=== PATIENT | female | born 1960 | race Caucasian/White ===

== ENCOUNTER 2018-07-08 07:19 | Emergency (ER) | payer SELFPAY ==
[2018-07-08] MEDS ORDERED: AMLODIPINE 5 MG TAB ONE (07:55)
[2018-07-08] MEDS ORDERED: METFORMIN HCL 500 MG TAB ONE (07:55)
--- NOTE | 2018-07-08 08:08 | RAD REPORT ---
EXAM DESCRIPTION: CT - Head Brain Wo Cont - 07/08/2018 7:57 am CLINICAL HISTORY: DIZZINESS Drowsiness, headache COMPARISON: Head Brain Wo Cont dated 06/26/2016; HEAD BRAIN W O CONTRAST dated 01/21/2008 TECHNIQUE: All CT scans are performed using dose optimization technique as appropriate and may inclu de automated exposure control or mA/KV adjustment according to patient size. FINDINGS: No intracranial hemorrhage, hydrocephalus or extra-axial fluid collection.No areas of brai n edema or evidence of midline shift. The paranasal sinuses and mastoids are clear. The calvarium is intact. IMPRESSION: No acute intracranial abnormality.
[2018-07-08 08:19] LABS: BUN Blood Urea Nitrogen 6 mg/dL (7-18); Bicarbonate 21 mmol/L (21-32); Glucose Level 321 mg/dL (74-106); Potassium 3.6 mmol/L (3.5-5.1); Sodium Level 137 mmol/L (136-145); Troponin (Emerg Dept Use Only) < 0.02 ng/mL (0.0-0.045)
[2018-07-08 08:29] LABS: Absolute Lymphocytes (CBC) 0.8 K/uL (0.7-4.9); Absolute Monocytes 0.3 K/uL (0.1-1.3); Absolute Neutrophil 1.5 K/uL (1.8-8.0); Basophils % 1.1 % (0-1.3); Eosinophils % 3.1 % (0-4.4); Hematocrit 40.2 % (36.0-45.0); Lymphocytes % 29.7 % (15.3-44.8); MCH 33.6 pg (27.0-35.0); MCV 94.1 fL (80-100); MPV 8.8 fL (7.6-11.3); Monocytes % 12.3 % (3.3-12.3); RBC Red Blood Cell Count 4.27 M/uL (3.86-4.86)
--- NOTE | 2018-07-08 08:45 | RAD REPORT ---
EXAM DESCRIPTION: RAD - Chest Single View - 07/08/2018 8:04 am CLINICAL HISTORY: MALAISE Chest pain. COMPARISON: Chest Pa And Lat (2 Views) dated 06/26/2016; CHEST SINGLE VIEW dated 10/30/2014; CHEST SIN GLE VIEW dated 10/29/2014; CHEST SINGLE VIEW dated 10/28/2014 FINDINGS: Portable technique limits examination quality. The lungs are grossly clear. The heart is normal in size. No displaced fractures.Cervical spine hardw are plate. IMPRESSION: No acute intrathoracic process suspected.
[2018-07-08 08:57] LABS: Urine Blood TRACE (NEG); Urine Glucose 3+ (NEG); Urine Protein NEGATIVE (NEG); Urine Specific Gravity 1.015 (1.005-1.030)
[2018-07-08 09:14] LABS: Blood Morphology Comment NOT SEEN (NOT SEEN); Platelet Estimate DECR; Urine White Blood Cell Casts OK
--- NOTE | 2018-07-08 09:20 | ER ---
Nurse's Notes [facility] Name: Maude Varner Age: 57 yrs Sex: Female : 1960 Arrival Date: 07/08/2018 Time: 07:21 Bed 5 Private MD: Diagnosis: Essential (primary) hypertension;Hyperglycemia, unspecified Presentation: 07/08 07:25 Presenting complaint: Patient states: frontal headache, pain to left jaw, nausea, and aa5 dizziness that began . Pt states "I think it's my blood pressure because I've been out of my Atenolol and Norvasc for about 3 weeks". Transition of care: patient was not received from another setting of care. Onset of symptoms was July 2018. Risk Assessment: Do you want to hurt yourself or someone else? Patient reports no desire to harm self or others. Initial Sepsis Screen: Does the patient meet any 2 criteria? No. Patient's initial sepsis screen is negative. Does the patient have a suspected source of infection? No. Patient's initial sepsis screen is negative. Care prior to arrival: None. 07:25 Method Of Arrival: Ambulatory aa5 07:25 Acuity: ELVIRA 2 aa5 07:32 Note Pt also reports being out of Metformin x 3 weeks ago. aa5 Triage Assessment: 07:32 Headache History: Denies prior headaches. General: Appears in no apparent distress. hj uncomfortable, Behavior is cooperative, appropriate for age, crying. Pain: Complains of pain in head Pain currently is 10 out of 10 on a pain scale. Pain began Also complains of nausea. Neuro: Level of Consciousness is awake, alert, obeys commands, Oriented to person, place, time, situation, Appropriate for age. Historical: - Allergies: 07:28 Morphine; aa5 - Home Meds: 07:37 amlodipine 10 mg tab 1 tab BID for Hypertension [Active]; atenolol 50 mg Oral tab 1 tab aa5 2 times per day [Active]; metformin 500 mg Oral tr24 1 tab twice a day for Prevention of Type 2 Diabetes Mellitus [Active]; - PMHx: 07:28 Cirrhosis; Diabetes - NIDDM; Hypertension; aa5 - PSHx: 07:28 Tubal ligation; cyst removed from wrist; Cholecystectomy; neck; aa5 - Immunization history:: Adult Immunizations up to date. - Social history:: Smoking status: Patient/guardian denies using tobacco. - Ebola Screening: : No symptoms or risks identified at this time. Screenin:32 Abuse screen: Denies threats or abuse. Denies injuries from another. Nutritional hj screening: No deficits noted. Tuberculosis screening: No symptoms or risk factors identified. Fall Risk None identified. Assessment: 07:26 General: Appears in no apparent distress. uncomfortable, Behavior is calm, cooperative, hj appropriate for age. Pain: Complains of pain in head. Neuro: Level of Consciousness is awake, alert, obeys commands, Oriented to person, place, time, situation, Appropriate for age. Cardiovascular: Capillary refill < 3 seconds Patient's skin is warm and dry. Respiratory: Airway is patent Respiratory effort is even, unlabored, Respiratory pattern is regular, symmetrical. GI: No signs and/or symptoms were reported involving the gastrointestinal system. : No signs and/or symptoms were reported regarding the genitourinary system. EENT: No signs and/or symptoms were reported regarding the EENT system. Derm: No signs and/or symptoms reported regarding the dermatologic system. Musculoskeletal: No signs and/or symptoms reported regarding the musculoskeletal system. 07:45 Reassessment: Patient and/or family updated on plan of care and expected duration. Pain hj level reassessed. Patient is alert, oriented x 3, equal unlabored respirations, skin warm/dry/pink. pt wheeled to CT:. 09:27 Reassessment: PT D/C HOME AMBULATORY, DX WITH ESSENTIAL HTN AND HYPERGLYCEMIA. bp Vital Signs: 07:28 BP 206 / 96; Pulse 98; Resp 18 S; Temp 98.8(TE); Pulse Ox 98% on R/A; Weight 74.84 kg aa5 (R); Height 5 ft. 3 in. (160.02 cm) (R); Pain 8/10; 08:00 BP 183 / 94; Pulse 85; Resp 18; Pulse Ox 100% on R/A; hj 08:15 BP 176 / 88; Pulse 87; Resp 18; Pulse Ox 99% on R/A; hj 08:18 BP 163 / 87; Pulse 90; Resp 18; Pulse Ox 99% on R/A; hj 08:57 BP 143 / 83; Pulse 90; Resp 18; Pulse Ox 99% on R/A; hj 09:15 BP 149 / 76; Pulse 95; Resp 17; Pulse Ox 97% ; bp 07:28 Body Mass Index 29.23 (74.84 kg, 160.02 cm) aa5 ED Course: 07:21 Patient arrived in ED. rg4 07:26 Triage completed. aa5 07:26 Arm band placed on. aa5 07:29 Braeden Espinoza MD is Attending Physician. gs 07:31 Papa De La Torre, ROMEO is Primary Nurse. hj 07:33 Patient has correct armband on for positive identification. Placed in gown. Bed in low hj position. Call light in reach. Side rails up X 1. Adult w/ patient. 07:53 Initial lab(s) drawn, by me, sent to lab. Inserted saline lock: 22 gauge in right hand, hj using aseptic technique. Blood collected. 07:56 CT completed. Patient tolerated procedure well. Patient moved to CT via wheelchair. Patient moved back from CT. 07:56 CT Head Brain wo Cont In Process Unspecified. EDMS 07:58 Patient moved to radiology via wheelchair. sw 07:59 X-ray completed. Patient tolerated procedure well. Patient moved back from radiology. sw 08:02 XRAY Chest (1 view) In Process Unspecified. EDMS 09:18 Vani Cheatham DO is Referral Physician. 09:26 No provider procedures requiring assistance completed. IV discontinued, intact, hj bleeding controlled, No redness/swelling at site. Pressure dressing applied. 09:27 No provider procedures requiring assistance completed. IV discontinued, intact, bp bleeding controlled, No redness/swelling at site. Pressure dressing applied. Administered Medications: 07:54 Drug: Norvasc 5 mg Route: PO; bp 08:11 Follow up: Response: No adverse reaction hj 07:54 Drug: metFORMIN 500 mg Route: PO; bp 08:11 Follow up: Response: No adverse reaction; Other hj Point of Care Testing: Blood Glucose: 07:35 Blood Glucose: 252 mg/dL; aa5 08:57 Blood Glucose: 226 mg/dL; hj Ranges: Outcome: 09:19 Discharge ordered by . gs 09:27 Discharged to home ambulatory. hj 09:27 Condition: stable 09:27 Discharge instructions given to patient, Instructed on discharge instructions, follow up and referral plans. medication usage, Demonstrated understanding of instructions, follow-up care, medications, Prescriptions given X 2. 09:27 Patient left the ED. dimitri Signatures: Dispatcher [employer] EDMS Padmini Baltazar Audri, RN RN Chante Servin Henry, RN RN hj Garcia, Rubi rg4 Braeden Espinoza MD MD gs Peltier, Brian, RN RN bp Corrections: (The following items were deleted from the chart) 08:22 08:18 BP 163 / 93; Pulse 90bpm; Resp 18bpm; Pulse Ox 99% RA; dimitri mosley
--- NOTE | 2018-07-08 09:20 | EDPHYS ---
Physician Documentation [facility] Name: Maude Varner Age: 57 yrs Sex: Female : 1960 Arrival Date: 07/08/2018 Time: 07:21 Bed 5 Private MD: ED Physician Braeden Espinoza HPI: 07/08 09:14 This 57 yrs old Female presents to ER via Ambulatory with complaints of gs Headache. 09:14 The patient complains of pain to the forehead. The patient describes the headache as gs throbbing. Onset: The symptoms/episode began/occurred 2 day(s) ago. Associated signs and symptoms: Pertinent positives: dizziness, bp elevated off meds seversl weeks. Severity of symptoms: At its worst the pain was moderate, in the emergency department the pain is unchanged. The symptoms are alleviated by nothing. the symptoms are aggravated by nothing. The patient has experienced similar episodes in the past, a few times. Historical: - Allergies: 07:28 Morphine; aa5 - Home Meds: 07:37 amlodipine 10 mg tab 1 tab BID for Hypertension [Active]; atenolol 50 mg Oral tab 1 tab aa5 2 times per day [Active]; metformin 500 mg Oral tr24 1 tab twice a day for Prevention of Type 2 Diabetes Mellitus [Active]; - PMHx: 07:28 Cirrhosis; Diabetes - NIDDM; Hypertension; aa5 - PSHx: 07:28 Tubal ligation; cyst removed from wrist; Cholecystectomy; neck; aa5 - Immunization history:: Adult Immunizations up to date. - Social history:: Smoking status: Patient/guardian denies using tobacco. - Ebola Screening: : No symptoms or risks identified at this time. ROS: 09:14 All other systems are negative. gs Exam: 09:14 Head/Face: Normocephalic, atraumatic. Eyes: Pupils equal round and reactive to light, gs extra-ocular motions intact. Lids and lashes normal. Conjunctiva and sclera are non-icteric and not injected. Cornea within normal limits. Periorbital areas with no swelling, redness, or edema. ENT: Nares patent. No nasal discharge, no septal abnormalities noted. Tympanic membranes are normal and external auditory canals are clear. Oropharynx with no redness, swelling, or masses, exudates, or evidence of obstruction, uvula midline. Mucous membranes moist. Neck: Trachea midline, no thyromegaly or masses palpated, and no cervical lymphadenopathy. Supple, full range of motion without nuchal rigidity, or vertebral point tenderness. No Meningismus. Chest/axilla: Normal chest wall appearance and motion. Nontender with no deformity. No lesions are appreciated. Cardiovascular: Regular rate and rhythm with a normal S1 and S2. No gallops, murmurs, or rubs. Normal PMI, no JVD. No pulse deficits. Respiratory: Lungs have equal breath sounds bilaterally, clear to auscultation and percussion. No rales, rhonchi or wheezes noted. No increased work of breathing, no retractions or nasal flaring. Abdomen/GI: Soft, non-tender, with normal bowel sounds. No distension or tympany. No guarding or rebound. No evidence of tenderness throughout. Back: No spinal tenderness. No costovertebral tenderness. Full range of motion. Skin: Warm, dry with normal turgor. Normal color with no rashes, no lesions, and no evidence of cellulitis. MS/ Extremity: Pulses equal, no cyanosis. Neurovascular intact. Full, normal range of motion. Neuro: Awake and alert, GCS 15, oriented to person, place, time, and situation. Cranial nerves II-XII grossly intact. Motor strength 5/5 in all extremities. Sensory grossly intact. Cerebellar exam normal. Normal gait. 09:14 Constitutional: The patient appears alert, awake. 09:14 ECG was reviewed by the Attending Physician. Vital Signs: 07:28 BP 206 / 96; Pulse 98; Resp 18 S; Temp 98.8(TE); Pulse Ox 98% on R/A; Weight 74.84 kg aa5 (R); Height 5 ft. 3 in. (160.02 cm) (R); Pain 8/10; 08:00 BP 183 / 94; Pulse 85; Resp 18; Pulse Ox 100% on R/A; hj 08:15 BP 176 / 88; Pulse 87; Resp 18; Pulse Ox 99% on R/A; hj 08:18 BP 163 / 87; Pulse 90; Resp 18; Pulse Ox 99% on R/A; hj 08:57 BP 143 / 83; Pulse 90; Resp 18; Pulse Ox 99% on R/A; hj 09:15 BP 149 / 76; Pulse 95; Resp 17; Pulse Ox 97% ; bp 07:28 Body Mass Index 29.23 (74.84 kg, 160.02 cm) aa5 MDM: 07:39 Patient medically screened. gs 09:14 Differential diagnosis: hypertensive headache, intracerebral hemorrhage, vasomotor gs headache. Data reviewed: vital signs, nurses notes. Counseling: I had a detailed discussion with the patient and/or guardian regarding: the historical points, exam findings, and any diagnostic results supporting the discharge/admit diagnosis, the presence of at least one elevated blood pressure reading (>120/80) during this emergency department visit, lab results, radiology results, the need for outpatient follow up. Response to treatment: the patient's symptoms have markedly improved after treatment, the patient's symptoms have resolved after treatment, and as a result, I will discharge patient. 07/08 07:39 Order name: Basic Metabolic Panel gs 07/08 07:39 Order name: CBC with Diff gs 07/08 07:39 Order name: Troponin (emerg Dept Use Only); Complete Time: 08:46 07/08 07:40 Order name: Basic Metabolic Panel; Complete Time: 08:46 EDMS 07/08 08:22 Order name: Urine Dipstick--Ancillary (enter results); Complete Time: 09:14 bd 07/08 08:33 Order name: CBC Smear Scan EDMS 07/08 07:39 Order name: XRAY Chest (1 view); Complete Time: 08:46 gs 07/08 07:39 Order name: EKG; Complete Time: 07:40 gs 07/08 07:39 Order name: Cardiac monitoring; Complete Time: 07:41 gs 07/08 07:39 Order name: CT Head Brain wo Cont; Complete Time: 08:46 gs 07/08 09:18 Order name: Glucose, Ancillary Testing EDMS 07/08 09:18 Order name: Glucose, Ancillary Testing EDMS 07/08 07:39 Order name: EKG - Nurse/Tech; Complete Time: 07:46 gs 07/08 07:39 Order name: IV Saline Lock; Complete Time: 07:52 gs 07/08 07:39 Order name: Labs collected and sent; Complete Time: 07:53 gs 07/08 07:39 Order name: O2 Per Protocol; Complete Time: 07:42 gs 07/08 07:39 Order name: O2 Sat Monitoring; Complete Time: 07:42 gs EC:14 Rate is 97 beats/min. Rhythm is regular. TX interval is normal. QRS interval is normal. gs T waves are Normal. No ST changes noted. Clinical impression: Abnormal EKG without significant change. Interpreted by me. Administered Medications: 07:54 Drug: Norvasc 5 mg Route: PO; bp 08:11 Follow up: Response: No adverse reaction hj 07:54 Drug: metFORMIN 500 mg Route: PO; bp 08:11 Follow up: Response: No adverse reaction; Other hj Point of Care Testing: Blood Glucose: 07:35 Blood Glucose: 252 mg/dL; aa5 08:57 Blood Glucose: 226 mg/dL; hj Ranges: Critical Glucose Levels:Adult <50 mg/dl or >400 mg/dl <40 mg/dl or >180 mg/dl Disposition: 07/08/18 09:19 Discharged to Home. Impression: Essential (primary) hypertension, Hyperglycemia, unspecified. - Condition is Stable. - Discharge Instructions: Hypertension, Managing Your Hypertension. - Prescriptions for Norvasc 5 mg Oral Tablet - take 1 tablet by ORAL route once daily; 15 tablet. Metformin 500 mg Oral Tablet - take 1 tablet by ORAL route 2 times per day . Then take 1 tablet with morning meals AND evening meals; 30 tablet. - Medication Reconciliation Form, Thank You Letter, Antibiotic Education, Prescription Opioid Use, Work release form form. - Follow up: Vani Cheatham DO; When: 2 - 3 days; Reason: Re-evaluation by your physician. Signatures: Dispatcher [employer] EDTX Laura Goldsmith RN RN [facility] Papa De La Torre RN RN Braeden Espinoza MD MD Yogi Lyon RN RN bp Corrections: (The following items were deleted from the chart) 09:27 09:19 07/08/2018 09:19 Discharged to Home. Impression: Essential (primary) hj hypertension; Hyperglycemia, unspecified. Condition is Stable. Forms are Medication Reconciliation Form, Thank You Letter, Antibiotic Education, Prescription Opioid Use. Follow up: Vani Cheatham; When: 2 - 3 days; Reason: Re-evaluation by your physician.
[2018-07-08 09:35] VITALS: TEMP 98.8
[2018-07-08 09:40] VITALS: BP 149/76; O2SAT 97
--- NOTE | 2018-07-08 10:48 | EKG ---
Test Date: 2018-07-08 Test Time: 07:41:31 Sales Solutions Representative: [place] MEASUREMENT RESULTS: Intervals: Rate: 97 DC: 150 QRSD: 88 QT: 380 QTc: 482 [place]: P: 30 DC: 150 QRS: 0 T: 21 INTERPRETIVE STATEMENTS: Normal sinus rhythm Prolonged QT Abnormal ECG Compared to ECG 07/30/2016 13:35:44 T-wave abnormality no longer present Electronically Signed On 07-08-18 10:47:15 CDT by Yogi Lowery
== END 2018-07-08 09:27 | disposition home or self-care (01) ==
LOC: ER 07:19
DX: E11.65 Type 2 diabetes mellitus with hyperglycemia (principal); I10 Essential (primary) hypertension; Z88.5 Allergy status to narcotic agent
CPT/HCPCS: 36415; 70450; 71045; 80048; 81003; 82962; 84484; 85025; 93005; 99284

== ENCOUNTER 2018-07-30 08:07 | Emergency (ER) | payer SELFPAY ==
[2018-07-30 09:12] LABS: Protime INR 1.14
[2018-07-30 09:13] LABS: Absolute Lymphocytes (CBC) 0.8 K/uL (0.7-4.9); Absolute Monocytes 0.3 K/uL (0.1-1.3); Absolute Neutrophil 1.8 K/uL (1.8-8.0); Basophils % 0.5 % (0-1.3); Eosinophils % 3.4 % (0-4.4); Hematocrit 42.9 % (36.0-45.0); Lymphocytes % 26.2 % (15.3-44.8); MCH 32.9 pg (27.0-35.0); MCV 95.9 fL (80-100); MPV 8.3 fL (7.6-11.3); RBC Red Blood Cell Count 4.47 M/uL (3.86-4.86)
--- NOTE | 2018-07-30 09:20 | RAD REPORT ---
EXAM DESCRIPTION: CT - Head Brain Wo Cont - 07/30/2018 9:02 am CLINICAL HISTORY: July 08, 2018 COMPARISON: None. TECHNIQUE: Computed axial tomography of the head was obtained. IV contrast was not requested. All CT scans are performed using dose optimization technique as appropriate and may include automated exposure control or mA/KV adjustment according to patient size. FINDINGS: An intracranial bleed is not seen . The ventricles are normal in caliber. No extra-axial fluid collection is noted. Fluid within the sinuses/ mastoids is not seen. IMPRESSION: No acute intracranial abnormality is seen. If patient's symptoms persist MRI of the bra in would be recommended.
[2018-07-30] MEDS ORDERED: ACETAMINOPHEN 500 MG TAB ONE (09:22)
[2018-07-30] MEDS ORDERED: cloNIDine HCl 0.1 MG TAB ONE (09:22)
[2018-07-30] MEDS ORDERED: NA CHLORIDE 0.9% 1,000 ML ONE (09:47)
[2018-07-30 09:59] LABS: Urine Blood 1+ (NEG); Urine Glucose 3+ (NEG); Urine Protein NEGATIVE (NEG); Urine pH 6.5 (5.0-7.0)
[2018-07-30 09:59] LABS: ALT/SGPT 39 U/L (12-78); AST/SGOT 78 U/L (15-37); Albumin 3.4 g/dL (3.4-5.0); Alkaline Phosphatase 103 U/L (45-117); BUN Blood Urea Nitrogen 8 mg/dL (7-18); Bicarbonate 23 mmol/L (21-32); Bilirubin Total 2.9 mg/dL (0.2-1.0); Glucose Level 274 mg/dL (74-106); Magnesium 2.1 mg/dL (1.8-2.4); NT PRO-BNP 19 pg/mL (<125); Potassium 3.5 mmol/L (3.5-5.1); Protein, Total 8.2 g/dL (6.4-8.2); Sodium Level 136 mmol/L (136-145); Troponin (Emerg Dept Use Only) < 0.02 ng/mL (0.0-0.045)
--- NOTE | 2018-07-30 10:31 | RAD REPORT ---
EXAM DESCRIPTION: [place] Single View07/30/2018 9:01 am CLINICAL HISTORY: Chest pain COMPARISON: July 08 2018 FINDINGS: The lungs appear clear of acute infiltrate. The heart is normal size. An old proximal lef t humeral fracture is suspected IMPRESSION: No acute abnormalities displayed
--- NOTE | 2018-07-30 11:20 | RAD REPORT ---
EXAM DESCRIPTION: US - Abdomen Exam Limited - 07/30/2018 10:47 am CLINICAL HISTORY: Abdominal pain. Elevated liver enzymes COMPARISON: August 2017 FINDINGS: A 4.1 centimeter cyst is present within the right lobe of the liver. Liver has an increase d and heterogeneous echotexture. Hepatopetal flow seen. The biliary tree is normal caliber. IMPRESSION: 4.1 centimeter hepatic cyst Increased and heterogeneous hepatic echotexture consistent with parenchymal disease
--- NOTE | 2018-07-30 12:54 | ER ---
Nurse's Notes [facility] Name: Maude Varner Age: 57 yrs Sex: Female : 1960 Arrival Date: 07/30/2018 Time: 08:09 Bed 15 Private MD: Diagnosis: Hypertensive heart disease;Headache Presentation: 07/30 08:32 Presenting complaint: Patient states: bp has been running high for past couple days, iw also has headache, left shoulder pain, radiates up to left side of neck, was recently placed on Norvasc and atenolol, took double dose of Norvasc this morning to try to bring pressure down. Transition of care: patient was not received from another setting of care. Onset of symptoms was July 29, 2018. Risk Assessment: Do you want to hurt yourself or someone else? Patient reports no desire to harm self or others. Initial Sepsis Screen: Does the patient meet any 2 criteria? No. Patient's initial sepsis screen is negative. Does the patient have a suspected source of infection? No. Patient's initial sepsis screen is negative. Care prior to arrival: None. 08:32 Method Of Arrival: Ambulatory iw 08:32 Acuity: ELVIRA 2 iw Historical: - Allergies: 08:36 Morphine; iw - Home Meds: 08:36 amlodipine 10 mg tab 1 tab BID for Hypertension [Active]; atenolol 50 mg Oral tab 1 tab iw 2 times per day [Active]; - PMHx: 08:36 Cirrhosis; Diabetes - NIDDM; Hypertension; iw - PSHx: 08:36 Tubal ligation; cyst removed from wrist; Cholecystectomy; neck; iw - Immunization history:: Adult Immunizations not up to date. - Social history:: Smoking status: Patient/guardian denies using tobacco. - Ebola Screening: : Patient negative for fever greater than or equal to 101.5 degrees Fahrenheit, and additional compatible Ebola Virus Disease symptoms Patient denies exposure to infectious person Patient denies travel to an Ebola-affected area in the 21 days before illness onset No symptoms or risks identified at this time. Screenin:36 Abuse screen: Denies threats or abuse. Nutritional screening: No deficits noted. tw2 Tuberculosis screening: No symptoms or risk factors identified. Fall Risk None identified. Assessment: 08:35 General: Appears in no apparent distress. Behavior is calm, cooperative, appropriate tw2 for age. Pain: Complains of pain in headache. Neuro: Level of Consciousness is awake, alert, obeys commands, Oriented to person, place, time, situation. Cardiovascular: Denies chest pain, shortness of breath, Heart tones S1 S2 Patient's skin is warm and dry. Respiratory: Airway is patent Respiratory effort is even, unlabored, Respiratory pattern is regular, symmetrical, Breath sounds are clear bilaterally. GI: No signs and/or symptoms were reported involving the gastrointestinal system. : No signs and/or symptoms were reported regarding the genitourinary system. EENT: No signs and/or symptoms were reported regarding the EENT system. Derm: No signs and/or symptoms reported regarding the dermatologic system. Musculoskeletal: Range of motion: intact in all extremities. 09:18 Reassessment: Patient appears in no apparent distress at this time. No changes from tw2 previously documented assessment. Patient and/or family updated on plan of care and expected duration. Pain level reassessed. Patient is alert, oriented x 3, equal unlabored respirations, skin warm/dry/pink. 09:45 Reassessment: Patient appears in no apparent distress at this time. No changes from tw2 previously documented assessment. Patient and/or family updated on plan of care and expected duration. Pain level reassessed. Patient is alert, oriented x 3, equal unlabored respirations, skin warm/dry/pink. 10:59 Reassessment: Patient appears in no apparent distress at this time. No changes from tw2 previously documented assessment. Patient and/or family updated on plan of care and expected duration. Pain level reassessed. Patient is alert, oriented x 3, equal unlabored respirations, skin warm/dry/pink. 11:55 Reassessment: Patient appears in no apparent distress at this time. No changes from tw2 previously documented assessment. Patient and/or family updated on plan of care and expected duration. Pain level reassessed. Patient is alert, oriented x 3, equal unlabored respirations, skin warm/dry/pink. 12:30 Reassessment: Patient appears in no apparent distress at this time. No changes from tw2 previously documented assessment. Patient and/or family updated on plan of care and expected duration. Pain level reassessed. Patient is alert, oriented x 3, equal unlabored respirations, skin warm/dry/pink. 13:17 Reassessment: Patient appears in no apparent distress at this time. No changes from tw2 previously documented assessment. Patient and/or family updated on plan of care and expected duration. Pain level reassessed. Patient is alert, oriented x 3, equal unlabored respirations, skin warm/dry/pink. Vital Signs: 08:33 BP 207 / 100; Pulse 117; Resp 16; Temp 98.3; Pulse Ox 99% on R/A; Weight 72.57 kg; iw Height 5 ft. 3 in. (160.02 cm); 08:42 BP 213 / 92; iw 09:17 BP 199 / 92; Pulse 117; Resp 17; Pulse Ox 99% on R/A; Pain 6/10; tw2 09:44 BP 151 / 82; Pulse 92; Resp 19; Pulse Ox 98% ; tw2 10:58 BP 125 / 65; Pulse 78; Resp 13; Pulse Ox 98% on R/A; tw2 11:55 BP 113 / 69; Pulse 77; Resp 16; Pulse Ox 97% on R/A; tw2 12:30 BP 110 / 71; Pulse 66; Resp 17; Pulse Ox 97% on R/A; tw2 13:17 BP 116 / 76; Pulse 71; Resp 17; Pulse Ox 97% on R/A; tw2 08:33 Body Mass Index 28.34 (72.57 kg, 160.02 cm) iw ED Course: 08:09 Patient arrived in ED. as 08:26 Enoch Brito PA is PHCP. cp 08:26 Enoch Mi MD is Attending Physician. cp 08:33 Triage completed. iw 08:33 Arm band placed on. iw 08:34 Alona Hilario, RN is Primary Nurse. tw2 08:36 Bed in low position. Call light in reach. laboratory monitor on. Pulse ox on. NIBP on. tw2 08:49 Missed attempt(s): 22 gauge wrist. mh5 08:50 Placed in gown. Warm blanket given. mh5 08:50 EKG done, by nutrition tech. reviewed by Enoch ZAZUETA. at1 08:56 Inserted saline lock: 22 gauge in left antecubital area, using aseptic technique. Blood tw2 collected. 08:58 X-ray completed. Portable x-ray completed in exam room. jr1 08:59 XRAY Chest (1 view) In Process Unspecified. EDMS 09:01 CT completed. Patient tolerated procedure well. Patient moved to CT via wheelchair. sj Patient moved back from CT. 09:02 CT Head Brain wo Cont In Process Unspecified. EDMS 09:29 Urine collected: clean catch specimen, clear. mh5 10:47 US Abdomen Limited In Process Unspecified. EDMS 10:47 Ultrasound completed. Patient tolerated well. Patient moved back from ultrasound. lc3 11:51 EKG done, by nutrition tech. reviewed by Enoch ZAZUETA Repeat EKG. at1 13:09 IV discontinued. mh5 13:09 IV discontinued, intact, bleeding controlled, No redness/swelling at site. Pressure tw2 dressing applied. 13:18 No provider procedures requiring assistance completed. tw2 Administered Medications: 09:17 Drug: cloNIDine 0.2 mg Route: PO; tw2 11:00 Follow up: Response: No adverse reaction; Blood pressure is lowered tw2 09:17 Drug: Tylenol 1000 mg Route: PO; tw2 09:45 Follow up: Response: No adverse reaction; Blood pressure is lowered tw2 11:00 Follow up: Response: No adverse reaction; Pain is decreased tw2 09:44 Drug: NS 0.9% 1000 ml Route: IV; Rate: 1 bolus; Site: left antecubital; tw2 11:23 Follow up: Response: No adverse reaction; IV Status: Completed infusion; IV Intake: tw2 1000ml Point of Care Testing: Blood Glucose: 08:55 Blood Glucose: 250 mg/dL; mh5 Ranges: Intake: 11:23 IV: 1000ml; Total: 1000ml. tw2 11:30 IV: 1000ml; Total: 2000ml. tw2 Outcome: 12:53 Discharge ordered by . cp 13:18 Discharged to home ambulatory. tw2 13:18 Condition: stable 13:18 Discharge instructions given to patient, Instructed on discharge instructions, follow up and referral plans. Demonstrated understanding of instructions, follow-up care. 13:19 Patient left the ED. tw2 Signatures: Dispatcher [employer] Pdamini Vasquez Jennifer jr1 Martinez, Amelia as Williams, Irene, RN RN iw Melody Hudson, campaign management specialist EKG Tat1 Enoch Brito PA PA cp Cunningham, Laulita lc3 Wise, Tara, RN RN tw2 Kim Santamaria [facility] Corrections: (The following items were deleted from the chart) 08:42 08:33 BP 207 / 100; Resp 16bpm; Pulse Ox 99% RA; Temp 98.3F; 72.57 kg; Height 5 ft. 3 iw in.; BMI: 28.3; iw 08:43 08:32 Acuity: ELVIRA 3 iw iw
--- NOTE | 2018-07-30 12:54 | EDPHYS ---
Physician Documentation [facility] Name: Maude Varner Age: 57 yrs Sex: Female : 1960 Arrival Date: 07/30/2018 Time: 08:09 Bed 15 Private MD: Enoch Vega HPI: 07/30 08:45 This 57 yrs old Female presents to ER via Ambulatory with complaints of Blood cp Pressure Problem. 08:45 The patient has elevated blood pressure and discovered this at home, with a home cp device. Onset: The symptoms/episode began/occurred 2 day(s) ago. 08:45 Modifying factors: The symptoms are alleviated by nothing, patient reports taking extra cp amlodipine today. Associated signs and symptoms: Pertinent positives: headache, left shoulder pain radiating to jaw. Historical: - Allergies: 08:36 Morphine; iw - Home Meds: 08:36 amlodipine 10 mg tab 1 tab BID for Hypertension [Active]; atenolol 50 mg Oral tab 1 tab iw 2 times per day [Active]; - PMHx: 08:36 Cirrhosis; Diabetes - NIDDM; Hypertension; iw - PSHx: 08:36 Tubal ligation; cyst removed from wrist; Cholecystectomy; neck; iw - Immunization history:: Adult Immunizations not up to date. - Social history:: Smoking status: Patient/guardian denies using tobacco. - Ebola Screening: : Patient negative for fever greater than or equal to 101.5 degrees Fahrenheit, and additional compatible Ebola Virus Disease symptoms Patient denies exposure to infectious person Patient denies travel to an Ebola-affected area in the 21 days before illness onset No symptoms or risks identified at this time. ROS: 08:50 Constitutional: Negative for body aches, chills, fever, poor PO intake. cp 08:50 Eyes: Negative for injury, pain, redness, and discharge. cp 08:50 ENT: Negative for drainage from ear(s), ear pain, sore throat, difficulty swallowing, difficulty handling secretions. 08:50 Cardiovascular: Negative for chest pain, edema, palpitations. 08:50 Respiratory: Negative for cough, shortness of breath, wheezing. 08:50 Abdomen/GI: Negative for abdominal pain, nausea, vomiting, and diarrhea, black/tarry stool, rectal bleeding. 08:50 Back: Negative for pain at rest, pain with movement, radiated pain. 08:50 : Negative for urinary symptoms. 08:50 MS/extremity: Positive for pain, tenderness, of the left shoulder radiating to left jaw, Negative for injury or acute deformity, decreased range of motion. 08:50 Skin: Negative for cellulitis, rash. 08:50 Neuro: Positive for headache, Negative for altered mental status, syncope, near syncope, weakness. 08:50 All other systems are negative. Exam: 08:55 ECG was reviewed by the Attending Physician. cp 08:57 Constitutional: The patient appears in no acute distress, alert, awake, cp non-diaphoretic, non-toxic, well developed, well nourished. 08:57 Head/Face: Normocephalic, atraumatic. Eyes: Pupils equal round and reactive to light, cp extra-ocular motions intact. Lids and lashes normal. Conjunctiva and sclera are non-icteric and not injected. Cornea within normal limits. Periorbital areas with no swelling, redness, or edema. ENT: Nares patent. No nasal discharge, no septal abnormalities noted. Tympanic membranes are normal and external auditory canals are clear. Oropharynx with no redness, swelling, or masses, exudates, or evidence of obstruction, uvula midline. Mucous membranes moist. 08:57 Neck: ROM/movement: limited range of motion, is not appreciated, Meningeal signs: are not present, nuchal rigidity, is not appreciated. 08:57 Chest/axilla: Inspection: normal, Palpation: is normal, no crepitus, no tenderness. 08:57 Cardiovascular: Rate: tachycardic, Rhythm: regular, Pulses: Pulses are 2+ in right radial artery and left radial artery. Heart sounds: murmur, not appreciated, Edema: is not appreciated, JVD: is not appreciated. 08:57 Respiratory: the patient does not display signs of respiratory distress, Respirations: normal, no use of accessory muscles, no retractions, no splinting, no tachypnea, labored breathing, is not present, Breath sounds: are clear throughout, no decreased breath sounds, no stridor, no wheezing. 08:57 Abdomen/GI: Inspection: abdomen appears normal, Bowel sounds: active, all quadrants, Palpation: abdomen is soft and non-tender, in all quadrants, rebound tenderness, is not appreciated, voluntary guarding, is not appreciated, involuntary guarding, is not appreciated. 08:57 Back: pain, is absent, ROM is normal. 08:57 Musculoskeletal/extremity: Exam is negative for calf tenderness, decreased range of motion, edema, injury. 08:57 Skin: cellulitis, is not appreciated, no rash present. 08:57 Neuro: Orientation: to person, place \T\ time. Mentation: lucid, able to follow commands, Cerebellar function: is grossly normal, Motor: moves all fours, strength is normal, Sensation: no obvious gross deficits. 12:00 ECG was reviewed by the Attending Physician. cp Vital Signs: 08:33 BP 207 / 100; Pulse 117; Resp 16; Temp 98.3; Pulse Ox 99% on R/A; Weight 72.57 kg; iw Height 5 ft. 3 in. (160.02 cm); 08:42 BP 213 / 92; iw 09:17 BP 199 / 92; Pulse 117; Resp 17; Pulse Ox 99% on R/A; Pain 6/10; tw2 09:44 BP 151 / 82; Pulse 92; Resp 19; Pulse Ox 98% ; tw2 10:58 BP 125 / 65; Pulse 78; Resp 13; Pulse Ox 98% on R/A; tw2 11:55 BP 113 / 69; Pulse 77; Resp 16; Pulse Ox 97% on R/A; tw2 12:30 BP 110 / 71; Pulse 66; Resp 17; Pulse Ox 97% on R/A; tw2 13:17 BP 116 / 76; Pulse 71; Resp 17; Pulse Ox 97% on R/A; tw2 08:33 Body Mass Index 28.34 (72.57 kg, 160.02 cm) iw MDM: 08:26 Patient medically screened. cp 09:00 Differential diagnosis: hypertensive crisis, Malignant HTN, CVA, intracerebral cp hemorrhage, acute WI. 12:52 Data reviewed: vital signs, nurses notes, lab test result(s), EKG, radiologic studies, cp CT scan, plain films. 12:52 Test interpretation: by ED physician or midlevel provider: ECG, plain radiologic cp studies. Counseling: I had a detailed discussion with the patient and/or guardian regarding: the historical points, exam findings, and any diagnostic results supporting the discharge/admit diagnosis, lab results, radiology results, the need for outpatient follow up, a family practitioner, to return to the emergency department if symptoms worsen or persist or if there are any questions or concerns that arise at home. Response to treatment: the patient's symptoms have markedly improved after treatment, VSS. Blood pressure markedly improved. Will discharge to home for continued monitoring. 07/30 08:40 Order name: Basic Metabolic Panel; Complete Time: 10:04 07/30 10:04 Interpretation: Normal except: GLUC 274. 07/30 08:40 Order name: CBC with Diff; Complete Time: 09:35 cp 07/30 09:35 Interpretation: Normal except: WBC 3.0; PLT 41. cp 07/30 08:40 Order name: LFT's; Complete Time: 10:04 07/30 10:05 Interpretation: Normal except: AST 78; BILIT 2.9; BILID 1.0; GLOB 4.8; A/G 0.7. 07/30 08:40 Order name: Magnesium; Complete Time: 10:04 07/30 10:06 Interpretation: Within normal limits: MG 2.1. 07/30 08:40 Order name: NT PRO-BNP; Complete Time: 10:04 07/30 10:05 Interpretation: Within normal limits: NT PRO-BNP 19. 07/30 08:40 Order name: PT-INR; Complete Time: 09:21 07/30 09:21 Interpretation: Abnormal: PT 13.5. 07/30 08:40 Order name: Troponin (emerg Dept Use Only); Complete Time: 10:04 07/30 10:05 Interpretation: TROPED < 0.02; Reviewed. 07/30 08:40 Order name: XRAY Chest (1 view); Complete Time: 11:21 07/30 11:21 Interpretation: Report review. 07/30 08:40 Order name: CT Head Brain wo Cont; Complete Time: 09:21 07/30 09:21 Interpretation: Report reviewed. 07/30 09:48 Order name: Urine Dipstick--Ancillary (enter results); Complete Time: 10:04 07/30 10:05 Interpretation: Normal except: UGLUC 3+; UBLD 1+. 07/30 09:48 Order name: Urine --Ancillary (enter results); Complete Time: 10:04 bd 07/30 10:09 Order name: US Abdomen Limited; Complete Time: 11:21 cp 07/30 11:21 Interpretation: Report reviewed. cp 07/30 11:43 Order name: Troponin I; Complete Time: 12:51 cp 07/30 08:40 Order name: EKG; Complete Time: 08:41 cp 07/30 08:40 Order name: Cardiac monitoring; Complete Time: 08:42 cp 07/30 08:40 Order name: EKG - Nurse/Tech; Complete Time: 08:42 cp 07/30 08:40 Order name: IV Saline Lock; Complete Time: 09:12 cp 07/30 08:40 Order name: Labs collected and sent; Complete Time: 09:13 cp 07/30 08:40 Order name: O2 Per Protocol; Complete Time: 08:42 cp 07/30 08:40 Order name: O2 Sat Monitoring; Complete Time: 08:42 cp 07/30 08:40 Order name: Urine Dipstick-Ancillary (obtain specimen); Complete Time: 09:38 cp 07/30 08:40 Order name: Urine Test (obtain specimen); Complete Time: 09:38 cp 07/30 11:43 Order name: EKG; Complete Time: 11:43 cp 07/30 11:43 Order name: EKG - Nurse/Tech; Complete Time: 11:57 cp EC:55 Rate is 112 beats/min. Rhythm is regular. NV interval is normal. QRS interval is cp normal. QT interval is normal. Interpreted by me. Reviewed by me. 12:00 Rate is 74 beats/min. Rhythm is regular. QRS [place] is Normal. QRS interval is normal. QT cp interval is normal. T waves are Inverted in lead III. Interpreted by me. Reviewed by me. Administered Medications: 09:17 Drug: cloNIDine 0.2 mg Route: PO; tw2 11:00 Follow up: Response: No adverse reaction; Blood pressure is lowered tw2 09:17 Drug: Tylenol 1000 mg Route: PO; tw2 09:45 Follow up: Response: No adverse reaction; Blood pressure is lowered tw2 11:00 Follow up: Response: No adverse reaction; Pain is decreased tw2 09:44 Drug: NS 0.9% 1000 ml Route: IV; Rate: 1 bolus; Site: left antecubital; tw2 11:23 Follow up: Response: No adverse reaction; IV Status: Completed infusion; IV Intake: tw2 1000ml Point of Care Testing: Blood Glucose: 08:55 Blood Glucose: 250 mg/dL; mh5 Ranges: Critical Glucose Levels:Adult <50 mg/dl or >400 mg/dl <40 mg/dl or >180 mg/dl Disposition: 07/31 08:54 Co-signature as Attending Physician, Enoch Mi MD I agree with the assessment and jerrod plan of care. Disposition: 07/30/18 12:53 Discharged to Home. Impression: Hypertensive heart disease, Headache. - Condition is Stable. - Discharge Instructions: General Headache Without Cause, Hypertension, How to Take Your Blood Pressure, [id number], Managing Your Hypertension. - Medication Reconciliation Form, Thank You Letter, Antibiotic Education, Prescription Opioid Use, Work release form form. - Follow up: Private Physician; When: 1 - 2 days; Reason: Recheck today's complaints. - Problem is new. - Symptoms have improved. Signatures: Dispatcher [employer] EDEnoch Jarquin MD MD cha Williams, Irene, RN RN Enoch Brito PA PA cp Wise, Tara RN RN tw2 Corrections: (The following items were deleted from the chart) 07/30 13:19 12:53 07/30/2018 12:53 Discharged to Home. Impression: Hypertensive heart disease; tw2 Headache. Condition is Stable. Forms are Work release form, Medication Reconciliation Form, Thank You Letter, Antibiotic Education, Prescription Opioid Use. Follow up: Private Physician; When: 1 - 2 days; Reason: Recheck today's complaints. Problem is new. Symptoms have improved. cp
[2018-07-30 13:36] VITALS: TEMP 98.3
[2018-07-30 13:41] VITALS: O2SAT 97
[2018-07-30 13:44] VITALS: BP 116/76
--- NOTE | 2018-07-30 13:53 | EKG ---
Test Date: 2018-07-30 Test Time: 11:47:07 Material Handler Floorperson: JOSELUIS MEASUREMENT RESULTS: Intervals: Rate: 74 KS: 166 QRSD: 86 QT: 416 QTc: 461 [place]: P: 38 KS: 166 QRS: 17 T: 19 INTERPRETIVE STATEMENTS: Normal sinus rhythm Normal ECG Compared to ECG 07/30/2018 08:45:32 Sinus tachycardia no longer present Electronically Signed On 07-30-18 13:53:05 CDT by Javier Redd
--- NOTE | 2018-07-30 13:55 | EKG ---
Test Date: 2018-07-30 Test Time: 08:45:32 Fur Comber: JOSELUIS MEASUREMENT RESULTS: Intervals: Rate: 112 RI: 152 QRSD: 84 QT: 340 QTc: 464 [place]: P: 38 RI: 152 QRS: 10 T: 8 INTERPRETIVE STATEMENTS: Sinus tachycardia Otherwise normal ECG Compared to ECG 07/08/2018 07:41:31 Sinus rhythm no longer present Prolonged QT interval no longer present Electronically Signed On 07-30-18 13:53:15 CDT by Javier Redd
== END 2018-07-30 13:19 | disposition home or self-care (01) ==
LOC: ER 08:07
DX: I11.9 Hypertensive heart disease without heart failure (principal); I10 Essential (primary) hypertension; E11.9 Type 2 diabetes mellitus without complications; Z88.5 Allergy status to narcotic agent
CPT/HCPCS: 36415; 70450; 71045; 76705; 80048; 80076; 81003; 81025; 82962; 83735; 83880; 84484; 85025; 85610; 93005; 96360; 96361; 99285; J7030

== ENCOUNTER 2019-03-24 08:20 | Emergency (ER) | payer SELFPAY ==
[2019-03-24] MEDS ORDERED: METOCLOPRAMIDE 10 MG/2mL INJ ONE (09:00)
[2019-03-24] MEDS ORDERED: NA CHLORIDE 0.9% 1,000 ML ONE (09:01)
[2019-03-24] MEDS ORDERED: NA CHLORIDE 0.9% 50 ML IV ONE (09:01)
[2019-03-24] MEDS ORDERED: KETOROLAC 30 MG/ML INJ ONE (09:01)
--- NOTE | 2019-03-24 09:05 | RAD REPORT ---
EXAM DESCRIPTION: CT - Head Brain Wo Cont - 03/24/2019 8:55 am CLINICAL HISTORY: Headache;Dizziness Headache, drowsiness, CVA COMPARISON: Head Brain Wo Cont dated 07/30/2018; Head Brain Wo Cont dated 07/08/2018 TECHNIQUE: All CT scans are performed using dose optimization technique as appropriate and may inclu de automated exposure control or mA/KV adjustment according to patient size. FINDINGS: No intracranial hemorrhage, hydrocephalus or extra-axial fluid collection.No areas of brai n edema or evidence of midline shift. The paranasal sinuses and mastoids are clear. The calvarium is intact. IMPRESSION: No acute intracranial abnormality.
[2019-03-24 09:06] LABS: Basophils % 0.3 % (0-1.3); Eosinophils % 3.9 % (0-4.4); Hematocrit 42.1 % (36.0-45.0); Lymphocytes % 39.1 % (15.3-44.8); Monocytes % 11.1 % (3.3-12.3); RBC Red Blood Cell Count 4.31 M/uL (3.86-4.86)
[2019-03-24 09:29] LABS: BUN Blood Urea Nitrogen 4 mg/dL (7-18); Bicarbonate 28 mmol/L (21-32); Creatine Phosphokinase 114 U/L (26-192); Glucose Level 208 mg/dL (74-106); Magnesium 2.1 mg/dL (1.8-2.4); Potassium 3.7 mmol/L (3.5-5.1); Sodium Level 144 mmol/L (136-145); Troponin (Emerg Dept Use Only) < 0.02 ng/mL (0.0-0.045)
--- NOTE | 2019-03-24 10:33 | ER ---
Nurse's Notes [facility] Name: Maude Varner Age: 58 yrs Sex: Female : 1960 Arrival Date: 03/24/2019 Time: 08:23 Bed 14 Private MD: None, None Diagnosis: Headache Presentation: 03/24 08:29 Presenting complaint: Patient states: hand cramping x 4 days, headache that began last ss night. Pt reports that last time she felt this way her potassium was low. Also reports that she has been out of her blood pressure medication as well as metformin. Also c/o dizziness. Transition of care: patient was not received from another setting of care. Onset of symptoms was March 20, 2019. Risk Assessment: Do you want to hurt yourself or someone else? Patient reports no desire to harm self or others. Initial Sepsis Screen: Does the patient meet any 2 criteria? No. Patient's initial sepsis screen is negative. Does the patient have a suspected source of infection? No. Patient's initial sepsis screen is negative. Care prior to arrival: None. 08:29 Method Of Arrival: Ambulatory ss 08:29 Acuity: ELVIRA 3 ss Historical: - Allergies: 09:54 Morphine; ph - Home Meds: 09:54 amlodipine 10 mg tab 1 tab BID for Hypertension [Active]; atenolol 50 mg Oral tab 1 tab ph 2 times per day [Active]; metformin 500 mg Oral tr24 1 tab twice a day for Prevention of Type 2 Diabetes Mellitus [Active]; - PMHx: 09:54 Cirrhosis; Diabetes - NIDDM; Hypertension; ph - PSHx: 09:54 Tubal ligation; cyst removed from wrist; Cholecystectomy; neck; ph - Immunization history:: Adult Immunizations. - Social history:: Smoking status: Patient/guardian denies using tobacco. - Ebola Screening: : No symptoms or risks identified at this time. Screenin:53 Abuse screen: Denies threats or abuse. Denies injuries from another. Nutritional ph screening: No deficits noted. Tuberculosis screening: No symptoms or risk factors identified. Fall Risk None identified. Assessment: 08:45 General: Appears in no apparent distress. uncomfortable, well groomed, Behavior is ph calm, cooperative, appropriate for age, Reports fatigue for >3 days, Denies fever, feeling ill. Pain: Complains of pain in top of head. Neuro: Level of Consciousness is awake, alert, obeys commands, Oriented to person, place, time, situation, Loading Checker are equal bilaterally Moves all extremities. Full function Speech is normal, Facial symmetry appears normal, Facial symmetry: tongue is midline, Pupils are PERRLA, Reports dizziness, numbness in left arm Denies blurred vision difficulty swallowing. Cardiovascular: Reports fatigue, lightheadedness, nausea, vomiting, Denies chest pain, palpitations, shortness of breath, syncope, Capillary refill < 3 seconds in bilateral fingers Patient's skin is warm and dry. Rhythm is sinus rhythm. Respiratory: Airway is patent Respiratory effort is even, unlabored, Respiratory pattern is regular, symmetrical. GI: Reports nausea, vomiting, Patient currently denies abdominal pain, diarrhea. Derm: Skin is intact, Skin is pink, warm \T\ dry. Musculoskeletal: Circulation, motion, and sensation intact. Range of motion: intact in all extremities. 09:45 Reassessment: Patient appears in no apparent distress at this time. Patient and/or ph family updated on plan of care and expected duration. Pain level reassessed. Patient is alert, oriented x 3, equal unlabored respirations, skin warm/dry/pink. Pt resting quietly, awaiting lab and radiology results. 10:40 Reassessment: Patient appears in no apparent distress at this time. Patient and/or ph family updated on plan of care and expected duration. Pain level reassessed. Patient is alert, oriented x 3, equal unlabored respirations, skin warm/dry/pink. Pt instructed to keep follow up appointment w/ PCP and d/c home Patient states symptoms have improved. Vital Signs: 08:34 BP 177 / 84; Pulse 93; Resp 18; Temp 97.9(O); Pulse Ox 99% ; mh5 09:03 BP 150 / 85 Supine; Pulse 87 RA; Resp 16; Pulse Ox 97% on R/A; mh5 09:05 BP 147 / 74 Sitting; Pulse 83; Resp 17; Pulse Ox 98% on R/A; mh5 09:07 BP 139 / 79 Standing; Pulse 90; Resp 19; Pulse Ox 100% on R/A; mh5 09:52 BP 129 / 67; Pulse 83; Resp 18; Pulse Ox 99% on R/A; ph 10:14 BP 127 / 66; Pulse 74; Resp 14; Temp 97.9(TE); Pulse Ox 96% on R/A; mh5 [place] Coma Score: 08:58 Eye Response: spontaneous(4). Verbal Response: oriented(5). Motor Response: obeys kb commands(6). Total: 15. ED Course: 08:23 Patient arrived in ED. dl4 08:23 None, None is Private Physician. dl4 08:26 Jaquelin Becerra FNP-C is [facility]. kb 08:26 Lexa Sotomayor MD is Attending Physician. kb 08:29 Rody Ramirez, ROMEO is Primary Nurse. ph 08:29 Arm band placed on right wrist. ss 08:35 Patient has correct armband on for positive identification. Bed in low position. Call mh5 light in reach. Side rails up X 1. Pulse ox on. NIBP on. 08:36 Triage completed. ss 08:45 Initial lab(s) drawn, by ok, sent to lab. Inserted saline lock: 22 gauge in right ph antecubital area, using aseptic technique. Blood collected. 08:55 CT Head Brain wo Cont In Process Unspecified. EDMS 10:16 EKG done, by health record technician. reviewed by Jaquelin STANTON. dt2 10:43 No provider procedures requiring assistance completed. IV discontinued, intact, ph bleeding controlled, No redness/swelling at site. Pressure dressing applied. Administered Medications: 09:12 Drug: NS 0.9% 1000 ml Route: IV; Rate: 1000 ml; Site: right antecubital; ph 10:30 Follow up: Response: No adverse reaction; IV Status: Completed infusion; IV Intake: ph 1000ml 09:13 Drug: TORadol 30 mg Route: IVP; Site: right antecubital; ph 10:30 Follow up: Response: No adverse reaction; Pain is decreased ph 09:13 Drug: Reglan 10 mg Route: IVP; Site: right antecubital; ph 10:30 Follow up: Response: No adverse reaction; Pain is decreased ph Intake: 10:30 IV: 1000ml; Total: 1000ml. ph Outcome: 10:32 Discharge ordered by . kb 10:43 Patient left the ED. ph 10:43 Discharged to home ambulatory. ph 10:43 Condition: improved 10:43 Discharge instructions given to patient, Instructed on discharge instructions, follow up and referral plans. Demonstrated understanding of instructions, follow-up care. Signatures: Dispatcher [employer] Jaquelin Sandy, AGRICULTURE TECHNICIAN-C AGRICULTURE TECHNICIAN-Mildred Alvarez RN RN ss Hall, Patricia, RN RN Kim Borja [facility] Danelle Cobb dt2 Herrera Wan dl4
--- NOTE | 2019-03-24 10:33 | EDPHYS ---
Physician Documentation [facility] Name: Maude Varner Age: 58 yrs Sex: Female : 1960 Arrival Date: 03/24/2019 Time: 08:23 Bed 14 Private MD: None, None ED Physician Lexa Sotomayor HPI: 03/24 09:03 This 58 yrs old Female presents to ER via Ambulatory with complaints of kb Headache. 09:03 The patient complains of pain to the top of head. The patient describes the headache as kb constant. Onset: The symptoms/episode began/occurred 6 day(s) ago. Associated signs and symptoms: Pertinent positives: dizziness, nausea, vomiting, Pertinent negatives: altered mental status, fever, malaise, neck stiffness, paresthesias, Photophobia rash, sinus congestion, sinus tenderness, vision changes, vision loss, weakness, vertigo. Severity of symptoms: At its worst the pain was moderate, in the emergency department the pain is unchanged. Headache History: The patient has had previous headaches. The symptoms are alleviated by nothing. the symptoms are aggravated by nothing. The patient has experienced similar episodes in the past. The patient has not recently seen a physician. Pt states she developed a headache, nausea and vomiting 6 days ago. Reports she has been working outside all week and is not used to the heat so she thinks that has something to do with it. Reports intermittent muscle cramps and dizziness. Has had headaches like this in the past and it was due to htn. States she has been out of her medication for 2 weeks. Has appt with Dr Cheatham set up for this week. Historical: - Allergies: 09:54 Morphine; ph - Home Meds: 09:54 amlodipine 10 mg tab 1 tab BID for Hypertension [Active]; atenolol 50 mg Oral tab 1 tab ph 2 times per day [Active]; metformin 500 mg Oral tr24 1 tab twice a day for Prevention of Type 2 Diabetes Mellitus [Active]; - PMHx: 09:54 Cirrhosis; Diabetes - NIDDM; Hypertension; ph - PSHx: 09:54 Tubal ligation; cyst removed from wrist; Cholecystectomy; neck; ph - Immunization history:: Adult Immunizations. - Social history:: Smoking status: Patient/guardian denies using tobacco. - Ebola Screening: : No symptoms or risks identified at this time. ROS: 08:59 Constitutional: Negative for fever, chills, and weight loss, ENT: Negative for injury, kb pain, and discharge, Neck: Negative for injury, pain, and swelling, Cardiovascular: Negative for chest pain, palpitations, and edema, Respiratory: Negative for shortness of breath, cough, wheezing, and pleuritic chest pain, Back: Negative for injury and pain, : Negative for injury, bleeding, discharge, and swelling, MS/Extremity: Negative for injury and deformity. muscle cramps Skin: Negative for injury, rash, and discoloration. 08:59 Abdomen/GI: Positive for nausea and vomiting, Negative for abdominal pain, diarrhea. 08:59 Neuro: Positive for dizziness, headache. Exam: 09:02 Constitutional: This is a well developed, well nourished patient who is awake, alert, kb and in no acute distress. Head/Face: Normocephalic, atraumatic. Eyes: Pupils equal round and reactive to light, extra-ocular motions intact. Lids and lashes normal. Conjunctiva and sclera are non-icteric and not injected. Cornea within normal limits. Periorbital areas with no swelling, redness, or edema. ENT: Nares patent. No nasal discharge, no septal abnormalities noted. Tympanic membranes are normal and external auditory canals are clear. Oropharynx with no redness, swelling, or masses, exudates, or evidence of obstruction, uvula midline. Mucous membranes moist. Neck: Trachea midline, no thyromegaly or masses palpated, and no cervical lymphadenopathy. Supple, full range of motion without nuchal rigidity, or vertebral point tenderness. No Meningismus. Chest/axilla: Normal chest wall appearance and motion. Nontender with no deformity. No lesions are appreciated. Cardiovascular: Regular rate and rhythm with a normal S1 and S2. No gallops, murmurs, or rubs. Normal PMI, no JVD. No pulse deficits. Respiratory: Lungs have equal breath sounds bilaterally, clear to auscultation and percussion. No rales, rhonchi or wheezes noted. No increased work of breathing, no retractions or nasal flaring. Abdomen/GI: Soft, non-tender, with normal bowel sounds. No distension or tympany. No guarding or rebound. No evidence of tenderness throughout. Skin: Warm, dry with normal turgor. Normal color with no rashes, no lesions, and no evidence of cellulitis. MS/ Extremity: Pulses equal, no cyanosis. Neurovascular intact. Full, normal range of motion. Neuro: Awake and alert, GCS 15, oriented to person, place, time, and situation. Cranial nerves II-XII grossly intact. Motor strength 5/5 in all extremities. Sensory grossly intact. Cerebellar exam normal. Normal gait. Vital Signs: 08:34 BP 177 / 84; Pulse 93; Resp 18; Temp 97.9(O); Pulse Ox 99% ; mh5 09:03 BP 150 / 85 Supine; Pulse 87 RA; Resp 16; Pulse Ox 97% on R/A; mh5 09:05 BP 147 / 74 Sitting; Pulse 83; Resp 17; Pulse Ox 98% on R/A; mh5 09:07 BP 139 / 79 Standing; Pulse 90; Resp 19; Pulse Ox 100% on R/A; mh5 09:52 BP 129 / 67; Pulse 83; Resp 18; Pulse Ox 99% on R/A; ph 10:14 BP 127 / 66; Pulse 74; Resp 14; Temp 97.9(TE); Pulse Ox 96% on R/A; mh5 [place] Coma Score: 08:58 Eye Response: spontaneous(4). Verbal Response: oriented(5). Motor Response: obeys kb commands(6). Total: 15. MDM: 08:26 Patient medically screened. 08:58 Data reviewed: vital signs, nurses notes. Data interpreted: Pulse oximetry: on room air kb is 99 %. Interpretation: normal. 10:29 Counseling: I had a detailed discussion with the patient and/or guardian regarding: the kb historical points, exam findings, and any diagnostic results supporting the discharge/admit diagnosis, lab results, radiology results, the need for outpatient follow up, a family practitioner, to return to the emergency department if symptoms worsen or persist or if there are any questions or concerns that arise at home. 10:32 ED course: Pt feeling better after treatment. 03/24 08:30 Order name: Basic Metabolic Panel; Complete Time: 09:33 EDMS 03/24 08:30 Order name: CBC with Automated Diff EDMS 03/24 08:31 Order name: Basic Metabolic Panel kb 03/24 08:31 Order name: CBC with Diff kb 03/24 08:31 Order name: Magnesium; Complete Time: 09:33 kb 03/24 08:31 Order name: Troponin (emerg Dept Use Only); Complete Time: 09:33 kb 03/24 08:31 Order name: CT Head Brain wo Cont; Complete Time: 09:09 kb 03/24 08:31 Order name: EKG; Complete Time: 08:31 kb 03/24 08:31 Order name: Cardiac monitoring; Complete Time: 08:40 kb 03/24 08:31 Order name: CPK; Complete Time: 09:33 kb 03/24 09:11 Order name: CBC Smear Scan EDMS 03/24 08:31 Order name: EKG - Nurse/Tech; Complete Time: 08:40 kb 03/24 08:31 Order name: IV Saline Lock; Complete Time: 08:43 kb 03/24 08:31 Order name: Labs collected and sent; Complete Time: 08:43 kb 03/24 08:31 Order name: O2 Per Protocol; Complete Time: 08:43 kb 03/24 08:31 Order name: O2 Sat Monitoring; Complete Time: 08:43 kb 03/24 08:31 Order name: Orthostatics; Complete Time: 09:15 kb Administered Medications: 09:12 Drug: NS 0.9% 1000 ml Route: IV; Rate: 1000 ml; Site: right antecubital; ph 10:30 Follow up: Response: No adverse reaction; IV Status: Completed infusion; IV Intake: ph 1000ml 09:13 Drug: TORadol 30 mg Route: IVP; Site: right antecubital; ph 10:30 Follow up: Response: No adverse reaction; Pain is decreased ph 09:13 Drug: Reglan 10 mg Route: IVP; Site: right antecubital; ph 10:30 Follow up: Response: No adverse reaction; Pain is decreased ph Disposition: 10:56 Co-signature as Attending Physician, Lexa Sotomayor MD. rn Disposition: 03/24/19 10:32 Discharged to Home. Impression: Headache. - Condition is Stable. - Discharge Instructions: General Headache Without Cause, [id number]. - Medication Reconciliation Form, Thank You Letter, Antibiotic Education, Prescription Opioid Use form. - Follow up: Emergency Department; When: As needed; Reason: Worsening of condition. Follow up: Private Physician; When: 2 - 3 days; Reason: Recheck today's complaints, Continuance of care, Re-evaluation by your physician. Signatures: Dispatcher [employer] EDMS Jaquelin Becerra, DIRECTOR OF CORPORATE REAL ESTATE-C DIRECTOR OF CORPORATE REAL ESTATE-Ckb Lexa Sotomayor MD MD rn Smirch, Shelby, RN RN Rody Eid RN RN ph Corrections: (The following items were deleted from the chart) 10:43 10:32 03/24/2019 10:32 Discharged to Home. Impression: Headache. Condition is Stable. ph Forms are Medication Reconciliation Form, Thank You Letter, Antibiotic Education, Prescription Opioid Use. Follow up: Emergency Department; When: As needed; Reason: Worsening of condition. Follow up: Private Physician; When: 2 - 3 days; Reason: Recheck today's complaints, Continuance of care, Re-evaluation by your physician. kb
[2019-03-24 11:38] VITALS: TEMP 97.9
[2019-03-24 11:45] VITALS: BP 127/66; O2SAT 96
[2019-03-24 11:56] LABS: Platelet Estimate DECR
[2019-03-24 11:57] LABS: Blood Morphology Comment NOT SEEN (NOT SEEN); Urine White Blood Cell Casts OK
--- NOTE | 2019-03-25 14:53 | EKG ---
Test Date: 2019-03-24 Test Time: 09:53:56 Surgical Resident: DEAN MEASUREMENT RESULTS: Intervals: Rate: 82 MN: 164 QRSD: 90 QT: 406 QTc: 474 [place]: P: 42 MN: 164 QRS: 16 T: 17 INTERPRETIVE STATEMENTS: Normal sinus rhythm Normal ECG Compared to ECG 07/30/2018 11:47:07 No significant changes Electronically Signed On 03-25-19 14:47:48 CDT by Javier Redd
== END 2019-03-24 10:43 | disposition home or self-care (01) ==
LOC: ER 08:20
DX: R51 Headache (principal); I10 Essential (primary) hypertension; E11.9 Type 2 diabetes mellitus without complications; Z88.5 Allergy status to narcotic agent
CPT/HCPCS: 36415; 70450; 80048; 82550; 83735; 84484; 85025; 93005; 96361; 96374; 96375; 99284; J2765; J7030

== ENCOUNTER 2019-07-15 09:06 | Emergency (ER) | payer SELFPAY ==
[2019-07-15] MEDS ORDERED: ACETAMINOPHEN 325 MG TABLET ONE (09:27)
[2019-07-15] MEDS ORDERED: ONDANSETRON 4 MG (ODT) TAB ONE (09:27)
--- NOTE | 2019-07-15 10:31 | RAD REPORT ---
EXAM DESCRIPTION: CT - [id number] - 07/15/2019 9:54 am CLINICAL HISTORY: Blunt force trauma to the head and neck COMPARISON: CT head and cervical August 2013, CT head March 24, 2019 TECHNIQUE: Axial 5 mm thick images of the head were obtained. Axial 2 mm thick images of the cervic al spine were obtained with sagittal and coronal reconstruction images generated and reviewed. All CT scans are performed using dose optimization technique as appropriate and may include automated exposure control or mA/KV adjustment according to patient size. FINDINGS: No intracranial hemorrhage, mass, edema or acute intracranial finding. No suspicion for acute infarct ion. Patient has underlying atrophy with little or no measurable chronic ischemic change seen. Intrac ranial findings are similar to comparison. Mastoid air cells and paranasal sinuses are clear. No glob e or orbit abnormality seen. Cervical bodies are normal in height and alignment. Since the prior examination surgical fusion of C5 -6 is occurred. Hardware is well positioned. Well-healed fusion across the disc space evident. No sig nificant disc space elsewhere on the examination. Prominent degenerative changes again noted at the d ens C1 level. No fracture or acute bone process. Central canal detail is inherently limited. No paraspinal mass or hematoma. IMPRESSION: No hemorrhage, edema or acute intracranial finding. No significant change from March 24 i maging. No fracture or acute finding. Since prior imaging there has been fusion of the C5-6 level. No acute f inding at this site nor elsewhere on the examination.
--- NOTE | 2019-07-15 10:51 | ER ---
Nurse's Notes [facility] Name: Maude Varner Age: 58 yrs Sex: Female : 1960 Arrival Date: 07/15/2019 Time: 09:13 Bed 16 Private MD: Diagnosis: Superficial injury of head;Laceration without foreign body of other part of head-scalp Presentation: 07/15 09:17 Presenting complaint: EMS states: Standing underneath a security gate that came down on jl7 the top of her head. Transition of care: patient was not received from another setting of care. Mechanism of Injury: The problem was sustained at work, resulted from a direct blow, a heavy object. Onset of symptoms was July 15, 2019. Risk Assessment: Do you want to hurt yourself or someone else? Patient reports no desire to harm self or others. Initial Sepsis Screen: Does the patient meet any 2 criteria? No. Patient's initial sepsis screen is negative. Does the patient have a suspected source of infection? No. Patient's initial sepsis screen is negative. Care prior to arrival: None. 09:17 Method Of Arrival: EMS: [facility] 7 09:17 Acuity: ELVIRA 3 jl7 Triage Assessment: 09:20 General: Appears in no apparent distress. uncomfortable, Behavior is calm, cooperative, jl7 appropriate for age. Pain: Complains of pain in top and left side of head Pain currently is 10 out of 10 on a pain scale. Neuro: Level of Consciousness is awake, alert, obeys commands, Oriented to person, place, time, situation, Reports headache. Cardiovascular: Patient's skin is warm and dry. Respiratory: Airway is patent Respiratory effort is even, unlabored, Respiratory pattern is regular, symmetrical. Derm: Skin is pink, warm \T\ dry. Historical: - Allergies: 09:20 Morphine; jl7 - Home Meds: 09:20 amlodipine 10 mg tab 1 tab BID for Hypertension [Active]; atenolol 50 mg Oral tab 1 tab jl7 2 times per day [Active]; metformin 500 mg Oral tr24 1 tab twice a day for Prevention of Type 2 Diabetes Mellitus [Active]; - PMHx: 09:20 Cirrhosis; Diabetes - NIDDM; Hypertension; jl7 - Immunization history:: Adult Immunizations up to date, Last tetanus immunization: up to date < 5 years ago. - Social history:: Smoking status: Patient/guardian denies using tobacco. - Ebola Screening: : No symptoms or risks identified at this time. - Family history:: not pertinent. Screenin:10 Abuse screen: Denies threats or abuse. Denies injuries from another. Nutritional jl7 screening: No deficits noted. Tuberculosis screening: No symptoms or risk factors identified. Fall Risk None identified. Assessment: 09:20 General: See triage assessment. Injury Description: Laceration sustained to top of head jl7 is contaminated, 0.5 to 2.5 cm long, was sustained 30-60 minutes ago. no active bleeding noted at this time. 10:30 Reassessment: Patient appears in no apparent distress at this time. Patient and/or jl7 family updated on plan of care and expected duration. Pain level reassessed. Patient is alert, oriented x 3, equal unlabored respirations, skin warm/dry/pink. Vital Signs: 09:20 BP 193 / 87; Pulse 93; Resp 16 S; Pulse Ox 99% on R/A; Pain 10/10; jl7 10:30 BP 177 / 79; Pulse 85; Resp 16 S; Pulse Ox 99% on R/A; jl7 [place] Coma Score: 09:17 Eye Response: spontaneous(4). Verbal Response: oriented(5). Motor Response: obeys jl7 commands(6). Total: 15. 09:23 Eye Response: spontaneous(4). Verbal Response: oriented(5). Motor Response: obeys [facility] commands(6). Total: 15. ED Course: 09:13 Patient arrived in ED. jl7 09:17 Enoch Mi MD is Attending Physician. jerrod 09:19 Triage completed. jl7 09:20 Arm band placed on right wrist. jl7 09:23 Liz Donovan RN is Primary Nurse. jl7 09:55 CT Head C Spine In Process Unspecified. EDMS 10:10 Patient has correct armband on for positive identification. Bed in low position. Call jl7 light in reach. Side rails up X 1. Pulse ox on. NIBP on. 10:10 Wound care: ice pack applied. jl7 10:10 Wound care: to laceration located on top of head was cleaned with soap and water, jl7 soaked in normal saline solution, Patient tolerated well. 10:45 Assist provider with laceration repair on top of head that was 2.5 cm. or less using jl7 simba. Set up tray. Performed by Enoch Mi MD Patient tolerated well. 11:10 Patient did not have IV access during this emergency room visit. jl7 Administered Medications: 10:09 Drug: Tylenol 650 mg Route: PO; jl7 10:30 Follow up: Response: No adverse reaction jl7 10:10 Drug: Zofran 4 mg Route: PO; jl7 10:30 Follow up: Response: No adverse reaction jl7 Outcome: 10:49 Discharge ordered by . jerrod 11:10 Discharged to home ambulatory. jl7 11:10 Condition: stable 11:10 Discharge instructions given to patient, Instructed on discharge instructions, follow up and referral plans. Demonstrated understanding of instructions, follow-up care. 11:10 Patient left the ED. jl7 Signatures: Dispatcher [employer] Enoch Flores MD MD cha Leal, Jahala, RN RN jl7
--- NOTE | 2019-07-15 10:51 | EDPHYS ---
Physician Documentation [facility] Name: Maude Varner Age: 58 yrs Sex: Female : 1960 Arrival Date: 07/15/2019 Time: 09:13 Bed 16 Private MD: ED Physician Enoch Mi HPI: 07/15 09:23 This 58 yrs old Female presents to ER via EMS with complaints of Head jerrod Injury-Adult. 09:23 The patient or guardian reports decreased movement, injury, a laceration, pain. The jerrod complaints affect the top of head and left frontal area. Context of injury: The problem was sustained at work, resulted from a direct blow. Onset: The symptoms/episode began/occurred just prior to arrival. Associated signs and symptoms: The patient has no apparent associated signs or symptoms. Severity of symptoms: At their worst the symptoms were moderate, in the emergency department the symptoms are unchanged. The patient has not experienced similar symptoms in the past. Historical: - Allergies: 09:20 Morphine; jl7 - Home Meds: 09:20 amlodipine 10 mg tab 1 tab BID for Hypertension [Active]; atenolol 50 mg Oral tab 1 tab jl7 2 times per day [Active]; metformin 500 mg Oral tr24 1 tab twice a day for Prevention of Type 2 Diabetes Mellitus [Active]; - PMHx: 09:20 Cirrhosis; Diabetes - NIDDM; Hypertension; jl7 - Immunization history:: Adult Immunizations up to date, Last tetanus immunization: up to date < 5 years ago. - Social history:: Smoking status: Patient/guardian denies using tobacco. - Ebola Screening: : No symptoms or risks identified at this time. - Family history:: not pertinent. ROS: 09:23 Constitutional: Negative for fever, chills, and weight loss, Eyes: Negative for injury, jerrod pain, redness, and discharge, ENT: Negative for injury, pain, and discharge, Cardiovascular: Negative for chest pain, palpitations, and edema, Respiratory: Negative for shortness of breath, cough, wheezing, and pleuritic chest pain, Abdomen/GI: Negative for abdominal pain, nausea, vomiting, diarrhea, and constipation, Back: Negative for injury and pain, : Negative for injury, bleeding, discharge, and swelling, MS/Extremity: Negative for injury and deformity, Psych: Negative for depression, anxiety, suicide ideation, homicidal ideation, and hallucinations, Allergy/Immunology: Negative for hives, rash, and allergies, Endocrine: Negative for neck swelling, polydipsia, polyuria, polyphagia, and marked weight changes, Hematologic/Lymphatic: Negative for swollen nodes, abnormal bleeding, and unusual bruising. : Neck: Positive for pain with movement, pain at rest. : Skin: Positive for laceration(s). : Neuro: Positive for dizziness, headache. Exam: : Constitutional: This is a well developed, well nourished patient who is awake, alert, jerrod and in no acute distress. Head/Face: Normocephalic, atraumatic. Eyes: Pupils equal round and reactive to light, extra-ocular motions intact. Lids and lashes normal. Conjunctiva and sclera are non-icteric and not injected. Cornea within normal limits. Periorbital areas with no swelling, redness, or edema. ENT: Nares patent. No nasal discharge, no septal abnormalities noted. Tympanic membranes are normal and external auditory canals are clear. Oropharynx with no redness, swelling, or masses, exudates, or evidence of obstruction, uvula midline. Mucous membranes moist. Chest/axilla: Normal chest wall appearance and motion. Nontender with no deformity. No lesions are appreciated. Cardiovascular: Regular rate and rhythm with a normal S1 and S2. No gallops, murmurs, or rubs. Normal PMI, no JVD. No pulse deficits. Respiratory: Lungs have equal breath sounds bilaterally, clear to auscultation and percussion. No rales, rhonchi or wheezes noted. No increased work of breathing, no retractions or nasal flaring. Abdomen/GI: Soft, non-tender, with normal bowel sounds. No distension or tympany. No guarding or rebound. No evidence of tenderness throughout. Back: No spinal tenderness. No costovertebral tenderness. Full range of motion. Skin: Warm, dry with normal turgor. Normal color with no rashes, no lesions, and no evidence of cellulitis. MS/ Extremity: Pulses equal, no cyanosis. Neurovascular intact. Full, normal range of motion. Neuro: Awake and alert, GCS 15, oriented to person, place, time, and situation. Cranial nerves II-XII grossly intact. Motor strength 5/5 in all extremities. Sensory grossly intact. Cerebellar exam normal. Normal gait. Psych: Awake, alert, with orientation to person, place and time. Behavior, mood, and affect are within normal limits. 09:23 Neck: C-spine: vertebral tenderness, that is mild, diffusely, Thyroid: appears normal, Trachea: is midline with no obvious abnormalities, ROM/movement: pain, that is moderate, limited range of motion, that is mild, that is moderate, Lymph nodes: no appreciated lymphadenopathy. Vital Signs: 09:20 BP 193 / 87; Pulse 93; Resp 16 S; Pulse Ox 99% on R/A; Pain 10/10; jl7 10:30 BP 177 / 79; Pulse 85; Resp 16 S; Pulse Ox 99% on R/A; jl7 Yosef Coma Score: 09:17 Eye Response: spontaneous(4). Verbal Response: oriented(5). Motor Response: obeys [facility] commands(6). Total: 15. 09:23 Eye Response: spontaneous(4). Verbal Response: oriented(5). Motor Response: obeys [facility] commands(6). Total: 15. Laceration: 10:09 Wound Repair of 2cm ( 0.8in ) subcutaneous laceration to top of head. Irregularly jerrod shaped.. Distal neuro/vascular/tendon intact. Anesthesia: none with 0 mls of none. Wound prep: Simple cleansing by me. Skin closed with 1 staple Ingris using staple gun. Dressed with Neosporin. Patient tolerated well. MDM: 09:17 Patient medically screened. [facility] 09:25 Data reviewed: radiologic studies, CT scan. [facility] 07/15 09:23 Order name: CT Head C Spine; Complete Time: 10:49 [facility] 07/15 09:23 Order name: Wound Care; Complete Time: 10:10 [facility] Administered Medications: 10:09 Drug: Tylenol 650 mg Route: PO; jl7 10:30 Follow up: Response: No adverse reaction jl7 10:10 Drug: Zofran 4 mg Route: PO; jl7 10:30 Follow up: Response: No adverse reaction jl7 Disposition: 07/15/19 10:49 Discharged to Home. Impression: Superficial injury of head, Laceration without foreign body of other part of head - scalp. - Condition is Stable. - Discharge Instructions: Head Injury, Adult, Laceration Care, Adult, Laceration Care, Adult, [id number], Head Injury, Adult, [id number]. - Medication Reconciliation Form, Thank You Letter, Antibiotic Education, Prescription Opioid Use form. - Follow up: Private Physician; When: 5 - 6 days; Reason: Recheck today's complaints, Continuance of care, Re-evaluation by your physician. - Problem is new. - Symptoms have improved. Signatures: Dispatcher [employer] EDEnoch Jarquin MD MD cha Leal, Jahala, RN RN jl7 Corrections: (The following items were deleted from the chart) 11:10 10:49 07/15/2019 10:49 Discharged to Home. Impression: Superficial injury of head; jl7 Laceration without foreign body of other part of head - scalp. Condition is Stable. Discharge Instructions: Head Injury, Adult, Laceration Care, Adult, Laceration Care, Adult, [id number], Head Injury, Adult, [id number]-[id number]. Forms are Medication Reconciliation Form, Thank You Letter, Antibiotic Education, Prescription Opioid Use. Follow up: Private Physician; When: 5 - 6 days; Reason: Recheck today's complaints, Continuance of care, Re-evaluation by your physician. Problem is new. Symptoms have improved. jerrod
[2019-07-15 11:24] VITALS: O2SAT 99
[2019-07-15 11:25] VITALS: BP 177/79
== END 2019-07-15 11:10 | disposition home or self-care (01) ==
LOC: ER 09:06
PROC: 0JQ00ZZ Repair Scalp Subcutaneous Tissue and Fascia, Open Approach (ICD-10-PCS; principal; 2019-07-15)
DX: S01.01XA Laceration without foreign body of scalp, initial encounter (principal); W22.8XXA Striking against or struck by other objects, initial encounter; Y93.9 Activity, unspecified; Y92.89 Other specified places as the place of occurrence of the external cause; Y99.8 Other external cause status; Z88.5 Allergy status to narcotic agent; I10 Essential (primary) hypertension; E11.9 Type 2 diabetes mellitus without complications
CPT/HCPCS: 70450; 72125; 99284

== ENCOUNTER 2020-01-15 18:13 | Inpatient (IN) | payer SELFPAY ==
[2020-01-15] MEDS ORDERED: BUMETANIDE 1 MG/4 ML VIAL IV ONE (19:00)
[2020-01-15] MEDS ORDERED: HYDRALAZINE HCL 20 MG/ML VIAL ONE (19:02)
[2020-01-15] MEDS ORDERED: METOCLOPRAMIDE 10 MG/2mL INJ ONE (19:09)
[2020-01-15 19:17] LABS: Protime INR 2.17
[2020-01-15 19:35] LABS: Albumin 1.9 g/dL (3.4-5.0); Potassium 3.2 mmol/L (3.5-5.1); Protein, Total 6.8 g/dL (6.4-8.2)
[2020-01-15 19:39] LABS: Bilirubin Total 9.1 mg/dL (0.2-1.0)
--- NOTE | 2020-01-15 20:04 | RAD REPORT ---
EXAM DESCRIPTION: CT - Head Brain Wo Cont - 01/15/2020 7:55 pm CLINICAL HISTORY: Headache COMPARISON: 2019 TECHNIQUE: Computed axial tomography of the head was obtained. IV contrast was not requested. All CT scans are performed using dose optimization technique as appropriate and may include automated exposure control or mA/KV adjustment according to patient size. FINDINGS: An intracranial bleed is not seen . The ventricles are normal in caliber. No extra-axial fluid collection is noted. Fluid within the sinuses/ mastoids is not seen. IMPRESSION: No acute intracranial abnormality is seen. If patient's symptoms persist MRI of the bra in would be recommended.
[2020-01-15 20:06] LABS: Urine Blood TRACE (NEG); Urine Glucose NEGATIVE (NEG); Urine Protein NEGATIVE (NEG); Urine Specific Gravity 1.025 (1.005-1.030); Urine pH 5.5 (5.0-7.0)
[2020-01-15 20:07] LABS: Urine Bacteria NONE SEEN /HPF (<20); Urine Culture Reflex Order NOT NEEDED; Urine RBC <5 /HPF (NONE SEEN)
--- NOTE | 2020-01-15 20:13 | RAD REPORT ---
EXAM DESCRIPTION: CT - Abdomen Pelvis W Contrast - 01/15/2020 7:59 pm CLINICAL HISTORY: Abdominal pain COMPARISON: none. TECHNIQUE: Computed axial tomography of the abdomen pelvis was obtained. 100 cc Isovue-300 was admin istered intravenously. Oral contrast was not requested which limits evaluation of bowel. All CT scans are performed using dose optimization technique as appropriate and may include automated exposure control or mA/KV adjustment according to patient size. FINDINGS: A cirrhotic liver. 5 centimeter hepatic cyst. Chronic thrombus within the right portal vei n. Dilated varices within the abdomen. The spleen measures 16 centimeters. The pancreas, adrenals and kidneys unremarkable There is no evidence of diverticulitis. Moderate amount ascites IMPRESSION: Cirrhosis. Chronic thrombus right portal vein Moderate ascites
--- NOTE | 2020-01-15 21:26 | RAD REPORT ---
EXAM DESCRIPTION: US - Abdomen Exam Limited - 01/15/2020 8:52 pm CLINICAL HISTORY: Abdominal pain./elevated bilirubin COMPARISON: January 15, 2020 CT FINDINGS: Cholecystectomy. The biliary tree is normal caliber. Cirrhotic liver with increased echotexture. 4.7 centimeter hepatic cyst. The main portal vein is warner nt with bidirectional flow IMPRESSION: Cholecystectomy. Biliary tree is normal caliber Cirrhosis.
[2020-01-15 21:50] LABS: Absolute Lymphocytes (CBC) 0.6 K/uL (0.7-4.9); Basophils % 0.7 % (0-1.3); Hematocrit 28.1 % (36.0-45.0); Lymphocytes % 24.3 % (15.3-44.8); MPV 8.8 fL (7.6-11.3)
[2020-01-15 22:39] LABS: Blood Morphology Comment NOT SEEN (NOT SEEN); Platelet Estimate DECR
--- NOTE | 2020-01-15 23:07 | EDPHYS ---
Physician Documentation [facility] Name: Maude Varner Age: 59 yrs Sex: Female : 1960 Arrival Date: 01/15/2020 Time: 18:16 Bed 6 Private MD: ED Physician Roland Garcia HPI: 01/14 18:45 This 59 yrs old Female presents to ER via Unassigned with complaints of low ps1 platelets. 18:45 Patient has a history of MARTINEZ for 20 + years and has had recent changes of lower ps1 extremity swelling and recurrent headches in which she has been taking large amounts of ibuprofen for pain. Was seen at [place] ED and told that she has dehydration. On follow up with PCP was told to come to the ED for evaluation 2/2 platelets \T\ 33 with elevated bilirubin. Pain is moderate and localized to front of head. No FND. Hypertensive systolic 200's.. Historical: - Allergies: 18:49 Morphine; ss - Home Meds: 19:51 amlodipine 10 mg tab 1 tab BID for Hypertension [Active]; atenolol 50 mg Oral tab 1 tab lp1 2 times per day [Active]; metformin 500 mg Oral tr24 1 tab twice a day for Prevention of Type 2 Diabetes Mellitus [Active]; - PMHx: 18:49 Cirrhosis; Diabetes - NIDDM; Hypertension; ss - Immunization history:: Adult Immunizations up to date. - Social history:: Smoking status: Patient denies any tobacco usage or history of. ROS: 18:45 Constitutional: Negative for fever, chills, and weight loss, Eyes: Negative for injury, ps1 pain, redness, and discharge, ENT: Negative for injury, pain, and discharge, Cardiovascular: Negative for chest pain, palpitations, and edema, Respiratory: Negative for shortness of breath, cough, wheezing, and pleuritic chest pain, Neuro: Negative for headache, weakness, numbness, tingling, and seizure. 18:45 Abdomen/GI: Positive for abdominal distension. 18:45 MS/extremity: Positive for bilateral lower extremity edema. . Exam: 18:45 Constitutional: This is a well developed, well nourished patient who is awake, alert, ps1 and in no acute distress. Head/Face: Normocephalic, atraumatic. Eyes: Pupils equal round and reactive to light, extra-ocular motions intact. Lids and lashes normal. Conjunctiva and sclera are non-icteric and not injected. 18:45 Chest/axilla: Inspection: normal. 18:45 Cardiovascular: Rate: normal, actual rate is 104 bpm, Rhythm: regular, Edema: 2+ edema to level of , pedal edema, that is moderate. 18:45 Respiratory: the patient does not display signs of respiratory distress, Respirations: normal. 18:45 Abdomen/GI: Inspection: distension, that is mild, Palpation: organomegaly is appreciated, hepatomegaly. 19:18 ECG was reviewed by the Attending Physician. Vital Signs: 18:46 BP 201 / 82; Pulse 104; Resp 20; Temp 99.9(TE); Pulse Ox 100% on R/A; Weight 78.93 kg; ss Height 5 ft. 3 in. (160.02 cm); Pain 0/10; 19:00 BP 154 / 68; Pulse 96; Resp 20; Pulse Ox 100% ; sv 19:30 BP 147 / 76; Pulse 95; Resp 17; Pulse Ox 100% on R/A; lp1 20:30 BP 147 / 76; Pulse 92; Resp 18; Pulse Ox 100% on R/A; lp1 21:30 BP 140 / 71; Pulse 91; Resp 18; Pulse Ox 98% on R/A; lp1 22:30 BP 127 / 76; Pulse 92; Resp 18; Pulse Ox 98% on R/A; lp1 23:11 BP 141 / 67; Pulse 96; Resp 18; Pulse Ox 97% on R/A; lp1 23:45 BP 133 / 67; Pulse 94; Resp 18; Temp 99.4; Pulse Ox 99% on R/A; lp1 01/15 00:50 BP 121 / 70; Pulse 93; Resp 18; Temp 99.4; Pulse Ox 97% on R/A; Pain 0/10; lp1 01/14 18:46 Body Mass Index 30.82 (78.93 kg, 160.02 cm) 01/14 23:45 See Transfusion flow sheet for further vitals lp1 01/15 00:50 transfusion completed at this time lp1 MDM: 01/14 18:57 Patient medically screened. 22:26 Physician consultation: Alcides Mendez MD was called at 22:26, left message on voicemail. 22:30 Data reviewed: vital signs, nurses notes, lab test result(s), EKG, radiologic studies, cp CT scan, ultrasound, I have discussed the patient's presentation/case with the attending Emergency Department Physician; and as a result, I will admit patient. 01/14 18:20 Order name: CBC with Diff; Complete Time: 22:40 [facility] 01/14 22:40 Interpretation: Reviewed. 01/14 18:20 Order name: Type And Screen [facility] 01/14 18:37 Order name: PT-INR; Complete Time: 19:34 [facility] 01/14 19:34 Interpretation: Abnormal: PT 25.2. 01/14 18:37 Order name: CMP; Complete Time: 19:44 [facility] 01/14 19:44 Interpretation: Normal except: K 3.2; GLUC 219; GFR 85; AST 54; ALK 154; BILIT 9.1; CA cp 7.4; ALB 1.9; GLOB 4.9; A/G 0.4. 01/14 18:45 Order name: AMMONIA; Complete Time: 19:34 [facility] 01/14 19:34 Interpretation: Reviewed. 01/14 18:50 Order name: Troponin (emerg Dept Use Only); Complete Time: 19:38 [facility] 01/14 19:38 Interpretation: Reviewed. 01/14 19:44 Order name: Urine Microscopic Only; Complete Time: 20:16 01/14 20:16 Interpretation: Normal except: SQEPI 5-10. 01/14 20:01 Order name: Urine Dipstick--Ancillary (enter results); Complete Time: 20:16 mw2 01/14 20:16 Interpretation: Normal except: UBLD TRACE. 01/14 21:52 Order name: Manual Differential; Complete Time: 22:40 EDMS 01/14 23:07 Order name: Platelets, Leukored Pheresis EDMS 01/15 00:16 Order name: CBC with Automated Diff EDMS 01/15 00:16 Order name: CBC with Automated Diff EDMS 01/15 00:16 Order name: Comprehensive Metabolic Panel EDMS 01/15 00:16 Order name: Comprehensive Metabolic Panel [facility] 01/14 18:45 Order name: CT Head Brain wo Cont; Complete Time: 20:16 [facility] 01/14 18:45 Order name: CT Abd/Pelvis - IV Contrast Only; Complete Time: 21:00 ps1 01/14 18:57 Order name: EKG; Complete Time: 18:58 cp 01/14 18:57 Order name: EKG - Nurse/Tech; Complete Time: 19:13 cp 01/14 19:44 Order name: Urine Dipstick-Ancillary (obtain specimen); Complete Time: 19:52 cp 01/14 19:57 Order name: US Abdomen Limited: RUQ; Complete Time: 21:39 cp 01/15 00:15 Order name: CONS Pharmacy Consult ED[facility] 01/15 00:15 Order name: CONS Physician Consult [facility] 01/15 00:16 Order name: Consistent Carb (ADA) 1800 Bernardo EDMS 01/15 00:16 Order name: Troponin I [facility] 01/15 00:16 Order name: Troponin I [facility] 01/15 00:16 Order name: Troponin I [facility] EC:18 Rate is 93 beats/min. Rhythm is regular. [place] interval is normal. QRS interval is normal. cp QT interval is prolonged at 406 msec. T waves are Inverted in lead III. Interpreted by me. Reviewed by me. Administered Medications: 19:15 Drug: Reglan 10 mg Route: IVP; Site: left antecubital; lp1 20:30 Follow up: Response: No adverse reaction lp1 19:18 Drug: Bumex 1 mg Route: IVP; Site: left antecubital; lp1 20:30 Follow up: Response: No adverse reaction lp1 23:20 Not Given (BP WNL): hydrALAZINE 10 mg IV at bolus once lp1 23:25 Drug: Potassium Effervescent Tablet 50 mEq Route: PO; lp1 01/15 00:54 Follow up: Response: No adverse reaction lp1 Point of Care Testing: Guaiac: 01/14 22:16 Stool Guaiac: Negative; Stool Hemoccult Control: Pass; lp1 Disposition: 01/15/20 23:06 Hospitalization ordered by Spike Natarajan for Inpatient Admission. Preliminary diagnosis are Hepatic failure, unspecified, Anemia in chronic diseases classified elsewhere, Unspecified cirrhosis of liver, Thrombocytopenia, unspecified. - Bed requested for Telemetry/MedSurg (Inpatient). - Status is Inpatient Admission. lp1 - Condition is Stable. - Problem is new. - Symptoms are unchanged. Signatures: Dispatcher [employer] ED[facility] Claritza Alan RN RN sv Mildred Cao RN RN ss Renae Shannon RN RN lp1 Enoch Brito PA PA Deanna Nunes RN RN cg Roland Garcia MD MD ps1 Corrections: (The following items were deleted from the chart) 18:57 18:45 Patient has a history of MARTINEZ for 20 + years and has had recent changes of lower ps1 extremity swelling and recurrent headches in which she has been taking large amounts of ibuprofen for pain. Was seen at [place] ED and told that she has dehydration. On follow up with PCP was told to come to the ED for evaluation 2/2 platelets \T\ 33. Pain is moderate and localized to front of head. No FND. . ps1 19:44 19:44 Normal except: K 3.2; GLUC 219; GFR 85. cp cp 23:07 23:06 Hospitalization Ordered by Spike Natarajan MD for Inpatient Admission. Preliminary cp diagnosis is Hepatic failure, unspecified; Anemia in chronic diseases classified elsewhere. Bed requested for Telemetry/MedSurg (Inpatient). Status is Inpatient Admission. Condition is Stable. Problem is new. Symptoms are unchanged. cp 23:07 23:07 01/15/2020 23:06 Hospitalization Ordered by Spike Natarajan MD for Inpatient cp Admission. Preliminary diagnosis is Hepatic failure, unspecified; Anemia in chronic diseases classified elsewhere; Unspecified cirrhosis of liver. Bed requested for Telemetry/MedSurg (Inpatient). Status is Inpatient Admission. Condition is Stable. Problem is new. Symptoms are unchanged. cp 01/15 00:30 01/14 23:07 01/15/2020 23:06 Hospitalization Ordered by Spike Natarajan MD for Inpatient cg Admission. Preliminary diagnosis is Hepatic failure, unspecified; Anemia in chronic diseases classified elsewhere; Unspecified cirrhosis of liver; Thrombocytopenia, unspecified. Bed requested for Telemetry/MedSurg (Inpatient). Status is Inpatient Admission. Condition is Stable. Problem is new. Symptoms are unchanged. cp 01/15 00:33 00:30 01/15/2020 23:06 Hospitalization Ordered by Spike Natarajan MD for Inpatient cg Admission. Preliminary diagnosis is Hepatic failure, unspecified; Anemia in chronic diseases classified elsewhere; Unspecified cirrhosis of liver; Thrombocytopenia, unspecified. Bed requested for Telemetry/MedSurg (Inpatient). Status is Inpatient Admission. Condition is Stable. Problem is new. Symptoms are unchanged. cg 01:09 00:33 01/15/2020 23:06 Hospitalization Ordered by Spike Natarajan MD for Inpatient lp1 Admission. Preliminary diagnosis is Hepatic failure, unspecified; Anemia in chronic diseases classified elsewhere; Unspecified cirrhosis of liver; Thrombocytopenia, unspecified. Bed requested for Telemetry/MedSurg (Inpatient). Status is Inpatient Admission. Condition is Stable. Problem is new. Symptoms are unchanged. cg
--- NOTE | 2020-01-15 23:07 | ER ---
Nurse's Notes [facility] Name: Maude Varner Age: 59 yrs Sex: Female : 1960 Arrival Date: 01/15/2020 Time: 18:16 Bed 6 Private MD: Diagnosis: Hepatic failure, unspecified;Anemia in chronic diseases classified elsewhere;Unspecified cirrhosis of liver;Thrombocytopenia, unspecified Presentation: 01/14 18:46 Chief complaint: Patient states: Sent by [facility] for low PLT count. Pt reports ss fatigue, swelling to abdomen and lower extremities and low grade fever x 1 month. Pt was seen in [place] [facility] two weeks ago and was told she was severely dehydrated. Hx of liver cirrhosis x 4-5 years, but has not had any treatment. Coronavirus screen: Patient denies a cough. Patient denies shortness of breath or difficulty breathing. Patient denies measured and/or subjective temperature greater than 100.4F prior to today's visit. Patient denies travel on a cruise ship or to a country the [facility] currently lists as an affected area. Patient denies contact with known and/or suspected case of COVID-19. Ebola Screen: Patient denies exposure to infectious person. Patient denies travel to an Ebola-affected area in the 21 days before illness onset. Initial Sepsis Screen: Does the patient meet any 2 criteria? HR > 90 bpm. Does the patient have a suspected source of infection? No. Patient's initial sepsis screen is negative. Risk Assessment: Do you want to hurt yourself or someone else? Patient reports no desire to harm self or others. Onset of symptoms was November 2019. 18:46 Method Of Arrival: Ambulatory ss 18:46 Acuity: ELVIRA 2 ss Historical: - Allergies: 18:49 Morphine; ss - Home Meds: 19:51 amlodipine 10 mg tab 1 tab BID for Hypertension [Active]; atenolol 50 mg Oral tab 1 tab lp1 2 times per day [Active]; metformin 500 mg Oral tr24 1 tab twice a day for Prevention of Type 2 Diabetes Mellitus [Active]; - PMHx: 18:49 Cirrhosis; Diabetes - NIDDM; Hypertension; ss - Immunization history:: Adult Immunizations up to date. - Social history:: Smoking status: Patient denies any tobacco usage or history of. Screenin:50 Abuse screen: Denies threats or abuse. Denies injuries from another. Nutritional lp1 screening: No deficits noted. Tuberculosis screening: No symptoms or risk factors identified. Fall Risk None identified. Assessment: 19:02 Reassessment: Informed Dr Garcia of the updated vitals and he stated to hold the sv Hydralazine at this time. Pt c/o headache, he wants to give Reglan 10 mg IVP x 1. 19:30 Reassessment:. General: Appears in no apparent distress. Behavior is appropriate for lp1 age. Pain:. Neuro: Level of Consciousness is awake, alert, obeys commands, Oriented to person, place, time, situation, Reports headache. Cardiovascular: Patient's skin is warm and dry. Edema is 2+ to left foot and right foot. Respiratory: Respiratory effort is even, unlabored. GI: Abdomen is round. : No signs and/or symptoms were reported regarding the genitourinary system. EENT: Sclera/Cornea sclera yellow in color. Derm: Skin is intact, Skin is dry, Skin is normal. Musculoskeletal: No deficits noted. 20:15 Reassessment: Patient appears in no apparent distress at this time. Patient ambulated lp1 independently to bathroom. 20:20 Reassessment: Notified that lab did not receive CBC or T\T\S; drawn at this time. lp1 21:30 Reassessment: Patient appears in no apparent distress at this time. No changes from lp1 previously documented assessment. 22:16 Reassessment: Patient appears in no apparent distress at this time. Provider at bedside lp1 to discuss plan of care with patient. 23:50 Reassessment: Patient appears in no apparent distress at this time. Unit of platelets lp1 administered at this time. 23:50 Neuro: Level of Consciousness is awake, alert, obeys commands. Respiratory: Respiratory lp1 effort is even, unlabored. Derm: Skin is intact, Skin is dry. 01/15 00:45 Reassessment: Patient appears in no apparent distress at this time. Patient ambulated lp1 to bathroom at this time. Vital Signs: 01/14 18:46 BP 201 / 82; Pulse 104; Resp 20; Temp 99.9(TE); Pulse Ox 100% on R/A; Weight 78.93 kg; ss Height 5 ft. 3 in. (160.02 cm); Pain 0/10; 19:00 BP 154 / 68; Pulse 96; Resp 20; Pulse Ox 100% ; sv 19:30 BP 147 / 76; Pulse 95; Resp 17; Pulse Ox 100% on R/A; lp1 20:30 BP 147 / 76; Pulse 92; Resp 18; Pulse Ox 100% on R/A; lp1 21:30 BP 140 / 71; Pulse 91; Resp 18; Pulse Ox 98% on R/A; lp1 22:30 BP 127 / 76; Pulse 92; Resp 18; Pulse Ox 98% on R/A; lp1 23:11 BP 141 / 67; Pulse 96; Resp 18; Pulse Ox 97% on R/A; lp1 23:45 BP 133 / 67; Pulse 94; Resp 18; Temp 99.4; Pulse Ox 99% on R/A; lp1 01/15 00:50 BP 121 / 70; Pulse 93; Resp 18; Temp 99.4; Pulse Ox 97% on R/A; Pain 0/10; lp1 01/14 18:46 Body Mass Index 30.82 (78.93 kg, 160.02 cm) 01/14 23:45 See Transfusion flow sheet for further vitals lp1 01/15 00:50 transfusion completed at this time lp1 ED Course: 01/14 16:55 Inserted saline lock: 20 gauge in left antecubital area, using aseptic technique. Blood kj1 collected. 18:16 Patient arrived in ED. am2 18:19 Roland Garcia MD is Attending Physician. ps1 18:45 Roland Garcia MD is Attending Physician. ps1 18:47 Radiology exam delayed due to lab results not completed at this time. (BUN/Creatinine) nj IV insertion attempt and/or patient not having appropriate IV at this time. 18:49 Triage completed. ss 18:49 Arm band placed on right wrist. ss 18:55 Enoch Brito PA is PHCP. cp 18:57 Radiology exam delayed due to lab results not completed at this time. (BUN/Creatinine). vm2 19:00 Initial lab(s) drawn, by me, sent to lab. kj1 19:07 Patient has correct armband on for positive identification. Bed in low position. Call sv light in reach. Pulse ox on. NIBP on. 19:12 Renae Shannon, RN is Primary Nurse. lp1 19:42 Notified Nurse Practitioner and/or Physician Refiner Operator of a critical lab result(s), sg Total Bili 9.1. 19:55 CT Head Brain wo Cont In Process Unspecified. EDMS 20:00 CT Abd/Pelvis - IV Contrast Only In Process Unspecified. EDMS 20:02 CT completed. Patient tolerated procedure well. Patient moved back from CT. vm2 20:52 US Abdomen Limited: RUQ In Process Unspecified. EDMS 21:19 Lab(s) recollected, by me, sent to lab. a TS and the CBC recollected and sent to the sg lab at this time. 21:51 Notified Nurse Practitioner and/or Physician Refiner Operator of a critical lab result(s), Plt sg of 28. 22:15 Served as a spinner iron during rectal exam. lp1 23:05 Spike Natarajan MD is Hospitalizing Provider. cp 23:09 Patient admitted, IV remains in place. lp1 23:38 Platelet transfusion consent signed by patient. lp1 Administered Medications: 19:15 Drug: Reglan 10 mg Route: IVP; Site: left antecubital; lp1 20:30 Follow up: Response: No adverse reaction lp1 19:18 Drug: Bumex 1 mg Route: IVP; Site: left antecubital; lp1 20:30 Follow up: Response: No adverse reaction lp1 23:20 Not Given (BP WNL): hydrALAZINE 10 mg IV at bolus once lp1 23:25 Drug: Potassium Effervescent Tablet 50 mEq Route: PO; lp1 01/15 00:54 Follow up: Response: No adverse reaction lp1 Point of Care Testing: Guaiac: 01/14 22:16 Stool Guaiac: Negative; Stool Hemoccult Control: Pass; lp1 Outcome: 23:06 Decision to Hospitalize by Provider. cp 23:09 Condition: stable lp1 23:09 Instructed on the need for admit. 01/15 01:03 Admitted to Med/surg accompanied by tech, via wheelchair, room 229, with chart, Report lp1 called to [facility] [place] 01:09 Patient left the ED. lp1 Signatures: Dispatcher MedHo Claritza Reynolds RN RN sv Gay, Steven, RN RN sg Smirch, Shelby, RN RN ss Renae Shannon RN RN lp1 Enoch Brito PA PA cp Jordan, Nathan nj Moreno, Amanda am2 Claudia Stone2 Roland Garcia MD MD ps1 Gali Becerra kj1 Corrections: (The following items were deleted from the chart) 01/14 20:29 19:30 Cardiovascular: Patient's skin is warm and dry. lp1 lp1
[2020-01-15] MEDS ORDERED: POTASSIUM 25 MEQ EFFERV TAB ONE (23:27)
[2020-01-15] MEDS ORDERED: NA CHLORIDE 0.9% 250 ML ONE (23:38)
[2020-01-16] MEDS ORDERED: ALBUTEROL 2.5 MG/3 ML NEB SOL NEB PRN (00:11)
[2020-01-16] MEDS ORDERED: ONDANSETRON 4 MG/2 ML VIAL IV PRN (00:11)
[2020-01-16] MEDS ORDERED: MORPHINE 2 MG/ML SYR IV PRN (00:11)
[2020-01-16] MEDS ORDERED: LORAZEPAM 0.5 MG TABLET PO PRN (00:20)
[2020-01-16] MEDS ORDERED: POTASSIUM 25 MEQ EFFERV TAB PO ONE (00:21)
--- NOTE | 2020-01-16 00:30 | P.HP ---
Certification for Inpatient With expected LOS: >2 Midnights Patient will require the following post-hospital care: None Practitioner: I am a practitioner with admitting privileges, knowledge of patient current condition, hospital course, and medical plan of care. Services: Services provided to patient in accordance with Admission requirements found in Title 42 Section 412.3 of the Code of Federal Regulations Patient History Date of Service: 01/16/20 Reason for admission: low platelet History of Present Illness: 59-year-old female with past medical history of HTN, DM, liver cirrhosis secondary to MARTINEZ since over 20 years develop abdominal pain nonspecific, intermittent headache and was seen by PCP but noted with low platelets and sent to the ED. In the emergency room patient platelet was noted at 28. Patient was also noted with elevated blood pressure with systolic of over 200. She was also noted with ascites and anasarca. 45 She denies any nausea or vomiting. She denies any bleeding, hematochezia or hematemesis. CT of the abdomen show evidence of chronic portal vein thrombosis. She is being admitted for further wwork up. GI- has been discussed with by ER physician Allergies morphine Allergy (Severe, Verified 01/16/20 01:23) Anaphylaxis Home medications list reviewed: Yes Home Medications: Amlodipine Besylate [Norvasc] 10 mg PO BID 10/29/14 atenoloL [Tenormin*] 50 mg PO DAILY 10/29/14 - Past Medical/Surgical History Has patient received pneumonia vaccine in the past: No Diabetic: Yes -: hypertension -: NIDDM -: TIA -: Chest pain -: Pleurisy -: Cholecystectomy -: tubal ligation - Family History Father -: Heart disease, Diabetes Mother -: Heart disease, Diabetes - Social History Smoking Status: Never smoker Smoking therapy provided: No Alcohol use: Yes CD- Drugs: No Caffeine use: Yes Place of Residence: Home Review of Systems 10-point ROS is otherwise unremarkable Physical Examination - Physical Exam General: Alert, In no apparent distress, Oriented x3, Cooperative HEENT: Atraumatic, Normocephalic, PERRLA, Sclerae nonicteric Neck: Supple, 2+ carotid pulse no bruit, JVD not distended Respiratory: Clear to auscultation bilaterally, Normal air movement Cardiovascular: Regular rate/rhythm, Normal S1 S2, Edema Gastrointestinal: Normal bowel sounds, Soft and benign, Ascites Musculoskeletal: No clubbing, Swelling Integumentary: No rashes, No breakdown Neurological: Normal speech, Sensation intact, Cranial nerves 3-12 intact External genitalia: Edema - Studies Laboratory Data (last 24 hrs) 01/15/20 21:06: WBC 2.5 L, Hgb 9.7 L, Hct 28.1 L, Plt Count 28 L* 01/15/20 18:55: Sodium 140, Potassium 3.2 L, BUN 7, Creatinine 0.70, Glucose 219 H, Total Bilirubin 9.1 H*, AST 54 H, ALT 24, Alkaline Phosphatase 154 H 01/15/20 18:55: PT 25.2 H, INR 2.17 Imagings Data: CT - Abdomen Pelvis W Contrast - 01/15/2020 7:59 pm CLINICAL HISTORY: Abdominal pain COMPARISON: none. TECHNIQUE: Computed axial tomography of the abdomen pelvis was obtained. 100 cc Isovue-300 was administered intravenously. Oral contrast was not requested which limits evaluation of bowel. All CT scans are performed using dose optimization technique as appropriate and may include automated exposure control or mA/KV adjustment according to patient size. FINDINGS: A cirrhotic liver. 5 centimeter hepatic cyst. Chronic thrombus within the right portal vein. Dilated varices within the abdomen. The spleen measures 16 centimeters. The pancreas, adrenals and kidneys unremarkable There is no evidence of diverticulitis. Moderate amount ascites IMPRESSION: Cirrhosis. Chronic thrombus right portal vein Moderate ascites ABD uS- FINDINGS: Cholecystectomy. The biliary tree is normal caliber. Cirrhotic liver with increased echotexture. 4.7 centimeter hepatic cyst. The main portal vein is patent with bidirectional flow IMPRESSION: Cholecystectomy. Biliary tree is normal caliber Cirrhosis. Assessment and Plan - Problems (Diagnosis) (1) Pancytopenia Current Visit: Yes Status: Acute (2) Fever Current Visit: Yes Status: Acute (3) Cirrhosis Onset Date: 06/27/16 Current Visit: No Status: Acute (4) Diabetes mellitus Onset Date: 10/29/14 Current Visit: No Status: Acute (5) ETOH abuse Onset Date: 10/29/14 Current Visit: No Status: Acute (6) Hypertension Onset Date: 10/29/14 Current Visit: No Status: Acute (7) Hypokalemia Onset Date: 06/27/16 Current Visit: No Status: Acute - Advance Directives Does patient have a Living Will: No Does patient have a Durable POA for Healthcare: No Physician Review: Patient Assessed, Agree with Above Assessment and Plan Physician Review Additional Text: # fever/abdominal pain/increase in ascites-suspected spontaneous bacterial peritonitis. -we start patient on Rocephin empirically -will consult IR for paracentesis we send fluid for cell count and culture -monitor fever -can do the NSAID-ibuprofen as needed # Thrombocytopenia /anemia-likely due to liver cirrhosis with secondary hypersplenism from portal vein thrombosis. -will continue to monitor all - follow with meds to decrese portal vein HTN - will obtain LDH and manual diff with peripheral smear to r/o TTP -If LDH elevated , or presence of schizocytes , will need transfer # chronic portal vein thrombosis-will start low-dose Lovenox now despite thrombocytopenia if rising in am -elevated INR noted -monitor for bleeding -will decided with GI in a.m. on possibility of continuing anticoagulation intermediate -we switch to propanolol to decrease portal vein hypertension #Hypertension - with urgency -resume medications, spontaneously trending down now -follow with switch of atenolol to propanolol # Diabetes mellitus-subcutaneous insulin with Accu-Chek sliding scale. Resume metformin #DVT prophylaxis-SCD now , may need subacute Lovenox as above despite thrombocytopenia #Advanced [id number]-rxopbrqox-ubme code Time Spent Managing Pts Care (In Minutes): 70
[2020-01-16] MEDS ORDERED: IBUPROFEN 400 MG TAB PO PRN (00:42)
[2020-01-16] MEDS ORDERED: LACTULOSE 20 GM/30 ML UCUP PO PRN (00:44)
[2020-01-16] MEDS: CEFTRIAXONE/SWI 1gm 1 GM/10 ML SYR IV SCH ×2 (01:22→09:11)
[2020-01-16 01:28] VITALS: O2SAT 97
[2020-01-16 01:46] VITALS: BMI 28.8
[2020-01-16 02:01] LABS: Absolute Lymphocytes (CBC) 0.7 K/uL (0.7-4.9); Basophils % 0.7 % (0-1.3); Hematocrit 26.2 % (36.0-45.0); Lymphocytes % 28.6 % (15.3-44.8); MPV 8.2 fL (7.6-11.3); RBC Red Blood Cell Count 2.54 M/uL (3.86-4.86)
[2020-01-16 02:10] LABS: Troponin I 0.02 ng/mL (0.0-0.045)
[2020-01-16 02:21] LABS: Blood Morphology Comment NOT SEEN (NOT SEEN); Platelet Estimate DECR
[2020-01-16] MEDS: HYDROMORPHONE HCL 1 MG/ML INJ IV PRN ×2 (02:47→07:33)
[2020-01-16] MEDS: INSULIN -REGULAR HUMAN 50 UNIT/0.5 ML ML SQ SCH ×2 (07:30→11:30)
[2020-01-16] MEDS ORDERED: PANTOPRAZOLE 40MG TABLET PO SCH (07:30)
[2020-01-16] MEDS ORDERED: CEFTRIAXONE 1 GM/NS 50 ML 1 GM/50 ML BAG IV SCH (09:00)
[2020-01-16] MEDS ORDERED: BUMETANIDE 1 MG/4 ML VIAL IV SCH (09:00)
[2020-01-16] MEDS ORDERED: ENOXAPARIN 40 MG/0.4 ML SQ SCH (09:00)
[2020-01-16] MEDS ORDERED: atenoloL 50 MG TAB PO SCH (09:00)
[2020-01-16] MEDS ORDERED: METFORMIN HCL 500 MG TAB PO SCH (09:00)
[2020-01-16] MEDS ORDERED: AMLODIPINE 10 MG TAB PO SCH (09:00)
[2020-01-16] MEDS ORDERED: CITALOPRAM 10 MG TABLET PO SCH (09:00)
[2020-01-16] MEDS ORDERED: POTASSIUM CL SA 10 MEQ TAB PO SCH (09:00)
[2020-01-16] MEDS ORDERED: PROPRANOLOL HCL 40 MG TAB PO SCH (09:00)
--- NOTE | 2020-01-16 09:41 | P.DS ---
Admission Date: 01/16/20 Discharge Date: 01/16/20 Disposition: ROUTINE DISCHARGE Discharge Condition: FAIR Reason for Admission: low platelet Consultations: GI doctor Vanessa Telephone consultation Dr. Barth oncology Brief History of Present Illness: From H and P 59-year-old female with past medical history of HTN, DM, liver cirrhosis secondary to MARTINEZ since over 20 years develop abdominal pain nonspecific, intermittent headache and was seen by PCP but noted with low platelets and sent to the ED. In the emergency room patient platelet was noted at 28. Patient was also noted with elevated blood pressure with systolic of over 200. She was also noted with ascites and anasarca. 45 She denies any nausea or vomiting. She denies any bleeding, hematochezia or hematemesis. CT of the abdomen show evidence of chronic portal vein thrombosis. She is being admitted for further wwork up. GI- has been discussed with by ER physician Hospital Course: Patient is a 59-year-old female with past medical history of Martinez now with cirrhosis comes in due to recent finding of low platelets in outpatient setting. Patient also reports some lower extremity swelling. Patient has been afebrile throughout her stay. Patient was seen by GI. patient is started on diuretics and counseled regarding sodium and fluid restriction. Patient's CT scan showed ascites however clinically does not have abdominal distension. Risk for SBP is low with normal white blood cell count spoke with GI he is not feel that patient needs paracentesis. Overall patient did well. Well she did receive platelet transfusion. Patient's platelet levels improved to 52,000. Oncology was consulted over the phone. Spoke with Dr. Barth. Patient is child's class 3 due to elevated total bilirubin of 9.1, INR of over 2 without any anticoagulation and albumin is 1.9. She has chronic right-sided portal vein thrombosis however The main portal vein is patent with bidirectional flow Given the good bidirectional flow left main portal vein on abdominal ultrasound patient does not require anticoagulation initially Patient is not a good candidate for long- term anticoagulation. Her mortality rate is high in the next 5 years due to her cirrhosis. Short of a liver transplant she has very high morbidity and mortality rate. . Patient instructed to establish care with primary care physician to follow up on her diabetes and hypertension. She also needs to follow up closely with GI regarding her cirrhosis. Hepatitis panel was sent out. Patient was then cleared for discharge by consultants standpoint. # fever/abdominal pain/increase in ascites-suspected spontaneous bacterial peritonitis. -we start patient on Rocephin empirically -will consult IR for paracentesis we send fluid for cell count and culture -monitor fever -can do the NSAID-ibuprofen as needed # Thrombocytopenia /anemia-likely due to liver cirrhosis with secondary hypersplenism from portal vein thrombosis. -will continue to monitor all - follow with meds to decrese portal vein HTN - will obtain LDH and manual diff with peripheral smear to r/o TTP -If LDH elevated , or presence of schizocytes , will need transfer # chronic portal vein thrombosis-will start low-dose Lovenox now despite thrombocytopenia if rising in am -elevated INR noted -monitor for bleeding -will decided with GI in a.m. on possibility of continuing anticoagulation long-term -we switch to propanolol to decrease portal vein hypertension #Hypertension - with urgency -resume medications, spontaneously trending down now -follow with switch of atenolol to propanolol # Diabetes mellitus-subcutaneous insulin with Accu-Chek sliding scale. Resume metformin Vital Signs/Physical Exam: Temp Pulse Resp BP Pulse Ox 99.1 F 99 H 18 131/61 97 01/16/20 04:00 01/16/20 09:11 01/16/20 08:03 01/16/20 09:11 01/16/20 08:03 General: Alert, In no apparent distress, Oriented x3 HEENT: Atraumatic, PERRLA, EOMI Neck: Supple, JVD not distended Respiratory: Clear to auscultation bilaterally, Normal air movement Cardiovascular: Normal pulses, Regular rate/rhythm, Normal S1 S2, Edema Gastrointestinal: Normal bowel sounds, Soft and benign, Non-distended, No tenderness Musculoskeletal: No tenderness Integumentary: No rashes, No erythema Neurological: Normal speech, Normal strength at 5/5 x4 extr, Normal tone, Cranial nerves 3-12 intact, Normal affect Laboratory Data at Discharge: WBC 2.6 K/uL (4.3-10.9) L 01/16/20 01:29 Hgb 9.2 g/dL (12.0-15.0) L 01/16/20 01:29 Hct 26.2 % (36.0-45.0) L 01/16/20 01:29 Plt Count 52 K/uL (152-406) L D 01/16/20 01:29 PT 25.2 SECONDS (9.5-12.5) H 01/15/20 18:55 INR 2.17 01/15/20 18:55 Sodium 140 mmol/L (136-145) 01/15/20 18:55 Potassium 3.2 mmol/L (3.5-5.1) L 01/15/20 18:55 BUN 7 mg/dL (7-18) 01/15/20 18:55 Creatinine 0.70 mg/dL (0.55-1.3) 01/15/20 18:55 Glucose 219 mg/dL (74-106) H 01/15/20 18:55 Total Bilirubin 9.1 mg/dL (0.2-1.0) H* 01/15/20 18:55 AST 54 U/L (15-37) H 01/15/20 18:55 ALT 24 U/L (12-78) 01/15/20 18:55 Alkaline Phosphatase 154 U/L (45-117) H 01/15/20 18:55 Troponin I 0.02 ng/mL (0.0-0.045) 01/16/20 05:27 Imagings Data: Report Status: Signed EXAM DESCRIPTION: US - Abdomen Exam Limited - 01/15/2020 8:52 pm CLINICAL HISTORY: Abdominal pain./elevated bilirubin COMPARISON: January 15, 2020 CT FINDINGS: Cholecystectomy. The biliary tree is normal caliber. Cirrhotic liver with increased echotexture. 4.7 centimeter hepatic cyst. The main portal vein is patent with bidirectional flow IMPRESSION: Cholecystectomy. Biliary tree is normal caliber Cirrhosis. Home Medications: Amlodipine Besylate [Norvasc] 10 mg PO BID 10/29/14 Metformin HCl [Glucophage*] 500 mg PO BID #60 tab 01/16/20 Propranolol [Inderal*] 40 mg PO BID #60 tab 01/16/20 Spironolactone [Aldactone] 25 mg PO DAILY #30 tab 01/16/20 New Medications: Spironolactone [Aldactone] 25 mg PO DAILY #30 tab Metformin HCl [Glucophage*] 500 mg PO BID #60 tab Propranolol [Inderal*] 40 mg PO BID #60 tab Patient Discharge Instructions: Establish care with primary care physician in 1 week. Follow up with GI doctor Vanessa in 2 weeks. Follow up with senior it business analyst Dr. Barth in 1 week. Return to ER for worsening condition Diet: Low sodium (Free fluid restriction 1500 mL) Activity: Ad morgan Time spent managing pt's care (in minutes): 38
[2020-01-16 10:18] LABS: Ferritin 255.4 ng/mL (8-388)
[2020-01-16 10:56] VITALS: TEMP 97.8
--- NOTE | 2020-01-16 12:04 | EKG ---
Test Date: 2020-01-15 Test Time: 19:10:36 Certified Anesthesiologist Assistant: BRODY MEASUREMENT RESULTS: Intervals: Rate: 93 AR: 168 QRSD: 84 QT: 406 QTc: 504 [place]: P: 45 AR: 168 QRS: 34 T: 12 INTERPRETIVE STATEMENTS: Normal sinus rhythm Prolonged QT Abnormal ECG Compared to ECG 03/24/2019 09:53:56 Prolonged QT interval now present Electronically Signed On 01-16-20 12:02:54 CDT by Javier Redd
[2020-01-16 13:22] VITALS: BP 144/71
[2020-01-18 02:51] LABS: HBsAG Nonreactive (Nonreactive)
== END 2020-01-16 12:36 | disposition home or self-care (01) | DRG 432 ==
LOC: ER 18:13 → ERHOLD 01-16 00:11 → 2ND 01-16 00:55
PROVIDERS: ADMIT Internal Medicine; ATTEND Family Medicine
PROC: 30233R1 Transfusion of Nonautologous Platelets into Peripheral Vein, Percutaneous Approach (ICD-10-PCS; principal; 2020-01-15)
DX: K74.60 Unspecified cirrhosis of liver (principal); K65.2 Spontaneous bacterial peritonitis; I81 Portal vein thrombosis; R18.8 Other ascites; D61.818 Other pancytopenia; E87.6 Hypokalemia; F10.10 Alcohol abuse, uncomplicated; I10 Essential (primary) hypertension; E11.9 Type 2 diabetes mellitus without complications; M79.89 Other specified soft tissue disorders; D73.1 Hypersplenism; Z79.84 Long term (current) use of oral hypoglycemic drugs; Z79.899 Other long term (current) drug therapy; Z86.73 Personal history of transient ischemic attack (TIA), and cerebral infarction without residual deficits; Z90.49 Acquired absence of other specified parts of digestive tract; Z98.51 Tubal ligation status; Z88.5 Allergy status to narcotic agent
CPT/HCPCS: 36415; 70450; 74177; 76705; 80053; 80074; 81003; 81015; 82103; 82105; 82140; 82390; 82728; 82947; 83540; 83615; 84466; 84484; 85025; 85610; 86038; 86255; 86850; 86900; 86901; 87040; 93005; 96374; 96375; 99285; J0360; J0696; J1170; J2405; J2765; J7030; P9035; Q9967

== ENCOUNTER 2020-02-29 16:35 | Emergency (ER) | payer SELFPAY ==
[2020-02-29 17:58] LABS: Absolute Lymphocytes (CBC) 0.7 K/uL (0.7-4.9); Basophils % 0.2 % (0-1.3); Hematocrit 29.4 % (36.0-45.0); Lymphocytes % 7.2 % (15.3-44.8); MPV 9.4 fL (7.6-11.3); RBC Red Blood Cell Count 2.82 M/uL (3.86-4.86)
[2020-02-29] MEDS ORDERED: ONDANSETRON 4 MG/2 ML VIAL ONE (18:01)
[2020-02-29] MEDS ORDERED: IBUPROFEN 200 MG TAB PO ONE (18:01)
[2020-02-29] MEDS ORDERED: IBUPROFEN 400 MG TAB ONE (18:01)
[2020-02-29 18:04] LABS: Protime INR 2.34
[2020-02-29 18:15] LABS: Albumin 1.8 g/dL (3.4-5.0); Bilirubin Direct 3.8 mg/dL (0-0.2); Potassium 4.3 mmol/L (3.5-5.1); Protein, Total 6.4 g/dL (6.4-8.2)
[2020-02-29 18:16] LABS: Bilirubin Total 10.6 mg/dL (0.2-1.0)
--- NOTE | 2020-02-29 19:00 | RAD REPORT ---
EXAM DESCRIPTION: CT - Abdomen Pelvis W Contrast - 02/29/2020 6:37 pm CLINICAL HISTORY: Abdominal pain COMPARISON: 12/2019 TECHNIQUE: Computed axial tomography of the abdomen pelvis was obtained. 100 cc Isovue-300 was admin istered intravenously. Oral contrast was not requested which limits evaluation of bowel. All CT scans are performed using dose optimization technique as appropriate and may include automated exposure control or mA/KV adjustment according to patient size. FINDINGS: A cirrhotic liver. 5 centimeter hepatic cyst. Chronic thrombus within the right portal vei n. Dilated varices within the abdomen. The spleen measures 16 centimeters. The pancreas, adrenals and kidneys unremarkable There is no evidence of diverticulitis. Small to moderate amount of ascites Thickening of the wall of portions of small bowel IMPRESSION: Cirrhosis Chronic thrombus right portal vein Small to moderate amount of ascites Thickening of the wall of portions of small bowel probably related to hypoalbuminemia. Inflammation c an also result in this appearance
[2020-02-29 20:16] VITALS: O2SAT 100
[2020-02-29 20:18] VITALS: TEMP 98.4
[2020-02-29 20:19] VITALS: BP 111/60
--- NOTE | 2020-03-01 19:17 | ER ---
Nurse's Notes [facility] Name: Maude Varner Age: 59 yrs Sex: Female : 1960 Arrival Date: 02/29/2020 Time: 16:38 Bed 5 Private MD: Diagnosis: Cirrhosis of liver Stage 4. Thrombocyctopenia Presentation: 02/28 16:43 Chief complaint: Patient states: Pt has Liver Cirrhosis stage 4. Pt reports dizziness, ca1 headache, fatigue worst since yesterday. Nausea and vomiting since last night, dark in color with a few blood clots this morning. Coronavirus screen: Proceed with normal triage. Patient denies a cough. Patient denies shortness of breath or difficulty breathing. Patient denies measured and/or subjective temperature greater than 100.4F prior to today's visit. Patient denies travel on a cruise ship or to a country the [facility] currently lists as an affected area. Patient denies contact with known and/or suspected case of COVID-19. Ebola Screen: Patient negative for fever greater than or equal to 101.5 degrees Fahrenheit, and additional compatible Ebola Virus Disease symptoms Patient denies exposure to infectious person. Patient denies travel to an Ebola-affected area in the 21 days before illness onset. No symptoms or risks identified at this time. Initial Sepsis Screen: Does the patient meet any 2 criteria? No. Patient's initial sepsis screen is negative. Does the patient have a suspected source of infection? No. Patient's initial sepsis screen is negative. Risk Assessment: Do you want to hurt yourself or someone else? Patient reports no desire to harm self or others. Onset of symptoms was February 29, 2020. 16:43 Method Of Arrival: Ambulatory ca1 16:43 Acuity: ELVIRA 3 ca1 Historical: - Allergies: 16:49 Morphine; ca1 - PMHx: 16:49 Cirrhosis; Diabetes - NIDDM; Hypertension; ca1 - PSHx: 16:49 Cholecystectomy; Tubal ligation; ca1 - Immunization history:: Adult Immunizations up to date. - Social history:: Smoking status: Patient denies any tobacco usage or history of. Screenin:35 Abuse screen: Denies threats or abuse. Denies injuries from another. Nutritional sv screening: No deficits noted. Tuberculosis screening: No symptoms or risk factors identified. Fall Risk None identified. Assessment: 17:35 General: Appears in no apparent distress. uncomfortable, well developed, Behavior is sv calm, cooperative, appropriate for age. General: Reports fatigue for 1-2 days. Pain: Complains of pain in forehead Pain currently is 5 out of 10 on a pain scale. Pain began 1 day ago. Is continuous. Neuro: Level of Consciousness is awake, alert, obeys commands, Oriented to person, place, time, situation, Moves all extremities. Full function. Respiratory: Airway is patent Respiratory effort is even, unlabored, Respiratory pattern is regular, symmetrical. GI: Abdomen is round Reports nausea, vomiting. Derm: Skin is icteric, jaundiced. Musculoskeletal: Range of motion: intact in all extremities. 18:00 Reassessment: Patient appears in no apparent distress at this time. No changes from sv previously documented assessment. Patient and/or family updated on plan of care and expected duration. Pain level reassessed. Patient is alert, oriented x 3, equal unlabored respirations, skin warm/dry/pink. 19:00 General: Appears in no apparent distress. Behavior is calm, cooperative, appropriate ea for age. Pain: Denies pain. Neuro: Level of Consciousness is awake, alert, obeys commands, Oriented to person, place, time, situation. Respiratory: Airway is patent Respiratory effort is even, unlabored, Respiratory pattern is regular, symmetrical. Derm: Skin is jaundiced. Vital Signs: 16:43 BP 134 / 65; Pulse 77; Resp 16 S; Temp 98.1(TE); Pulse Ox 100% on R/A; Weight 68.04 kg ca1 (R); Height 5 ft. 3 in. (160.02 cm) (R); 16:57 BP 125 / 55; Pulse 76; Resp 18; Temp 98.4; Pulse Ox 100% on R/A; dh4 18:31 BP 110 / 55; Pulse 74; Resp 16; Pulse Ox 100% on R/A; sv 19:56 BP 111 / 60; Pulse 74; Resp 18; Pulse Ox 100% on R/A; mg2 16:43 Body Mass Index 26.57 (68.04 kg, 160.02 cm) ca1 ED Course: 16:38 Patient arrived in ED. as 16:47 Triage completed. ca1 16:49 Arm band placed on right wrist. ca1 17:11 Claritza Alan, ROMEO is Primary Nurse. sv 17:13 Be Hurtado MD is Attending Physician. kdr 17:35 Patient has correct armband on for positive identification. Bed in low position. Call sv light in reach. Pulse ox on. NIBP on. Door closed. Warm blanket given. Head of bed elevated. 17:45 Inserted saline lock: 20 gauge in left antecubital area, using aseptic technique. Blood sv collected. Flushed left antecubital with 5 ml normal saline. 18:37 CT Abd/Pelvis - IV Contrast Only In Process Unspecified. EDMS 19:04 Attending Physician role handed off by Be Hurtado MD pkl 19:04 Manuel Rasheed MD is Attending Physician. pkl 19:14 Primary Nurse role handed off by Claritza Alan RN sv 19:22 Served as a early interventionist during rectal exam. mg2 19:28 Shweta Seo RN is Primary Nurse. ea 19:56 IV discontinued, intact, bleeding controlled, No redness/swelling at site. Pressure mg2 dressing applied. Administered Medications: 18:00 Drug: Zofran (Ondansetron) 4 mg Route: IVP; Site: left antecubital; sv 18:31 Follow up: Response: No adverse reaction sv 18:01 Drug: Motrin 600 mg Route: PO; sv 18:32 Follow up: Response: No adverse reaction sv 18:05 CANCELLED (Duplicate Order): Motrin 600 mg PO once sv 18:05 CANCELLED (Duplicate Order): Zofran (Ondansetron) 4 mg IVP once; over 2 minutes sv Outcome: 19:45 Discharge ordered by . pkl 19:57 Discharged to home ambulatory. mg2 19:57 Condition: good 19:57 Discharge instructions given to patient, Instructed on discharge instructions, follow up and referral plans. medication usage, Demonstrated understanding of instructions, follow-up care, medications, Prescriptions given X 1. 19:59 Patient left the ED. mg2 Signatures: Dispatcher [employer] EDMS Claritza Alan RN RN sv Lam, Pin, MD MD pkBe Mendoza MD MD kdr Martinez, Amelia as Antunez, Elena, RN RN ea Gardose, Michele, RN RN mg2 Acob, Cheryl, RN RN [facility] Mykel Astorga [facility]
--- NOTE | 2020-03-01 19:17 | EDPHYS ---
Physician Documentation [facility] Name: Maude Varner Age: 59 yrs Sex: Female : 1960 Arrival Date: 02/29/2020 Time: 16:38 Bed 5 Private MD: ED Physician Manuel Rasheed HPI: 02/28 19:24 This 59 yrs old Female presents to ER via Ambulatory with complaints of pkl Vomiting, Congestion. 19:24 The patient presents to the emergency department with nausea, vomiting. Onset: The pkl symptoms/episode began/occurred. Associated signs and symptoms: Pertinent positives: headache and dizziness. Patient has H/O of stage 4 Cirrhosis of liver. Unable to follow up with liver specialist due to financial reason and no insurance. Patient said she noticed a little blood in her vomitus last night but none today. Historical: - Allergies: 16:49 Morphine; ca1 - PMHx: 16:49 Cirrhosis; Diabetes - NIDDM; Hypertension; ca1 - PSHx: 16:49 Cholecystectomy; Tubal ligation; ca1 - Immunization history:: Adult Immunizations up to date. - Social history:: Smoking status: Patient denies any tobacco usage or history of. ROS: 19:32 Eyes: Negative for injury, pain, redness, and discharge, ENT: Negative for injury, pkl pain, and discharge, Neck: Negative for injury, pain, and swelling, Cardiovascular: Negative for chest pain, palpitations, and edema, Respiratory: Negative for shortness of breath, cough, wheezing, and pleuritic chest pain. 19:32 Abdomen/GI: Positive for nausea and vomiting. 19:32 Back: Negative for acute changes. 19:32 : Negative for urinary symptoms. 19:32 MS/extremity: Negative for acute changes. 19:32 Skin: Negative for rash. 19:32 Neuro: Negative for altered mental status. Exam: 19:32 Head/Face: Normocephalic, atraumatic. Eyes: Pupils equal round and reactive to light, pkl extra-ocular motions intact. Lids and lashes normal. Conjunctiva and sclera are non-icteric and not injected. Cornea within normal limits. Periorbital areas with no swelling, redness, or edema. ENT: Nares patent. No nasal discharge, no septal abnormalities noted. Tympanic membranes are normal and external auditory canals are clear. Oropharynx with no redness, swelling, or masses, exudates, or evidence of obstruction, uvula midline. Mucous membranes moist. Neck: Trachea midline, no thyromegaly or masses palpated, and no cervical lymphadenopathy. Supple, full range of motion without nuchal rigidity, or vertebral point tenderness. No Meningismus. Chest/axilla: Normal chest wall appearance and motion. Nontender with no deformity. No lesions are appreciated. Cardiovascular: Regular rate and rhythm with a normal S1 and S2. No gallops, murmurs, or rubs. Normal PMI, no JVD. No pulse deficits. Respiratory: Lungs have equal breath sounds bilaterally, clear to auscultation and percussion. No rales, rhonchi or wheezes noted. No increased work of breathing, no retractions or nasal flaring. 19:32 Abdomen/GI: Bowel sounds: normal, Palpation: abdomen is soft and non-tender, in all quadrants, Rectal exam: Stool: normal, guaiac negative, the exam is chaperoned by the nurse. 19:32 Back: Exam negative for acute changes. 19:32 : Exam negative for acute changes. 19:32 Musculoskeletal/extremity: Exam is negative for acute changes. 19:32 Skin: Exam negative for rash. 19:32 Neuro: Orientation: is normal, Mentation: is normal, Cranial nerves: grossly normal, Motor: is normal. Vital Signs: 16:43 BP 134 / 65; Pulse 77; Resp 16 S; Temp 98.1(TE); Pulse Ox 100% on R/A; Weight 68.04 kg ca1 (R); Height 5 ft. 3 in. (160.02 cm) (R); 16:57 BP 125 / 55; Pulse 76; Resp 18; Temp 98.4; Pulse Ox 100% on R/A; dh4 18:31 BP 110 / 55; Pulse 74; Resp 16; Pulse Ox 100% on R/A; sv 19:56 BP 111 / 60; Pulse 74; Resp 18; Pulse Ox 100% on R/A; mg2 16:43 Body Mass Index 26.57 (68.04 kg, 160.02 cm) ca1 MDM: 19:04 Patient medically screened. pkl 19:32 Data reviewed: vital signs, nurses notes, lab test result(s), radiologic studies, CT pkl scan. ED course: Discussed lab. and CT scan results with patient. Advised to follow up with liver specialist at [facility] for follow up and placed on liver transplant list. Patient understood instructions. 02/28 17:31 Order name: Basic Metabolic Panel; Complete Time: 19:05 02/28 17:31 Order name: CBC with Diff; Complete Time: 18:16 02/28 17:31 Order name: Hepatic Function; Complete Time: 19:05 02/28 17:31 Order name: Lipase; Complete Time: 19:05 02/28 17:31 Order name: Protime (+inr); Complete Time: 19:05 02/28 17:31 Order name: Ptt, Activated; Complete Time: 19:05 02/28 17:31 Order name: IV Saline Lock; Complete Time: 18:06 02/28 17:31 Order name: Labs collected and sent; Complete Time: 18:06 02/28 17:53 Order name: CT Abd/Pelvis - IV Contrast Only; Complete Time: 19:05 kdr Administered Medications: 18:00 Drug: Zofran (Ondansetron) 4 mg Route: IVP; Site: left antecubital; sv 18:31 Follow up: Response: No adverse reaction sv 18:01 Drug: Motrin 600 mg Route: PO; sv 18:32 Follow up: Response: No adverse reaction sv 18:05 CANCELLED (Duplicate Order): Motrin 600 mg PO once sv 18:05 CANCELLED (Duplicate Order): Zofran (Ondansetron) 4 mg IVP once; over 2 minutes sv Disposition: 02/29/20 19:45 Discharged to Home. Impression: Cirrhosis of liver Stage 4. Thrombocyctopenia. - Condition is Stable. - Prescriptions for Zofran 4 mg Oral Tablet - take 1 tablet by ORAL route every 12 hours As needed; 12 tablet. - Work release form, Medication Reconciliation Form, Thank You Letter, Antibiotic Education, Prescription Opioid Use form. - Follow up: Private Physician; When: 2 - 3 days; Reason: Re-evaluation by your physician. - Problem is new. - Symptoms have improved. Signatures: Dispatcher [employer] Claritza Reynolds RN RN sv Lam, Pin, MD MD pkl Rittger, Kevin, MD MD kdr Williams, Irene, RN RN iw Gardose, Michele, RN RN mg2 Eliezer, ROMEO Morgan RN ca1 Corrections: (The following items were deleted from the chart) 18:05 17:53 Motrin 600 mg PO once ordered. sv sv 18:05 17:53 Zofran (Ondansetron) 4 mg IVP once; over 2 minutes ordered. sv sv 19:59 19:45 02/29/2020 19:45 Discharged to Home. Impression: Cirrhosis of liver Stage 4. mg2 Thrombocyctopenia. Condition is Stable. Forms are Medication Reconciliation Form, Thank You Letter, Antibiotic Education, Prescription Opioid Use. Follow up: Private Physician; When: 2 - 3 days; Reason: Re-evaluation by your physician. Problem is new. Symptoms have improved. pkl
== END 2020-02-29 19:59 | disposition home or self-care (01) ==
LOC: ER 16:35
DX: K74.69 Other cirrhosis of liver (principal); D69.6 Thrombocytopenia, unspecified; I10 Essential (primary) hypertension; Z88.5 Allergy status to narcotic agent
CPT/HCPCS: 36415; 74177; 80048; 80076; 83690; 85025; 85610; 85730; 96374; 99284; J2405; Q9967

== ENCOUNTER 2024-12-12 10:27 | Emergency (ER) | payer OTHER, SELFPAY ==
--- OUTSIDE RECORDS SUMMARY | 2024-12-12 10:43 | XMS REPORT | Continuity of Care Document ---
Author Name Unknown Address [address] [facility] [address] [place] [address] [facility] [place] Address [address] [facility] [address] [place] [address] Care Team Providers Care Clinical Faculty Name Role Phone Amina Mansfield MD Primary Care Physician [phone] SIMONE SAXENA Attending Clinician Unavailable SIMONE SAXENA Attending Clinician Unavailable BINH MCRAE Attending Clinician UnavailSALO Garcia Attending Clinician Unavailable Doctor Unassigned, [place] Attending Clinician U Marcella Jacinto Attending Clinician + [phone] Amina Mansfield MD Attending Clinician +[phone] Daiana Aguilar RN Attending Clinician Unavailable GAUDENCIO CHAPIN Attending Clinician Unavailable Gaudencio Chapin MD Attending Clinician +[phone] AMINA MANSFIELD Attending Clinician Unavailable SHERIN WILSON Attending Clinician Unavailable SHERIN WILSON Attending Clinician Unavailable Sherin Wilson MD Attending Clinician +[phone] Po, Adc Lab Main Attending Clinician UnavailCONNOR Vyas Attending Clinician Aggie PILLO Flores Attending Clinician UnavailALBERTO Howard Attending Clinician Unavaila CLARITZA Obrien Attending Clinician Unavai lable Edemekong MD, Amina Attending Clinician +[phone] Paramjit Lamb MD Attending Clinician +[phone] DOMINICK VELAZQUEZ Attending Clinician Unavailabhijeet Jackson, Kamaljit Lab Main Attending Clinician UnavailAlberto Howard MD Attending Clinician +[phone] Pillo Marcos MD Attending Clinician [phone] BRAYAN RICHTER K.H. Attending Clinician Unavaila preethi Doctor Unassigned, [place] Attending Clinician U jennifer Nunez MA, Zabrina Randhawa Attending Clinician Unavaila NIKI Valentino Attending Clinician Unavailable PARAMJIT LAMB Attending Clinician Unavailable Dari BYERS, Gaudencio Attending Clinician +[phone] SHO HICKEY Attending Clinician Unavailable AIMEE CAST Attending Clinician Unavailable Aimee Cast NP Attending Clinician +[phone] Caroline BYERS, Darwin James Attending Clinician + [phone] Jessica BADILLO Attending Clinician Unavailable Jessica Pacheco Attending Clinician +[phone] LAURA EMERY Attending Clinician UnavailLAURA So Attending Clinician UnavailNiki Pradhan Attending Clinician +[phone] Neelam BYERS, Brayan K.H. Attending Clinician + [phone] CODY MORRIS Attending Clinician Unavailable LESLEY RICCI Attending Clinician Unavailab LESLEY Teague Attending Clinician Unavailab BURKE Solomon Attending Clinician Unavailable SHO DUKE Attending Clinician Unavailable SONI ALBRECHT Attending Clinician Unavailable Soni Lopez Attending Clinician [phone] Lab, Ang - Db Attending Clinician Unavailable Burke Roth MD Attending Clinician +[phone] RICH SHIRLEY Attending Clinician Unavailable NEGRO NICOLE Attending Clinician Unavailable Negro Nicole PA-C Attending Clinician +[phone] KERON LEAL Attending Clinician Unavailable Keron Leal DO Attending Clinician +[phone] Tyson WALTERS, Trixie Attending Clinician Unavailab doug Kennedy FUR SEWER, Connor Attending Clinician Caroline BYERS, Dominick Attending Clinician + [phone] Rich Shirley MD Attending Clinician +[phone] 1, Sandra [employer] Attending Clinician Aggie kalia Wagner PhD, Brisa Brantley Attending Clinician + [phone] Marcus BYERS, Wilmar Lindsay Attending Clinician +[phone] Samreen BYERS, Alberto Attending Clinician +[phone] ALBERTO JOLLEY Attending Clinician Unavailabhijeet Cook RN, Deanna Attending Clinician Unavailable WANDY KRISHNAN Attending Clinician Unavailable Wandy Reyes Attending Clinician +[phone] FREEMAN REYNOSO Attending Clinician Unavaila preethi VILLALOBOS, Freeman Attending Clinician +[phone] Cristina Alvarenga MD Attending Clinician + [phone] DARWIN VELAZQUEZ Attending Clinician UnaDR ALBERTO Saul Attending Clinician Unavailab MARICARMEN Richardson Attending Clinician Unavail eliz Figueroa MD, Ricardo Attending Clinician + [phone] Valentin BYERS, Maricarmen Lombardi Attending Clinician +[phone] Norberto Ball MD Attending Clinician +[phone] Sanjana Dunn DO Attending Clinician +[phone] [facility] Attending Clinician Unavailable Olga Pichardo MD Attending Clinician +[phone] OLGA PICHARDO Attending Clinician Unavailabhijeet Lloyd RN, Kate Peters Attending Clinician + [phone] DANITZA SILVA Attending Clinician Unavaila Beni Helton MD Attending Clinician +[phone] Danitza Silva MD Attending Clinician + [phone] DANNY FELICIANO Attending Clinician Unavailable Vtc-Lab Attending Clinician Unavailable Baljeet Donahue MD Attending Clinician +[phone] BALJEET DONAHUE Attending Clinician Unavailable SNEHAL AUGUSTIN Attending Clinician Unavailab Snehal Carpenter DO Attending Clinician +[phone] 2, [facility] Attending Clinician Unavailable ANA CRISTINA PORTILLO Attending Clinician Unavailable Only, Ang Db Test Attending Clinician Unavailabl e Ileana FUR SEWER, Oscar Attending Clinician +[phone] OSCAR YOUNG Attending Clinician Unavailabl e Krzysztof RN, Carla Gifford Attending Clinician Unavailab doug Cottrell FUR SEWER, Anthony Attending Clinician +[phone] ANTHONY COTTRELL Attending Clinician Unavailable Devora BYERS, Alberto Attending Clinician +[phone] Simona WALTERS, Dilma Attending Clinician Unavailable JG HERNANDEZ Attending Clinician Unavail able Bandar LUNA, Ana Cristina Attending Clinician +[phone] SHAHANA CHU Attending Clinician Unavailable Nurse, Adc Pob Immunization Attending Clinician Unavailable Jg Hernandez DO Attending Clinician +[phone] GORDO OSEGUERA Attending Clinician Unavaila URIEL Landis Attending Clinician Unavail able URIEL STOLL Attending Clinician Unavail able STEPHANIE PEÑA Attending Clinician Unavailable Angeles BYERS, Shahana Attending Clinician +[phone] [facility] JOSEPH DOLAN Attending Clinician Unavailable Cara BYERS, Beverly Starr Attending Clinici an CRISTINA ALVARENGA Attending Clinician Unavailable DEANNA WASHBURN Attending Clinician Unavailable Marlena Brewer [facility], Lacey Peters Attending Clinic mihaela Unavailable Freda Donnelly Attending Clinician +[phone] ALBERTO DUMONT Attending Clinician Unavailable Dulce Ribera MA Attending Clinician Unavailabl e Only, Adc Test Attending Clinician Unavailable CARMELA MAR Attending Clinician Unavailable Augie Gil Attending Clinician [phone] AUGIE ANGEL Attending Clinician Unavailable Annabel Vera Attending Clinician +[phone] OSWALDO GOMEZ Attending Clinician Eliud Gomez MD, Oswaldo Sotelo Attending Clinician +[phone] Yasemin Burger MD Attending Clinician + [phone] Nasima BYERS, Johnny Escamilla Attending Clinician +[phone] Dejan BYERS, Binh Attending Clinician +[phone] Marivel BYERS, Salo Attending Clinician +[phone] FREDA FELIZ Attending Clinician UnavailALBERTO Romano Attending Clinician Unavailable JOHNNY DEL REAL Attending Clinician Unavailable Dalton BEARD LD CDE, Emile Deutsch Attending Clinician UnaANNABEL Sahni Attending Clinician Unavailable LANG HERRON Attending Clinician Unavailable RAMONITA ROSS Attending Clinician Unarachel Kamara MD, Ladonna Rasheed Attending Clinician + [phone] 1, [facility] Attending Clinician Unavailable Giuliana De La Paz Attending Clinician [phone] Anaid Larry RN Attending Clinician +[phone] Qasim BYERS, Elvia Guthrie Attending Clin ician МАРИЯ MOODY Attending Clinician Unavailable LADONNA KAMARA Attending Clinician Eliud CORREIAW, Zoë Garcia Attending Clinician Unavailable Lita Almaraz Attending Clinician Unavailable Bridget ALEXISP, Marii Randhawa Attending Clinician [phone] Naveen Hernandez MD Attending Clinician +[phone] Capri PRICING LEADShae Attending Clinician [phone] Akilah Luo DO Attending Clinician [phone] Pillo Can MD Attending Clinician [phone] Yandel Kaur MD Attending Clinician [phone] Geoff WALTERS, Louisa Brantley Attending Clinician Unavail eliz Jones MD, Petra Attending Clinician +[phone] Roddy ALEXISP, Jennifer Attending Clinician +[phone] Shaila BYERS, Мария Attending Clinician Lynn NEW [employer] INSPECTOR, Jaswant Lundy Attending Clinician Unavail able Rosemary Briceno Attending Clinician +[phone] Michael BYERS, Esme Attending Clinician +[phone] Kareem BYERS, Bakari Attending Clinician +[phone] Prasad VILLALOBOSAnaidCarrie Attending Clinician +[phone] Damien BYERS, Rory Attending Clinician +[phone] Benito Monaco MD Attending Clinician +[phone] BRITTANEY CUMMINGS Attending Clinician Unavailabhijeet SAXENA, SIMONE Admitting Clinician Unavailable BINH MCRAE Admitting Clinician UnavailSALO Garcia Admitting Clinician Unavailable JOHNNY DEL REAL Admitting Clinician Unavailable AMINA MANSFIELD Admitting Clinician Unavailable AIMEE CAST Admitting Clinician Unavailable Jessica BADILLO Admitting Clinician Unavailable SONI ALBRECHT Admitting Clinician Unavailable NEGRO NICOLE Admitting Clinician Unavailable SHERIN WILSON Admitting Clinician Unavailable WANDY KRISHNAN Admitting Clinician Unavailable DR ALBERTO SHAW Admitting Clinician Unavailab BENI Hilliard Admitting Clinician Unavailable Beni Eng MD Admitting Clinician +[phone] DARWIN VELAZQUEZ Admitting Clinician Alberto De Santiago MD Admitting Clinician +[phone] Salo Leroy MD Admitting Clinician +[phone] Oswaldo Gomez MD Admitting Clinician + [phone] Binh Mcrae MD Admitting Clinician [phone] Johnny Del Real MD Admitting Clinician [phone] Danitza Silva MD Admitting Clinician + [phone] Esme Peña MD Admitting Clinician +[phone] Kareem BYERS, Bakari Admitting Clinician +[phone] Damien BYERS, Rory Admitting Clinician +[phone] Payers Payer Name Policy Type Policy Number Effective Date Expirati on Date Source [facility] [id number] 2020 00:00:00 MEDICAID [facility] [id number] 2020 00:00:00 MEDICAID SSI PENDING PENDING 2020 00:00:00 [id number] 1959 00:00:00 Problems Condition Name Condition Details Condition Category Status Onset Date Resolution Date Last Treatment Date Treating Clinician Comments Source Chronic pain syndrome Chronic pain syndrome Disease Active 7- 00:00: 00 [facility] Bilateral chronic knee pain Bilateral chronic knee pain Disease Active 04-02 00:00: 00 [facility] Muscle strain Muscle strain Disease Active 04-02 00:00: 00 [facility] Hyperlipid emia, unspecifie d hyperlipid emia type Hyperlipid emia, unspecifie d hyperlipid emia type Disease Active 01-06 00:00: 00 [facility] Hypomagnes emia Hypomagnes emia Disease Active 06-26 00:00: 00 [facility] Low platelet count Low platelet count Disease Active 06-26 00:00: 00 [facility] Abdominal pain, acute, right lower quadrant Abdominal pain, acute, right lower quadrant Disease Active 03-21 00:00: 00 [facility] Loose stools Loose stools Disease Active 03-21 00:00: 00 [facility] Lactose intoleranc e Lactose intoleranc e Disease Active 03-21 00:00: 00 [facility] Orthostati c hypotensio n Orthostati c hypotensio n Disease Active 03-21 00:00: 00 [facility] Vertigo Vertigo Disease Active 03-21 00:00: 00 [facility] Bilateral groin pain Bilateral groin pain Disease Active 03-21 00:00: 00 [facility] Neck pain Neck pain Disease Active 8- 00:00: 00 [facility] Anxiety, generalize d Anxiety, generalize d Disease Active 8-02 00:00: 00 [facility] Primary insomnia Primary insomnia Disease Active 8-02 00:00: 00 [facility] Severe major depression Severe major depression Disease Active 8-02 00:00: 00 [facility] Pancytopen ia Pancytopen ia Disease Active 5-07 00:00: 00 [facility] Complicate d UTI (urinary tract infection) Complicate d UTI (urinary tract infection) Disease Active 5-05 00:00: 00 [facility] E-coli UTI E-coli UTI Disease Active 5-05 00:00: 00 [facility] Localized swelling, mass and lump, neck Localized swelling, mass and lump, neck Disease Active 3- 00:00: 00 [facility] Right arm pain Right arm pain Disease Active 3- 00:00: 00 [facility] Localized swelling, mass and lump, neck Localized swelling, mass and lump, neck Disease Active 3- 00:00: 00 [facility] Lump on neck Lump on neck Disease Active 3- 00:00: 00 [facility] Chronic right shoulder pain Chronic right shoulder pain Disease Active 3- 00:00: 00 [facility] Need for second dose of COVID-19 vaccine Need for second dose of COVID-19 vaccine Disease Active 1-19 00:00: 00 [facility] Acute pain of right shoulder Acute pain of right shoulder Disease Active 1-19 00:00: 00 [facility] Acute pain of right shoulder Acute pain of right shoulder Disease Active 1-19 00:00: 00 [facility] Chronic suprapubic pain Chronic suprapubic pain Disease Active 1-18 00:00: 00 [facility] Senile osteoporos is Senile osteoporos is Disease Active 2020-10 2-16 00:00: 00 [facility] Umbilical hernia without obstructio n and without gangrene Umbilical hernia without obstructio n and without gangrene Disease Active 8 00:00: 00 [facility] Degenerati ve disc disease, lumbar Degenerati ve disc disease, lumbar Disease Active 8 00:00: 00 [facility] Left nephrolith iasis Left nephrolith iasis Disease Active 8 00:00: 00 [facility] Screening for malignant neoplasm of the cervix Screening for malignant neoplasm of the cervix Disease Active 05-27 00:00: 00 [facility] Need for influenza vaccinatio n Need for influenza vaccinatio n Disease Active 8 00:00: 00 [facility] S/P laparoscop ic appendecto my S/P laparoscop ic appendecto my Disease Active 8 00:00: 00 [facility] S/P laparoscop ic appendecto my S/P laparoscop ic appendecto my Disease Active 8 00:00: 00 [facility] Slow transit constipati on Slow transit constipati on Disease Active 8 00:00: 00 [facility] Neuropathy Neuropathy Disease Active 6-03 00:00: 00 [facility] Chronic midline low back pain without sciatica Chronic midline low back pain without sciatica Disease Active 6-03 00:00: 00 [facility] Hospital discharge follow-up Hospital discharge follow-up Disease Active 6-03 00:00: 00 [facility] Immunocomp romised state Immunocomp romised state Disease Active 3-31 00:00: 00 [facility] 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 Added automatic ally from request for surgery [id number] [facility] Welcome to Medicare preventive visit Welcome to Medicare preventive visit Disease Active 2020 2- 00:00: 00 Overview: Formattin g of this note might be different from the original. Added automatic ally from request for surgery [id number] [facility] Bile leak Bile leak Disease Active 2019-10 2- 00:00: 00 Overview: Formattin g of this note might be different from the original. Added automatic ally from request for surgery [id number] [facility] S/P ERCP S/P ERCP Disease Active 2019-10 2- 00:00: 00 [facility] Liver transplant ed Liver transplant ed Disease Active 2019-10 0- 00:00: 00 Overview: Formattin g of this note might be different from the original. Added automatic ally from request for surgery [id number] [facility] Type 2 diabetes mellitus with other specified complicati on, with long-term current use of insulin Type 2 diabetes mellitus with other specified complicati on, with long-term current use of insulin Disease Active 06-26 00:00: 00 [facility] Type 2 diabetes mellitus with other specified complicati on, with long-term current use of insulin Type 2 diabetes mellitus with other specified complicati on, with long-term current use of insulin Disease Active 06-26 00:00: 00 [facility] Liver transplant recipient Liver transplant recipient Disease Active 202006-21 00:00: 00 [facility] Immunosupp ressed status Immunosupp ressed status Disease Active 06-21 00:00: 00 [facility] Bile leak, postoperat temi Bile leak, postoperat temi Disease Active 2020 9-20 00:00: 00 Overview: Formattin g of this note might be different from the original. 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 Disease Active 8-26 00:00: 00 [facility] Hyperbilir ubinemia Hyperbilir ubinemia Disease Active 8-03 00:00: 00 [facility] Flank pain Flank pain Disease Active 8- 00:00: 00 [facility] Intractabl e abdominal pain Intractabl e abdominal pain Disease Active 8 00:00: 00 [facility] Essential hypertensi on Essential hypertensi on Disease Active 06-01 00:00: 00 [facility] Cervical compressio n fracture, sequela Cervical compressio n fracture, sequela Disease Active 06-01 00:00: 00 [facility] Watery diarrhea Watery diarrhea Disease Resolve d 8-02 00:00: 00 2023-12-19 00:00:00 2023-12-19 13:49:35 [facility] Chronic diarrhea Chronic diarrhea Disease Resolve d 8- 00:00: 00 2023-12-19 00:00:00 2023-12-19 13:49:40 [facility] Fever and neutropeni a Fever and neutropeni a Disease Resolve d 5-07 00:00: 00 2023-12-19 00:00:00 2023-12-19 13:49:32 [facility] Acute appendicit is with localized peritoniti s, without perforatio n, abscess, or gangrene Acute appendicit is with localized peritoniti s, without perforatio n, abscess, or gangrene Disease Resolve d 5-24 00:00: 00 2023-12-19 00:00:00 2023-12-19 13:49:22 Overview: Formattin g of this note might be different from the original. Added automatic ally from request for surgery [id number] [facility] Biliary stricture Biliary stricture Disease Resolve d 5-13 00:00: 00 2023-12-19 00:00:00 2023-12-19 13:49:19 [facility] History of liver biopsy History of liver biopsy Disease Resolve d 2021-0 4-21 00:00: 00 2023-12-19 00:00:00 2023-12-19 13:49:17 [facility] SBP (spontaneo us bacterial peritoniti s) SBP (spontaneo us bacterial peritoniti s) Disease Resolve d 2019-0 9-08 00:00: 00 2023-12-19 00:00:00 2023-12-19 13:49:03 [facility] Fever Fever Disease Resolve d 2019-0 9-03 00:00: 00 2023-12-19 00:00:00 2023-12-19 13:48:59 [facility] Abdominal pain Abdominal pain Disease Resolve d 2019-0 8-25 00:00: 00 2023-12-19 00:00:00 2023-12-19 13:48:52 [facility] Chronic liver failure without hepatic coma Chronic liver failure without hepatic coma Disease Resolve d 2019-0 8-25 00:00: 00 2023-12-19 00:00:00 2023-12-19 13:48:56 Overview: Formattin g of this note might be different from the original. 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 Disease Resolve d 2019-0 7-15 00:00: 00 2023-12-19 00:00:00 2023-12-19 13:48:48 [facility] Acute hepatic failure Acute hepatic failure Disease Resolve d 2019-0 6-22 00:00: 00 2023-12-19 00:00:00 2023-12-19 13:48:43 [facility] Liver transplant candidate Liver transplant candidate Disease Resolve d 2019-0 9-20 00:00: 00 2020-06-21 00:00:00 2020-06-21 09:12:38 [facility] Allergies, Adverse Reactions, Alerts Allergy Name Allergy Type Status Severity Reaction(s) Onset Date Inactive Date Treating Clinician Comments Source No Known Drug Allergie s DA Active [facility] NO KNOWN ALLERGIE S Drug Class Active [facility] Social History Social Habit Start Date Stop Date Quantity Comments Source History of tobacco use Smokes tobacco daily [facility] ASSERTION [facility] Gender identity [facility] Alcoholic beverage intake 2024-04-08 00:00:00 2024-04-08 00:00:00 Ex-drinker (finding) [facility] History of Social function 2024-04-02 00:00:00 2024-04-02 00:00:00 [facility] Tobacco use and exposure 2024-01-07 00:00:00 2024-01-07 00:00:00 Smokeless tobacco non-user [facility] Alcohol intake 2023-12-19 00:00:00 2023-12-19 00:00:00 Ex-drinker (finding) [facility] Exposure to SARS-CoV-2 (event) 2023-01-02 00:00:00 2023-01-12 08:38:00 Not sure [facility] Education 2020-12-29 00:00:00 2020-12-29 00:00:00 13 [facility] History SDOH Financial 2020-03-23 00:00:00 2020-03-23 00:00:00 5 [facility] History SDOH Food Worry 2020-03-23 00:00:00 2020-03-23 00:00:00 1 [facility] History SDOH Food Scarcity 2020-03-23 00:00:00 2020-03-23 00:00:00 1 [facility] History SDOH Transport Med 2020-03-23 00:00:00 2020-03-23 00:00:00 2 [facility] History SDOH Transport Non-Med 2020-03-23 00:00:00 2020-03-23 00:00:00 2 [facility] Sex assigned at 1960 00:00:00 1960 00:00:00 [facility] Smoking Status Start Date Stop Date Source Never smoked tobacco [facility] [facility] [place] Smokes tobacco daily 2022-03-28 00:00:00 [facility] Medications Ordered Medication Name Filled Medication Name Start Date Stop Date Current Medication? Ordering Clinician Indication Dosage Frequency Signature (SIG) Comments Components Source DOXEPIN 10 mg capsule -20 00:00: 00 Yes [id number] 10mg TAKE 1 CAPSULE BY MOUTH AT BEDTIME [facility] maalox/diph enhydrAMINE :lidocaine2 %viscous 1:1:1: suspension (COMPOUNDED ) 2023-10 20:15: 00 09-22 21:15 :00 No 15mL 15 mL, Oral, ONCE, 1 dose, On Sun09/22/24 at 1415, ALBA [facility] sucralfate 1 gram tablet 2023-10 00:00: 00 Yes [id number] 1g Take 1 tablet by mouth before meals and at bedtime. [facility] ondansetron 4 mg disintegrat ing tablet 2023-10 00:00: 00 Yes [id number] 4mg Take 1 tablet by mouth every 4 (four) hours as needed for Nausea and Vomiting (N/V). [facility] famotidine 20 mg tablet 2023-10 00:00: 00 09-22 00:00 :00 Yes [id number] 20mg Take 1 tablet by mouth in the morning and 1 tablet in the evening. [facility] Magnesium 250 mg Tab 2023-1017 00:00: 00 Yes [id number] 1{tbl} Take 1 tablet by mouth in the morning. [facility] DULOXETINE 60 mg capsule 2023-10 0-14 00:00: 00 Yes [id number] 60mg TAKE 1 CAPSULE BY MOUTH EVERY MORNING [facility] FUROSEMIDE 20 mg tablet 9-09 00:00: 00 Yes 20mg TAKE ONE TABLET BY MOUTH EVERY MORNING [facility] tacrolimus 1 mg capsule 04-02 00:00: 00 Yes [id number] Take 2 capsules by mouth every morning AND 1 capsule every evening. [facility] pioglitazon e 15 mg tablet 04-02 00:00: 00 Yes [id number] 15mg Take 1 tablet by mouth in the morning. [facility] methocarbam oL 500 mg tablet 04-02 00:00: 00 Yes [id number] 500mg Take 1 tablet by mouth 4 (four) times daily as needed for Pain (scale 4-6) or Pain (scale 7-10). [facility] insulin lispro (HUMALOG KWIKPEN INSULIN) 100 unit/mL pen injector 04-02 00:00: 00 Yes [id number] Inject under skin three times daily before meals per sliding scale: 150-200: 1 units, 200-250: 2 units, 250-300: 3 units, 301-350: 4 units, 350-400: 5 units, 400-450: 6 units, >450: 7 units. Max: 21 units daily. [facility] Insulin Glargine (LANTUS SOLOSTAR U-100 INSULIN) 100 unit/mL (3 mL) injection 04-02 00:00: 00 Yes [id number] Inject 15 units under the skin daily. FOR ANY FURTHER REFILLS, NEEDS AN APPOINTMEN T. [facility] tirzepatide (MOUNJARO) 2.5 mg/0.5 mL subcutaneou s injection 04-02 00:00: 00 Yes [id number] 2.5mg inject 2.5 mg under the skin weekly. [facility] tirzepatide (MOUNJARO) 5 mg/0.5 mL subcutaneou s injection pem 04-02 00:00: 00 Yes [id number] 5mg inject 5 mg under the skin weekly. [facility] sulfamethox azole-trime thoprim (BACTRIM DS) 800-160 mg per tablet 04-02 00:00: 00 Yes [id number] 1{tbl} Take 1 tablet by mouth in the morning and 1 tablet in the evening. [facility] lactobacill us combination no.4 (PROBIOTIC) 3 billion cell Cap 04-02 00:00: 00 Yes [id number] 1{capsu le} Take 1 capsule by mouth in the morning. [facility] DULoxetine 60 mg capsule 04-02 00:00: 00 Yes [id number] 60mg Take 1 capsule by mouth in the morning. [facility] doxepin 10 mg capsule 04-02 00:00: 00 10-20 00:00 :00 No [id number] 10mg Take 1 capsule by mouth at bedtime. [facility] DULoxetine 60 mg CDRS 04-02 00:00: 04-02 00:00 :00 No [id number] 1{capsu le} Take 1 capsule by mouth in the morning and 1 capsule in the evening. [facility] Nitrofurant oin&Nit. Macrocryst (MACROBID) 100 mg capsule 03-31 00:00: 00 04-02 00:00 :00 No [id number] 100mg Take 1 capsule by mouth in the morning and 1 capsule in the evening. Do all this for 7 days. [facility] gabapentin 600 mg tablet 03-07 00:00: 00 Yes [id number] 600mg Take 1 tablet by mouth 4 (four) times daily. [facility] Insulin Glargine (LANTUS SOLOSTAR U-100 INSULIN) 100 unit/mL (3 mL) injection 03-06 00:00: 00 04-02 00:00 :00 No [id number] Inject 15 units under the skin daily. FOR ANY FURTHER REFILLS, NEEDS AN APPOINTMEN T. [facility] doxepin 10 mg capsule 03-05 00:00: 00 04-02 00:00 :00 No [id number] 10mg Take 1 capsule by mouth at bedtime. [facility] gabapentin 600 mg tablet 01-07 00:00: 00 03-04 00:00 :00 No [id number] 600mg Take 1 tablet by mouth 4 (four) times daily. [facility] valsartan 320 mg tablet 01-06 00:00: 00 Yes [id number] 320mg Take 1 tablet by mouth in the morning. [facility] carvediloL 25 mg tablet 01-06 00:00: 00 Yes [id number] 25mg Take 1 tablet by mouth in the morning and 1 tablet in the evening. Take with meals. [facility] metoprolol (LOPRESSOR) injection 5 mg 12-13 00:30: 00 12-13 00:56 :00 No 5mg 5 mg, Slow IV Push, ONCE, 1 dose, On Maureen 12/13/23 at 1930, [facility] ondansetron (ZOFRAN (PF)) injection 4 mg 12-12 22:30: 00 12-12 22:24 :00 No 4mg 4 mg, Slow IV Push, ONCE, 1 dose, On Maureen 12/13/23 at 1730, [facility] NaCl 0.9% (NS) bolus infusion 1,000 mL 12-12 21:45: 00 12-13 01:15 :00 No 1000mL at 999 mL/hr, 1,000 mL, IV Infusion, ONCE, 1 dose, On Maureen 12/13/23 at 1645, [facility] hydralAZINE (APRESOLINE ) injection 20 mg 12-12 21:45: 00 12-12 22:10 :00 No 20mg 20 mg, Slow IV Push, ONCE, 1 dose, On Maureen 12/13/23 at 1645, STAT [facility] tacrolimus (PROGRAF) capsule 1 mg 12-11 01:30: 00 Yes 1mg 1 mg, Oral, Q12HA2, First dose on Sun12/11/23 at 2030, Until Discontinu ed, Routine
cleaning team member approving Restricted medication : Jessica BADILLO [facility] magnesium sulfate in water 2 gram/50 mL (4 %) infusion 2 g 12-11 00:45: 00 12-11 01:08 :00 No 2g 2 g, IV Piggyback, Administer over 60 Minutes, ONCE, 1 dose, On Sun12/11/23 at 1945, Routine [facility] ondansetron (ZOFRAN (PF)) injection 4 mg 12-11 00:30: 00 12-10 23:23 :00 No 4mg 4 mg, Slow IV Push, ONCE, 1 dose, On Sun12/11/23 at 1930, ALBA [facility] morpHINE (4 mg/mL) injection 4 mg 12-11 00:30: 00 12-10 23:23 :00 No 4mg 4 mg, Slow IV Push, ONCE, 1 dose, On Sun12/11/23 at 1930, STAT [facility] iopamidol (ISOVUE 370-500 mL) injection 80 mL 12-10 23:15: 00 12-10 23:15 :00 No [id number] 80mL 80 mL, Intravenou s, ONCE, 1 dose, On Sun12/11/23 at 1815, Routine [facility] labetaloL (NORMODYNE) injection 20 mg 12-10 22:30: 00 12-10 22:00 :00 No 20mg 20 mg, Slow IV Push, ONCE, 1 dose, On Sun12/11/23 at 1730, Routine [facility] tacrolimus 1 mg capsule 12-10 00:00: 00 04-02 00:00 :00 No [id number] 2 caps PO q am, 1 cap PO pm. Take medication s 12 hours apart. [facility] Diclofenac Sodium 1 % gel 2022-10 00:00: 00 Yes [id number] APPLY TO AFFECTED AREA(S) 4 GRAMS 4 TIMES DAILY [facility] methylPREDN ISolone acetate (DEPO-MEDRO L) injection 40 mg 06-26 16:00: 00 06-26 16:12 :00 No [id number] 40mg 40 mg, Intramuscu lar, ONCE, 1 dose, On Sun06/26/23 at 1100, Routine [facility] GABAPENTIN 600 mg tablet 06-18 00:00: 00 01-07 00:00 :00 No [id number] TAKE ONE TABLET BY MOUTH THREE TIMES A DAY (MORNING, NOON AND EVENING) [facility] semaglutide (OZEMPIC) 1 mg/dose (4 mg/3 mL) PnIj 05-18 00:00: 00 04-02 00:00 :00 No [id number] 1mg inject 1 mg under the skin weekly. [facility] meclizine 12.5 mg tablet 03-21 00:00: 00 Yes [id number] 12.5mg Take 1 tablet by mouth 3 (three) times daily as needed for Dizziness. [facility] furosemide 20 mg tablet 03-21 00:00: 00 06-09 00:00 :00 No 20mg Take 1 tablet by mouth in the morning. [facility] carvediloL 6.25 mg tablet 03-21 00:00: 00 01-06 00:00 :00 No [id number] 6.25mg Take 1 tablet by mouth in the morning and 1 tablet in the evening. Take with meals. Please check blood pressure twice a day and keep a daily log. [facility] lactase 3,000 unit tablet 03-21 00:00: 00 05-18 00:00 :00 No [id number] 1{tbl} Take 1 tablet by mouth before meals as needed (Lactose intolerenc e). [facility] semaglutide (OZEMPIC) 0.25 mg or 0.5 mg(2 mg/1.5 mL) PnIj 03-21 00:00: 00 05-18 00:00 :00 No [id number] .5mg inject 0.5 mg under the skin weekly. [facility] DOXEPIN 10 mg capsule 02-23 00:00: 00 03-04 00:00 :00 No [id number] TAKE ONE CAPSULE BY MOUTH AT BEDTIME [facility] insulin regular human (HUMULIN R) injection 5 Units 12-29 23:30: 00 12-29 23:45 :00 No 5U 5 Units, Slow IV Push, ONCE, 1 dose, On Sun12/29/22 at 1830, STAT
In dication for insulin: Hyperglyce musa [facility] methocarbam oL (ROBAXIN) tablet 1,000 mg 12-29 22:45: 00 12-29 22:48 :00 No 1000mg 1,000 mg, Oral, ONCE, 1 dose, On Sun12/29/22 at 1745, [facility] FENTanyl PF (SUBLIMAZE (PF)) injection 25 mcg 12-29 22:45: 00 12-29 22:48 :00 No 25ug 25 mcg, Slow IV Push, ONCE, 1 dose, On Sun12/29/22 at 1745, STAT [facility] NaCl 0.9% (NS) bolus infusion 1,000 mL 12-29 22:30: 00 12-29 23:46 :00 No 1000mL at 999 mL/hr, 1,000 mL, IV Infusion, ONCE, 1 dose, On Sun12/29/22 at 1730, [facility] ondansetron (ZOFRAN (PF)) injection 4 mg 12-29 21:30: 00 12-29 21:38 :00 No 4mg 4 mg, Slow IV Push, ONCE, 1 dose, On Sun12/29/22 at 1630, [facility] ketorolac (TORADOL) injection 30 mg 12-29 21:30: 00 12-29 21:39 :00 No 30mg 30 mg, Slow IV Push, ONCE, 1 dose, On Sun12/29/22 at 1630, [facility] Insulin Glargine (LANTUS SOLOSTAR U-100 INSULIN) 100 unit/mL (3 mL) injection 12-29 00:00: 00 Yes [id number] INJECT 15 UNITS UNDER THE SKIN ONCE DAILY [facility] insulin lispro (HUMALOG KWIKPEN INSULIN) 100 unit/mL pen injector 12-29 00:00: 00 Yes [id number] Inject under skin three times daily before meals per sliding scale: 150-200: 1 units, 200-250: 2 units, 250-300: 3 units, 301-350: 4 units, 350-400: 5 units, 400-450: 6 units, >450: 7 units. Max: 21 units daily. [facility] Insulin Glargine (LANTUS SOLOSTAR U-100 INSULIN) 100 unit/mL (3 mL) injection 12-29 00:00: 00 Yes [id number] INJECT 15 UNITS UNDER THE SKIN ONCE DAILY [facility] DULoxetine 60 mg CDRS 12-29 00:00: 00 04-02 00:00 :00 No [id number] 1{capsu le} Take 1 capsule by mouth in the morning and 1 capsule in the evening. [facility] insulin lispro (HUMALOG KWIKPEN INSULIN) 100 unit/mL pen injector 12-29 00:00: 00 04-02 00:00 :00 No [id number] Inject under skin three times daily before meals per sliding scale: 150-200: 1 units, 200-250: 2 units, 250-300: 3 units, 301-350: 4 units, 350-400: 5 units, 400-450: 6 units, >450: 7 units. Max: 21 units daily. [facility] pioglitazon e 15 mg tablet 12-29 00:00: 00 04-02 00:00 :00 No [id number] 15mg Take 1 tablet by mouth in the morning. [facility] methocarbam oL 500 mg tablet 12-29 00:00: 00 04-02 00:00 :00 No [id number] 500mg Take 1 tablet by mouth 4 (four) times daily as needed for Pain (scale 4-6) or Pain (scale 7-10). [facility] semaglutide (OZEMPIC) 0.25 mg or 0.5 mg(2 mg/1.5 mL) PnIj 12-29 00:00: 00 03-21 00:00 :00 No [id number] .5mg inject 0.5 mg under the skin weekly. [facility] sulfamethox azole-trime thoprim 800-160 mg per tablet 12-29 00:00: 00 01-02 04:59 :00 No [id number] 1{tbl} Take 1 tablet by mouth every 12 (twelve) hours for 3 days. [facility] Insulin Glargine (LANTUS SOLOSTAR U-100 INSULIN) 100 unit/mL (3 mL) injection 12-27 00:00: 00 12-29 00:00 :00 No [id number] INJECT 12 UNITS UNDER THE SKIN ONCE DAILY [facility] DOXEPIN 10 mg capsule 12-22 00:00: 00 02-23 00:00 :00 No [id number] TAKE ONE CAPSULE BY MOUTH AT BEDTIME [facility] simethicone (GAS RELIEF (SIMETHICON E)) 40 mg/0.6 mL drops 11-16 15:45: 00 11-16 16:53 :11 No PRN, Starting on Maureen 11/16/22 at 0945, Until Maureen 11/16/22 at 1053, Routine, Intra-op [facility] lactated ringers IV infusion 1,000 mL 11-16 14:00: 00 11-16 14:17 :00 No 1000mL at 42 mL/hr, 1,000 mL, IV Infusion, ONCE, 1 dose, On Sun11/16/22 at 0800, Routine, Endo Pre-op [facility] peg-electro lyte soln 236-22.74-6 .74 -5.86 gram solution 11-13 00:00: 00 Yes Take as directed [facility] acetaminoph en (TYLENOL) tablet 975 mg 10-25 01:30: 00 10-25 13:29 :00 No 975mg 975 mg, Oral, ONCE, 1 dose, On Sun10/24/22 at 1930, ALBA [facility] ketorolac (TORADOL) injection 30 mg 10-25 00:30: 00 10-25 00:26 :00 No 30mg 30 mg, Slow IV Push, ONCE, 1 dose, On Sun10/24/22 at 1830, Routine [facility] cloNIDine (CATAPRES) tablet 0.2 mg 10-25 00:30: 00 10-25 00:26 :00 No .2mg 0.2 mg, Oral, ONCE, 1 dose, On Sun10/24/22 at 1830, STAT [facility] insulin lispro (HUMALOG KWIKPEN INSULIN) 100 unit/mL pen injector 10-25 00:00: 00 Yes [id number] Inject under skin three times daily before meals per sliding scale: 150-200: 1 units, 200-250: 2 units, 250-300: 3 units, 301-350: 4 units, 350-400: 5 units, 400-450: 6 units, >450: 7 units. Max: 21 units daily. [facility] insulin lispro (HUMALOG KWIKPEN INSULIN) 100 unit/mL pen injector 10-25 00:00: 00 12-29 00:00 :00 No [id number] Inject under skin three times daily before meals per sliding scale: 150-200: 1 units, 200-250: 2 units, 250-300: 3 units, 301-350: 4 units, 350-400: 5 units, 400-450: 6 units, >450: 7 units. Max: 21 units daily. [facility] pioglitazon e 15 mg tablet 10-25 00:00: 00 12-29 00:00 :00 No [id number] 15mg Take 1 tablet by mouth in the morning. [facility] iopamidol (ISOVUE 370-500 mL) injection 84 mL 10-24 23:15: 10-24 23:15 :00 No [id number] 84mL 84 mL, Intravenou s, ONCE, 1 dose, On Sun10/24/22 at 1715, Routine [facility] NaCl 0.9% (NS) bolus infusion 1,000 mL 10-24 22:15: 00 10-25 00:03 :00 No 1000mL at 999 mL/hr, 1,000 mL, IV Infusion, ONCE, 1 dose, On Sun10/24/22 at 1615, STAT [facility] insulin regular human (HUMULIN R) injection 3 Units 10-24 22:15: 00 10-24 22:06 :00 No 3U 3 Units, Slow IV Push, ONCE, 1 dose, On Sun10/24/22 at 1615, STAT
In dication for insulin: Hyperglyce musa [facility] ondansetron (ZOFRAN (PF)) injection 4 mg 10-24 21:45: 00 10-24 21:02 :00 No 4mg 4 mg, Slow IV Push, ONCE, 1 dose, On Sun10/24/22 at 1545, ALBA [facility] morpHINE (4 mg/mL) injection 4 mg 10-24 20:45: 00 10-24 21:02 :00 No 4mg 4 mg, Slow IV Push, ONCE, 1 dose, On Sun10/24/22 at 1445, STAT [facility] DULOXETINE 40 mg CpDR 10-23 00:00: 00 12-29 00:00 :00 No [id number] TAKE ONE CAPSULE BY MOUTH TWICE A DAY (MORNING AND EVENING) [facility] methylPREDN ISolone acetate (DEPO-MEDRO L) 80 mg/mL 80 mg, lidocaine 1% (PF) (XYLOCAINE) 2 mL, bupivacaine (preserv free) 0.5% (SENSORCAIN E MPF) 0.5 % (5 mg/mL) 2 mL 5 mL injection 10-18 20:30: 00 10-18 20:20 :00 No [id number] 9109 80mg [facility] methylPREDN ISolone acetate (DEPO-MEDRO L) 80 mg/mL 80 mg, lidocaine 1% (PF) (XYLOCAINE) 2 mL, bupivacaine (preserv free) 0.5% (SENSORCAIN E MPF) 0.5 % (5 mg/mL) 2 mL 5 mL injection 10-18 20:30: 00 10-18 20:20 :00 No [id number] 9109 80mg Intra-danitza cular, ONCE, 1 dose, On 1/18/23 at 1430, 5 mL [facility] methylPREDN ISolone acetate (DEPO-MEDRO L) 80 mg/mL 80 mg, lidocaine 1% (PF) (XYLOCAINE) 2 mL, bupivacaine (preserv free) 0.5% (SENSORCAIN E MPF) 0.5 % (5 mg/mL) 2 mL 5 mL injection 10-18 20:20: 00 10-18 20:21 :00 No [id number] 80mg [facility] methylPREDN ISolone acetate (DEPO-MEDRO L) 80 mg/mL 80 mg, lidocaine 1% (PF) (XYLOCAINE) 2 mL, bupivacaine (preserv free) 0.5% (SENSORCAIN E MPF) 0.5 % (5 mg/mL) 2 mL 5 mL injection 10-18 20:20: 00 10-18 20:21 :00 No [id number] 80mg Intra-danitza cular, ONCE, 1 dose, On Sun10/18/22 at 1430, 5 mL [facility] tacrolimus 1 mg capsule 2021-10 00:00: 00 Yes [id number] Take 2 capsules by mouth every morning AND 1 capsule every evening. [facility] tacrolimus 1 mg capsule 2021-10 00:00: 00 04-02 00:00 :00 No [id number] Take 2 capsules by mouth every morning AND 1 capsule every evening. [facility] TRAMADOL 50 mg tablet 2021-10 00:00: 00 03-21 00:00 :00 No [id number] TAKE ONE TABLET BY MOUTH EVERY 8 HOURS NEEDED FOR PAIN [facility] Magnesium Oxide-Mg AA Chelate 133 mg Tab tablet 2021-10 00:00: 00 Yes 133mg Take 1 tablet by mouth in the morning. [facility] methylPREDN ISolone sod succ (SOLU-MEDRO L (PF)) injection 40 mg 2021-10 18:45: 00 08-22 17:57 :00 No [id number] 40mg [facility] ketorolac (TORADOL) injection 30 mg 2021-10 18:15: 00 08-22 17:56 :00 No [id number] 30mg [facility] fluticasone propionate 50 mcg/actuati on nasal spray 2021-10 00:00: 00 Yes [id number] 2{spray } Use 2 Sprays in each nostril in the morning. [facility] cefTRIAXone (ROCEPHIN) injection 1,000 mg 2021-10 16:00: 00 Yes 1000mg 1,000 mg, Intramuscu lar, Q24H, First dose on Sun08/07/22 at 1000, Until Discontinu ed, ALBA
Re ason for Anti-Infec tive: Documented Infection< br>Documen katarzyna Infection Site: HEENT
D uration of Therapy: Other (see Comments)< br>cleaning team member approving Restricted medication : Jessica BADILLO [facility] ketorolac (TORADOL) injection 30 mg 2021-10 16:00: 00 08-07 15:09 :00 No 30mg 30 mg, Intramuscu lar, ONCE, 1 dose, On Sun08/07/22 at 1000, ALBA [facility] ibuprofen 400 mg tablet 2021-10 00:00: 00 04-02 00:00 :00 No [id number] 400mg Take 1 tablet by mouth every 8 (eight) hours as needed for Pain (scale 4-6). [facility] cefdinir 300 mg capsule 2021-10 00:00: 00 08-15 05:59 :00 No [id number] 300mg Take 1 capsule by mouth in the morning and 1 capsule in the evening. Do all this for 7 days. [facility] DICLOFENAC SODIUM 1 % gel 2021-10 0-06 00:00: 00 08-03 00:00 :00 No [id number] APPLY 4 GRAM TO AFFECTED AREA(S) FOUR TIMES A DAY [facility] tacrolimus 1 mg capsule 2021-10 0-04 00:00: 00 09-14 00:00 :00 No [id number] 2mg Take 2 capsules by mouth every 12 (twelve) hours. [facility] gadoteridol (PROHANCE-2 0 mL) injection 0.2 mL/kg 06-30 19:45: 00 06-30 19:36 :00 No [id number] .2mL/kg 0.2 mL/kg, Intravenou s, ONCE, 1 dose, On Sun06/30/22 at 1445, Routine [facility] ursodioL 300 mg capsule 06-22 14:42: 26 06-22 00:00 :00 No 300mg Take 300 mg by mouth 2 (two) times daily. [facility] ursodioL 300 mg capsule 06-22 00:00: 00 05-18 00:00 :00 No 300mg Take 1 capsule by mouth in the morning and 1 capsule in the evening. [facility] hydrALAZINE 50 mg tablet 06-20 00:00: 00 03-21 00:00 :00 No [id number] 50mg Take 1 tablet by mouth every 6 (six) hours. [facility] ursodioL 300 mg capsule 05-02 13:17: 13 Yes 300mg Take 300 mg by mouth 2 (two) times daily. [facility] gabapentin 600 mg tablet 05-02 00:00: 00 06-18 00:00 :00 No [id number] 600mg Take 1 tablet by mouth in the morning and 1 tablet at noon and 1 tablet in the evening. [facility] Bismuth Subsalicyla te 262 mg tablet 05-02 00:00: 00 05-18 00:00 :00 No [id number] 262mg Take 1 tablet by mouth 4 (four) times daily. [facility] Lidocaine 5 % cream 05-02 00:00: 00 05-18 00:00 :00 No [id number] Apply to area(s) 2 (two) times daily as needed for Pain (scale 4-6). Apply 5g to affected areas BID PRN [facility] carvediloL 25 mg tablet 05-02 00:00: 00 03-21 00:00 :00 No [id number] 25mg Take 1 tablet by mouth in the morning and 1 tablet in the evening. Take with meals. Please check blood pressure twice a day and keep a daily log. [facility] furosemide 40 mg tablet 05-02 00:00: 00 03-21 00:00 :00 No [id number] 40mg Take 1 tablet by mouth in the morning. [facility] doxepin 10 mg capsule 05-02 00:00: 00 12-22 00:00 :00 No [id number] 10mg Take 1 capsule by mouth at bedtime. [facility] DULoxetine 40 mg CpDR 05-02 00:00: 00 10-23 00:00 :00 No [id number] 40mg Take 40 mg by mouth in the morning and 40 mg in the evening. [facility] traMADoL 50 mg tablet 05-02 00:00: 00 09-12 00:00 :00 No [id number] 50mg Take 1 tablet by mouth every 8 (eight) hours as needed for Pain (scale 7-10). Indication s: chronic pain [facility] Insulin Glargine (LANTUS SOLOSTAR U-100 INSULIN) 100 unit/mL (3 mL) injection 03-28 00:00: 00 12-27 00:00 :00 No [id number] 12U inject 12 Units under the skin daily. [facility] tacrolimus 1 mg capsule 02-08 00:00: 00 04-10 04:59 :00 No [id number] 2mg Take 2 capsules by mouth every morning for 60 days. [facility] tacrolimus 1 mg capsule 02-07 00:00: 00 07-04 00:00 :00 No [id number] 2mg Take 2 capsules by mouth at bedtime for 60 days. [facility] HYDROcodone -acetaminop hen 5-325 mg tablet 02-07 00:00: 00 05-02 00:00 :00 No [id number] 1{tbl} Take 1 tablet by mouth every 6 (six) hours as needed for Pain (scale 7-10) for up to 20 doses. Indication s: chronic pain [facility] lidocaine 5 % (700 mg/patch) patch 5 00:00: 00 03-10 04:59 :00 No [id number] 1{patch } Apply 1 Patch to area(s) daily for 30 doses. [facility] [facility] insulin lispro (HUMALOG KWIKPEN INSULIN) 100 unit/mL pen injector 01-26 00:00: 00 10-25 00:00 :00 No [id number] Inject under skin three times daily before meals per sliding scale: 150-200: 1 units, 200-250: 2 units, 250-300: 3 units, 301-350: 4 units, 350-400: 5 units, 400-450: 6 units, >450: 7 units. Max: 21 units daily. [facility] insulin lispro (HUMALOG KWIKPEN INSULIN) 100 unit/mL pen injector 01-26 00:00: 00 10-25 00:00 :00 No [id number] Inject under skin three times daily before meals per sliding scale: 150-200: 1 units, 200-250: 2 units, 250-300: 3 units, 301-350: 4 units, 350-400: 5 units, 400-450: 6 units, >450: 7 units. Max: 21 units daily. [facility] pioglitazon e 15 mg tablet 01-24 00:00: 00 10-25 00:00 :00 No [id number] 15mg Take 1 tablet by mouth daily. [facility] Insulin Glargine (LANTUS SOLOSTAR U-100 INSULIN) 100 unit/mL (3 mL) injection 01-24 00:00: 00 03-28 00:00 :00 No [id number] 6U inject 6 Units under the skin daily. [facility] hydrALAZINE 25 mg tablet 01-09 00:00: 00 06-20 00:00 :00 No [id number] 25mg Take 1 tablet by mouth every 6 (six) hours. [facility] ergocalcife rol, vitamin d2, 1,250 mcg (50,000 unit) capsule 12-14 00:00: 00 03-03 04:59 :00 No [id number] Take 1 capsule by mouth weekly for 12 doses. [facility] methocarbam oL (ROBAXIN) 500 mg tablet 11-29 00:00: 00 05-18 00:00 :00 No [id number] 500mg Take 1 tablet by mouth 4 (four) times daily. [facility] traMADoL 50 mg tablet 11-29 00:00: 05-02 00:00 :00 No [id number] 50mg Take 1 tablet by mouth every 8 (eight) hours as needed for Pain (scale 7-10). Indication s: chronic pain [facility] carvediloL 25 mg tablet 11-16 00:00: 05-02 00:00 :00 No [id number] 25mg Take 1 tablet by mouth 2 (two) times daily with meals. Please check blood pressure twice a day and keep a daily log. [facility] mycophenola te sodium (MYFORTIC) 180 mg EC tablet 11-02 00:00: 00 02-07 00:00 :00 No [id number] 180mg Take 1 tablet by mouth 2 (two) times daily. Indication s: liver transplant [facility] ondansetron (ZOFRAN ODT) 4 mg disintegrat ing tablet 10-19 00:00: 00 05-18 00:00 :00 No [id number] 4mg Take 1 tablet by mouth every 8 (eight) hours as needed for Nausea and Vomiting (N/V). [facility] traMADoL 50 mg tablet 10-19 00:00: 00 11-29 00:00 :00 No [id number] 50mg Take 1 tablet by mouth every 6 (six) hours as needed for Pain (scale 7-10). Indication s: acute pain [facility] gabapentin 600 mg tablet 18 00:00: 00 05-02 00:00 :00 No [id number] 600mg Take 1 tablet by mouth 3 (three) times daily. [facility] hydrALAZINE 25 mg tablet 10-18 00:00: 00 01-07 00:00 :00 No [id number] 25mg Take 1 tablet by mouth every 6 (six) hours. [facility] cyclobenzap rine 10 mg tablet 10-18 00:00: 00 11-29 00:00 :00 No [id number] 10mg Take 1 tablet by mouth 3 (three) times daily. [facility] tacrolimus 1 mg capsule 2020-10 00:00: 00 02-07 00:00 :00 No [id number] Take 3 capsules by mouth every morning AND 2 capsules every evening. [facility] tacrolimus 1 mg capsule 2020-10 00:00: 00 02-07 00:00 :00 No [id number] Take 3 capsules by mouth every morning AND 2 capsules every evening. [facility] ergocalcife rol, vitamin d2, 1,250 mcg (50,000 unit) capsule 2020-10 00:00: 00 12-14 00:00 :00 No [id number] Take 1 capsule by mouth weekly. [facility] naproxen (NAPROSYN) 500 mg tablet 2020-10 00:00: 00 05-02 00:00 :00 No [id number] 500mg Take 1 tablet by mouth 2 (two) times daily with meals. [facility] Diclofenac Sodium (VOLTAREN) 1 % gel 06-28 00:00: 00 07-06 00:00 :00 No [id number] Apply to area(s) 4 (four) times daily. Apply 4 g qid [facility] insulin lispro, human, (HUMALOG U-100 INSULIN) 100 unit/mL injection 8-27 00:00: 00 01-24 00:00 :00 No [id number] Blood glucose < 90 : Hold Aspart, do not use Blood glucose 90-120, subtract 1 Unit, give 4 units Blood glucose 120-150 : GIVE 5 UNITS Blood glucose 150 - 180 add 1 unit, give 6 units Blood glucose 181 - 210 add 2 units, given 7 units Blood glucose 211 - 240 add 3 units, give 8 units Blood glucose 241 - 300 add 4 units, give 9 units Blood glucose > 300, add 5 Units. Given 10 units, recheck in 3 hours. If blood glucose >300 seek medical attention [facility] insulin glargine (LANTUS U-100 INSULIN) 100 unit/mL injection 05-27 00:00: 00 01-24 00:00 :00 No [id number] 3U inject 3-5 Units under the skin at bedtime. [facility] carvediloL 25 mg tablet 05-27 00:00: 00 11-16 00:00 :00 No [id number] 25mg Take 1 tablet by mouth 2 (two) times daily with meals. Please check blood pressure twice a day and keep a daily log. [facility] docusate (COLACE) 100 mg capsule 13 00:00: 00 06-22 00:00 :00 No [id number] 100mg Take 1 capsule by mouth once daily as needed for Constipati on. [facility] tiZANidine 4 mg tablet 8-05 00:00: 00 06-22 00:00 :00 No [id number] 4mg Take 1 tablet by mouth every 8 (eight) hours as needed (muscle spasms). [facility] furosemide 40 mg tablet 8-05 00:00: 00 03-20 00:00 :00 No [id number] 40mg Take 1 tablet by mouth every morning and evening. [facility] gabapentin 600 mg tablet 8-05 00:00: 00 10-18 00:00 :00 No [id number] 600mg Take 1 tablet by mouth 3 (three) times daily. [facility] ondansetron 4 mg tablet 04-01 00:00: 00 06-22 00:00 :00 No [facility] tacrolimus 1 mg capsule 03-17 00:00: 00 09-15 00:00 :00 No [id number] Take 2 capsules by mouth every morning AND 2 capsules every evening. [facility] Lidocaine 4 % PtMd 03-03 00:00: 00 Yes [id number] Apply to area(s) daily. [facility] DULoxetine 20 mg CDRS 03-03 00:00: 00 03-14 00:00 :00 No [id number] 20mg Take 20 mg by mouth 2 (two) times daily. [facility] pantoprazol e 40 mg EC tablet 02-07 00:00: 00 06-22 00:00 :00 No [id number] 40mg Take 1 tablet by mouth daily. [facility] dapsone 100 mg tablet 02-07 00:00: 00 02-07 00:00 :00 No [id number] 100mg Take 1 tablet by mouth daily. [facility] gabapentin 100 mg capsule 01-14 00:00: 00 02-10 00:00 :00 No [id number] 300mg Take 3 capsules by mouth 3 (three) times daily. [facility] amLODIPine 10 mg tablet 01-06 00:00: 00 04-01 00:00 :00 No [id number] 10mg Take 1 tablet by mouth daily. [facility] ursodioL 500 mg tablet 12-30 00:00: 00 02-10 00:00 :00 No [id number] 500mg Take 1 tablet by mouth 3 (three) times daily. [facility] insulin glargine (LANTUS U-100 INSULIN) 100 unit/mL injection 12-07 00:00: 00 05-27 00:00 :00 No [id number] 3U inject 3-5 Units under the skin at bedtime. [facility] Magnesium Oxide-Mg AA Chelate 133 mg Tab tablet 2021-0 3-04 00:00: 00 06-22 00:00 :00 No [id number] 266mg Take 2 tablets by mouth 3 (three) times daily. [facility] vitamin w/FA tablet 3-04 00:00: 00 06-22 00:00 :00 No [id number] 1{tbl} Take 1 tablet by mouth daily. [facility] vitamin w/FA tablet 3-04 00:00: 00 06-22 00:00 :00 No [id number] 1{tbl} Take 1 tablet by mouth daily. [facility] mycophenola te sodium (MYFORTIC) 180 mg EC tablet 3-04 00:00: 00 11-02 00:00 :00 No [id number] 180mg Take 1 tablet by mouth 2 (two) times daily. Indication s: liver transplant [facility] pantoprazol e 40 mg EC tablet 3-04 00:00: 00 02-07 00:00 :00 No [id number] 40mg Take 1 tablet by mouth daily. [facility] dapsone 100 mg tablet 3-04 00:00: 00 02-07 00:00 :00 No [id number] 100mg Take 1 tablet by mouth daily. [facility] aspirin 81 mg chewable tablet 2-12 00:00: 00 Yes [id number] 81mg Take 1 tablet by mouth daily. [facility] melatonin 12 mg Tab 2-11 00:00: 00 02-24 00:00 :00 No [id number] 6mg Take 6 mg by mouth every evening. [facility] Immunizations Ordered Immunization Name Filled Immunization Name Date Status Comments Source Pneumococcal 20 Conjugate, PCV20 (Prevnar 20) 2024-04-02 00:00:00 Completed [facility] SARS-COV-2 COVID-19 MODERNA 12+ YRS VACCINE 2021-10-18 00:00:00 Completed [facility] SARS-COV-2 COVID-19 MODERNA 12+ YRS VACCINE 2021-10-18 00:00:00 Completed [facility] SARS-COV-2 COVID-19 MODERNA 12+ YRS VACCINE 2021-10-18 00:00:00 Completed [facility] SARS-COV-2 COVID-19 MODERNA 12+ YRS VACCINE 2021-10-18 00:00:00 Completed [facility] SARS-COV-2 COVID-19 MODERNA 12+ YRS VACCINE 2021-10-18 00:00:00 Completed [facility] SARS-COV-2 COVID-19 MODERNA 12+ YRS VACCINE 2021-10-18 00:00:00 Completed [facility] SARS-COV-2 COVID-19 MODERNA 12+ YRS VACCINE 2021-10-18 00:00:00 Completed [facility] SARS-COV-2 COVID-19 MODERNA 12+ YRS VACCINE 2021-10-18 00:00:00 Completed [facility] SARS-COV-2 COVID-19 MODERNA 12+ YRS VACCINE 2021-10-18 00:00:00 Completed [facility] SARS-COV-2 COVID-19 MODERNA 12+ YRS VACCINE 2021-10-18 00:00:00 Completed [facility] SARS-COV-2 COVID-19 MODERNA 12+ YRS VACCINE 2021-10-18 00:00:00 Completed [facility] SARS-COV-2 COVID-19 MODERNA 12+ YRS VACCINE 2021-10-18 00:00:00 Completed [facility] SARS-COV-2 COVID-19 MODERNA 12+ YRS VACCINE 2021-10-18 00:00:00 Completed [facility] SARS-COV-2 COVID-19 MODERNA 12+ YRS VACCINE 2021-10-18 00:00:00 Completed [facility] SARS-COV-2 COVID-19 MODERNA 12+ YRS VACCINE 2021-10-18 00:00:00 Completed [facility] SARS-COV-2 COVID-19 MODERNA 12+ YRS VACCINE 2021-10-18 00:00:00 Completed [facility] SARS-COV-2 COVID-19 MODERNA 12+ YRS VACCINE 2021-10-18 00:00:00 Completed [facility] SARS-COV-2 COVID-19 MODERNA 12+ YRS VACCINE 2021-10-18 00:00:00 Completed [facility] SARS-COV-2 COVID-19 MODERNA 12+ YRS VACCINE 2021-10-18 00:00:00 Completed [facility] SARS-COV-2 COVID-19 MODERNA 12+ YRS VACCINE 2021-10-18 00:00:00 Completed [facility] SARS-COV-2 COVID-19 MODERNA 12+ YRS VACCINE 2021-10-18 00:00:00 Completed [facility] SARS-COV-2 COVID-19 MODERNA 12+ YRS VACCINE 2021-10-18 00:00:00 Completed [facility] SARS-COV-2 COVID-19 MODERNA 12+ YRS VACCINE 2021-10-18 00:00:00 Completed [facility] SARS-COV-2 COVID-19 MODERNA 12+ YRS VACCINE 2021-10-18 00:00:00 Completed [facility] SARS-COV-2 COVID-19 MODERNA 12+ YRS VACCINE 2021-10-18 00:00:00 Completed [facility] SARS-COV-2 COVID-19 MODERNA 12+ YRS VACCINE 2021-10-18 00:00:00 Completed [facility] SARS-COV-2 COVID-19 MODERNA 12+ YRS VACCINE 2021-10-18 00:00:00 Completed [facility] SARS-COV-2 COVID-19 MODERNA 12+ YRS VACCINE 2021-10-18 00:00:00 Completed [facility] SARS-COV-2 COVID-19 MODERNA 12+ YRS VACCINE 2021-10-18 00:00:00 Completed [facility] SARS-COV-2 COVID-19 MODERNA 12+ YRS VACCINE 2021-10-18 00:00:00 Completed [facility] SARS-COV-2 COVID-19 MODERNA 12+ YRS VACCINE 2021-10-18 00:00:00 Completed [facility] SARS-COV-2 COVID-19 MODERNA 12+ YRS VACCINE 2021-10-18 00:00:00 Completed [facility] SARS-COV-2 COVID-19 MODERNA 12+ YRS VACCINE 2021-10-18 00:00:00 Completed [facility] SARS-COV-2 COVID-19 MODERNA 12+ YRS VACCINE 2021-10-18 00:00:00 Completed [facility] SARS-COV-2 COVID-19 MODERNA 12+ YRS VACCINE 2021-10-18 00:00:00 Completed [facility] SARS-COV-2 COVID-19 MODERNA 12+ YRS VACCINE 2021-10-18 00:00:00 Completed [facility] SARS-COV-2 COVID-19 MODERNA 12+ YRS VACCINE 2021-10-18 00:00:00 Completed [facility] SARS-COV-2 COVID-19 MODERNA 12+ YRS VACCINE 2021-10-18 00:00:00 Completed [facility] SARS-COV-2 COVID-19 MODERNA 12+ YRS VACCINE 2021-10-18 00:00:00 Completed [facility] SARS-COV-2 COVID-19 MODERNA 12+ YRS VACCINE 2021-10-18 00:00:00 Completed [facility] SARS-COV-2 COVID-19 MODERNA 12+ YRS VACCINE 2021-10-18 00:00:00 Completed [facility] SARS-COV-2 COVID-19 MODERNA 12+ YRS VACCINE 2021-10-18 00:00:00 Completed [facility] SARS-COV-2 COVID-19 MODERNA 12+ YRS VACCINE 2021-10-18 00:00:00 Completed [facility] SARS-COV-2 COVID-19 MODERNA 12+ YRS VACCINE 2021-10-18 00:00:00 Completed [facility] SARS-COV-2 COVID-19 MODERNA 12+ YRS VACCINE 2021-10-18 00:00:00 Completed [facility] SARS-COV-2 COVID-19 MODERNA 12+ YRS VACCINE 2021-10-18 00:00:00 Completed [facility] SARS-COV-2 COVID-19 MODERNA 12+ YRS VACCINE 2021-10-18 00:00:00 Completed [facility] SARS-COV-2 COVID-19 MODERNA 12+ YRS VACCINE 2021-10-18 00:00:00 Completed [facility] SARS-COV-2 COVID-19 MODERNA 12+ YRS VACCINE 2021-10-18 00:00:00 Completed [facility] SARS-COV-2 COVID-19 MODERNA 12+ YRS VACCINE 2021-10-18 00:00:00 Completed [facility] SARS-COV-2 COVID-19 MODERNA 12+ YRS VACCINE 2021-10-18 00:00:00 Completed [facility] SARS-COV-2 COVID-19 MODERNA 12+ YRS VACCINE 2021-10-18 00:00:00 Completed [facility] SARS-COV-2 COVID-19 MODERNA 12+ YRS VACCINE 2021-10-18 00:00:00 Completed [facility] SARS-COV-2 COVID-19 MODERNA 12+ YRS VACCINE 2021-10-18 00:00:00 Completed [facility] SARS-COV-2 COVID-19 MODERNA 12+ YRS VACCINE 2021-10-18 00:00:00 Completed [facility] SARS-COV-2 COVID-19 MODERNA 12+ YRS VACCINE 2021-10-18 00:00:00 Completed [facility] SARS-COV-2 COVID-19 MODERNA 12+ YRS VACCINE 2021-10-18 00:00:00 Completed [facility] SARS-COV-2 COVID-19 MODERNA 12+ YRS VACCINE 2021-10-18 00:00:00 Completed [facility] SARS-COV-2 COVID-19 MODERNA 12+ YRS VACCINE 2021-10-18 00:00:00 Completed [facility] SARS-COV-2 COVID-19 MODERNA 12+ YRS VACCINE 2021-10-18 00:00:00 Completed [facility] SARS-COV-2 COVID-19 MODERNA 12+ YRS VACCINE 2021-10-18 00:00:00 Completed [facility] SARS-COV-2 COVID-19 MODERNA 12+ YRS VACCINE 2021-10-18 00:00:00 Completed [facility] SARS-COV-2 COVID-19 MODERNA 12+ YRS VACCINE 2021-10-18 00:00:00 Completed [facility] SARS-COV-2 COVID-19 MODERNA 12+ YRS VACCINE 2021-10-18 00:00:00 Completed [facility] SARS-COV-2 COVID-19 MODERNA 12+ YRS VACCINE 2021-10-18 00:00:00 Completed [facility] SARS-COV-2 COVID-19 MODERNA 12+ YRS VACCINE 2021-10-18 00:00:00 Completed [facility] SARS-COV-2 COVID-19 MODERNA 12+ YRS VACCINE 2021-10-18 00:00:00 Completed [facility] SARS-COV-2 COVID-19 MODERNA 12+ YRS VACCINE 2021-10-18 00:00:00 Completed [facility] SARS-COV-2 COVID-19 MODERNA 12+ YRS VACCINE 2021-10-18 00:00:00 Completed [facility] SARS-COV-2 COVID-19 MODERNA 12+ YRS VACCINE 2021-10-18 00:00:00 Completed [facility] SARS-COV-2 COVID-19 MODERNA 12+ YRS VACCINE 2021-10-18 00:00:00 Completed [facility] SARS-COV-2 COVID-19 MODERNA 12+ YRS VACCINE 2021-10-18 00:00:00 Completed [facility] SARS-COV-2 COVID-19 MODERNA 12+ YRS VACCINE 2021-10-18 00:00:00 Completed [facility] SARS-COV-2 COVID-19 MODERNA 12+ YRS VACCINE 2021-10-18 00:00:00 Completed [facility] SARS-COV-2 COVID-19 MODERNA 12+ YRS VACCINE 2021-10-18 00:00:00 Completed [facility] SARS-COV-2 COVID-19 MODERNA 12+ YRS VACCINE 2021-10-18 00:00:00 Completed [facility] SARS-COV-2 COVID-19 MODERNA 12+ YRS VACCINE 2021-10-18 00:00:00 Completed [facility] Influenza Virus Vaccine Quad IM, Preserv and ABX Free 6 MO-64 2021-09-15 00:00:00 Completed [facility] SARS-COV-2 COVID-19 MODERNA 12+ YRS VACCINE 2021-09-15 00:00:00 Completed [facility] Influenza Virus Vaccine Quad IM, Preserv and ABX Free 6 MO-64 YRS 2021-09-15 00:00:00 Completed [facility] SARS-COV-2 COVID-19 MODERNA 12+ YRS VACCINE 2021-09-15 00:00:00 Completed [facility] Influenza Virus Vaccine Quad IM, Preserv and ABX Free 6 MO-64 YRS 2021-09-15 00:00:00 Completed [facility] SARS-COV-2 COVID-19 MODERNA 12+ YRS VACCINE 2021-09-15 00:00:00 Completed [facility] Influenza Virus Vaccine Quad IM, Preserv and ABX Free 6 MO-64 YRS 2021-09-15 00:00:00 Completed [facility] SARS-COV-2 COVID-19 MODERNA 12+ YRS VACCINE 2021-09-15 00:00:00 Completed [facility] Influenza Virus Vaccine Quad IM, Preserv and ABX Free 6 MO-64 YRS 2021-09-15 00:00:00 Completed [facility] SARS-COV-2 COVID-19 MODERNA 12+ YRS VACCINE 2021-09-15 00:00:00 Completed [facility] Influenza Virus Vaccine Quad IM, Preserv and ABX Free 6 MO-64 YRS 2021-09-15 00:00:00 Completed [facility] SARS-COV-2 COVID-19 MODERNA 12+ YRS VACCINE 2021-09-15 00:00:00 Completed [facility] Influenza Virus Vaccine Quad IM, Preserv and ABX Free 6 MO-64 YRS 2021-09-15 00:00:00 Completed [facility] SARS-COV-2 COVID-19 MODERNA 12+ YRS VACCINE 2021-09-15 00:00:00 Completed [facility] Influenza Virus Vaccine Quad IM, Preserv and ABX Free 6 MO-64 YRS 2021-09-15 00:00:00 Completed [facility] SARS-COV-2 COVID-19 MODERNA 12+ YRS VACCINE 2021-09-15 00:00:00 Completed [facility] Influenza Virus Vaccine Quad IM, Preserv and ABX Free 6 MO-64 YRS 2021-09-15 00:00:00 Completed [facility] SARS-COV-2 COVID-19 MODERNA 12+ YRS VACCINE 2021-09-15 00:00:00 Completed [facility] Influenza Virus Vaccine Quad IM, Preserv and ABX Free 6 MO-64 YRS 2021-09-15 00:00:00 Completed [facility] SARS-COV-2 COVID-19 MODERNA 12+ YRS VACCINE 2021-09-15 00:00:00 Completed [facility] Influenza Virus Vaccine Quad IM, Preserv and ABX Free 6 MO-64 YRS 2021-09-15 00:00:00 Completed [facility] SARS-COV-2 COVID-19 MODERNA 12+ YRS VACCINE 2021-09-15 00:00:00 Completed [facility] Influenza Virus Vaccine Quad IM, Preserv and ABX Free 6 MO-64 YRS 2021-09-15 00:00:00 Completed [facility] SARS-COV-2 COVID-19 MODERNA 12+ YRS VACCINE 2021-09-15 00:00:00 Completed [facility] Influenza Virus Vaccine Quad IM, Preserv and ABX Free 6 MO-64 YRS 2021-09-15 00:00:00 Completed [facility] SARS-COV-2 COVID-19 MODERNA 12+ YRS VACCINE 2021-09-15 00:00:00 Completed [facility] Influenza Virus Vaccine Quad IM, Preserv and ABX Free 6 MO-64 YRS 2021-09-15 00:00:00 Completed [facility] SARS-COV-2 COVID-19 MODERNA 12+ YRS VACCINE 2021-09-15 00:00:00 Completed [facility] Influenza Virus Vaccine Quad IM, Preserv and ABX Free 6 MO-64 YRS 2021-09-15 00:00:00 Completed [facility] SARS-COV-2 COVID-19 MODERNA 12+ YRS VACCINE 2021-09-15 00:00:00 Completed [facility] Influenza Virus Vaccine Quad IM, Preserv and ABX Free 6 MO-64 YRS 2021-09-15 00:00:00 Completed [facility] SARS-COV-2 COVID-19 MODERNA 12+ YRS VACCINE 2021-09-15 00:00:00 Completed [facility] Influenza Virus Vaccine Quad IM, Preserv and ABX Free 6 MO-64 YRS 2021-09-15 00:00:00 Completed [facility] SARS-COV-2 COVID-19 MODERNA 12+ YRS VACCINE 2021-09-15 00:00:00 Completed [facility] Influenza Virus Vaccine Quad IM, Preserv and ABX Free 6 MO-64 YRS 2021-09-15 00:00:00 Completed [facility] SARS-COV-2 COVID-19 MODERNA 12+ YRS VACCINE 2021-09-15 00:00:00 Completed [facility] Influenza Virus Vaccine Quad IM, Preserv and ABX Free 6 MO-64 YRS 2021-09-15 00:00:00 Completed [facility] SARS-COV-2 COVID-19 MODERNA 12+ YRS VACCINE 2021-09-15 00:00:00 Completed [facility] Influenza Virus Vaccine Quad IM, Preserv and ABX Free 6 MO-64 YRS 2021-09-15 00:00:00 Completed [facility] SARS-COV-2 COVID-19 MODERNA 12+ YRS VACCINE 2021-09-15 00:00:00 Completed [facility] Influenza Virus Vaccine Quad IM, Preserv and ABX Free 6 MO-64 YRS 2021-09-15 00:00:00 Completed [facility] SARS-COV-2 COVID-19 MODERNA 12+ YRS VACCINE 2021-09-15 00:00:00 Completed [facility] Influenza Virus Vaccine Quad IM, Preserv and ABX Free 6 MO-64 YRS 2021-09-15 00:00:00 Completed [facility] SARS-COV-2 COVID-19 MODERNA 12+ YRS VACCINE 2021-09-15 00:00:00 Completed [facility] Influenza Virus Vaccine Quad IM, Preserv and ABX Free 6 MO-64 YRS 2021-09-15 00:00:00 Completed [facility] SARS-COV-2 COVID-19 MODERNA 12+ YRS VACCINE 2021-09-15 00:00:00 Completed [facility] Influenza Virus Vaccine Quad IM, Preserv and ABX Free 6 MO-64 YRS 2021-09-15 00:00:00 Completed [facility] SARS-COV-2 COVID-19 MODERNA 12+ YRS VACCINE 2021-09-15 00:00:00 Completed [facility] Influenza Virus Vaccine Quad IM, Preserv and ABX Free 6 MO-64 YRS 2021-09-15 00:00:00 Completed [facility] SARS-COV-2 COVID-19 MODERNA 12+ YRS VACCINE 2021-09-15 00:00:00 Completed [facility] Influenza Virus Vaccine Quad IM, Preserv and ABX Free 6 MO-64 YRS 2021-09-15 00:00:00 Completed [facility] SARS-COV-2 COVID-19 MODERNA 12+ YRS VACCINE 2021-09-15 00:00:00 Completed [facility] Influenza Virus Vaccine Quad IM, Preserv and ABX Free 6 MO-64 YRS 2021-09-15 00:00:00 Completed [facility] SARS-COV-2 COVID-19 MODERNA 12+ YRS VACCINE 2021-09-15 00:00:00 Completed [facility] Influenza Virus Vaccine Quad IM, Preserv and ABX Free 6 MO-64 YRS 2021-09-15 00:00:00 Completed [facility] SARS-COV-2 COVID-19 MODERNA 12+ YRS VACCINE 2021-09-15 00:00:00 Completed [facility] Influenza Virus Vaccine Quad IM, Preserv and ABX Free 6 MO-64 YRS 2021-09-15 00:00:00 Completed [facility] SARS-COV-2 COVID-19 MODERNA 12+ YRS VACCINE 2021-09-15 00:00:00 Completed [facility] Influenza Virus Vaccine Quad IM, Preserv and ABX Free 6 MO-64 YRS 2021-09-15 00:00:00 Completed [facility] SARS-COV-2 COVID-19 MODERNA 12+ YRS VACCINE 2021-09-15 00:00:00 Completed [facility] Influenza Virus Vaccine Quad IM, Preserv and ABX Free 6 MO-64 YRS 2021-09-15 00:00:00 Completed [facility] SARS-COV-2 COVID-19 MODERNA 12+ YRS VACCINE 2021-09-15 00:00:00 Completed [facility] Influenza Virus Vaccine Quad IM, Preserv and ABX Free 6 MO-64 YRS 2021-09-15 00:00:00 Completed [facility] SARS-COV-2 COVID-19 MODERNA 12+ YRS VACCINE 2021-09-15 00:00:00 Completed [facility] Influenza Virus Vaccine Quad IM, Preserv and ABX Free 6 MO-64 YRS 2021-09-15 00:00:00 Completed [facility] SARS-COV-2 COVID-19 MODERNA 12+ YRS VACCINE 2021-09-15 00:00:00 Completed [facility] Influenza Virus Vaccine Quad IM, Preserv and ABX Free 6 MO-64 YRS 2021-09-15 00:00:00 Completed [facility] SARS-COV-2 COVID-19 MODERNA 12+ YRS VACCINE 2021-09-15 00:00:00 Completed [facility] Influenza Virus Vaccine Quad IM, Preserv and ABX Free 6 MO-64 YRS 2021-09-15 00:00:00 Completed [facility] SARS-COV-2 COVID-19 MODERNA 12+ YRS VACCINE 2021-09-15 00:00:00 Completed [facility] Influenza Virus Vaccine Quad IM, Preserv and ABX Free 6 MO-64 YRS 2021-09-15 00:00:00 Completed [facility] SARS-COV-2 COVID-19 MODERNA 12+ YRS VACCINE 2021-09-15 00:00:00 Completed [facility] Influenza Virus Vaccine Quad IM, Preserv and ABX Free 6 MO-64 YRS 2021-09-15 00:00:00 Completed [facility] SARS-COV-2 COVID-19 MODERNA 12+ YRS VACCINE 2021-09-15 00:00:00 Completed [facility] Influenza Virus Vaccine Quad IM, Preserv and ABX Free 6 MO-64 YRS 2021-09-15 00:00:00 Completed [facility] SARS-COV-2 COVID-19 MODERNA 12+ YRS VACCINE 2021-09-15 00:00:00 Completed [facility] Influenza Virus Vaccine Quad IM, Preserv and ABX Free 6 MO-64 YRS 2021-09-15 00:00:00 Completed [facility] SARS-COV-2 COVID-19 MODERNA 12+ YRS VACCINE 2021-09-15 00:00:00 Completed [facility] Influenza Virus Vaccine Quad IM, Preserv and ABX Free 6 MO-64 YRS 2021-09-15 00:00:00 Completed [facility] SARS-COV-2 COVID-19 MODERNA 12+ YRS VACCINE 2021-09-15 00:00:00 Completed [facility] Influenza Virus Vaccine Quad IM, Preserv and ABX Free 6 MO-64 YRS 2021-09-15 00:00:00 Completed [facility] SARS-COV-2 COVID-19 MODERNA 12+ YRS VACCINE 2021-09-15 00:00:00 Completed [facility] Influenza Virus Vaccine Quad IM, Preserv and ABX Free 6 MO-64 YRS 2021-09-15 00:00:00 Completed [facility] SARS-COV-2 COVID-19 MODERNA 12+ YRS VACCINE 2021-09-15 00:00:00 Completed [facility] Influenza Virus Vaccine Quad IM, Preserv and ABX Free 6 MO-64 YRS 2021-09-15 00:00:00 Completed [facility] SARS-COV-2 COVID-19 MODERNA 12+ YRS VACCINE 2021-09-15 00:00:00 Completed [facility] Influenza Virus Vaccine Quad IM, Preserv and ABX Free 6 MO-64 YRS 2021-09-15 00:00:00 Completed [facility] SARS-COV-2 COVID-19 MODERNA 12+ YRS VACCINE 2021-09-15 00:00:00 Completed [facility] Influenza Virus Vaccine Quad IM, Preserv and ABX Free 6 MO-64 YRS 2021-09-15 00:00:00 Completed [facility] SARS-COV-2 COVID-19 MODERNA 12+ YRS VACCINE 2021-09-15 00:00:00 Completed [facility] Influenza Virus Vaccine Quad IM, Preserv and ABX Free 6 MO-64 YRS 2021-09-15 00:00:00 Completed [facility] SARS-COV-2 COVID-19 MODERNA 12+ YRS VACCINE 2021-09-15 00:00:00 Completed [facility] Influenza Virus Vaccine Quad IM, Preserv and ABX Free 6 MO-64 YRS 2021-09-15 00:00:00 Completed [facility] SARS-COV-2 COVID-19 MODERNA 12+ YRS VACCINE 2021-09-15 00:00:00 Completed [facility] Influenza Virus Vaccine Quad IM, Preserv and ABX Free 6 MO-64 YRS 2021-09-15 00:00:00 Completed [facility] SARS-COV-2 COVID-19 MODERNA 12+ YRS VACCINE 2021-09-15 00:00:00 Completed [facility] Influenza Virus Vaccine Quad IM, Preserv and ABX Free 6 MO-64 YRS 2021-09-15 00:00:00 Completed [facility] SARS-COV-2 COVID-19 MODERNA 12+ YRS VACCINE 2021-09-15 00:00:00 Completed [facility] Influenza Virus Vaccine Quad IM, Preserv and ABX Free 6 MO-64 YRS 2021-09-15 00:00:00 Completed [facility] SARS-COV-2 COVID-19 MODERNA 12+ YRS VACCINE 2021-09-15 00:00:00 Completed [facility] Influenza Virus Vaccine Quad IM, Preserv and ABX Free 6 MO-64 YRS 2021-09-15 00:00:00 Completed [facility] SARS-COV-2 COVID-19 MODERNA 12+ YRS VACCINE 2021-09-15 00:00:00 Completed [facility] Influenza Virus Vaccine Quad IM, Preserv and ABX Free 6 MO-64 YRS 2021-09-15 00:00:00 Completed [facility] SARS-COV-2 COVID-19 MODERNA 12+ YRS VACCINE 2021-09-15 00:00:00 Completed [facility] Influenza Virus Vaccine Quad IM, Preserv and ABX Free 6 MO-64 YRS 2021-09-15 00:00:00 Completed [facility] SARS-COV-2 COVID-19 MODERNA 12+ YRS VACCINE 2021-09-15 00:00:00 Completed [facility] Influenza Virus Vaccine Quad IM, Preserv and ABX Free 6 MO-64 YRS 2021-09-15 00:00:00 Completed [facility] SARS-COV-2 COVID-19 MODERNA 12+ YRS VACCINE 2021-09-15 00:00:00 Completed [facility] Influenza Virus Vaccine Quad IM, Preserv and ABX Free 6 MO-64 YRS 2021-09-15 00:00:00 Completed [facility] SARS-COV-2 COVID-19 MODERNA 12+ YRS VACCINE 2021-09-15 00:00:00 Completed [facility] Influenza Virus Vaccine Quad IM, Preserv and ABX Free 6 MO-64 YRS 2021-09-15 00:00:00 Completed [facility] SARS-COV-2 COVID-19 MODERNA 12+ YRS VACCINE 2021-09-15 00:00:00 Completed [facility] Influenza Virus Vaccine Quad IM, Preserv and ABX Free 6 MO-64 YRS 2021-09-15 00:00:00 Completed [facility] SARS-COV-2 COVID-19 MODERNA 12+ YRS VACCINE 2021-09-15 00:00:00 Completed [facility] Influenza Virus Vaccine Quad IM, Preserv and ABX Free 6 MO-64 YRS 2021-09-15 00:00:00 Completed [facility] SARS-COV-2 COVID-19 MODERNA 12+ YRS VACCINE 2021-09-15 00:00:00 Completed [facility] Influenza Virus Vaccine Quad IM, Preserv and ABX Free 6 MO-64 YRS 2021-09-15 00:00:00 Completed [facility] SARS-COV-2 COVID-19 MODERNA 12+ YRS VACCINE 2021-09-15 00:00:00 Completed [facility] Influenza Virus Vaccine Quad IM, Preserv and ABX Free 6 MO-64 YRS 2021-09-15 00:00:00 Completed [facility] SARS-COV-2 COVID-19 MODERNA 12+ YRS VACCINE 2021-09-15 00:00:00 Completed [facility] Influenza Virus Vaccine Quad IM, Preserv and ABX Free 6 MO-64 YRS 2021-09-15 00:00:00 Completed [facility] SARS-COV-2 COVID-19 MODERNA 12+ YRS VACCINE 2021-09-15 00:00:00 Completed [facility] Influenza Virus Vaccine Quad IM, Preserv and ABX Free 6 MO-64 YRS 2021-09-15 00:00:00 Completed [facility] SARS-COV-2 COVID-19 MODERNA 12+ YRS VACCINE 2021-09-15 00:00:00 Completed [facility] Influenza Virus Vaccine Quad IM, Preserv and ABX Free 6 MO-64 YRS 2021-09-15 00:00:00 Completed [facility] SARS-COV-2 COVID-19 MODERNA 12+ YRS VACCINE 2021-09-15 00:00:00 Completed [facility] Influenza Virus Vaccine Quad IM, Preserv and ABX Free 6 MO-64 YRS 2021-09-15 00:00:00 Completed [facility] SARS-COV-2 COVID-19 MODERNA 12+ YRS VACCINE 2021-09-15 00:00:00 Completed [facility] Influenza Virus Vaccine Quad IM, Preserv and ABX Free 6 MO-64 YRS 2021-09-15 00:00:00 Completed [facility] SARS-COV-2 COVID-19 MODERNA 12+ YRS VACCINE 2021-09-15 00:00:00 Completed [facility] Influenza Virus Vaccine Quad IM, Preserv and ABX Free 6 MO-64 YRS 2021-09-15 00:00:00 Completed [facility] SARS-COV-2 COVID-19 MODERNA 12+ YRS VACCINE 2021-09-15 00:00:00 Completed [facility] Influenza Virus Vaccine Quad IM, Preserv and ABX Free 6 MO-64 YRS 2021-09-15 00:00:00 Completed [facility] SARS-COV-2 COVID-19 MODERNA 12+ YRS VACCINE 2021-09-15 00:00:00 Completed [facility] Influenza Virus Vaccine Quad IM, Preserv and ABX Free 6 MO-64 YRS 2021-09-15 00:00:00 Completed [facility] SARS-COV-2 COVID-19 MODERNA 12+ YRS VACCINE 2021-09-15 00:00:00 Completed [facility] Influenza Virus Vaccine Quad IM, Preserv and ABX Free 6 MO-64 YRS 2021-09-15 00:00:00 Completed [facility] SARS-COV-2 COVID-19 MODERNA 12+ YRS VACCINE 2021-09-15 00:00:00 Completed [facility] Influenza Virus Vaccine Quad IM, Preserv and ABX Free 6 MO-64 YRS 2021-09-15 00:00:00 Completed [facility] SARS-COV-2 COVID-19 MODERNA 12+ YRS VACCINE 2021-09-15 00:00:00 Completed [facility] Influenza Virus Vaccine Quad IM, Preserv and ABX Free 6 MO-64 YRS 2021-09-15 00:00:00 Completed [facility] SARS-COV-2 COVID-19 MODERNA 12+ YRS VACCINE 2021-09-15 00:00:00 Completed [facility] Influenza Virus Vaccine Quad IM, Preserv and ABX Free 6 MO-64 YRS 2021-09-15 00:00:00 Completed [facility] SARS-COV-2 COVID-19 MODERNA 12+ YRS VACCINE 2021-09-15 00:00:00 Completed [facility] Influenza Virus Vaccine Quad IM, Preserv and ABX Free 6 MO-64 YRS 2021-09-15 00:00:00 Completed [facility] SARS-COV-2 COVID-19 MODERNA 12+ YRS VACCINE 2021-09-15 00:00:00 Completed [facility] Influenza Virus Vaccine Quad IM, Preserv and ABX Free 6 MO-64 YRS 2021-09-15 00:00:00 Completed [facility] SARS-COV-2 COVID-19 MODERNA 12+ YRS VACCINE 2021-09-15 00:00:00 Completed [facility] Influenza Virus Vaccine Quad IM, Preserv and ABX Free 6 MO-64 YRS 2021-09-15 00:00:00 Completed [facility] SARS-COV-2 COVID-19 MODERNA 12+ YRS VACCINE 2021-09-15 00:00:00 Completed [facility] Influenza Virus Vaccine Quad IM, Preserv and ABX Free 6 MO-64 YRS (FLUCELVAX) 2021-09-15 00:00:00 Completed [facility] SARS-COV-2 COVID-19 MODERNA 12+ YRS VACCINE 2021-09-15 00:00:00 Completed [facility] Influenza Virus Vaccine Quad IM, Preserv and ABX Free 6 MO-64 YRS (FLUCELVAX) 2021-09-15 00:00:00 Completed [facility] SARS-COV-2 COVID-19 MODERNA 12+ YRS VACCINE 2021-09-15 00:00:00 Completed Influenza Virus Vaccine Quad IM, Preserv and ABX Free 6 MO-64 YRS (FLUCELVAX) Unknown Completed [facility] SARS-COV-2 COVID-19 MODERNA 12+ YRS VACCINE Unknown Completed [facility] Influenza Virus Vaccine Quad IM, Preserv and ABX Free 6 MO-64 YRS (FLUCELVAX) Unknown Completed [facility] SARS-COV-2 COVID-19 MODERNA 12+ YRS VACCINE Unknown Completed [facility] Influenza Virus Vaccine Quad IM, Preserv and ABX Free 6 MO-64 YRS (FLUCELVAX) Unknown Completed [facility] SARS-COV-2 COVID-19 MODERNA 12+ YRS VACCINE Unknown Completed [facility] Influenza Virus Vaccine Quad IM, Preserv and ABX Free 6 MO-64 YRS (FLUCELVAX) Unknown Completed [facility] SARS-COV-2 COVID-19 MODERNA 12+ YRS VACCINE Unknown Completed [facility] Influenza Virus Vaccine Quad IM, Preserv and ABX Free 6 MO-64 YRS (FLUCELVAX) Unknown Completed [facility] SARS-COV-2 COVID-19 MODERNA 12+ YRS VACCINE Unknown Completed [facility] Influenza Virus Vaccine Quad IM, Preserv and ABX Free 6 MO-64 YRS (FLUCELVAX) Unknown Completed [facility] SARS-COV-2 COVID-19 MODERNA 12+ YRS VACCINE Unknown Completed [facility] Influenza Virus Vaccine Quad IM, Preserv and ABX Free 6 MO-64 YRS (FLUCELVAX) Unknown Completed [facility] SARS-COV-2 COVID-19 MODERNA 12+ YRS VACCINE Unknown Completed [facility] Influenza Virus Vaccine Quad IM, Preserv and ABX Free 6 MO-64 YRS (FLUCELVAX) Unknown Completed [facility] SARS-COV-2 COVID-19 MODERNA 12+ YRS VACCINE Unknown Completed [facility] Influenza Virus Vaccine Quad IM, Preserv and ABX Free 6 MO-64 YRS (FLUCELVAX) Unknown Completed [facility] SARS-COV-2 COVID-19 MODERNA 12+ YRS VACCINE Unknown Completed [facility] Influenza Virus Vaccine Quad IM, Preserv and ABX Free 6 MO-64 YRS (FLUCELVAX) Unknown Completed [facility] SARS-COV-2 COVID-19 MODERNA 12+ YRS VACCINE Unknown Completed [facility] Influenza Virus Vaccine Quad IM, Preserv and ABX Free 6 MO-64 YRS (FLUCELVAX) Unknown Completed [facility] SARS-COV-2 COVID-19 MODERNA 12+ YRS VACCINE Unknown Completed [facility] Influenza Virus Vaccine Quad IM, Preserv and ABX Free 6 MO-64 YRS (FLUCELVAX) Unknown Completed [facility] SARS-COV-2 COVID-19 MODERNA 12+ YRS VACCINE Unknown Completed [facility] Influenza Virus Vaccine Quad IM, Preserv and ABX Free 6 MO-64 YRS (FLUCELVAX) Unknown Completed [facility] SARS-COV-2 COVID-19 MODERNA 12+ YRS VACCINE Unknown Completed [facility] Influenza Virus Vaccine Quad IM, Preserv and ABX Free 6 MO-64 YRS (FLUCELVAX) Unknown Completed [facility] SARS-COV-2 COVID-19 MODERNA 12+ YRS VACCINE Unknown Completed [facility] Influenza Virus Vaccine Quad IM, Preserv and ABX Free 6 MO-64 YRS (FLUCELVAX) Unknown Completed [facility] SARS-COV-2 COVID-19 MODERNA 12+ YRS VACCINE Unknown Completed [facility] Influenza Virus Vaccine Quad IM, Preserv and ABX Free 6 MO-64 YRS (FLUCELVAX) Unknown Completed [facility] SARS-COV-2 COVID-19 MODERNA 12+ YRS VACCINE Unknown Completed [facility] Influenza Virus Vaccine Quad IM, Preserv and ABX Free 6 MO-64 YRS (FLUCELVAX) Unknown Completed [facility] SARS-COV-2 COVID-19 MODERNA 12+ YRS VACCINE Unknown Completed [facility] Influenza Virus Vaccine Quad IM, Preserv and ABX Free 6 MO-64 YRS (FLUCELVAX) Unknown Completed [facility] SARS-COV-2 COVID-19 MODERNA 12+ YRS VACCINE Unknown Completed [facility] Influenza Virus Vaccine Quad IM, Preserv and ABX Free 6 MO-64 YRS (FLUCELVAX) Unknown Completed [facility] SARS-COV-2 COVID-19 MODERNA 12+ YRS VACCINE Unknown Completed [facility] Influenza Virus Vaccine Quad IM, Preserv and ABX Free 6 MO-64 YRS (FLUCELVAX) Unknown Completed [facility] SARS-COV-2 COVID-19 MODERNA 12+ YRS VACCINE Unknown Completed [facility] Influenza Virus Vaccine Quad IM, Preserv and ABX Free 6 MO-64 YRS (FLUCELVAX) Unknown Completed [facility] SARS-COV-2 COVID-19 MODERNA 12+ YRS VACCINE Unknown Completed [facility] Influenza Virus Vaccine Quad IM, Preserv and ABX Free 6 MO-64 YRS (FLUCELVAX) Unknown Completed [facility] SARS-COV-2 COVID-19 MODERNA 12+ YRS VACCINE Unknown Completed [facility] Influenza Virus Vaccine Quad IM, Preserv and ABX Free 6 MO-64 YRS (FLUCELVAX) Unknown Completed [facility] SARS-COV-2 COVID-19 MODERNA 12+ YRS VACCINE Unknown Completed [facility] Influenza Virus Vaccine Quad IM, Preserv and ABX Free 6 MO-64 YRS (FLUCELVAX) Unknown Completed [facility] SARS-COV-2 COVID-19 MODERNA 12+ YRS VACCINE Unknown Completed [facility] Influenza Virus Vaccine Quad IM, Preserv and ABX Free 6 MO-64 YRS (FLUCELVAX) Unknown Completed [facility] Influenza Virus Vaccine Quad IM, Preserv and ABX Free 6 MO-64 YRS (FLUCELVAX) Unknown Completed [facility] SARS-COV-2 COVID-19 MODERNA 12+ YRS VACCINE Unknown Completed [facility] Influenza Virus Vaccine Quad IM, Preserv and ABX Free 6 MO-64 YRS (FLUCELVAX) Unknown Completed [facility] SARS-COV-2 COVID-19 MODERNA 12+ YRS VACCINE Unknown Completed [facility] SARS-COV-2 COVID-19 MODERNA 12+ YRS VACCINE Unknown Completed [facility] Influenza Virus Vaccine Quad IM, Preserv and ABX Free 6 MO-64 YRS (FLUCELVAX) Unknown Completed [facility] SARS-COV-2 COVID-19 MODERNA 12+ YRS VACCINE Unknown Completed [facility] Influenza Virus Vaccine Quad IM, Preserv and ABX Free 6 MO-64 YRS (FLUCELVAX) Unknown Completed [facility] SARS-COV-2 COVID-19 MODERNA 12+ YRS VACCINE Unknown Completed [facility] Influenza Virus Vaccine Quad IM, Preserv and ABX Free 6 MO-64 YRS (FLUCELVAX) Unknown Completed [facility] SARS-COV-2 COVID-19 MODERNA 12+ YRS VACCINE Unknown Completed [facility] Influenza Virus Vaccine Quad IM, Preserv and ABX Free 6 MO-64 YRS (FLUCELVAX) Unknown Completed [facility] SARS-COV-2 COVID-19 MODERNA 12+ YRS VACCINE Unknown Completed [facility] Influenza Virus Vaccine Quad IM, Preserv and ABX Free 6 MO-64 YRS (FLUCELVAX) Unknown Completed [facility] SARS-COV-2 COVID-19 MODERNA 12+ YRS VACCINE Unknown Completed [facility] Influenza Virus Vaccine Quad IM, Preserv and ABX Free 6 MO-64 YRS (FLUCELVAX) Unknown Completed [facility] SARS-COV-2 COVID-19 MODERNA 12+ YRS VACCINE Unknown Completed [facility] Influenza Virus Vaccine Quad IM, Preserv and ABX Free 6 MO-64 YRS (FLUCELVAX) Unknown Completed [facility] SARS-COV-2 COVID-19 MODERNA 12+ YRS VACCINE Unknown Completed [facility] Influenza Virus Vaccine Quad IM, Preserv and ABX Free 6 MO-64 YRS (FLUCELVAX) Unknown Completed [facility] SARS-COV-2 COVID-19 MODERNA 12+ YRS VACCINE Unknown Completed [facility] Influenza Virus Vaccine Quad IM, Preserv and ABX Free 6 MO-64 YRS (FLUCELVAX) Unknown Completed [facility] SARS-COV-2 COVID-19 MODERNA 12+ YRS VACCINE Unknown Completed [facility] Influenza Virus Vaccine Quad IM, Preserv and ABX Free 6 MO-64 YRS (FLUCELVAX) Unknown Completed [facility] SARS-COV-2 COVID-19 MODERNA 12+ YRS VACCINE Unknown Completed [facility] Influenza Virus Vaccine Quad IM, Preserv and ABX Free 6 MO-64 YRS (FLUCELVAX) Unknown Completed [facility] SARS-COV-2 COVID-19 MODERNA 12+ YRS VACCINE Unknown Completed [facility] Influenza Virus Vaccine Quad IM, Preserv and ABX Free 6 MO-64 YRS (FLUCELVAX) Unknown Completed [facility] SARS-COV-2 COVID-19 MODERNA 12+ YRS VACCINE Unknown Completed [facility] Influenza Virus Vaccine Quad IM, Preserv and ABX Free 6 MO-64 YRS (FLUCELVAX) Unknown Completed [facility] SARS-COV-2 COVID-19 MODERNA 12+ YRS VACCINE Unknown Completed [facility] Influenza Virus Vaccine Quad IM, Preserv and ABX Free 6 MO-64 YRS (FLUCELVAX) Unknown Completed [facility] SARS-COV-2 COVID-19 MODERNA 12+ YRS VACCINE Unknown Completed [facility] Influenza Virus Vaccine Quad IM, Preserv and ABX Free 6 MO-64 YRS (FLUCELVAX) Unknown Completed [facility] SARS-COV-2 COVID-19 MODERNA 12+ YRS VACCINE Unknown Completed [facility] Influenza Virus Vaccine Quad IM, Preserv and ABX Free 6 MO-64 YRS (FLUCELVAX) Unknown Completed [facility] SARS-COV-2 COVID-19 MODERNA 12+ YRS VACCINE Unknown Completed [facility] Influenza Virus Vaccine Quad IM, Preserv and ABX Free 6 MO-64 YRS (FLUCELVAX) Unknown Completed [facility] SARS-COV-2 COVID-19 MODERNA 12+ YRS VACCINE Unknown Completed [facility] Influenza Virus Vaccine Quad IM, Preserv and ABX Free 6 MO-64 YRS (FLUCELVAX) Unknown Completed [facility] SARS-COV-2 COVID-19 MODERNA 12+ YRS VACCINE Unknown Completed [facility] Influenza Virus Vaccine Quad IM, Preserv and ABX Free 6 MO-64 YRS (FLUCELVAX) Unknown Completed [facility] SARS-COV-2 COVID-19 MODERNA 12+ YRS VACCINE Unknown Completed [facility] Influenza Virus Vaccine Quad IM, Preserv and ABX Free 6 MO-64 YRS (FLUCELVAX) Unknown Completed [facility] SARS-COV-2 COVID-19 MODERNA 12+ YRS VACCINE Unknown Completed [facility] Influenza Virus Vaccine Quad IM, Preserv and ABX Free 6 MO-64 YRS (FLUCELVAX) Unknown Completed [facility] SARS-COV-2 COVID-19 MODERNA 12+ YRS VACCINE Unknown Completed [facility] Pneumococcal 20 Conjugate, PCV20 (Prevnar 20) Unknown Completed [facility] Influenza Virus Vaccine Quad IM, Preserv and ABX Free 6 MO-64 YRS (FLUCELVAX) Unknown Completed [facility] SARS-COV-2 COVID-19 MODERNA 12+ YRS VACCINE Unknown Completed [facility] Pneumococcal 20 Conjugate, PCV20 (Prevnar 20) Unknown Completed [facility] Influenza Virus Vaccine Quad IM, Preserv and ABX Free 6 MO-64 YRS (FLUCELVAX) Unknown Completed [facility] SARS-COV-2 COVID-19 MODERNA 12+ YRS VACCINE Unknown Completed [facility] Pneumococcal 20 Conjugate, PCV20 (Prevnar 20) Unknown Completed [facility] Influenza Virus Vaccine Quad IM, Preserv and ABX Free 6 MO-64 YRS (FLUCELVAX) Unknown Completed [facility] SARS-COV-2 COVID-19 MODERNA 12+ YRS VACCINE Unknown Completed [facility] Pneumococcal 20 Conjugate, PCV20 (Prevnar 20) Unknown Completed [facility] Influenza Virus Vaccine Quad IM, Preserv and ABX Free 6 MO-64 YRS (FLUCELVAX) Unknown Completed [facility] SARS-COV-2 COVID-19 MODERNA 12+ YRS VACCINE Unknown Completed [facility] Pneumococcal 20 Conjugate, PCV20 (Prevnar 20) Unknown Completed [facility] Influenza Virus Vaccine Quad IM, Preserv and ABX Free 6 MO-64 YRS (FLUCELVAX) Unknown Completed [facility] SARS-COV-2 COVID-19 MODERNA 12+ YRS VACCINE Unknown Completed [facility] Pneumococcal 20 Conjugate, PCV20 (Prevnar 20) Unknown Completed [facility] Vital Signs Vital Name Observation Time Observation Value Comments S ource Systolic blood pressure 2024-09-22 21:19:00 190 mm[Hg] [facility] Diastolic blood pressure 2024-09-22 21:19:00 86 mm[Hg] [facility] Heart rate 2024-09-22 21:19:00 68 /min [facility] Respiratory rate 2024-09-22 21:19:00 18 /min [facility] Oxygen saturation in Arterial blood by Pulse oximetry 2024-09-22 21:19:00 98 /min [facility] Body temperature 2024-09-22 19:18:00 37.11 Adore [facility] Body height 2024-09-22 19:18:00 160 cm [facility] Body weight 2024-09-22 19:18:00 71.668 kg [facility] BMI 2024-09-22 19:18:00 27.99 kg/m2 [facility] Systolic blood pressure 2024-04-02 21:22:00 130 mm[Hg] [facility] Diastolic blood pressure 2024-04-02 21:22:00 69 mm[Hg] [facility] Heart rate 2024-04-02 21:22:00 74 /min [facility] Body temperature 2024-04-02 21:22:00 36.89 Adore [facility] Body height 2024-04-02 21:22:00 160 cm [facility] Body weight 2024-04-02 21:22:00 75.297 kg [facility] BMI 2024-04-02 21:22:00 29.41 kg/m2 [facility] Oxygen saturation in Arterial blood by Pulse oximetry 2024-04-02 21:22:00 97 /min [facility] Systolic blood pressure 2024-04-02 20:00:00 130 mm[Hg] [facility] Diastolic blood pressure 2024-04-02 20:00:00 69 mm[Hg] [facility] Heart rate 2024-04-02 20:00:00 74 /min [facility] Body temperature 2024-04-02 20:00:00 36.89 Adore [facility] Body height 2024-04-02 20:00:00 160 cm [facility] Body weight 2024-04-02 20:00:00 75.297 kg [facility] BMI 2024-04-02 20:00:00 29.41 kg/m2 [facility] Oxygen saturation in Arterial blood by Pulse oximetry 2024-04-02 20:00:00 97 /min [facility] Systolic blood pressure 2024-01-08 15:49:00 165 mm[Hg] [facility] Diastolic blood pressure 2024-01-08 15:49:00 88 mm[Hg] [facility] Heart rate 2024-01-08 15:49:00 79 /min [facility] Body temperature 2024-01-08 15:47:00 37 Adore [facility] Respiratory rate 2024-01-08 15:47:00 18 /min [facility] Body height 2024-01-08 15:47:00 160 cm [facility] Body weight 2024-01-08 15:47:00 74.617 kg [facility] BMI 2024-01-08 15:47:00 29.14 kg/m2 [facility] Oxygen saturation in Arterial blood by Pulse oximetry 2024-01-08 15:47:00 98 /min [facility] Systolic blood pressure 2024-01-07 19:19:00 179 mm[Hg] [facility] Diastolic blood pressure 2024-01-07 19:19:00 97 mm[Hg] [facility] Heart rate 2024-01-07 19:19:00 89 /min [facility] Oxygen saturation in Arterial blood by Pulse oximetry 2024-01-07 19:19:00 98 /min [facility] Respiratory rate 2024-01-07 19:17:00 18 /min [facility] Body height 2024-01-07 19:17:00 160 cm [facility] Body weight 2024-01-07 19:17:00 74.39 kg [facility] BMI 2024-01-07 19:17:00 29.05 kg/m2 [facility] Systolic blood pressure 2023-12-19 14:09:00 173 mm[Hg] [facility] Diastolic blood pressure 2023-12-19 14:09:00 90 mm[Hg] [facility] Heart rate 2023-12-19 14:09:00 70 /min [facility] Body temperature 2023-12-19 14:09:00 36.39 Adore [facility] Body height 2023-12-19 14:09:00 160 cm [facility] Body weight 2023-12-19 14:09:00 74.163 kg [facility] BMI 2023-12-19 14:09:00 28.96 kg/m2 [facility] Oxygen saturation in Arterial blood by Pulse oximetry 2023-12-19 14:09:00 100 /min [facility] Systolic blood pressure 2023-12-14 01:00:00 150 mm[Hg] [facility] Diastolic blood pressure 2023-12-14 01:00:00 71 mm[Hg] [facility] Heart rate 2023-12-14 01:00:00 77 /min [facility] Respiratory rate 2023-12-14 01:00:00 15 /min [facility] Oxygen saturation in Arterial blood by Pulse oximetry 2023-12-14 01:00:00 98 /min [facility] Body temperature 2023-12-13 20:29:00 37.22 Adore [facility] Body weight 2023-12-13 20:29:00 71.215 kg [facility] BMI 2023-12-13 20:29:00 27.81 kg/m2 [facility] Systolic blood pressure 2023-12-12 02:00:00 156 mm[Hg] [facility] Diastolic blood pressure 2023-12-12 02:00:00 88 mm[Hg] [facility] Heart rate 2023-12-12 02:00:00 70 /min [facility] Body temperature 2023-12-12 02:00:00 36.83 Adore [facility] Respiratory rate 2023-12-12 02:00:00 19 /min [facility] Oxygen saturation in Arterial blood by Pulse oximetry 2023-12-12 02:00:00 97 /min [facility] Body height 2023-12-11 21:16:00 160 cm [facility] Body weight 2023-12-11 21:16:00 73.029 kg [facility] BMI 2023-12-11 21:16:00 28.52 kg/m2 [facility] Systolic blood pressure 2023-06-26 14:17:00 139 mm[Hg] [facility] Diastolic blood pressure 2023-06-26 14:17:00 83 mm[Hg] [facility] Heart rate 2023-06-26 14:17:00 70 /min [facility] Body temperature 2023-06-26 14:17:00 36.67 Adore [facility] Respiratory rate 2023-06-26 14:17:00 18 /min [facility] Body height 2023-06-26 14:17:00 160 cm [facility] Body weight 2023-06-26 14:17:00 75.07 kg [facility] BMI 2023-06-26 14:17:00 29.32 kg/m2 [facility] Oxygen saturation in Arterial blood by Pulse oximetry 2023-06-26 14:17:00 98 /min [facility] Systolic blood pressure 2023-05-18 16:31:00 159 mm[Hg] [facility] Diastolic blood pressure 2023-05-18 16:31:00 88 mm[Hg] [facility] Body height 2023-05-18 16:30:00 160 cm [facility] Body weight 2023-05-18 16:30:00 75.705 kg [facility] BMI 2023-05-18 16:30:00 29.57 kg/m2 [facility] Systolic blood pressure 2023-03-21 14:44:00 94 mm[Hg] Patient requested to check BP when standing. [facility] Diastolic blood pressure 2023-03-21 14:44:00 64 mm[Hg] Patient requested to check BP when standing. [facility] Heart rate 2023-03-21 14:43:00 64 /min [facility] Body temperature 2023-03-21 14:43:00 36.22 Adore [facility] Respiratory rate 2023-03-21 14:43:00 18 /min [facility] Body height 2023-03-21 14:43:00 160 cm [facility] Body weight 2023-03-21 14:43:00 75.116 kg [facility] BMI 2023-03-21 14:43:00 29.33 kg/m2 [facility] Oxygen saturation in Arterial blood by Pulse oximetry 2023-03-21 14:43:00 98 /min [facility] Systolic blood pressure 2023-01-09 16:19:00 124 mm[Hg] [facility] Diastolic blood pressure 2023-01-09 16:19:00 75 mm[Hg] [facility] Heart rate 2023-01-09 16:19:00 68 /min [facility] Oxygen saturation in Arterial blood by Pulse oximetry 2023-01-09 16:16:00 100 /min [facility] Body height 2023-01-09 16:07:00 160 cm [facility] Body weight 2023-01-09 16:07:00 75.161 kg [facility] BMI 2023-01-09 16:07:00 29.35 kg/m2 [facility] Systolic blood pressure 2023-01-09 15:40:00 137 mm[Hg] Orthostatic BP- Laying [facility] Diastolic blood pressure 2023-01-09 15:40:00 84 mm[Hg] Orthostatic BP- Laying [facility] Heart rate 2023-01-09 14:45:00 65 /min [facility] Respiratory rate 2023-01-09 14:45:00 18 /min [facility] Body height 2023-01-09 14:45:00 160 cm [facility] Body weight 2023-01-09 14:45:00 74.844 kg [facility] BMI 2023-01-09 14:45:00 29.23 kg/m2 [facility] Oxygen saturation in Arterial blood by Pulse oximetry 2023-01-09 14:45:00 99 /min [facility] Systolic blood pressure 2022-12-29 22:57:00 163 mm[Hg] [facility] Diastolic blood pressure 2022-12-29 22:57:00 88 mm[Hg] [facility] Heart rate 2022-12-29 22:57:00 92 /min [facility] Respiratory rate 2022-12-29 22:57:00 18 /min [facility] Oxygen saturation in Arterial blood by Pulse oximetry 2022-12-29 22:57:00 98 /min [facility] Body temperature 2022-12-29 21:10:00 37.11 Adore [facility] Body weight 2022-12-29 21:10:00 73.936 kg [facility] BMI 2022-12-29 21:10:00 28.87 kg/m2 [facility] Systolic blood pressure 2022-12-29 15:15:00 171 mm[Hg] [facility] Diastolic blood pressure 2022-12-29 15:15:00 103 mm[Hg] [facility] Heart rate 2022-12-29 15:07:00 94 /min [facility] Body weight 2022-12-29 15:07:00 74.254 kg [facility] BMI 2022-12-29 15:07:00 29.00 kg/m2 [facility] Oxygen saturation in Arterial blood by Pulse oximetry 2022-12-29 15:07:00 98 /min [facility] Systolic blood pressure 2022-11-16 17:05:00 137 mm[Hg] [facility] Diastolic blood pressure 2022-11-16 17:05:00 66 mm[Hg] [facility] Heart rate 2022-11-16 17:05:00 65 /min [facility] Respiratory rate 2022-11-16 17:05:00 17 /min [facility] Oxygen saturation in Arterial blood by Pulse oximetry 2022-11-16 17:05:00 99 /min [facility] Body temperature 2022-11-16 16:39:00 36 Adore [facility] Body height 2022-11-16 14:11:00 160 cm [facility] Body weight 2022-11-16 14:11:00 72.576 kg [facility] BMI 2022-11-16 14:11:00 28.34 kg/m2 [facility] Systolic blood pressure 2022-11-16 14:11:00 164 mm[Hg] [facility] Diastolic blood pressure 2022-11-16 14:11:00 81 mm[Hg] [facility] Heart rate 2022-11-16 14:11:00 67 /min [facility] Body temperature 2022-11-16 14:11:00 36.22 Adore [facility] Respiratory rate 2022-11-16 14:11:00 18 /min [facility] Body height 2022-11-16 14:11:00 160 cm [facility] Body weight 2022-11-16 14:11:00 72.576 kg [facility] BMI 2022-11-16 14:11:00 28.34 kg/m2 [facility] Oxygen saturation in Arterial blood by Pulse oximetry 2022-11-16 14:11:00 99 /min [facility] Systolic blood pressure 2022-10-25 23:21:00 151 mm[Hg] [facility] Diastolic blood pressure 2022-10-25 23:21:00 90 mm[Hg] [facility] Heart rate 2022-10-25 23:21:00 96 /min [facility] Body temperature 2022-10-25 23:21:00 37.17 Adore [facility] Respiratory rate 2022-10-25 23:21:00 16 /min [facility] Body height 2022-10-25 23:21:00 160 cm [facility] Body weight 2022-10-25 23:21:00 72.576 kg [facility] BMI 2022-10-25 23:21:00 28.34 kg/m2 [facility] Oxygen saturation in Arterial blood by Pulse oximetry 2022-10-25 23:21:00 99 /min [facility] Systolic blood pressure 2022-10-25 00:30:00 190 mm[Hg] [facility] Diastolic blood pressure 2022-10-25 00:30:00 97 mm[Hg] [facility] Heart rate 2022-10-25 00:30:00 84 /min [facility] Respiratory rate 2022-10-25 00:30:00 17 /min [facility] Oxygen saturation in Arterial blood by Pulse oximetry 2022-10-25 00:30:00 97 /min [facility] Body temperature 2022-10-24 20:05:00 37 Adore [facility] Body height 2022-10-24 20:05:00 160 cm [facility] Body weight 2022-10-24 20:05:00 72.576 kg [facility] BMI 2022-10-24 20:05:00 28.34 kg/m2 [facility] Systolic blood pressure 2022-10-18 19:47:00 105 mm[Hg] [facility] Diastolic blood pressure 2022-10-18 19:47:00 70 mm[Hg] [facility] Heart rate 2022-10-18 19:47:00 66 /min [facility] Body temperature 2022-10-18 19:47:00 36.5 Adore [facility] Respiratory rate 2022-10-18 19:47:00 18 /min [facility] Body height 2022-10-18 19:47:00 160 cm [facility] Body weight 2022-10-18 19:47:00 76.346 kg [facility] BMI 2022-10-18 19:47:00 29.82 kg/m2 [facility] Body temperature 2022-09-05 21:42:00 36.61 Adore [facility] Body height 2022-09-05 21:42:00 160 cm [facility] Body weight 2022-09-05 21:42:00 73.71 kg [facility] BMI 2022-09-05 21:42:00 28.79 kg/m2 [facility] Systolic blood pressure 2022-08-22 16:48:00 138 mm[Hg] [facility] Diastolic blood pressure 2022-08-22 16:48:00 73 mm[Hg] [facility] Heart rate 2022-08-22 16:48:00 67 /min [facility] Body temperature 2022-08-22 16:48:00 36.67 Adore [facility] Respiratory rate 2022-08-22 16:48:00 16 /min [facility] Body height 2022-08-22 16:48:00 160 cm [facility] Body weight 2022-08-22 16:48:00 74.254 kg [facility] BMI 2022-08-22 16:48:00 29.00 kg/m2 [facility] Oxygen saturation in Arterial blood by Pulse oximetry 2022-08-22 16:48:00 98 /min [facility] Systolic blood pressure 2022-08-07 14:48:00 183 mm[Hg] [facility] Diastolic blood pressure 2022-08-07 14:48:00 104 mm[Hg] [facility] Heart rate 2022-08-07 14:48:00 82 /min [facility] Body temperature 2022-08-07 14:48:00 38.06 Adore [facility] Respiratory rate 2022-08-07 14:48:00 18 /min [facility] Body height 2022-08-07 14:48:00 160 cm [facility] Body weight 2022-08-07 14:48:00 72.576 kg [facility] BMI 2022-08-07 14:48:00 28.34 kg/m2 [facility] Oxygen saturation in Arterial blood by Pulse oximetry 2022-08-07 14:48:00 99 /min [facility] Systolic blood pressure 2022-06-22 18:17:00 129 mm[Hg] [facility] Diastolic blood pressure 2022-06-22 18:17:00 75 mm[Hg] [facility] Heart rate 2022-06-22 18:17:00 69 /min [facility] Body temperature 2022-06-22 18:17:00 36.61 Adore [facility] Body height 2022-06-22 18:17:00 160 cm [facility] Body weight 2022-06-22 18:17:00 72.621 kg [facility] BMI 2022-06-22 18:17:00 28.36 kg/m2 [facility] Oxygen saturation in Arterial blood by Pulse oximetry 2022-06-22 18:17:00 99 /min [facility] Systolic blood pressure 2022-06-20 19:42:00 154 mm[Hg] [facility] Diastolic blood pressure 2022-06-20 19:42:00 79 mm[Hg] [facility] Heart rate 2022-06-20 19:42:00 71 /min [facility] Oxygen saturation in Arterial blood by Pulse oximetry 2022-06-20 19:42:00 99 /min [facility] Respiratory rate 2022-06-20 19:37:00 17 /min [facility] Body height 2022-06-20 19:37:00 160 cm [facility] Body weight 2022-06-20 19:37:00 72.439 kg [facility] BMI 2022-06-20 19:37:00 28.29 kg/m2 [facility] Systolic blood pressure 2022-06-16 20:28:00 177 mm[Hg] [facility] Diastolic blood pressure 2022-06-16 20:28:00 95 mm[Hg] [facility] Heart rate 2022-06-16 18:58:00 72 /min [facility] Body temperature 2022-06-16 18:57:00 36.72 Adore [facility] Respiratory rate 2022-06-16 18:57:00 20 /min [facility] Body height 2022-06-16 18:57:00 160 cm [facility] Body weight 2022-06-16 18:57:00 71.396 kg [facility] BMI 2022-06-16 18:57:00 27.88 kg/m2 [facility] Oxygen saturation in Arterial blood by Pulse oximetry 2022-06-16 18:57:00 98 /min [facility] Height 2022-04-24 07:05:00 160.02 CM Weight 2022-04-24 07:05:00 68.03 KG Height 2022-04-20 08:26:00 160.02 CM Weight 2022-04-20 08:26:00 68.03 KG Procedures Procedure Date / Time Performed Performing Clinician Source EGD (ENDO) 2024-09-26 20:40:06 Doctor Unassigned, [place] [facility] XR CHEST 1 VW 2024-09-22 20:14:46 Sherin Wilson [facility] TROPONIN I 2024-09-22 19:53:00 Sherin Wilson [facility] LIPASE 2024-09-22 15:55:00 Sherin Wilson [facility] URINE CULTURE 2024-08-11 14:50:00 Amina Mansfield [facility] MAGNESIUM 2024-08-11 14:42:00 Gaudencio Chapin [facility] HEPATIC FUNCTION PANEL (8007 6) (ALB,T.PRO,BILI T,BU/BC,ALT,AST,ALK PHOS) 2024-08-11 14:42:00 Gaudencio Chapin [facility] BASIC METABOLIC PANEL (NA, K , CL, CO2, GLUCOSE, BUN, CREATININE, CA) 2024-08-11 14:42:00 Gaudencio Chapin [facility] LIPID PANEL (34007)(TOTAL CHOLESTEROL, TRIGLYCERIDES, HDL) 2024-08-11 14:42:00 Donal [facility] TACROLIMUS, LEVEL 2024-08-11 14:42:00 [facility] 2024-08-11 14:42:00 Donal [facility] GLYCOSYLATED HEMOGLOBIN (A1C) 2024-08-11 14:42:00 Donal [facility] PROTHROMBIN TIME / INR 2024-08-11 14:42:00 [facility] PNEUMOCOCCAL 20 CONJUGATE (P REVNAR 20) VACCINE 2024-04-02 21:15:11 Donal [facility] BI DIAGNOSTIC TOMOSYNTHESIS BILATERAL 2024-02-06 14:12:34 Donal [facility] CBC WITH DIFF 2024-01-17 13:53:00 [facility] PROTHROMBIN TIME / INR 2024-01-17 13:53:00 [facility] MAGNESIUM 2024-01-17 13:53:00 [facility] HEPATIC FUNCTION PANEL (8007 6) (ALB,T.PRO,BILI T,BU/BC,ALT,AST,ALK PHOS) 2024-01-17 13:53:00 [facility] BASIC METABOLIC PANEL (NA, K , CL, CO2, GLUCOSE, BUN, CREATININE, CA) 2024-01-17 13:53:00 [facility] HEPATIC FUNCTION PANEL (8007 6) (ALB,T.PRO,BILI T,BU/BC,ALT,AST,ALK PHOS) 2024-01-03 13:43:00 Obdulio [facility] BASIC METABOLIC PANEL (NA, K , CL, CO2, GLUCOSE, BUN, CREATININE, CA) 2024-01-03 13:43:00 [facility], LEVEL 2024-01-03 13:43:00 Mak, [facility] LIPASE 2023-12-13 22:06:00 Aimee Cast [facility] TROPONIN I 2023-12-13 22:06:00 Aimee Cast [facility] COMP. METABOLIC PANEL (10615) 2023-12-13 22:06:00 Aimee Cast [facility] CBC WITH DIFF 2023-12-13 22:06:00 Aimee Cast [facility] N-TERMINAL PRO-BNP 2023-12-13 22:06:00 Aimee Cast [facility] ASSIGNMENT OF BENEFITS 2023-12-13 21:18:27 Doctor Unassigned, [place] [facility] XR CHEST 1 VW 2023-12-13 21:03:00 Aimee Cast [facility] CONSENT/REFUSAL FOR DIAGNOSI S AND TREATMENT 2023-12-13 20:06:58 Doctor Unassigned, [place] [facility] CT ABDOMEN PELVIS W CONTRAST 2023-12-11 22:23:57 Jessica Badillo [facility] LIPASE 2023-12-11 21:58:00 Jessica Badillo [facility] MAGNESIUM 2023-12-11 21:58:00 Jessica Badillo Yarely [facility] TROPONIN I 2023-12-11 21:58:00 Jessica Badillo [facility] COMP. METABOLIC PANEL (43114) 2023-12-11 21:58:00 Jessica Badillo [facility] CBC WITH DIFF 2023-12-11 21:58:00 Jessica Badillo [facility] URINALYSIS 2023-12-11 21:58:00 Jessica Badillo [facility] CONSENT/REFUSAL FOR DIAGNOSI S AND TREATMENT 2023-12-11 21:10:38 Doctor Unassigned, [place] [facility] ASSIGNMENT OF BENEFITS 2023-09-04 17:29:35 Doctor Unassigned, [place] [facility] US ABDOMEN COMPLETE 2023-06-22 22:55:46 Amina Mansfield [facility] CONSENT/REFUSAL FOR DIAGNOSI S AND TREATMENT 2023-06-22 21:53:13 Doctor Unassigned, [place] [facility] ASSIGNMENT OF BENEFITS 2023-06-22 21:52:45 Doctor Unassigned, [place] [facility] ASSIGNMENT OF BENEFITS 2023-06-22 21:52:44 Doctor Unassigned, [place] [facility] DIABETES TESTING REPORTS 2023-05-18 05:01:00 Doctor Unassigned, [place] [facility] CBC WITH DIFF 2023-05-11 14:36:00 [facility] PROTHROMBIN TIME / INR 2023-05-11 14:36:00 [facility] DME/SUPPLY JUSTIFICATION 2023-02-01 05:01:00 Doctor Unassigned, [place] [facility] DME/SUPPLY JUSTIFICATION 2023-01-15 05:01:00 Doctor Unassigned, [place] [facility] POCT GLUCOSE (AUTOMATED) 2022-12-29 23:41:00 Soni Albrecht [facility] CT ABDOMEN PELVIS WO CONTRAST 2022-12-29 22:12:58 Soni Albrecht [facility] URINALYSIS 2022-12-29 21:40:00 [facility] POCT GLUCOSE (AUTOMATED) 2022-12-29 21:13:00 [facility] CONSENT/REFUSAL FOR DIAGNOSI S AND TREATMENT 2022-12-29 21:05:09 Doctor Unassigned, [place] [facility] POCT HEMOGLOBIN A1C TEST 2022-12-29 15:16:00 Pillo Marcos [facility] PATIENT FINANCIAL POLICY 2022-12-29 14:38:40 Doctor Unassigned, [place] [facility] COLONOSCOPY (ENDO) 2022-11-16 15:58:47 Amina Mansfield [facility] COLONOSCOPY (ENDO) 2022-11-16 15:58:47 Amina Mansfield [facility] SURGICAL PATHOLOGY EXAM 2022-11-16 15:53:00 Simone Saxena [facility] COLONOSCOPY 2022-11-16 15:29:00 [facility] ESOPHAGOGASTRODUODENOSCOPY 2022-11-16 15:29:[facility] 2022-11-16 14:28:35 Amina Mansfield [facility] EGD (ENDO) 2022-11-16 14:28:35 Amina Mansfield [facility] POCT GLUCOSE (AUTOMATED) 2022-11-16 14:16:00 [facility] POCT GLUCOSE (AUTOMATED) 2022-11-16 14:16:00 [facility] BI DIAGNOSTIC TOMOSYNTHESIS BILATERAL 2022-11-14 20:15:44 Negro Nicole [facility] POCT GLUCOSE (AUTOMATED) 2022-10-25 23:27:00 Keron Leal [facility] CONSENT/REFUSAL FOR DIAGNOSI S AND TREATMENT 2022-10-25 22:59:48 Doctor Unassigned, [place] [facility] LACTIC ACID WHOLE BLOOD 2022-10-25 00:19:00 Sherin Wilson [facility] POCT GLUCOSE (AUTOMATED) 2022-10-24 23:57:[address] [facility]BDOMEN PELVIS W CONTRAST 2022-10-24 22:25:50 [facility] POCT GLUCOSE (AUTOMATED) 2022-10-24 22:02:00 Sherin Wilson [facility] URINALYSIS 2022-10-24 21:02:00 [facility] PANEL 21 + LACTIC ACID 2022-10-24 20:57:00 Sherin Wilson [facility] LIPASE 2022-10-24 20:51:00 [facility] TROPONIN I 2022-10-24 20:51:00 [facility] COMP. METABOLIC PANEL (90315) 2022-10-24 20:51:00 Sherin Wilson [facility] CBC WITH DIFF 2022-10-24 20:51:00 [facility] PROT[facility] TIME / INR 2022-10-24 20:51:00 [facility] ACTIVATED PARTIAL THRMPLAS REYMUNDO 2022-10-02 4 20:51:00 Sherin Wilson [facility] N-TERMINAL PRO-BNP 2022-10-24 20:51:00 Sherin Wilson [facility] POCT GLUCOSE (AUTOMATED) 2022-10-24 20:05:00 Sherin Wilson [facility] CONSENT/REFUSAL FOR DIAGNOSI S AND TREATMENT 2022-08-07 14:43:52 Doctor Unassigned, [place] [facility] CONSENT/REFUSAL FOR DIAGNOSI S AND TREATMENT 2022-06-20 19:01:40 Doctor Unassigned, [place] [facility] REPLACE LT LENS SYNTH SUBST PERQ 2022-03 00:00:00 [facility] AUTHORIZATION FOR RELEASE OF PHI 2021-11 06:01:00 Doctor Unassigned, [place] [facility] XR CERVICAL SPINE 1 2015-04-05 14:18:00 Delvis Garnica [facility] XR CERVICAL SPINE 1 2015-04-05 13:29:00 Delvis Garnica [facility] HOSPITAL ADMISSION 2015-04-05 05:01:00 Doctor Unassigned, [place] [facility] TISSUE TRACKING FORM 2015-04-05 05:01:00 Doctor Unassigned, [place] [facility] Encounters Start Date/Time End Date/Time Encounter Type Admission Type Attending Clinicians Care Facility Care Department Encounter ID Source 2022-08-09 12:53:39 Outpatient SIMONE MURRY [facility] [id number] [facility] 2021-08-01 10:55:32 Emergency [facility] [id number] [facility] 2021-07-31 20:51:16 Emergency [facility] [id number] [facility] 2021-07-31 18:40:09 Outpatient BINH CURRAN [facility] GIE [id number] [facility] 2021-07-31 09:39:00 Emergency [facility] [id number] [facility] 2021-07-31 02:10:03 Outpatient BINH CURRAN [facility] JWE [id number] [facility] 2021-07-30 22:32:56 Outpatient U SALO LEROY [facility] STX [id number] [facility] 2021-07-30 13:41:50 Outpatient R BINH MCRAE [facility] GIE [id number] [facility] 2021-07-30 06:52:07 Outpatient R BINH MCRAE [facility] GIE [id number] [facility] 2021-07-30 04:06:04 Emergency [facility] [id number] [facility] 2021-07-30 02:28:05 Emergency [facility] [id number] [facility] 2021-07-29 18:29:13 Inpatient U [facility] STX [id number] [facility] 2021-07-29 15:51:51 Emergency [facility] [id number] [facility] 2021-07-29 14:27:03 Emergency [facility] [id number] [facility] 2021-07-29 11:42:33 Emergency [facility] [id number] [facility] 2021-07-29 10:15:45 Emergency [facility] [id number] [facility] 2021-07-29 06:49:49 Emergency [facility] [id number] [facility] 2021-07-29 02:09:04 Emergency [facility] [id number] [facility] 2024-09-26 00:00:00 2024-11-15 06:25:07 Orders Only Doctor Unassigned, [place] Doctor Unassigned, [place] [facility] 1.2.840.114 350.1.13.10 4.2.7.2.686 [id number] [facility] 2015-04-05 00:00:00 2024-11-15 04:27:32 Orders Only Doctor Unassigned, [place] Doctor Unassigned, [place] [facility] 1.2.840.114 350.1.13.10 4.2.7.2.686 [id number] [facility] 2015-04-05 00:00:00 2024-11-15 04:27:32 Orders Only Doctor Unassigned, [place] Doctor Unassigned, [place] [facility] 1.2.840.114 350.1.13.10 4.2.7.2.686 [id number] [facility] 2015-04-05 00:00:00 2024-11-15 04:27:32 Orders Only Doctor Unassigned, [place] Doctor Unassigned, [place] [facility] 1.2.840.114 350.1.13.10 4.2.7.2.686 [id number] [facility] 2021-11-02 00:00:00 2024-11-15 02:50:32 Orders Only Marcella Reynoso [facility] 1.2840.114 350.1.13.10 4.2.7.2.686 [id number] [facility] 2024-11-10 00:00:00 2024-11-11 16:48:19 Amina Sullivan [facility] 1.2840.114 350.1.13.10 4.2.7.2.686 [id number] [facility] 2024-11-05 00:00:00 2024-11-05 11:38:31 Letter (Out) Daiana Aguilar Lucy [facility] 1.2840.114 350.1.13.10 4.2.7.2.686 [id number] [facility] 2024-11-05 10:30:00 2024-11-05 10:30:00 Out[id number] 2024-10-29 10:00:00 2024-10-29 10:00:00 Outpatient R [facility] [id number] [facility] 2024-10-27 00:00:00 2024-10-27 15:10:35 [facility] 1.20.114 350.1.13.10 4.2.7.2.686 [id number] [facility] 2024-10-20 00:00:00 2024-10-20 10:48:50 RefAmina Calderón [facility] 1.20.114 350.1.13.10 4.2.7.2.686 [id number] [facility] 2024-10-07 00:00:00 2024-10-07 12:23:32 Telephone Dari [facility] 1.0.114 350.1.13.10 4.2.7.2.686 [id number] [facility] 2024-09-30 15:20:00 2024-09-30 15:20:00 Outpatient AMINA ROBERTSON [facility] [id number] [facility] 2024-09-22 13:22:00 2024-09-22 15:26:00 Emergency X SHERIN WILSON DONNELL [facility] ERT [id number] [facility] 2024-09-22 13:22:00 2024-09-22 15:26:00 Emergency Sherin Wilson [facility] 1.2840.114 350.1.13.10 4.2.7.2.686 [id number] [facility] 2024-09-22 09:45:00 2024-09-22 10:00:00 Spray Dry Operator Visit Renetta, [facility] Amina Mansfield Podariela, [facility] PROFESSIO NAL BUILDING 1.2.840.114 350.1.13.10 4.2.7.2.686 [id number] [facility] 2024-09-22 09:45:00 2024-09-22 09:45:00 Outpatient R AMINA MANSFIELD [facility] [id number] [facility] 2024-09-03 00:00:00 2024-09-03 16:28:53 Telephone Amina Mansfield [facility] 1.2.840.114 350.1.13.10 4.2.7.2.686 [id number] [facility] 2024-08-18 00:00:00 2024-08-18 11:53:59 Refill Amina Mansfield [facility] 1.2.840.114 350.1.13.10 4.2.7.2.686 [id number] [facility] 2024-08-13 10:00:00 2024-08-13 10:00:00 Outpatient R GAUDENCIO CHAPIN [facility] [id number] [facility] 2024-08-11 09:00:00 2024-08-11 09:15:00 Spray Dry Operator Visit Pob, [facility] Kirk Chapinhif Pob, [facility] PROFESSIO NAL BUILDING 1.2.840.114 350.1.13.10 4.2.7.2.686 [id number] [facility] 2024-08-11 09:00:00 2024-08-11 09:00:00 Outpatient R GAUDENCIO CHAPIN [facility] [id number] [facility] 2024-08-05 00:00:00 2024-08-05 15:27:30 Telephone Amina Mansfield [facility] 1.840.114 350.1.13.10 4.2.7.2.686 [id number] [facility] 2024-07-29 00:00:00 2024-07-29 15:51:00 [facility] 1.840.114 350.1.13.10 4.2.7.2.686 [id number] [facility] 2024-07-23 10:00:00 2024-07-23 10:00:00 Outpatient R GAUDENCIO CHAPIN [facility] [id number] [facility] 2024-07-04 14:00:00 2024-07-04 14:00:00 Outpatient R AMINA MANSFIELD [facility] [id number] [facility] 2024-06-18 14:00:00 2024-06-18 14:00:00 Outpatient R CONNOR MART [facility] [id number] [facility] 2024-06-13 15:30:00 2024-06-13 15:30:00 Outpatient R PILLO MARCOS [facility] [id number] [facility] 2024-06-09 00:00:00 2024-06-09 14:41:26 Adwoa Donal [facility] BUILDING 1.840.114 350.1.13.10 4.2.7.2.686 [id number] [facility] 2024-06-06 00:00:00 2024-06-06 14:43:55 Telephone Gaudencio Chapin [facility] 1.84.114 350.1.13.10 4.2.7.2.686 [id number] [facility] 2024-05-19 00:00:00 2024-05-19 00:00:00 Outpatient R LASHAEOHAMINA WRIGHT [facility] [id number] [facility] 2024-04-28 13:20:00 2024-04-28 13:20:00 Outpatient R CLARITZA CONNELL [facility] [id number] [facility] 2024-04-22 00:00:00 2024-04-22 10:02:26 Telephone Amina Mansfield [facility] PROFESS[facility] NAL BUILDING 1.2.840.114 350.1.13.10 4.2.7.2.686 [id number] [facility] 2024-04-21 00:00:00 2024-04-21 10:54:50 Telephone Amina Mansfield [facility] 1.2.840.114 350.1.13.10 4.2.7.2.686 [id number] [facility] 2024-04-16 11:00:00 2024-04-16 11:00:00 [facility] [id number] [facility] 2024-04-16 11:00:00 2024-04-16 11:00:00 Outpatient R CONNOR MART [facility] [id number] [facility] 2024-04-09 00:00:00 2024-04-09 00:00:00 Outpatient R AMINA MANSFIELD [facility] [id number] [facility] 2024-03-04 00:00:00 2024-04-05 18:21:17 Patient Secure Valerio Paramjit [facility] BUILDING 1.2.840.114 350.1.13.10 4.2.7.2.686 [id number] [facility] [facility] 2024-04-02 16:00:00 2024-04-02 16:30:05 Office Visit Amina Mansfield [facility] 1.2.840.114 350.1.13.10 4.2.7.2.686 [id number] [facility] 2024-04-02 15:20:00 2024-04-02 16:29:56 Outpatient R AMINA MANSFIELD [facility] [id number] [facility] 2024-04-02 15:20:00 2024-04-02 16:29:56 Office Visit Amina Mansfield [facility] 1.2.840.114 350.1.13.10 4.2.7.2.686 [id number] [facility] 2023-09-28 00:00:00 2024-04-02 15:49:19 Refill Simone Saxena [facility] 1.2.840.114 350.1.13.10 4.2.7.2.686 [id number] [facility] 2024-03-31 00:00:00 2024-03-31 16:13:19 Telephone Amina Mansfield [facility] 1.2.840.114 350.1.13.10 4.2.7.2.686 [id number] [facility] 2024-03-31 00:00:00 2024-03-31 13:23:04 Telephone Amina Mansfield [facility] 1.2.840.114 350.1.13.10 4.2.7.2.686 [id number] [facility] 2024-03-28 09:30:00 2024-03-28 09:45:00 Spray Dry Operator Visit Pob, Adc Lab Main Simone Saxena [facility] 1.2.840.114 350.1.13.10 4.2.7.2.686 [id number] [facility] 2024-03-28 09:30:00 2024-03-28 09:30:00 Outpatient SIMONE MURRY AKSHATA [facility] [id number] [facility] 2024-03-04 00:00:00 2024-03-10 07:24:17 Refill Alberto Leija [facility] 1.840.114 350.1.13.10 4.2.7.2.686 [id number] [facility] 2024-03-07 10:30:00 2024-03-07 10:30:00 Outpatient ALBERTO ROSALES [facility] [id number] [facility] 2024-03-04 00:00:00 2024-03-05 13:27:33 RefAmina Calderón [facility] 1..840.114 350.1.13.10 4.2.7.2.686 [id number] [facility] 2024-03-03 00:00:00 2024-03-05 08:49:41 RefPillo Brown [facility] 1.2.840.114 350.1.13.10 4.2.7.2.686 [id number] [facility] 2024-03-04 00:00:00 2024-03-04 12:24:38 Refill Paramjit Lamb [facility] 1.2.840.114 350.1.13.10 4.2.7.2.686 [id number] [id number] [facility] 2024-03-04 09:00:00 2024-03-04 09:00:00 Outpatient AMINA ROBERTSON [facility] [id number] [facility] 2024-03-03 11:45:00 2024-03-03 12:00:00 Spray Dry Operator Visit Pob, Adc Lab Simone Baig [facility] PROFESS[facility] NAL BUILDING 1..840.114 350.1.13.10 4.2.7.2.686 [id number] [facility] 2024-03-03 11:45:00 2024-03-03 11:45:00 Outpatient R SIMONE SAXENA AKNEREIDA [facility] [id number] [facility] 2024-02-27 00:00:00 2024-02-29 15:50:52 Pillo Sandra [facility] 1..840.114 350.1.13.10 4.2.7.2.686 [id number] [facility] 2024-02-13 09:30:00 2024-02-13 09:30:00 Outpatient R GAUDENCIO CHAPIN [facility] [id number] [facility] 2024-02-11 13:00:00 2024-02-11 13:00:00 Outpatient R BRAYAN RICHTER [facility] [id number] [facility] 2024-01-07 00:00:00 2024-02-09 18:09:34 Patient Secure Msg Doctor Unassigned, [place] [facility] ..840.114 350.1.13.10 4.2.7.2.686 [id number] [facility] 2024-02-06 08:17:17 2024-02-06 23:59:00 Outpatient R AMINA MANSFIELD [facility] [id number] [facility] 2024-02-06 08:17:17 2024-02-06 23:59:00 Hospital Encounter Amina Mansfield [facility] 1..840.114 350.1.13.10 4.2.7.2.686 [id number] [facility] 2024-01-24 00:00:00 2024-01-24 00:00:00 Telephone Nunez Zabrina Randhawa [facility] 1.114 350.1.13.10 4.2.7.2.686 [id number] [facility] 2024-01-22 09:30:00 2024-01-22 09:30:00 Outpatient R NIKI MAHMOOD [facility] [id number] [facility] 2024-01-17 08:00:00 2024-01-17 08:15:00 Spray Dry Operator Visit Pob, Adc Lab Main [facility] 1.114 350.1.13.10 4.2.7.2.686 [id number] [facility] 2024-01-17 08:00:00 2024-01-17 08:00:00 [facility] [id number] [facility] 2024-01-09 00:00:00 2024-01-09 00:00:00 Telephone [facility] 1.114 350.1.13.10 4.2.7.2.686 [id number] [facility] 2024-01-08 11:00:00 2024-01-08 11:58:20 Outpatient R ALBERTO LEIJA [facility] [id number] [facility] 2024-01-08 11:00:00 2024-01-08 11:58:20 Office [facility] 1.114 350.1.13.10 4.2.7.2.686 [id number] [facility] 2024-01-07 14:40:00 2024-01-07 14:40:00 Office Visit Paramjit Lamb [facility] 1.840.114 350.1.13.10 4.2.7.2.686 [id number] [facility] 2024-01-07 14:40:00 2024-01-07 14:36:57 Outpatient R PARAMJIT LAMB [facility] [id number] [facility] 2024-01-04 14:30:00 2024-01-04 14:30:00 Outpatient R SHO HICKEY [facility] [id number] [facility] 2024-01-03 08:00:00 2024-01-03 08:15:00 Spray Dry Operator Visit Pob, Adc Lab Main Chapin Gaudencio [facility] 1.840.114 350.1.13.10 4.2.7.2.686 [id number] [facility] 2024-01-03 08:00:00 2024-01-03 08:00:00 Outpatient R DARI GAUDENCIO [facility] [id number] [facility] 2024-01-03 00:00:00 2024-01-03 00:00:00 Telephone LashaeohAmina wright [facility] 1..840.114 350.1.13.10 4.2.7.2.686 [id number] [id number] [facility] 2023-12-27 13:30:00 2023-12-27 13:30:00 Outpatient R BRAYAN RICHTER [facility] [id number] [facility] 2023-12-26 00:00:00 2023-12-26 00:00:00 Patient Secure Msg Doctor Unassigned, [place] [facility] 1.84.114 350.1.13.10 4.2.7.2.686 [id number] [facility] 2023-12-20 00:00:00 2023-12-20 00:00:00 Patient Secure Msg Doctor Unassigned, [place] [facility] 1.840.114 350.1.13.10 4.2.7.2.686 [id number] [facility] 2023-12-19 09:00:00 2023-12-19 10:23:49 Outpatient R GAUDENCIO CHAPIN [facility] [id number] [facility] 2023-12-19 09:00:00 2023-12-19 10:23:49 Office Visit Gaudencio Chapin [facility] 1.0.114 350.1.13.10 4.2.7.2.686 [id number] [facility] 2023-12-19 00:00:00 2023-12-19 00:00:00 Patient Secure Msg Doctor Unassigned, [place] [facility] 1.0.114 350.1.13.10 4.2.7.2.686 [id number] [facility] 2023-12-13 15:31:00 2023-12-13 20:30:00 Emergency X AIMEE CAST [facility] ERT [id number] [facility] 2023-12-13 15:31:00 2023-12-13 20:30:00 Emergency Aimee Cast G [facility] 1.0.114 350.1.13.10 4.2.7.2.686 [id number] [facility] 2023-12-12 00:00:00 2023-12-12 00:00:00 Telephone Darwin Velazquez [facility] 1..114 350.1.13.10 4.2.7.2.686 [id number] [facility] 2023-12-11 16:20:00 2023-12-11 21:13:00 Emergency X Jessica BADILLO [facility] ERT [id number] [facility] 2023-12-11 16:20:00 2023-12-11 21:13:00 Emergency Jessica Badillo Yarely [facility] 1.2.840.114 350.1.13.10 4.2.7.2.686 [id number] [facility] 2023-09-28 10:20:00 2023-09-28 10:20:00 Outpatient R AMINA MANSFIELD [facility] [id number] [facility] 2023-09-26 00:00:00 2023-09-26 00:00:00 Outpatient R LASHAEOHAMINA WRIGHT [facility] [id number] [facility] 2023-09-12 00:00:00 2023-09-12 00:00:00 Outpatient R AMINA MANSFIELD [facility] [id number] [facility] 2023-09-05 00:00:00 2023-09-05 00:00:00 Telephone [facility]onal [facility] 1.2.840.114 350.1.13.10 4.2.7.2.686 [id number] [facility] 2023-09-04 10:45:00 2023-09-04 11:00:00 Spray Dry Operator Visit Pob, Adc Lab Main [facility]kyle [facility] 1.2.840.114 350.1.13.10 4.2.7.2.686 [id number] [facility] 2023-09-04 10:45:00 2023-09-04 10:45:00 Outpatient R LASHAEOMARI AMINA [facility] [id number] [facility] 2023-09-04 00:00:00 2023-09-04 00:00:00 Orders Only Doctor Unassigned, [place] [facility] 1.2840.114 350.1.13.10 4.2.7.2.686 [id number] [facility] 2023-08-27 00:00:00 2023-08-27 00:00:00 Telephone Amina Mansfield [facility] 1.2.840.114 350.1.13.10 4.2.7.2.686 [id number] [facility] 2023-08-17 11:00:00 2023-08-17 11:00:00 Outpatient R NIKI MAHMOOD [facility] [id number] [facility] 2023-08-09 00:00:00 2023-08-09 00:00:00 Outpatient R AMINA MNASFIELD [facility] [id number] [facility] 2023-08-03 00:00:00 2023-08-03 00:00:00 Refill Amina Mansfield [facility] 1.2.840.114 350.1.13.10 4.2.7.2.686 [id number] [facility] 2023-07-26 00:00:00 2023-07-26 00:00:00 Telephone Amina Mansfield [facility] 1.2.840.114 350.1.13.10 4.2.7.2.686 [id number] [facility] 2023-07-24 00:00:00 2023-07-24 00:00:00 Telephone Amina Mansfield [facility] 1.2.840.114 350.1.13.10 4.2.7.2.686 [id number] [facility] 2023-07-10 00:00:00 2023-07-10 00:00:00 Outpatient R AMINA MANSFIELD [facility] [id number] [facility] 2023-06-26 09:20:00 2023-06-26 10:44:58 Outpatient R AMINA MANSFIELD [facility] [id number] [facility] 2023-06-26 09:20:00 2023-06-26 10:44:58 Office Visit Amina Mansfield [facility] PROFESS[facility] NAL BUILDING 1.2.840.114 350.1.13.10 4.2.7.2.686 [id number] [facility] 2023-06-25 16:00:00 2023-06-25 16:00:00 Outpatient R LAURA EMERY CRAIG [facility] [id number] [facility] 2023-06-23 00:00:00 2023-06-23 00:00:00 Telephone Pillo Marcos [facility] 1.2.840.114 350.1.13.10 4.2.7.2.686 [id number] [facility] 2023-06-22 16:53:21 2023-06-22 23:59:00 Outpatient R AMINA MANSFIELD [facility] [id number] [facility] 2023-06-22 16:53:21 2023-06-22 23:59:00 Hospital Encounter Amina Mansfield [facility] 1.2.840.114 350.1.13.10 4.2.7.2.686 [id number] [facility] 2023-06-17 00:00:00 2023-06-17 00:00:00 [facility]ill [facility] 1.2.840.114 350.1.13.10 4.2.7.2.686 [id number] [facility] 2023-06-01 00:00:00 2023-06-01 00:00:00 Outpatient R AMINA MANSFIELD [facility] [id number] [facility] 2023-05-18 11:30:00 2023-05-18 12:25:10 Outpatient R HANDY [facility] [id number] [facility] 2023-05-18 11:30:00 2023-05-18 12:25:10 Office Visit Niki Mahmood [facility] 1..840.114 350.1.13.10 4.2.7.2.686 [id number] [facility] 2023-05-18 00:00:00 2023-05-18 00:00:00 Orders Only Doctor Unassigned, [place] [facility] 1.840.114 350.1.13.10 4.2.7.2.686 [id number] [facility] 2023-05-16 11:40:00 2023-05-16 11:40:00 Outpatient R CONNOR MART [facility] [id number] [facility] 2023-05-11 09:45:00 2023-05-11 10:00:00 Spray Dry Operator Visit Pob, Adc Lab Main Amina Mansfield [facility] 1..840.114 350.1.13.10 4.2.7.2.686 [id number] 353 [id number] [facility] 2023-05-11 09:45:00 2023-05-11 09:45:00 Outpatient R AMINA MANSFIELD [facility] [id number] [facility] 2023-05-09 00:00:00 2023-05-09 00:00:00 Telephone Brayan Richter [facility] 1..840.114 350.1.13.10 4.2.7.2.686 [id number] [id number] [facility] 2023-05-04 15:00:00 2023-05-04 15:00:00 Outpatient R BRAYAN RICHTER [facility] [id number] [facility] 2023-04-23 10:00:00 2023-04-23 10:00:00 Outpatient R AMINA MANSFIELD [facility] [id number] [facility] 2023-04-20 10:30:00 2023-04-20 10:30:00 Outpatient R NATALIENIKI SIBLEY [facility] [id number] [facility] 2023-04-04 13:00:00 2023-04-04 13:00:00 Outpatient R BRAYAN RICHTER [facility] [id number] [facility] 2023-03-21 11:15:00 2023-03-21 11:30:00 Spray Dry Operator Visit Pob, Adc Lab Main Amina Mansfield [facility] PROFESS[facility] NAL BUILDING 1..840.114 350.1.13.10 4.2.7.2.686 [id number] [facility] 2023-03-21 09:20:00 2023-03-21 10:32:22 Outpatient R AMINA MANSFIELD [facility] [id number] [facility] 2023-03-21 09:20:00 2023-03-21 10:32:22 Office Visit Donal Amina [facility] PROFESS[facility] NAL BUILDING 1..840.114 350.1.13.10 4.2.7.2.686 [id number] [id number] [facility] 2023-03-21 09:45:00 2023-03-21 10:00:00 Spray Dry Operator Visit Pob, Adc Lab Main Simone Saxena [facility] PROFESSIO NAL BUILDING 1..840.114 350.1.13.10 4.2.7.2.686 [id number] [facility] 2023-03-21 09:40:00 2023-03-21 09:40:00 Outpatient R MADELINE BRAUNJOSE STEVEJAYME [facility] [id number] [facility] 2023-02-27 00:00:00 2023-02-27 00:00:00 Telephone Brayan Richter [facility] 1.2.840.114 350.1.13.10 4.2.7.2.686 [id number] [facility] 2023-02-21 00:00:00 2023-02-21 00:00:00 RefAmina Calderón [facility] 1.2.840.114 350.1.13.10 4.2.7.2.686 [id number] [facility] 2023-02-12 09:00:00 2023-02-12 09:00:00 Outpatient R BRAYAN RICHTER [facility] [id number] [facility] 2023-02-05 11:00:00 2023-02-05 11:00:00 Outpatient R BRAYAN RICHTER [facility] [id number] [facility] 2023-02-02 00:00:00 2023-02-02 00:00:00 Telephone [facility] 1.2.840.114 350.1.13.10 4.2.7.2.686 [id number] [facility] 2023-02-01 00:00:00 2023-02-01 00:00:00 Telephone Brayan Richter [facility] 1.2.840.114 350.1.13.10 4.2.7.2.686 [id number] [facility] 2023-02-01 00:00:00 2023-02-01 00:00:00 Orders Only Doctor Unassigned, [place] [facility] 1..114 350.1.13.10 4.2.7.2.686 [id number] [facility] 2023-01-30 00:00:00 2023-01-30 00:00:00 Telephone Pillo Marcos [facility] 1..114 350.1.13.10 4.2.7.2.686 [id number] 220 [id number] [facility] 2023-01-29 00:00:00 2023-01-29 00:00:00 Telephone Pillo Marcos [facility] 1..114 350.1.13.10 4.2.7.2.686 [id number] [facility] 2023-01-25 00:00:00 2023-01-25 00:00:00 Telephone [facility] 1.114 350.1.13.10 4.2.7.2.686 [id number] [facility] 2023-01-19 16:00:00 2023-01-19 16:00:00 Outpatient BRAYAN PETER [facility] [id number] [facility] 2023-01-17 00:00:00 2023-01-17 00:00:00 Telephone Simone Saxena [facility] MULTISPEC [facility] 1.114 350.1.13.10 4.2.7.2.686 [id number] [facility] 2023-01-15 00:00:00 2023-01-15 00:00:00 Telephone Priti [facility] 1.84.114 350.1.13.10 4.2.7.2.686 [id number] [facility] 2023-01-15 00:00:00 2023-01-15 00:00:00 Orders Only Doctor Unassigned, [place] [facility] 1.114 350.1.13.10 4.2.7.2.686 [id number] [facility] 2023-01-12 08:38:27 2023-01-12 23:59:00 Outpatient R BRAYAN RICHTER [facility] [id number] [facility] 2023-01-12 15:30:00 2023-01-12 15:30:00 Outpatient R BRAYAN RICHTER [facility] [id number] [facility] 2023-01-12 07:45:00 2023-01-12 08:00:00 Spray Dry Operator Visit Pob, Adc Lab Main [facility] BUILDING 1.84.114 350.1.13.10 4.2.7.2.686 [id number] [facility] 2023-01-11 00:00:00 2023-01-11 00:00:00 Telephone [facility] 1.114 350.1.13.10 4.2.7.2.686 [id number] [facility] 2023-01-09 10:30:00 2023-01-09 11:56:53 Outpatient R BRAYAN RICHTER [facility] [id number] [facility] 2023-01-09 10:30:00 2023-01-09 11:56:53 Office Visit Brayan Richter [facility] 1.840.114 350.1.13.10 4.2.7.2.686 [id number] [facility] 2023-01-09 09:30:00 2023-01-09 10:00:00 Office Visit Lesley Ricci [facility] PROFESSIO NAL BUILDING 1.2.840.114 350.1.13.10 4.2.7.2.686 [id number] [facility] 2023-01-03 00:00:00 2023-01-03 00:00:00 Telephone Priti [facility] [place]?[facility] OFFICE BUILD[facility] 1.840.114 350.1.13.10 4.2.7.2.686 [id number] [facility] 2023-01-02 00:00:00 2023-01-02 00:00:00 Telephone Priti [facility] 1.840.114 350.1.13.10 4.2.7.2.686 [id number] [facility] 2022-12-29 16:14:00 2022-12-29 23:24:00 Emergency X SONI ALBRECHT [facility] ERT [id number] [facility] 2022-12-29 16:14:00 2022-12-29 23:24:00 Emergency Soni Albrecht [facility] 1.2840.114 350.1.13.10 4.2.7.2.686 [id number] [facility] 2022-12-29 11:15:00 2022-12-29 11:30:00 Spray Dry Operator Visit Lab, Bob Marcos [facility] [place] 1.2840.114 350.1.13.10 4.2.7.2.686 [id number] [facility] 2022-12-29 10:30:00 2022-12-29 11:06:26 Outpatient R MARCOSPILLO [facility] [id number] [facility] 2022-12-29 10:30:00 2022-12-29 11:06:26 Office Visit Pillo Marcos [facility] 1..840.114 350.1.13.10 4.2.7.2.686 [id number] [facility] 2022-12-29 00:00:00 2022-12-29 00:00:00 Orders Only Doctor Unassigned, [place] [facility] 1.840.114 350.1.13.10 4.2.7.2.686 [id number] [facility] 2022-12-28 15:00:00 2022-12-28 15:00:00 Outpatient SHO GILL [facility] [id number] [facility] 2022-12-28 13:00:00 2022-12-28 13:00:00 Outpatient SHO GILL [facility] [id number] [facility] 2022-12-21 00:00:00 2022-12-21 00:00:00 Refill Amina Mansfield [facility] 1..840.114 350.1.13.10 4.2.7.2.686 [id number] [facility] 2022-12-21 00:00:00 2022-12-21 00:00:00 Refill [facility] 1..840.114 350.1.13.10 4.2.7.2.686 [id number] [facility] 2022-12-08 08:00:00 2022-12-08 08:00:00 Outpatient SHO CHOPRA [facility] [id number] [facility] 2022-12-08 00:00:00 2022-12-08 00:00:00 Patient Secure Msg Doctor Unassigned, [place] [facility] 1.2.840.114 350.1.13.10 4.2.7.2.686 [id number] [facility] 2022-11-16 07:47:00 2022-11-16 11:14:00 Outpatient R SIMONE SAXENA [facility] [id number] [facility] 2022-11-16 07:47:00 2022-11-16 11:14:00 Hospital Encounter Odessa [facility] 1.2.840.114 350.1.13.10 4.2.7.2.686 [id number] [facility] 2022-11-16 09:00:00 2022-11-16 10:00:00 Surgery [facility] 1.2.840.114 350.1.13.10 4.2.7.2.686 [id number] [facility] 2022-11-15 00:00:00 2022-11-15 00:00:00 Telephone [facility] 1.2.840.114 350.1.13.10 4.2.7.2.686 [id number] [facility] 2022-11-15 00:00:00 2022-11-15 00:00:00 Telephone [facility] 1.2.840.114 350.1.13.10 4.2.7.2.686 [id number] [id number] [facility] 2022-11-15 00:00:00 2022-11-15 00:00:00 Patient Secure Msg Doctor Unassigned, [place] [facility] 1.2840.114 350.1.13.10 4.2.7.2.686 [id number] [facility] 2022-11-14 12:19:38 2022-11-14 23:59:00 Outpatient R COREY NEGRO [facility] [id number] [facility] 2022-11-14 12:19:38 2022-11-14 23:59:00 Hospital Encounter Negro Nicole [facility] 1.2.840.114 350.1.13.10 4.2.7.2.686 [id number] [facility] 2022-11-14 00:00:00 2022-11-14 00:00:00 RefAmina Calderón [facility] 1.2840.114 350.1.13.10 4.2.7.2.686 [id number] [facility] 2022-11-13 00:00:00 2022-11-13 00:00:00 Telephone Simone Saxena [facility] 1.0.114 350.1.13.10 4.2.7.2.686 [id number] [facility] 2022-11-08 00:00:00 2022-11-08 00:00:00 Letter (Out) Simone Saxena [facility] 1.0.114 350.1.13.10 4.2.7.2.686 [id number] [facility] 2022-11-03 16:00:00 2022-11-03 16:00:00 Outpatient AMINA ROBERTSON [facility] [id number] [facility] 2022-11-01 00:00:00 2022-11-01 00:00:00 Telephone Lesley Ricci [facility] NAL [facility] 1.2.840.114 350.1.13.10 4.2.7.2.686 [id number] [facility] 2022-10-31 14:00:00 2022-10-31 14:00:00 Outpatient R BURKE ROTH [facility] [id number] [facility] 2022-10-26 00:00:00 2022-10-26 00:00:00 Telephone DonalAmina [facility] NAL [facility]ILD[facility] 1.2.840.114 350.1.13.10 4.2.7.2.686 [id number] [facility] 2022-10-25 17:27:00 2022-10-25 20:25:00 Emergency KERON GARNICA [facility] ERT [id number] [facility] 2022-10-25 17:27:00 2022-10-25 20:25:00 Emergency Keron Leal [facility] 1.2.840.114 350.1.13.10 4.2.7.2.686 [id number] [facility] 2022-10-25 00:00:00 2022-10-25 00:00:00 Telephone Gonzalez [facility] 1.2.840.114 350.1.13.10 4.2.7.2.686 [id number] [facility] 2022-10-24 14:10:00 2022-10-24 19:10:00 Emergency X SHERIN WILSON [facility] ERT [id number] [facility] 2022-10-24 14:10:00 2022-10-24 19:10:00 Emergency Sherin Wilson [facility] 1.2.840.114 350.1.13.10 4.2.7.2.686 [id number] [facility] 2022-10-24 00:00:00 2022-10-24 00:00:00 Telephone [facility] 1.2840.114 350.1.13.10 4.2.7.2.686 [id number] [facility] 2022-10-21 00:00:00 2022-10-21 00:00:00 RefAmina Calderón [facility] N[facility] 1.20.114 350.1.13.10 4.2.7.2.686 [id number] [facility] 2022-10-20 13:00:00 2022-10-20 13:00:00 Outpatient R BRAYAN RICHTER [facility] [id number] [facility] 2022-10-19 00:00:00 2022-10-19 00:00:00 Telephone Gonzalez [facility] 1.840.114 350.1.13.10 4.2.7.2.686 [id number] [facility] 2022-10-19 00:00:00 2022-10-19 00:00:00 Nurse Triage [facility] 1.840.114 350.1.13.10 4.2.7.2.686 [id number] [facility] 2022-10-18 13:40:00 2022-10-18 15:00:12 Outpatient R CONNOR MART [facility] [id number] [facility] 2022-10-18 13:40:00 2022-10-18 15:00:12 Office Visit Connor [facility] 1.0.114 350.1.13.10 4.2.7.2.686 [id number] [facility] 2022-10-11 00:00:00 2022-10-11 00:00:00 Outpatient R COREY NEGRO [facility] [id number] [facility] 2022-10-09 00:00:00 2022-10-09 00:00:00 Case Management DarrionNegro foley [facility] 1.2.840.114 350.1.13.10 4.2.7.2.686 [id number] [facility] 2022-10-09 00:00:00 2022-10-09 00:00:00 Telephone Amina Mansfield [facility] 1.2.840.114 350.1.13.10 4.2.7.2.686 [id number] 044 [id number] [facility] 2022-09-26 00:00:00 2022-09-26 00:00:00 Patient Secure Msg Doctor Unassigned, [place] [facility] 1..840.114 350.1.13.10 4.2.7.2.686 [id number] [facility] 2022-09-14 00:00:00 2022-09-14 00:00:00 [facility] 1.84.114 350.1.13.10 4.2.7.2.686 [id number] [facility] 2022-09-14 00:00:00 2022-09-14 00:00:00 Case Management Odessa [facility] 1.84.114 350.1.13.10 4.2.7.2.686 [id number] [facility] 2022-09-12 00:00:00 2022-09-12 00:00:00 Refill Amina Mansfield [facility] 1.840.114 350.1.13.10 4.2.7.2.686 [id number] [facility] 2022-09-08 00:00:00 2022-09-08 00:00:00 Telephone Burke Roth [facility] 1.840.114 350.1.13.10 4.2.7.2.686 [id number] [facility] 2022-09-06 00:00:00 2022-09-06 00:00:00 Telephone Dominick Velazquez [facility] M[facility]PEC [facility] 1.840.114 350.1.13.10 4.2.7.2.686 [id number] [facility] 2022-09-05 15:45:00 2022-09-05 16:00:00 [facility] 1.2840.114 350.1.13.10 4.2.7.2.686 [id number] [facility] 2022-09-05 15:45:00 2022-09-05 15:45:00 Outpatient R [facility]ERN [facility] [id number] [facility] 2022-09-05 14:45:00 2022-09-05 15:30:00 Ancillary Visit 1, [employer] Brisa Wagner [facility] 1.2840.114 350.1.13.10 4.2.7.2.686 [id number] [facility] 2022-09-04 00:00:00 2022-09-04 00:00:00 Telephone Simone Saxena [facility] 1.2840.114 350.1.13.10 4.2.7.2.686 [id number] [id number] [facility] 2022-09-01 00:00:00 2022-09-01 00:00:00 Letter (Out) Wilmar Velazquez [facility] 1.114 350.1.13.10 4.2.7.2.686 [id number] [facility] 2022-08-31 13:30:00 2022-08-31 13:30:00 Outpatient R ODESSA PARRISFABIÁN SAXENA, SIMONE [facility] [id number] [facility] 2022-08-28 11:45:00 2022-08-28 12:00:00 Spray Dry Operator Visit Pob, Adc Lab Main Alberto Jolley [facility] 1.84.114 350.1.13.10 4.2.7.2.686 [id number] [facility] 2022-08-28 11:45:00 2022-08-28 11:45:00 Outpatient R ALBERTO JOLLEY [facility] [id number] [facility] 2022-08-23 00:00:00 2022-08-23 00:00:00 Nurse Triage [facility] 1.114 350.1.13.10 4.2.7.2.686 [id number] [facility] 2022-08-22 10:30:00 2022-08-22 11:55:12 Outpatient R LESLEY RICCI OGECHUKWU [facility] [id number] [facility] 2022-08-22 10:30:00 2022-08-22 11:55:12 Office Visit Lesley Ricci [facility] 1.84.114 350.1.13.10 4.2.7.2.686 [id number] [facility] 2022-08-17 13:00:00 2022-08-17 13:00:00 Outpatient R SIMONE SAXENA AKNEREIDA [facility] [id number] [facility] 2022-08-15 08:15:00 2022-08-15 08:15:00 Outpatient R [facility] [id number] [facility] 2022-08-07 08:50:00 2022-08-07 09:39:00 Emergency X ARJUN, K [facility] ERT [id number] [facility] 2022-08-07 08:50:00 2022-08-07 09:39:00 Emergency Jessica Badillo [facility] 1..840.114 350.1.13.10 4.2.7.2.686 [id number] [facility] 2022-07-19 10:30:00 2022-07-19 10:45:00 Spray Dry Operator Visit Pob, Adc Lab Main Parris Saxenanereida [facility] PROFESSIO [facility] 1..840.114 350.1.13.10 4.2.7.2.686 [id number] [facility] 2022-07-19 10:30:00 2022-07-19 10:30:00 Outpatient R SIMONE SAXENA AKNEREIDA [facility] [id number] [facility] 2022-07-19 00:00:00 2022-07-19 00:00:00 Telephone Od[facility]ISPEC [facility]TY [facility] 1.840.114 350.1.13.10 4.2.7.2.686 [id number] [facility] 2022-07-18 08:00:00 2022-07-18 08:00:00 Outpatient R AMINA MANSFIELD [facility] [id number] [facility] 2022-07-14 00:00:00 2022-07-14 00:00:00 Telephone [facility] 1.20.114 350.1.13.10 4.2.7.2.686 [id number] [facility] 2022-07-06 00:00:00 2022-07-06 00:00:00 Amina Sullivan [facility] PROFESS[facility] 1.20.114 350.1.13.10 4.2.7.2.686 [id number] [facility] 2022-07-04 00:00:00 2022-07-04 00:00:00 [facility] 1..114 350.1.13.10 4.2.7.2.686 [id number] [facility] 2022-06-30 13:44:18 2022-06-30 23:59:00 Outpatient R PARRIS SAXENANEREIDA [facility] [id number] [facility] 2022-06-30 13:44:18 2022-06-30 23:59:00 Hospital Encounter Parris Saxenaneerida [facility] 1..114 350.1.13.10 4.2.7.2.686 [id number] [facility] 2022-06-24 00:00:00 2022-06-24 00:00:00 Patient Secure Msg Doctor Unassigned, [place] [facility] 1..114 350.1.13.10 4.2.7.2.686 [id number] [facility] 2022-06-23 00:00:00 2022-06-23 00:00:00 Telephone [facility]PEC [facility] 1.2.114 350.1.13.10 4.2.7.2.686 [id number] [facility] 2022-06-22 13:40:00 2022-06-22 14:39:59 Outpatient R SIMONE SAXENA AKNEREIDA [facility] [id number] [facility] 2022-06-22 13:40:00 2022-06-22 14:39:59 Office Visit Parris Saxena [facility] 1. 350.1.13.10 4.2.7.2.686 [id number] [facility] 2022-06-22 12:00:00 2022-06-22 12:15:00 Spray Dry Operator Visit Pob, Adc Lab Main Brayan Richter [facility] 1.114 350.1.13.10 4.2.7.2.686 [id number] [facility] 2022-06-20 14:30:00 2022-06-20 15:07:43 Outpatient R BRAYAN RICHTER [facility] [id number] [facility] 2022-06-20 14:30:00 2022-06-20 15:07:43 Office Visit Brayan Richter [facility] 1.114 350.1.13.10 4.2.7.2.686 [id number] [facility] 2022-06-20 14:30:00 2022-06-20 14:30:00 Outpatient R BRAYAN RICHTER [facility] [id number] [facility] 2022-06-20 00:00:00 2022-06-20 00:00:00 Orders Only Doctor Unassigned, [place] [facility] 1.114 350.1.13.10 4.2.7.2.686 [id number] [facility] 2022-06-16 15:50:00 2022-06-16 19:36:00 Emergency X WANDY KRISHNAN [facility] ERT [id number] [facility] 2022-06-16 15:50:00 2022-06-16 19:36:00 Emergency Wandy Krishnan S [facility] 1..840.114 350.1.13.10 4.2.7.2.686 [id number] [facility] 2022-06-16 15:50:00 2022-06-16 19:36:00 Emergency X WANDY KRISHNAN [facility] ERT [id number] [facility] 2022-06-16 13:45:00 2022-06-16 15:23:47 [facility] [id number] [facility] 2022-06-16 13:45:00 2022-06-16 15:23:47 Office Visit Salima Reynosotney [facility] 1..840.114 350.1.13.10 4.2.7.2.686 [id number] [facility] 2022-06-16 00:00:00 2022-06-16 00:00:00 Prep For Surgery [facility] 1..840.114 350.1.13.10 4.2.7.2.686 [id number] [facility] 2022-06-06 08:45:00 2022-06-06 08:45:00 Outpatient R EDGARDO [facility] [id number] [facility] 2022-06-05 00:00:00 2022-06-05 00:00:00 Patient Secure Msg Doctor Unassigned, [place] [facility] 1..840.114 350.1.13.10 4.2.7.2.686 [id number] [facility] 2022-05-18 08:40:00 2022-05-18 08:40:00 Outpatient R AMINA MANSFIELD [facility] [id number] [facility] 2022-05-16 10:30:00 2022-05-16 10:30:00 Outpatient R NEELAM BRAYAN [facility] [id number] [facility] 2022-05-16 10:30:00 2022-05-16 10:30:00 Outpatient R NEELAM BRAYAN [facility] [id number] [facility] 2022-05-16 10:30:00 2022-05-16 10:30:00 Outpatient R PATRIZIA RICHTERELMIRA [facility] [id number] [facility] 2022-05-16 08:30:00 2022-05-16 08:30:00 Outpatient R GONZALEZ BURKE [facility] [id number] [facility] 2022-05-16 08:30:00 2022-05-16 08:30:00 Outpatient R GONZALEZ BURKE [facility] [id number] [facility] 2022-05-15 13:45:00 2022-05-15 13:45:00 Outpatient R DARWIN VELAZQUEZ [facility] [id number] [facility] 2022-05-02 13:00:00 2022-05-02 14:11:57 Outpatient R AMINA MANSFIELD [facility] [id number] [facility] 2022-05-02 13:00:00 2022-05-02 14:11:57 Office Visit Amina Mansfield [facility] 1.2.840.114 350.1.13.10 4.2.7.2.686 [id number] [facility] 2022-04-24 06:46:00 2022-04-24 08:51:00 Outpatient [facility] [id number] [facility] 2022-04-11 10:00:00 2022-04-11 10:20:00 [facility] 1..840.114 350.1.13.10 4.2.7.2.686 [id number] [facility] 2022-04-11 10:00:00 2022-04-11 10:00:00 Outpatient R MADELINE VEGA [facility] [id number] [facility] 2022-04-11 10:00:00 2022-04-11 10:00:00 Outpatient R MADELINE VEGA [facility] [id number] [facility] 2022-04-06 08:00:00 2022-04-06 08:00:00 Outpatient R MADELINE VEGA [facility] [id number] [facility] 2022-04-05 00:00:00 2022-04-05 00:00:00 Orders Only Doctor Unassigned, [place] [facility] .840.114 350.1.13.10 4.2.7.2.686 [id number] [facility] 2022-03-29 00:00:00 2022-03-29 00:00:00 Patient Secure Msg Doctor Unassigned, [place] [facility] 1..840.114 350.1.13.10 4.2.7.2.686 [id number] [facility] 2022-03-28 13:00:00 2022-03-28 14:00:25 Outpatient R GONZALEZ [facility] [id number] [facility] 2022-03-28 13:00:00 2022-03-28 14:00:25 [facility] 1..840.114 350.1.13.10 4.2.7.2.686 [id number] [facility] 2022-03-28 13:00:00 2022-03-28 13:00:00 Outpatient R GONZALEZ BURKE [facility] [id number] [facility] 2022-03-28 00:00:00 2022-03-28 00:00:00 Orders Only Doctor Unassigned, [place] [facility] 1.2.840.114 350.1.13.10 4.2.7.2.686 [id number] [facility] 2022-03-27 00:00:00 2022-03-27 00:00:00 Telephone Amina Mansfield [facility] 1.2.840.114 350.1.13.10 4.2.7.2.686 [id number] [facility] 2022-03-27 00:00:00 2022-03-27 00:00:00 Telephone [facility] 1.2.840.114 350.1.13.10 4.2.7.2.686 [id number] [facility] 2022-03-27 00:00:00 2022-03-27 00:00:00 Telephone Amina Mansfield [facility] 1.2.840.114 350.1.13.10 4.2.7.2.686 [id number] [facility] 2022-03-27 00:00:00 2022-03-27 00:00:00 Telephone Amina Mansfield [facility] 1.2.840.114 350.1.13.10 4.2.7.2.686 [id number] [facility] 2022-03-25 14:10:00 2022-03-25 18:34:00 Emergency X ARJUN, K [facility] ERT [id number] [facility] 2022-03-25 14:10:00 2022-03-25 18:34:00 Emergency Jessica Badillo [facility] 1..114 350.1.13.10 4.2.7.2.686 [id number] [facility] 2022-03-25 14:10:00 2022-03-25 18:34:00 Emergency X Jessica BADILLO [facility] ERT [id number] [facility] 2022-03-25 00:00:00 2022-03-25 00:00:00 Orders Only Doctor Unassigned, [place] [facility] 1.114 350.1.13.10 4.2.7.2.686 [id number] [facility] 2022-03-20 08:30:00 2022-03-20 09:33:24 Outpatient R KEIRY LLOYDLLOYD PETITELEANOR [facility] [id number] [facility] 2022-03-20 08:30:00 2022-03-20 09:33:24 [facility] 1.114 350.1.13.10 4.2.7.2.686 [id number] [facility] 2022-03-20 08:30:00 2022-03-20 08:30:00 Outpatient R KEIRY LLOYDJOELLE PETITNATEELEANOR [facility] [id number] [facility] 2022-03-15 09:00:00 2022-03-15 10:20:31 [facility] Visit [facility] 1.114 350.1.13.10 4.2.7.2.686 [id number] [facility] 2022-03-15 09:00:00 2022-03-15 10:20:31 Outpatient R MADELINE VEGA [facility] [id number] [facility] 2022-03-15 09:00:00 2022-03-15 09:00:00 Outpatient R MADELINE VEGA [facility] [id number] [facility] 2022-03-15 09:00:00 2022-03-15 09:00:00 Outpatient R MADELINE VEGA [facility] [id number] [facility] 2022-03-14 00:00:00 2022-03-14 00:00:00 Refill Amina [place] [facility] .840.114 350.1.13.10 4.2.7.2.686 [id number] [facility] 2022-03-10 10:00:00 2022-03-10 10:55:56 Outpatient R MARICARMEN WYMAN [facility] [id number] [facility] 2022-03-10 10:00:00 2022-03-10 10:55:56 Office Visit Ricardo Figueroa Vijaya Laxmi [facility] .840.114 350.1.13.10 4.2.7.2.686 [id number] [facility] 2022-03-08 00:00:00 2022-03-08 00:00:00 Patient Secure Msg Floydparris [facility] .840.114 350.1.13.10 4.2.7.2.686 [id number] [facility] 2022-03-08 00:00:00 2022-03-08 00:00:00 Patient Secure g Quinn [facility] 1.2.840.114 350.1.13.10 4.2.7.2.686 [id number] [facility] 2022-03-08 00:00:00 2022-03-08 00:00:00 Patient Secure Msg Norberto Ballnando [facility] 1.2.840.114 350.1.13.10 4.2.7.2.686 [id number] [facility] 2022-03-06 00:00:00 2022-03-06 00:00:00 Telephone Sanjana Dunn [facility] 1.2.840.114 350.1.13.10 4.2.7.2.686 [id number] [facility] 2022-03-01 12:00:00 2022-03-01 12:15:00 Spray Dry Operator Visit [facility] Kylee [facility] 1.2.840.114 350.1.13.10 4.2.7.2.686 [id number] [facility] 2022-03-01 09:00:00 2022-03-01 09:30:00 Office Visit Norberto Ball Fauzia [facility] 1.2.840.114 350.1.13.10 4.2.7.2.686 [id number] [facility] 2022-03-01 09:00:00 2022-03-01 09:00:00 Outpatient R OLGA PICHARDO [facility] [id number] [facility] 2022-03-01 09:00:00 2022-03-01 09:00:00 Outpatient OLGA AGRAWAL [facility] [id number] [facility] 2022-03-01 09:00:00 2022-03-01 09:00:00 [facility] [id number] [facility] 2022-02-21 15:20:00 2022-02-21 15:20:00 Outpatient R AMINA MANSFIELD [facility] [id number] [facility] 2022-02-21 13:00:00 2022-02-21 13:00:00 Outpatient R [facility] [id number] [facility] 2022-02-21 13:00:00 2022-02-21 13:00:00 Outpatient R [facility] [id number] [facility] 2022-02-20 13:45:00 2022-02-20 15:01:38 Outpatient R HANH VELAZQUEZHZAD [facility] [id number] [facility] 2022-02-20 13:45:00 2022-02-20 15:01:38 Office Visit Caroline Darwin [facility] 1.114 350.1.13.10 4.2.7.2.686 [id number] [facility] 2022-02-20 13:45:00 2022-02-20 13:45:00 Outpatient R HANH VELAZQUEZHZAD [facility] [id number] [facility] 2022-02-20 12:45:00 2022-02-20 13:00:00 Spray Dry Operator Visit Pob, Adc Lab Main Hanh Velazquezhzad [facility] 1..114 350.1.13.10 4.2.7.2.686 [id number] [facility] 2022-02-08 00:00:00 2022-02-08 00:00:00 Transition of Care Kate Lloyd 1..114 350.1.13.10 4.2.7.2.686 [id number] [facility] 2022-02-08 00:00:00 2022-02-08 00:00:00 Patient Secure Msg Doctor Unassigned, [place] [facility] 1.2.840.114 350.1.13.10 4.2.7.2.686 [id number] [facility] 2022-02-02 12:58:00 2022-02-07 15:00:00 Inpatient X CHENTE SILVASAY [facility] [id number] [facility] 2022-02-02 12:58:00 2022-02-07 15:00:00 Hospital Encounter Keron Leal, Ben[facility] Danitza Jessica [facility] 1.2840.114 350.1.13.10 4.2.7.2.686 [id number] [facility] 2022-02-02 09:40:00 2022-02-02 09:40:00 Outpatient AMINA ROBERTSON [facility] [id number] [facility] 2022-01-27 00:00:00 2022-01-27 00:00:00 Patient Secure Msg [facility] 1.2840.114 350.1.13.10 4.2.7.2.686 [id number] [facility] 2022-01-26 00:00:00 2022-01-26 00:00:00 [facility] 1.2840.114 350.1.13.10 4.2.7.2.686 [id number] [facility] 2022-01-25 11:00:00 2022-01-25 11:00:00 Outpatient DANNY HERMOSILLO [facility] [id number] H[facility] 2022-01-25 11:00:00 2022-01-25 11:00:00 Outpatient DANNY HERMOSILLO [facility] [id number] [facility] 2022-01-25 00:00:00 2022-01-25 00:00:00 Orders Only Doctor Unassigned, [place] [facility] 1..114 350.1.13.10 4.2.7.2.686 [id number] [facility] 2022-01-24 10:30:00 2022-01-24 10:45:00 Spray Dry Operator [facility] 1.114 350.1.13.10 4.2.7.2.686 [id number] [facility] 2022-01-24 09:30:00 2022-01-24 10:24:36 [facility] [id number] [facility] 2022-01-24 09:30:00 2022-01-24 10:24:36 Office Visit Sanjana Dunn [facility]TY [facility] 1.114 350.1.13.10 4.2.7.2.686 [id number] [facility] 2022-01-23 00:00:00 2022-01-23 00:00:00 Orders Only Doctor Unassigned, [place] [facility] 1..114 350.1.13.10 4.2.7.2.686 [id number] [facility] 2022-01-20 10:30:00 2022-01-20 10:45:00 Spray Dry Operator Visit Renetta, Kamaljit Lab Main Darwin Velazquez [facility] 1.114 350.1.13.10 4.2.7.2.686 [id number] [facility] 2022-01-20 10:30:00 2022-01-20 10:30:00 Outpatient R DARWIN VELAZQUEZ [facility] [id number] [facility] 2022-01-20 00:00:00 2022-01-20 00:00:00 Orders Only Doctor Unassigned, [place] [facility] 1..840.114 350.1.13.10 4.2.7.2.686 [id number] [facility] 2022-01-16 12:57:00 2022-01-16 17:09:00 Emergency X SNEHAL AUGUSTIN [facility] ERT [id number] [facility] 2022-01-16 12:57:00 2022-01-16 17:09:00 Emergency Snehal Augustin [facility] 1..840.114 350.1.13.10 4.2.7.2.686 [id number] [facility] 2022-01-16 11:30:00 2022-01-16 12:17:05 Outpatient R KEIRYLESLEY OGECHUKWU [facility] [id number] [facility] 2022-01-16 11:30:00 2022-01-16 12:17:05 Office Visit Lesley Ricci [facility] 1..840.114 350.1.13.10 4.2.7.2.686 [id number] [facility] 2022-01-16 12:16:00 2022-01-16 12:16:00 Emergency X [facility] ERT [id number] [facility] 2022-01-15 18:59:00 2022-01-16 00:23:00 Emergency X Jessica BADILLO [facility] ERT [id number] [facility] 2022-01-15 18:59:00 2022-01-16 00:23:00 Emergency Jessica Badillo [facility] 1.114 350.1.13.10 4.2.7.2.686 [id number] [facility] 2022-01-15 18:59:00 2022-01-16 00:23:00 Emergency X Jessica BADILLO [facility] ERT [id number] [facility] 2022-01-07 00:00:00 2022-01-07 00:00:00 [facility] 1..114 350.1.13.10 4.2.7.2.686 [id number] [facility] 2022-01-03 10:00:00 2022-01-03 10:15:00 Spray Dry Operator Visit Pob, Adc Lab Main Darwin Velazquezwaz [facility] 1.84.114 350.1.13.10 4.2.7.2.686 [id number] [facility] 2022-01-03 10:00:00 2022-01-03 10:00:00 Outpatient DARWIN PUCKETT [facility] [id number] [facility] 2021-12-28 00:00:00 2021-12-28 00:00:00 Telephone Darwin Velazquezwaz [facility] 1.114 350.1.13.10 4.2.7.2.686 [id number] [facility] 2021-12-27 12:45:57 2021-12-27 23:59:00 Outpatient R DARWIN VELAZQUEZ [facility] RAD [id number] [facility] 2021-12-27 12:45:57 2021-12-27 23:59:00 Hospital Encounter Darwin Velazquez [facility] 1.114 350.1.13.10 4.2.7.2.686 [id number] [facility] 2021-12-27 00:00:00 2021-12-27 00:00:00 Outpatient R DARWIN VELAZQUEZ [facility] [id number] [facility] 2021-12-23 16:22:10 2021-12-23 23:59:00 Outpatient R HANH VELAZQUEZHZAD [facility] [id number] [facility] 2021-12-23 16:15:00 2021-12-23 23:59:00 Hospital Encounter Darwin Velazquez [facility] .840.114 350.1.13.10 4.2.7.2.686 [id number] [facility] 2021-12-23 00:00:00 2021-12-23 00:00:00 Outpatient R DARWIN VELAZQUEZ [facility] [id number] [facility] 2021-12-19 15:15:00 2021-12-19 17:20:35 [facility] [id number] 2021-12-19 15:15:00 2021-12-19 17:20:35 Office Visit Dariwn Velazquez [facility] .84.114 350.1.13.10 4.2.7.2.686 [id number] [facility] 2021-12-19 10:45:00 2021-12-19 11:00:00 Spray Dry Operator Visit Pob, Adc Lab Main [facility] 1.840.114 350.1.13.10 4.2.7.2.686 [id number] [facility] 2021-12-19 10:45:00 2021-12-19 11:00:00 Spray Dry Operator Visit Pob, Adc Lab Main Darwin Velazquez [facility] 1.2.114 350.1.13.10 4.2.7.2.686 [id number] [facility] 2021-12-19 00:00:00 2021-12-19 00:00:00 Orders Only Doctor Unassigned, [place] [facility] 1.20.114 350.1.13.10 4.2.7.2.686 [id number] [facility] 2021-12-19 00:00:00 2021-12-19 00:00:00 Orders Only Doctor Unassigned, [place] [facility] 1.2.114 350.1.13.10 4.2.7.2.686 [id number] [facility] 2021-12-14 11:30:25 2021-12-14 23:59:00 Hospital Encounter Connor [facility] 1..114 350.1.13.10 4.2.7.2.686 [id number] [facility] 2021-12-14 11:00:00 2021-12-14 13:00:02 Office Visit Connor Mart [facility] 1.2.114 350.1.13.10 4.2.7.2.686 [id number] [facility] 2021-12-14 10:55:00 2021-12-14 11:29:00 Outpatient R CONNOR MART [facility] [id number] [facility] 2021-12-14 10:55:00 2021-12-14 11:29:00 Hospital Encounter Connor Mart [facility] 1.2.114 350.1.13.10 4.2.7.2.686 [id number] [facility] 2021-12-14 11:00:00 2021-12-14 11:00:00 Outpatient R CONNOR MART [facility] [id number] [facility] 2021-12-14 11:00:00 2021-12-14 11:00:00 Outpatient R CONNOR MART [facility] [id number] [facility] 2021-12-13 00:00:00 2021-12-13 00:00:00 Outpatient R NEGRO NICOLE [facility] [id number] [facility] 2021-12-13 00:00:00 2021-12-13 00:00:00 Outpatient R NEGRO NICOLE [facility] [id number] [facility] 2021-12-09 15:20:00 2021-12-09 15:20:00 Outpatient AMINA ROBERTSON [facility] [id number] [facility] 2021-12-01 16:15:28 2021-12-01 23:59:00 Hospital Amina Monge [facility] 1..840.114 350.1.13.10 4.2.7.2.686 [id number] [facility] 2021-12-01 10:00:00 2021-12-01 10:00:00 Outpatient AMINA ROBERTSON [facility] [id number] [facility] 2021-12-01 10:00:00 2021-12-01 10:00:00 Outpatient AMINA ROBERTSON [facility] [id number] [facility] 2021-12-01 00:00:00 2021-12-01 00:00:00 Orders Only Doctor Unassigned, [place] [facility] 1..840.114 350.1.13.10 4.2.7.2.686 [id number] [facility] 2021-11-29 11:45:00 2021-11-29 12:00:00 Spray Dry Operator Visit 2, Adc Lab Amina Mansfield [facility] 1.2.840.114 350.1.13.10 4.2.7.2.686 [id number] [facility] 2021-11-29 09:40:00 2021-11-29 10:51:33 Outpatient R AMINA MANSFIELD [facility] [id number] [facility] 2021-11-29 09:40:00 2021-11-29 10:51:33 Office Visit Amina Mansfield [facility] 1.2840.114 350.1.13.10 4.2.7.2.686 [id number] [facility] 2021-11-28 00:00:00 2021-11-28 00:00:00 Orders Only Doctor Unassigned, [place] [facility] 1.2.840.114 350.1.13.10 4.2.7.2.686 [id number] [facility] 2021-11-22 13:15:47 2021-11-22 23:59:00 Hospital Encounter Amina Mansfield [facility] 1.2840.114 350.1.13.10 4.2.7.2.686 [id number] [facility] 2021-11-22 13:14:43 2021-11-22 13:14:43 Outpatient R AMINA MANSFIELD [facility] [id number] [facility] 2021-11-22 13:14:43 2021-11-22 13:14:43 Hospital Encounter Donal [facility] 1.2840.114 350.1.13.10 4.2.7.2.686 [id number] [facility] 2021-11-22 00:00:00 2021-11-22 00:00:00 Outpatient R DONAL AMINA [facility] [id number] [facility] 2021-11-21 00:00:00 2021-11-21 00:00:00 Outpatient Adarsh NICOLENEGRO [facility] [id number] [facility] 2021-11-17 15:00:00 2021-11-17 15:00:00 Outpatient Adarsh PORTILLO ANA CRISTINA [facility] [id number] [facility] 2021-11-17 00:00:00 2021-11-17 00:00:00 Case Management Darwin Velazquez [facility] 1.2.840.114 350.1.13.10 4.2.7.2.686 [id number] [facility] 2021-11-16 11:00:00 2021-11-16 11:24:40 Outpatient R BRAYAN RICHTER [facility] [id number] [facility] 2021-11-16 11:00:00 2021-11-16 11:24:40 Office Visit Brayan Richter [facility] 1.2.840.114 350.1.13.10 4.2.7.2.686 [id number] [facility] 2021-11-16 11:00:00 2021-11-16 11:00:00 Outpatient R BRAYAN RICHTER [facility] [id number] [facility] 2021-11-16 11:00:00 2021-11-16 11:00:00 Outpatient R BRAYAN RICHTER [facility] [id number] [facility] 2021-11-16 11:00:00 2021-11-16 11:00:00 Outpatient R BRAYAN RICHTER [facility] [id number] [facility] 2021-11-16 10:30:00 2021-11-16 10:45:00 Spray Dry Operator Visit Pob, Adc Lab Main Amina Mansfield [facility] 1.2.840.114 350.1.13.10 4.2.7.2.686 [id number] [facility] 2021-11-16 10:30:00 2021-11-16 10:30:00 Outpatient R AMINA MANSFIELD [facility] [id number] [facility] 2021-11-16 00:00:00 2021-11-16 00:00:00 Orders Only Doctor Unassigned, [place] [facility] 1.840.114 350.1.13.10 4.2.7.2.686 [id number] [facility] 2021-11-10 13:30:00 2021-11-10 14:10:06 Office Visit Corey Negro [facility] 1..840.114 350.1.13.10 4.2.7.2.686 [id number] [facility] 2021-11-10 13:30:00 2021-11-10 14:10:06 Outpatient Adarsh NICOLE [facility] [id number] [facility] 2021-11-10 13:30:00 2021-11-10 14:10:06 Outpatient R COREY [facility] [id number] [facility] 2021-11-10 13:30:00 2021-11-10 13:30:00 Outpatient R COREY [facility] [id number] [facility] 2021-11-09 00:00:00 2021-11-09 00:00:00 Telephone Deanna Cook [facility] 1.840.114 350.1.13.10 4.2.7.2.686 [id number] [facility] 2021-11-08 14:20:00 2021-11-08 14:40:00 Laboratory Only Only, Ang Db Test Ileana [facility] 1.114 350.1.13.10 4.2.7.2.686 [id number] [facility] 2021-11-08 14:20:00 2021-11-08 14:20:00 Outpatient R ILEANA, [facility] [id number] [facility] 2021-11-08 09:00:00 2021-11-08 09:00:00 Outpatient R ILEANA [facility] [id number] [facility] 2021-11-03 00:00:00 2021-11-03 00:00:00 Letter (Out) Carla Blankenship [facility] 1.114 350.1.13.10 4.2.7.2.686 [id number] [facility] 2021-11-02 10:30:00 2021-11-02 10:45:00 Laboratory Only Only, Ang Db Test [facility] 1.84114 350.1.13.10 4.2.7.2.686 [id number] [facility] 2021-11-02 10:30:00 2021-11-02 10:30:00 [facility] [id number] [facility] 2021-11-02 00:00:00 2021-11-02 00:00:00 Case Management Darwin Velazquez [facility] 1.114 350.1.13.10 4.2.7.2.686 [id number] [facility] 2021-11-02 00:00:00 2021-11-02 00:00:00 Alberto Hurd [facility] 1..840.114 350.1.13.10 4.2.7.2.686 [id number] [facility] 2021-11-01 10:30:00 2021-11-01 10:30:00 Outpatient R [facility] [id number] [facility] 2021-10-29 00:00:00 2021-10-29 00:00:00 Telephone Dilma Jarvis [facility] 1..840.114 350.1.13.10 4.2.7.2.686 [id number] [facility] 2021-10-28 10:45:00 2021-10-28 11:00:00 Laboratory Only Only, Ang Db Test [facility] 1..840.114 350.1.13.10 4.2.7.2.686 [id number] [facility] 2021-10-28 10:45:00 2021-10-28 10:45:00 Outpatient ANTHONY HAWTHORNE [facility] [id number] [facility] 2021-10-28 09:30:00 2021-10-28 09:30:00 Outpatient ANTHONY HAWTHORNE [facility] [id number] [facility] 2021-10-24 13:00:00 2021-10-24 13:00:00 Outpatient JG LONG [facility] [id number] [facility] 2021-10-20 14:30:00 2021-10-20 14:30:00 Outpatient BRAYAN PETER [facility] [id number] [facility] 2021-10-20 14:30:00 2021-10-20 14:30:00 Outpatient BRAYAN PETER [facility] [id number] [facility] 2021-10-19 18:19:00 2021-10-20 00:07:00 Emergency X WANDY KRISHNAN [facility] ERT [id number] [facility] 2021-10-19 18:19:00 2021-10-20 00:07:00 Emergency Wandy Krishnan S [facility] 1.2840.114 350.1.13.10 4.2.7.2.686 [id number] [facility] 2021-10-19 00:00:00 2021-10-19 00:00:00 Telephone Amina Mansfield [facility] 1.2840.114 350.1.13.10 4.2.7.2.686 [id number] [facility] 2021-10-19 00:00:00 2021-10-19 00:00:00 Patient Secure Msg Doctor Unassigned, [place] [facility] 1.20.114 350.1.13.10 4.2.7.2.686 [id number] [facility] 2021-10-18 11:00:00 2021-10-18 12:42:10 Office Visit Amina Mansfield [facility] 1.2840.114 350.1.13.10 4.2.7.2.686 [id number] [facility] 2021-10-18 11:00:00 2021-10-18 12:42:10 Outpatient R AMINA MANSFIELD [facility] [id number] [facility] 2021-10-18 11:00:00 2021-10-18 11:00:00 Outpatient R AMINA MANSFIELD [facility] [id number] [facility] 2021-10-18 00:00:00 2021-10-18 00:00:00 Telephone Ana Cristina Portillo [facility] 1.2.114 350.1.13.10 [id number] [facility] 2021-10-13 15:00:00 2021-10-13 15:00:00 Outpatient R AMINA MANSFIELD [facility] [id number] [facility] 2021-10-12 00:00:00 2021-10-12 00:00:00 Telephone Amina Mansfield [facility] [id number] [facility] 2021-10-11 10:30:00 2021-10-11 10:30:00 Outpatient Adarsh CHU SHAHANA [facility] [id number] [facility] 2021-10-11 10:30:00 2021-10-11 10:30:00 Outpatient Adarsh CHU SHAHANA [facility] [id number] [facility] 2021-10-06 12:45:00 2021-10-06 13:00:00 Spray Dry Operator Visit Pob, Adc Lab Main Amina Mansfield [facility] 1..840.114 350.1.13.10 4.2.7.2.686 [id number] [facility] 2021-10-06 12:45:00 2021-10-06 12:45:00 Outpatient R DONAL AMINA [facility] [id number] [facility] 2021-09-26 00:00:00 2021-09-26 00:00:00 Telephone Amina Mansfield [facility] 1..840.114 350.1.13.10 4.2.7.2.686 [id number] [facility] 2021-09-26 00:00:00 2021-09-26 00:00:00 Patient Secure Msg Doctor Unassigned, [place] [facility] 1..114 350.1.13.10 4.2.7.2.686 [id number] [facility] 2021-09-15 14:50:00 2021-09-15 14:54:11 Imm/Inj Visit Nurse, Kamaljit Jackson [facility] 1.114 350.1.13.10 4.2.7.2.686 [id number] [facility] 2021-09-15 13:20:00 2021-09-15 14:53:19 Office Visit Amina Mansfield [facility] 1.114 350.1.13.10 4.2.7.2.686 [id number] [facility] 2021-09-15 13:20:00 2021-09-15 14:53:19 Outpatient R AMINA MANSFIELD [facility] [id number] [facility] 2021-09-15 14:50:00 2021-09-15 14:50:00 Outpatient R JG HERNANDEZ [facility] [id number] [facility] 2021-09-15 13:20:00 2021-09-15 13:20:00 Outpatient R AMINA MANSFIELD [facility] [id number] [facility] 2021-09-15 00:00:00 2021-09-15 00:00:00 Case Management [facility] 1.114 350.1.13.10 4.2.7.2.686 [id number] [facility] 2021-09-14 08:58:53 2021-09-14 23:59:00 Hospital Encounter TamikoDarwin davenport [facility] 1..114 350.1.13.10 4.2.7.2.686 [id number] [facility] 2021-09-14 08:58:38 2021-09-14 23:59:00 Hospital Encounter Darwin Velazquez [facility] 1.2840.114 350.1.13.10 4.2.7.2.686 [id number] [facility] 2021-09-14 08:58:19 2021-09-14 23:59:00 Outpatient R DONAL [facility] [id number] [facility] 2021-09-14 08:58:19 2021-09-14 23:59:00 Hospital Encounter Donal [facility] 1.2840.114 350.1.13.10 4.2.7.2.686 [id number] [facility] 2021-09-14 08:45:00 2021-09-14 09:00:00 Spray Dry Operator Visit Pob, Adc Lab Main Donal [facility] PROFESSIO NAL BUILDING 1.284.114 350.1.13.10 4.2.7.2.686 [id number] [facility] 2021-09-14 08:45:00 2021-09-14 08:45:00 Outpatient R AMINA MANSFIELD [facility] [id number] [facility] 2021-08-23 13:30:00 2021-08-23 13:30:00 Outpatient R GORDO OSEGUERA [facility] [id number] [facility] 2021-08-16 10:02:00 2021-08-16 14:54:00 Emergency X WANDY KRISHNAN [facility] ERT [id number] [facility] 2021-08-16 10:02:00 2021-08-16 14:54:00 Emergency Wandy Krishnan S [facility] 1.284.114 350.1.13.10 4.2.7.2.686 [id number] [facility] 2021-08-11 13:30:00 2021-08-11 13:30:00 Outpatient R URIEL STOLL DENISE [facility] [id number] [facility] 2021-08-03 11:30:00 2021-08-03 11:59:17 Outpatient R BRAYAN RICHTER [facility] [id number] [facility] 2021-08-03 11:24:17 2021-08-03 11:59:17 Office Visit Brayan Richter [facility] NAL BUILDING 1.2.840.114 350.1.13.10 4.2.7.2.686 [id number] [facility] 2021-08-03 11:30:00 2021-08-03 11:30:00 Outpatient R BRAYAN RICHTER [facility] [id number] [facility] 2021-07-28 08:00:00 2021-07-28 08:00:00 Outpatient R LAURA EMERY [facility] [id number] [facility] 2021-07-28 08:00:00 2021-07-28 08:00:00 Outpatient R STEPHANIE PEÑA [facility] [id number] [facility] 2021-07-25 00:00:00 2021-07-25 00:00:00 Telephone Shahana Chu [facility] Office Building 1.2.840.114 350.1.13.10 4.2.7.2.686 [id number] [facility] 2021-07-19 10:00:00 2021-07-19 10:00:00 Outpatient R AMINA MANSFIELD [facility] [id number] [facility] 2021-07-18 13:30:00 2021-07-18 13:30:00 Outpatient R [facility] [id number] [facility] 2021-07-18 13:30:00 2021-07-18 13:30:00 Outpatient R SHAWNNATALEIJOSEPH [facility] [id number] [facility] 2021-07-14 11:00:00 2021-07-14 11:00:00 Outpatient R [facility] [id number] [facility] 2021-07-13 00:00:00 2021-07-13 00:00:00 Outpatient R CAROLINE DARWIN [facility] [id number] [facility] 2021-07-13 00:00:00 2021-07-13 00:00:00 Case Management [facility] 1..840.114 350.1.13.10 4.2.7.2.686 [id number] [facility] 2021-07-13 00:00:00 2021-07-13 00:00:00 RefAmina Calderón [facility] nal Building 1..840.114 350.1.13.10 4.2.7.2.686 [id number] [facility] 2021-07-12 00:00:00 2021-07-12 00:00:00 Adwoa Mansfield [facility] nal Building 1..840.114 350.1.13.10 4.2.7.2.686 [id number] [facility] 2021-07-11 00:00:00 2021-07-11 00:00:00 Telephone Shahana Chu [facility] Medical Office Building 1.2.840.114 350.1.13.10 4.2.7.2.686 [id number] [facility] 2021-07-05 09:41:15 2021-07-05 11:40:58 Office Visit Shahana Chu [facility] Medical Office Building 1.2.840.114 350.1.13.10 4.2.7.2.686 [id number] [facility] 2021-07-05 10:00:00 2021-07-05 10:00:00 Outpatient SHAHANA LOPEZ [facility] [id number] Humberto tarango [facility] 2021-07-04 10:24:15 2021-07-04 11:09:25 Office Visit Avni Alvarengael [facility] Building 1.2.840.114 350.1.13.10 4.2.7.2.686 [id number] [facility] 2021-07-04 10:30:00 2021-07-04 10:30:00 Outpatient R ALVARENGA CRISTINA [facility] [id number] [facility] 2021-07-01 00:00:00 2021-07-01 00:00:00 Telephone Brayan Richter [facility] 1.2.840.114 350.1.13.10 4.2.7.2.686 [id number] [facility] 2021-06-30 10:19:45 2021-06-30 23:59:00 Hospital Encounter Brayan Richter [facility] 1.2.840.114 350.1.13.10 4.2.7.2.686 [id number] [facility] 2021-06-30 14:30:00 2021-06-30 14:30:00 Outpatient R DOMINICK VELAZQUEZ [facility] [id number] [facility] 2021-06-30 08:53:09 2021-06-30 10:18:00 Hospital Encounter Brayan Richter [facility] 1.2.840.114 350.1.13.10 4.2.7.2.686 [id number] [facility] 2021-06-29 13:45:00 2021-06-29 13:45:00 Outpatient R LAURA EMERY [facility] [id number] [facility] 2021-06-27 13:00:00 2021-06-27 13:00:00 Outpatient R BANDAR ANA CRISTINA [facility] [id number] [facility] 2021-06-27 00:00:00 2021-06-27 00:00:00 Refill Darwin Velazquez [facility] .840.114 350.1.13.10 4.2.7.2.686 [id number] [facility] 2021-06-27 00:00:00 2021-06-27 00:00:00 Refill Amina Mansfield [facility] Building 1.840.114 350.1.13.10 4.2.7.2.686 [id number] [facility] 2021-06-21 09:30:00 2021-06-21 09:30:00 Outpatient R DEANNA WASHBURN [facility] [id number] Humberto tarango [facility] 2021-06-20 10:45:00 2021-06-20 10:45:00 Outpatient R CRISTINA ALVARENGA [facility] [id number] [facility] 2021-06-20 00:00:00 2021-06-20 00:00:00 Telephone [facility] .0.114 350.1.13.10 4.2.7.2.686 [id number] [facility] 2021-06-15 11:08:22 2021-06-15 11:23:22 Spray Dry Operator Visit Pob, Adc Lab Main Dominick Velazquez [facility] Building 1.2.840.114 350.1.13.10 4.2.7.2.686 [id number] [facility] 2021-06-15 11:15:00 2021-06-15 11:15:00 Outpatient R DARWIN VELAZQUEZ [facility] [id number] [facility] 2021-06-09 10:40:00 2021-06-09 10:40:00 Outpatient R AMINA MANSFIELD [facility] [id number] [facility] 2021-06-08 00:00:00 2021-06-08 00:00:00 Outpatient R AMINA MANSFIELD [facility] [id number] [facility] 2021-06-03 10:52:42 2021-06-03 23:59:00 Hospital Encounter Darwin Velazquez [facility] 1.2.840.114 350.1.13.10 4.2.7.2.686 [id number] [facility] 2021-06-03 10:52:42 2021-06-03 23:59:00 [facility] 1.2.840.114 350.1.13.10 4.2.7.2.686 [id number] [facility] 2021-06-03 11:11:26 2021-06-03 11:26:26 Spray Dry Operator Visit Pob, [facility] 1.2840.114 350.1.13.10 4.2.7.2.686 [id number] [facility] 2021-06-03 11:11:26 2021-06-03 11:26:26 Spray Dry Operator Visit Renetta, Adc Lab Main [facility] 1.2.840.114 350.1.13.10 4.2.7.2.686 [id number] [facility] 2021-06-03 00:00:00 2021-06-03 00:00:00 Outpatient R HANH VELAZQUEZHZAD [facility] [id number] [facility] 2021-06-02 09:09:54 2021-06-02 23:59:00 Hospital Encounter Darwin Velazquez [facility] 1.0.114 350.1.13.10 4.2.7.2.686 [id number] [facility] 2021-06-02 00:00:00 2021-06-02 00:00:00 Outpatient R HANH VELAZQUEZHZAD [facility] [id number] [facility] 2021-06-01 09:43:51 2021-06-01 10:28:58 Office Visit Brayan RichterErnie [facility] 1.840.114 350.1.13.10 4.2.7.2.686 [id number] [facility] 2021-06-01 09:43:51 2021-06-01 10:28:58 Office Visit Brayan Richter [facility] 1.2840.114 350.1.13.10 4.2.7.2.686 [id number] [facility] 2021-06-01 10:00:00 2021-06-01 10:00:00 Outpatient R BRAYAN RICHTER [facility] [id number] [facility] 2021-06-01 00:00:00 2021-06-01 00:00:00 Patient Secure Msg Doctor Unassigned, [place] [facility] 1.0.114 350.1.13.10 4.2.7.2.686 [id number] [facility] 2021-05-30 00:00:00 2021-05-30 00:00:00 Case Management Lacey Rae [facility] 1.2840.114 350.1.13.10 4.2.7.2.686 [id number] [facility] 2021-05-30 00:00:00 2021-05-30 00:00:00 Case Management Lcaey R[facility] 1.2840.114 350.1.13.10 4.2.7.2.686 [id number] [facility] 2021-05-27 09:27:32 2021-05-27 10:46:28 [facility] 1.2840.114 350.1.13.10 4.2.7.2.686 [id number] [facility] 2021-05-27 09:27:32 2021-05-27 10:46:28 Office Visit [facility] 1.2840.114 350.1.13.10 4.2.7.2.686 [id number] [facility] 2021-05-27 09:20:00 2021-05-27 09:20:00 Outpatient R AMINA MANSFIELD [facility] [id number] [facility] 2021-05-26 00:00:00 2021-05-26 00:00:00 Case Management Darwin [facility] 1.284.114 350.1.13.10 4.2.7.2.686 [id number] [facility] 2021-05-26 00:00:00 2021-05-26 00:00:00 Telephone [place] 1.2.840.114 350.1.13.10 4.2.7.2.686 [id number] [facility] 2021-05-26 00:00:00 2021-05-26 00:00:00 Case Management Darwin Velazquez [facility] MULTISPEC [facility] 1.2.840.114 350.1.13.10 4.2.7.2.686 [id number] [facility] 2021-05-26 00:00:00 2021-05-26 00:00:00 Telephone Donal [facility] 1.2.840.114 350.1.13.10 4.2.7.2.686 [id number] [facility] 2021-05-26 00:00:00 2021-05-26 00:00:00 Case Management Darwin Velazquez [facility] 1.2.840.114 350.1.13.10 4.2.7.2.686 [id number] [facility] 2021-05-24 12:30:56 2021-05-24 23:59:00 Hospital Encounter Donal [facility] 1.2.840.114 350.1.13.10 4.2.7.2.686 [id number] [facility] 2021-05-24 12:30:56 2021-05-24 23:59:00 [facility] 1.2.840.114 350.1.13.10 4.2.7.2.686 [id number] [facility] 2021-05-24 12:34:47 2021-05-24 12:49:47 Spray Dry Operator Visit Pob, Adc Lab Main [facility] 1.2840.114 350.1.13.10 4.2.7.2.686 [id number] [facility] 2021-05-24 12:34:47 2021-05-24 12:49:47 Spray Dry Operator Visit Pob, Adc Lab Main Darwin Velazquez [facility] Building 1.2840.114 350.1.13.10 4.2.7.2.686 [id number] [facility] 2021-05-24 00:00:00 2021-05-24 00:00:00 Outpatient AMINA ROBERTSON [facility] [id number] [facility] 2021-05-24 00:00:00 2021-05-24 00:00:00 RefAmina Calderón [facility] 1.84.114 350.1.13.10 4.2.7.2.686 [id number] [facility] 2021-05-24 00:00:00 2021-05-24 00:00:00 Freda Garrett [facility] 1.84.114 350.1.13.10 4.2.7.2.686 [id number] [facility] 2021-05-24 00:00:00 2021-05-24 00:00:00 Amina Sullivan [facility] 1.840.114 350.1.13.10 4.2.7.2.686 [id number] [facility] 2021-05-24 00:00:00 2021-05-24 00:00:00 Freda Garrett [facility] 1..114 350.1.13.10 4.2.7.2.686 [id number] [facility] 2021-05-20 00:00:00 2021-05-20 00:00:00 Outpatient R AMINA MANSFIELD [facility] [id number] [facility] 2021-05-18 13:10:00 2021-05-18 13:10:00 Outpatient R ALBERTO DUMONT [facility] [id number] [facility] 2021-05-17 08:08:54 2021-05-17 09:22:04 Telemedici ne Visit Amina Mansfield [facility] 1.2.840.114 350...10 4.2.7.2.686 [id number] [facility] 2021-05-17 08:00:00 2021-05-17 08:00:00 Outpatient R AMINA MANSFIELD [facility] [id number] [facility] 2021-05-13 15:00:00 2021-05-13 15:00:00 Outpatient R AMINA MANSFIELD [facility] [id number] [facility] 2021-05-13 12:03:53 2021-05-13 12:12:14 Telemedici ne Visit Donal [facility] 1.2.840.114 350..13.10 4.2.7.2.686 [id number] [facility] 2021-05-10 11:00:00 2021-05-10 11:00:00 Outpatient JG HERNANDEZ [facility] [id number] [facility] 2021-05-10 00:00:00 2021-05-10 00:00:00 Telephone Donal [facility] 1.2.840.114 350..13.10 4.2.7.2.686 [id number] [facility] 2021-05-09 00:00:00 2021-05-09 00:00:00 Telephone Amina Mansfield [facility] 1.2.840.114 350.1.13.10 4.2.7.2.686 [id number] [facility] 2021-05-09 00:00:00 2021-05-09 00:00:00 Case Management Dulce Ribera 1.2.840.114 350.1.13.10 4.2.7.2.686 [id number] [facility] 2021-05-09 00:00:00 2021-05-09 00:00:00 Telephone Amina Mansfield [facility] 1.2.840.114 350.1.13.10 4.2.7.2.686 [id number] [facility] 2021-05-05 12:56:04 2021-05-05 23:59:00 Hospital Encounter Amina Mansfield [facility] 1.2.840.114 350.1.13.10 4.2.7.2.686 [id number] [facility] 2021-05-05 12:58:54 2021-05-05 13:13:54 Spray Dry Operator Visit Renetta, Kamaljit Lab Main Amina Mansfield [facility] 1.2.840.114 350.1.13.10 4.2.7.2.686 [id number] [facility] 2021-05-05 11:06:18 2021-05-05 12:34:32 Office Visit Amina Mansfield [facility] 1.2.840.114 350.1.13.10 4.2.7.2.686 [id number] [facility] 2021-05-05 11:20:00 2021-05-05 11:20:00 Outpatient R AMINA MANSFIELD [facility] [id number] [facility] 2021-05-05 00:00:00 2021-05-05 00:00:00 Orders Only Doctor Unassigned, [place] [facility] 1.20.114 350.1.13.10 4.2.7.2.686 [id number] [facility] 2021-05-02 14:27:07 2021-05-02 14:42:07 Laboratory Only Only, Adc Test Alberto Jolley [facility] 1..114 350.1.13.10 4.2.7.2.686 [id number] [facility] 2021-05-02 14:00:00 2021-05-02 14:00:00 Outpatient R [facility] [id number] [facility] 2021-04-29 08:00:00 2021-04-29 08:00:00 Outpatient R JG HERNANDEZ [facility] [id number] [facility] 2021-04-28 00:00:00 2021-04-28 00:00:00 Telephone Amina Mansfield [facility] 1.84.114 350.1.13.10 4.2.7.2.686 [id number] [facility] 2021-04-26 13:00:00 2021-04-26 13:00:00 Outpatient R CARMELA MAR [facility] [id number] [facility] 2021-04-25 17:10:00 2021-04-25 21:21:00 Emergency Wandy Krishnan [facility] 1.84.114 350.1.13.10 4.2.7.2.686 [id number] [facility] 2021-04-25 15:35:41 2021-04-25 16:05:41 [facility] 1.114 350.1.13.10 4.2.7.2.686 [id number] [facility] 2021-04-25 16:00:00 2021-04-25 16:00:00 Outpatient R CLAUDIAELFEGO ANDREWSTHIA [facility] [id number] [facility] 2021-04-21 12:00:00 2021-04-21 12:00:00 Outpatient R HANH VELAZQUEZHZAD [facility] [id number] [facility] 2021-04-21 11:29:14 2021-04-21 11:44:14 Spray Dry Operator Visit Pob, Adc Lab Main Darwin Velazquezwaz [facility] Building 1.114 350.1.13.10 4.2.7.2.686 [id number] [facility] 2021-04-21 00:00:00 2021-04-21 00:00:00 Orders Only Doctor Unassigned, [place] [facility] 1.114 350.1.13.10 4.2.7.2.686 [id number] [facility] 2021-04-01 00:00:00 2021-04-01 00:00:00 Freda Garrett [facility] 1.114 350.1.13.10 4.2.7.2.686 [id number] [facility] 2021-03-29 00:00:00 2021-03-29 00:00:00 [facility] 1. 350.1.13.10 4.2.7.2.686 [id number] [facility] 2021-03-28 09:00:00 2021-03-28 09:00:00 Outpatient R LAURA EMERY [facility] [id number] [facility] 2021-03-22 13:30:00 2021-03-22 13:30:00 Outpatient R BURKE ROTH [facility] [id number] [facility] 2021-03-21 09:21:22 2021-03-21 09:36:22 Spray Dry Operator Visit Renetta, Adc Lab Main [facility] Building 1..840.114 350.1.13.10 4.2.7.2.686 [id number] [facility] 2021-03-21 09:30:00 2021-03-21 09:30:00 Outpatient R ALBERTO JOLLEY [facility] [id number] [facility] 2021-03-21 09:00:00 2021-03-21 09:00:00 Outpatient R LASHAEOHAMINA WRIGHT [facility] [id number] [facility] 2021-03-17 13:13:27 2021-03-17 14:24:47 [facility] 1..840.114 350.1.13.10 4.2.7.2.686 [id number] [facility] 2021-03-17 13:45:00 2021-03-17 13:45:00 Outpatient R [facility] [id number] [facility] 2021-03-17 10:51:37 2021-03-17 11:06:37 Spray Dry Operator Visit Renetta, Adc Lab Main Joanne Velazquezadarsh [facility] Building 1..840.114 350.1.13.10 4.2.7.2.686 [id number] [facility] [facility] 2021-[facility]-17 00:00:00 2021-03-17 00:00:00 Orders Only Doctor Unassigned, [place] [facility] 1.2840.114 350.1.13.10 4.2.7.2.686 [id number] [facility] 2021-03-03 11:33:27 2021-03-03 23:59:00 Hospital Encounter Amina Mansfield [facility] 1.2.840.114 350.1.13.10 4.2.7.2.686 [id number] [facility] 2021-03-03 09:55:48 2021-03-03 11:12:02 Office Visit Amina Mansfield [facility] 1.20.114 350.1.13.10 4.2.7.2.686 [id number] [facility] 2021-03-03 10:00:00 2021-03-03 10:00:00 Outpatient R AMINA MANSFIELD [facility] [id number] [facility] 2021-03-03 00:00:00 2021-03-03 00:00:00 Annabel Quinones [facility] 1.2.114 350.1.13.10 4.2.7.2.686 [id number] [facility] 2021-03-02 10:00:00 2021-03-02 10:00:00 Outpatient R OSWALDO GOMEZ [facility] [id number] [facility] 2021-03-02 09:09:18 2021-03-02 09:24:18 Spray Dry Operator Visit Pob, Adc Lab Main Oswaldo Gomez [facility] Building 1.2840.114 350.1.13.10 4.2.7.2.686 [id number] [facility] 2021-03-02 00:00:00 2021-03-02 00:00:00 Orders Only Doctor Unassigned, [place] [facility] 1.2840.114 350.1.13.10 4.2.7.2.686 [id number] [facility] 2021-02-21 10:41:00 2021-02-24 14:50:00 Emergency Keron Leal, Alberto [facility] 1.2840.114 350.1.13.10 4.2.7.2.686 [id number] [facility] 2021-02-22 14:07:00 2021-02-22 16:12:00 Surgery Tao Yasemin [facility] 1.20.114 350.1.13.10 4.2.7.2.686 [id number] [facility] 2021-02-21 00:00:00 2021-02-21 00:00:00 Case Management Johnny Del Real [facility] 1..114 350.1.13.10 4.2.7.2.686 [id number] [facility] 2021-02-18 12:30:00 2021-02-18 12:30:00 Outpatient OSWALDO PEREZ [facility] [id number] [facility] 2021-02-18 10:31:58 2021-02-18 10:46:58 Spray Dry Operator Visit Pob, Adc Lab Main Oswaldo Gomez [facility] 1.2.114 350.1.13.10 4.2.7.2.686 [id number] [facility] 2021-02-16 10:00:00 2021-02-16 10:00:00 Outpatient AMINA ROBERTSON [facility] [id number] [facility] 2021-02-16 00:00:00 2021-02-16 00:00:00 Abstract Wilmar Velazquez [facility] 1.2.840.114 350.1.13.10 4.2.7.2.686 [id number] [facility] 2021-02-09 12:03:00 2021-02-10 14:30:00 Hospital [facility] 1.2.840.114 350.1.13.10 4.2.7.2.686 [id number] [facility] 2021-02-10 00:00:00 2021-02-10 00:00:00 Case Management Lacey Rae [facility] 1.2.840.114 350.1.13.10 4.2.7.2.686 [id number] [facility] 2021-02-09 13:30:00 2021-02-09 15:05:00 Surgery Binh Mcrae [facility] 1.2.840.114 350.1.13.10 4.2.7.2.686 [id number] [facility] 2021-02-08 08:23:19 2021-02-08 08:38:19 Spray Dry Operator Visit Pob, Adc Lab Main [facility] 1.2840.114 350.1.13.10 4.2.7.2.686 [id number] [facility] 2021-02-08 08:30:00 2021-02-08 08:30:00 Outpatient R OSWALDO GOMEZ [facility] [id number] [facility] 2021-02-07 00:00:00 2021-02-07 00:00:00 Alberto Hurd [facility] MULTISPEC [facility]ALTY [facility] 1.0.114 350.1.13.10 4.2.7.2.686 [id number] [facility] 2021-02-04 11:45:00 2021-02-04 11:45:00 Outpatient R OSWALDO GOMEZ [facility] [id number] [facility] 2021-02-04 10:45:00 2021-02-04 10:45:00 Outpatient R GUY GOMEZNEJessica [facility] [id number] [facility] 2021-02-04 10:22:43 2021-02-04 10:37:43 Laboratory Only Only, Adc Test Oswaldo Gomez [facility] 1.2840.114 350.1.13.10 4.2.7.2.686 [id number] [facility] 2021-02-04 10:22:14 2021-02-04 10:37:14 Spray Dry Operator Visit Pob, Adc Lab Main Oswaldo Gomez Deep[facility] 1.2840.114 350.1.13.10 4.2.7.2.686 [id number] [facility] 2021-02-04 00:00:00 2021-02-04 00:00:00 Orders Only Doctor Unassigned, [place] [facility] 1.20.114 350.1.13.10 4.2.7.2.686 [id number] [facility] 2021-01-31 14:07:30 2021-01-31 15:44:39 [facility] 1.20.114 350.1.13.10 4.2.7.2.686 [id number] [facility] 2021-01-31 08:31:13 2021-01-31 08:46:13 Spray Dry Operator Visit Pob, Adc Lab Main Oswaldo Gomez [facility] 1.114 350.1.13.10 4.2.7.2.686 [id number] [facility] 2021-01-31 08:30:00 2021-01-31 08:30:00 Outpatient OSWALDO PEREZ [facility] [id number] [facility] 2021-01-26 00:00:00 2021-01-26 00:00:00 Telephone Darwin Velazquez [facility] MULTISPEC IALTY [facility] 1.114 350.1.13.10 4.2.7.2.686 [id number] [facility] 2021-01-19 09:58:00 2021-01-20 13:08:00 Hospital Encounter Salo Leroy [facility] 1.114 350.1.13.10 4.2.7.2.686 [id number] [facility] 2021-01-19 10:00:00 2021-01-19 10:00:00 Outpatient AMINA ROBERTSON [facility] [id number] [facility] 2021-01-19 00:00:00 2021-01-19 00:00:00 Outpatient FREDA OLIVARES [facility] [id number] [facility] 2021-01-18 00:00:00 2021-01-18 00:00:00 Outpatient FREDA OLIVARES [facility] [id number] [facility] 2021-01-18 00:00:00 2021-01-18 00:00:00 Telephone Oswaldo Gomez [facility] MULTISPEC [facility]TY [facility] 1.114 350.1.13.10 4.2.7.2.686 [id number] [facility] 2021-01-17 13:30:00 2021-01-17 13:30:00 Outpatient R OSWALDO GOMEZ [facility] [id number] [facility] 2021-01-17 12:45:03 2021-01-17 13:15:03 Office Visit Oswaldo Gomez [facility] 1.2.840.114 350.1.13.10 4.2.7.2.686 [id number] [facility] 2021-01-17 09:28:26 2021-01-17 09:43:26 Spray Dry Operator Visit Pob, Adc Lab Main Guy Gomezwijessica [facility] 1.2840.114 350.1.13.10 4.2.7.2.686 [id number] [facility] 2021-01-14 00:00:00 2021-01-14 00:00:00 Refill Talita [facility] 1.2840.114 350.1.13.10 4.2.7.2.686 [id number] [facility] 2021-01-13 00:00:00 2021-01-13 00:00:00 Patient Secure Burke Alford [facility]ESS[facility]AL [facility] 1.2840.114 350.1.13.10 4.2.7.2.686 [id number] [facility] 2021-01-12 08:21:08 2021-01-12 08:36:08 Spray Dry Operator Visit Pob, Adc Lab Main Guy Gomezwijessica [facility] Professio nal Building 1.2840.114 350.1.13.10 4.2.7.2.686 [id number] [facility] 2021-01-12 08:00:00 2021-01-12 08:00:00 Outpatient OSWALDO PEREZ [facility] [id number] [facility] 2021-01-12 00:00:00 2021-01-12 00:00:00 Telephone [facility] 1.840.114 350.1.13.10 4.2.7.2.686 [id number] [facility] 2021-01-10 00:00:00 2021-01-10 00:00:00 Case Management Alberto Lozoya [facility] IALTY [facility] 1.20.114 350.1.13.10 4.2.7.2.686 [id number] [facility] 2021-01-06 15:02:14 2021-01-06 15:17:14 Spray Dry Operator Visit Pob, Adc Lab Main Freda Feliz [facility] 1.20.114 350.1.13.10 4.2.7.2.686 [id number] [facility] 2021-01-06 10:59:15 2021-01-06 11:14:15 Spray Dry Operator Visit [facility] Devora [facility] 1.0.114 350.1.13.10 4.2.7.2.686 [id number] [facility] 2021-01-06 09:18:47 2021-01-06 10:57:25 Office Visit Devora [facility] 1.0.114 350.1.13.10 4.2.7.2.686 [id number] [facility] 2021-01-06 09:30:00 2021-01-06 09:30:00 Outpatient ALBERTO DC [facility] [id number] [facility] 2021-01-05 10:15:00 2021-01-05 10:15:00 Outpatient R [facility] [id number] [facility] 2021-01-05 09:30:28 2021-01-05 09:45:28 Spray Dry Operator Visit Pob, Adc Lab Main Samreen [facility] 1.0.114 350.1.13.10 4.2.7.2.686 [id number] [facility] 2020-12-28 18:44:00 2020-12-29 16:23:00 [facility]..114 350.1.13.10 4.2.7.2.686 [id number] [facility] 2020-12-29 00:00:00 2020-12-29 00:00:00 Adwoa Lozoya [facility] MULTISPEC [facility]ALTY [facility] 1..114 350.1.13.10 4.2.7.2.686 [id number] [facility] 2020-12-28 00:00:00 2020-12-28 00:00:00 Orders Only Doctor Unassigned, [place] [facility] 1.0.114 350.1.13.10 4.2.7.2.686 [id number] [facility] 2020-12-27 15:00:00 2020-12-27 15:00:00 Outpatient R JOHNNY DEL REAL [facility] [id number] [facility] 2020-12-27 14:04:54 2020-12-27 14:19:54 Office Visit Johnny Del Real [facility] 1..114 350.1.13.10 4.2.7.2.686 [id number] [facility] 2020-12-27 09:48:12 2020-12-27 10:03:12 Spray Dry Operator Visit Pob, Adc Lab Main Oswaldo Gomez Deepak [facility] 1.2840.114 350.1.13.10 4.2.7.2.686 [id number] [facility] 2020-12-27 00:00:00 2020-12-27 00:00:00 [facility] 1.0.114 350.1.13.10 4.2.7.2.686 [id number] [facility] 2020-12-24 00:00:00 2020-12-24 00:00:00 Case Management [facility] 1.0.114 350.1.13.10 4.2.7.2.686 [id number] [facility] 2020-12-23 00:00:00 2020-12-23 00:00:00 [facility] 1.840.114 350.1.13.10 4.2.7.2.686 [id number] [facility] 2020-12-23 00:00:00 2020-12-23 00:00:00 [facility] 1.0.114 350.1.13.10 4.2.7.2.686 [id number] [facility] 2020-12-23 00:00:00 2020-12-23 00:00:00 Case Management Oswaldo Gomez [facility] 1.2840.114 350.1.13.10 4.2.7.2.686 [id number] [facility] 2020-12-20 00:00:00 2020-12-20 00:00:00 Outpatient R ANNABEL PEÑA [facility] [id number] [facility] 2020-12-17 09:42:14 2020-12-17 09:57:14 Spray Dry Operator Visit Pob, Adc Lab Main TalitaOswaldo [facility] Building 1..114 350.1.13.10 4.2.7.2.686 [id number] [facility] 2020-12-17 09:45:00 2020-12-17 09:45:00 Outpatient R OSWALDO GOMEZ [facility] [id number] [facility] 2020-12-17 00:00:00 2020-12-17 00:00:00 Case Management Alberto Lozoya [facility] MULTISPEC [facility] 1.114 350.1.13.10 4.2.7.2.686 [id number] [facility] 2020-12-13 13:30:00 2020-12-13 13:30:00 Outpatient R ALBERTO LOZOYA [facility] [id number] [facility] 2020-12-13 09:00:00 2020-12-13 09:00:00 Outpatient R [facility] [id number] [facility] 2020-12-08 10:42:00 2020-12-09 16:00:00 Hospital Encounter TalitaOswaldo [facility] 1.114 350.1.13.10 4.2.7.2.686 [id number] [facility] 2020-12-07 14:10:33 2020-12-07 15:41:19 Office Visit Burke Roth [facility] Building 1..114 350.1.13.10 4.2.7.2.686 [id number] [facility] 2020-12-07 14:30:00 2020-12-07 14:30:00 Outpatient R BURKE ROTH [facility] [id number] [facility] 2020-12-07 13:30:00 2020-12-07 13:30:00 Outpatient Adarsh LANG HRERON [facility] [id number] [facility] 2020-12-07 00:00:00 2020-12-07 00:00:00 Patient Outreach Sunny Jgemelina Hardy [facility] 1.20.114 350.1.13.10 4.2.7.2.686 [id number] [facility] 2020-12-06 09:27:17 2020-12-06 23:59:00 Hospital Encounter Freda Feliz [facility] 1.0.114 350.1.13.10 4.2.7.2.686 [id number] [facility] 2020-12-06 09:24:12 2020-12-06 09:39:12 Laboratory Only Only, Adc Test [facility] 1.20.114 350.1.13.10 4.2.7.2.686 [id number] [facility] 2020-12-06 00:00:00 2020-12-06 00:00:00 Outpatient FREDA OLIVARES [facility] [id number] [facility] 2020-12-02 00:00:00 2020-12-02 00:00:00 Freda Garrett [facility] 1..114 350.1.13.10 4.2.7.2.686 [id number] [facility] 2020-12-02 00:00:00 2020-12-02 00:00:00 Johnny Foster [facility] MULTISPEC [facility]ALTY [facility] 1.114 350.1.13.10 4.2.7.2.686 [id number] [facility] 2020-12-02 00:00:00 2020-12-02 00:00:00 Alberto Hurd [facility] 1.114 350.1.13.10 4.2.7.2.686 [id number] [facility] 2020-11-26 15:00:00 2020-11-26 15:00:00 Outpatient RAMONITA ALMARAZ [facility] [id number] [facility] 2020-11-22 14:12:41 2020-11-22 14:58:26 Spray Dry Operator Visit [facility] Oswaldo Gomez [facility] 1.114 350.1.13.10 4.2.7.2.686 [id number] [facility] 2020-11-22 13:01:04 2020-11-22 13:16:04 Office Visit Oswaldo Gomez Deepak [facility] 1.114 350.1.13.10 4.2.7.2.686 [id number] [facility] 2020-11-22 13:00:00 2020-11-22 13:00:00 Outpatient R OSWALDO GOMEZ [facility] [id number] [facility] 2020-11-22 08:42:08 2020-11-22 08:57:08 Spray Dry Operator Visit Renetta, Kamaljit Lab Main Oswaldo Gomez Deepak [facility] 1.114 350.1.13.10 4.2.7.2.686 [id number] [facility] 2020-11-19 15:10:34 2020-11-19 15:25:34 Office Visit Ladonna Kamara [facility] 1.0.114 350.1.13.10 4.2.7.2.686 [id number] [facility] 2020-11-19 09:50:45 2020-11-19 10:05:45 Spray Dry Operator Visit Renetta, Adc Lab Main Oswaldo Gomez [facility] Building 1..114 350.1.13.10 4.2.7.2.686 [id number] [facility] 2020-11-19 10:00:00 2020-11-19 10:00:00 Outpatient R OSWALDO GOMEZ [facility] [id number] [facility] 2020-11-16 00:00:00 2020-11-16 00:00:00 Annabel Quinones [facility] 1..114 350.1.13.10 4.2.7.2.686 [id number] [facility] 2020-11-09 13:47:00 2020-11-11 17:42:00 Hospital Encounter Salo Leroy Rupak Dilip [facility] 1..114 350.1.13.10 4.2.7.2.686 [id number] [facility] 2020-11-08 00:00:00 2020-11-08 00:00:00 Outpatient R OSWALDO GOMEZ [facility] [id number] [facility] 2020-11-04 08:47:02 2020-11-04 09:02:02 Spray Dry Operator Visit Renetta, Kamaljit Lab Main Oswaldo Gomez [facility] Building 1..114 350.1.13.10 4.2.7.2.686 [id number] [facility] 2020-11-04 07:45:00 2020-11-04 07:45:00 Outpatient R OSWALDO GOMEZ [facility] [id number] [facility] 2020-11-02 00:00:00 2020-11-02 00:00:00 Case Management [facility] 1.114 350.1.13.10 4.2.7.2.686 [id number] [facility] 2020-11-02 00:00:00 2020-11-02 00:00:00 Case Management Johnny Del [facility] 1.114 350.1.13.10 4.2.7.2.686 [id number] [facility] 2020-11-01 12:56:25 2020-11-01 13:43:31 Office Visit Oswaldo Gomez [facility] 1.114 350.1.13.10 4.2.7.2.686 [id number] [facility] 2020-11-01 13:30:00 2020-11-01 13:30:00 Outpatient R [facility] [id number] [facility] 2020-11-01 09:48:56 2020-11-01 10:03:56 Spray Dry Operator Visit Pob, Adc Lab Main Albetro Jolley [facility] 1..114 350.1.13.10 4.2.7.2.686 [id number] [facility] 2020-10-29 00:00:00 2020-10-29 00:00:00 [facility] 1.114 350.1.13.10 4.2.7.2.686 [id number] [facility] 2020-10-28 10:30:00 2020-10-28 10:30:00 Outpatient OSWALDO PEREZ [facility] [id number] [facility] 2020-10-28 09:34:08 2020-10-28 09:49:08 Spray Dry Operator Visit Podariela, Kamaljit Lab Main Oswaldo Gomez [facility] 1.114 350.1.13.10 4.2.7.2.686 [id number] [facility] 2020-10-28 00:00:00 2020-10-28 00:00:00 Orders Only Doctor Unassigned, [place] [facility] 1.114 350.1.13.10 4.2.7.2.686 [id number] [facility] 2020-10-25 13:00:00 2020-10-25 13:00:00 Outpatient OSWALDO PEREZ [facility] [id number] [facility] 2020-10-22 00:00:00 2020-10-22 00:00:00 Annabel Quinones [facility] 1.114 350.1.13.10 4.2.7.2.686 [id number] [facility] 2020-10-20 00:00:00 2020-10-20 00:00:00 Case Management Alberto Lozoya [facility] 1.114 350.1.13.10 4.2.7.2.686 [id number] [facility] 2020-10-19 08:53:38 2020-10-19 09:08:38 Spray Dry Operator Visit Renetta, Kamaljit Lab Main Talita, Rupak [facility] 1..840.114 350.1.13.10 4.2.7.2.686 [id number] [facility] 2020-10-19 09:00:00 2020-10-19 09:00:00 Outpatient OSWALDO PEREZ [facility] [id number] [facility] 2020-10-15 00:00:00 2020-10-15 00:00:00 Case Management Salo Leroy [facility] 1.840.114 350.1.13.10 4.2.7.2.686 [id number] [facility] 2020-10-14 10:45:00 2020-10-14 10:45:00 Outpatient OSWALDO PEREZ [facility] [id number] [facility] 2020-10-14 09:39:05 2020-10-14 09:54:05 Spray Dry Operator Visit Pob, Adc Lab Main Oswaldo Gomez [facility] 1..840.114 350..13.10 4.2.7.2.686 [id number] [facility] 2020-10-11 09:15:00 2020-10-11 09:15:00 Outpatient OSWALDO PEREZ [facility] [id number] [facility] 2020-10-11 08:56:05 2020-10-11 09:11:05 Spray Dry Operator Visit Pob, Adc Lab Main Oswaldo Gomez [facility] 1.2.840.114 350.1.13.10 4.2.7.2.686 [id number] [facility] 2020-10-11 00:00:00 2020-10-11 00:00:00 Orders Only Doctor Unassigned, [place] [facility] 1.840.114 350.1.13.10 4.2.7.2.686 [id number] [facility] 2020-10-08 00:00:00 2020-10-08 00:00:00 Case Management Emile Duke [facility] MULTISPEC [facility]ALTY [facility] 1.840.114 350.1.13.10 4.2.7.2.686 [id number] [facility] 2020-10-05 10:00:00 2020-10-06 18:15:00 Hospital Encounter Binh Mcrae [facility] 1.840.114 350.1.13.10 4.2.7.2.686 [id number] [facility] 2020-10-05 09:37:51 2020-10-05 09:45:17 Spray Dry Operator Visit [facility] Oswaldo Gomez [facility] 1.840.114 350.1.13.10 [id number] [id number] [facility] 2020-10-05 00:00:00 2020-10-05 00:00:00 Orders Only Doctor Unassigned, [place] [facility] 1.840.114 350.1.13.10 [id number] [id number] [facility] [facility] 2020-10-04 00:00:00 2020-10-04 00:00:00 Telephone Oswadlo [facility] 1.840.114 350.1.13.10 4.2.7.2.686 [id number] [facility] 2020-09-30 09:20:27 2020-09-30 09:35:27 Laboratory Only Only, Adc Test Alberto Jolley [facility] 1.2.840.114 350.1.13.10 4.2.7.2.686 [id number] [facility] 2020-09-30 09:17:28 2020-09-30 09:32:28 Spray Dry Operator Visit Pob, Adc Lab Main Oswaldo Gomez [facility] 1.114 350.1.13.10 4.2.7.2.686 [id number] [facility] 2020-09-30 00:00:00 2020-09-30 00:00:00 Outpatient FREDA OLIVARES [facility] [id number] [facility] 2020-09-30 00:00:00 2020-09-30 00:00:00 Case Management Oswaldo Gomez [facility] 1.114 350.1.13.10 4.2.7.2.686 [id number] [facility] 2020-09-29 00:00:00 2020-09-29 00:00:00 Freda Garrett [facility] 1.114 350.1.13.10 4.2.7.2.686 [id number] [facility] 2020-09-28 00:00:00 2020-09-28 00:00:00 Telephone Dominick Velazquez [facility] 1.114 350.1.13.10 4.2.7.2.686 [id number] [facility] 2020-09-27 16:07:22 2020-09-27 23:59:00 Outpatient FREDA OLIVARES [facility] [id number] [facility] 2020-09-27 16:07:22 2020-09-27 23:59:00 Hospital Encounter Freda Feliz [facility] 1.840.114 350.1.13.10 4.2.7.2.686 [id number] [facility] 2020-09-27 15:53:08 2020-09-27 16:03:25 Spray Dry Operator Visit [facility] Oswaldo Gomez [facility] 1.840.114 350.1.13.10 4.2.7.2.686 [id number] [facility] 2020-09-27 12:49:58 2020-09-27 13:04:58 Office Visit TalitaGuy birchtaliajessica Deepak [facility] 1.20.114 350.1.13.10 4.2.7.2.686 [id number] [facility] 2020-09-27 09:18:14 2020-09-27 09:33:14 Spray Dry Operator Visit Po, [facility] Lab Main TalitaOswaldo [facility] 1.840.114 350.1.13.10 4.2.7.2.686 [id number] [facility] 2020-09-27 00:00:00 2020-09-27 00:00:00 Case Management Oswaldo Gomez [facility] 1.840.114 350.1.13.10 4.2.7.2.686 [id number] [facility] 2020-09-27 00:00:00 2020-09-27 00:00:00 Telephone Oswaldo Gomez [facility] 1.0.114 350.1.13.10 4.2.7.2.686 [id number] [facility] 2020-09-21 00:00:00 2020-09-21 00:00:00 Case Management Alberto Lozoya [facility] 1.2.840.114 350.1.13.10 4.2.7.2.686 [id number] [facility] 2020-09-20 09:01:42 2020-09-20 09:16:42 Spray Dry Operator Visit 1, Adc [facility] 1.2840.114 350.1.13.10 4.2.7.2.686 [id number] [facility] 2020-09-20 09:15:00 2020-09-20 09:15:00 Outpatient R [facility] [id number] [facility] 2020-09-20 00:00:00 2020-09-20 00:00:00 [facility] 1.840.114 350.1.13.10 4.2.7.2.686 [id number] [facility] 2020-09-17 00:00:00 2020-09-17 00:00:00 Case Management Daphneyyifan [facility] 1.2.840.114 350.1.13.10 4.2.7.2.686 [id number] [facility] 2020-09-16 09:12:16 2020-09-16 09:27:16 Spray Dry Operator Visit Pob, Adc Lab Main Marivel [facility] 1.2840.114 350.1.13.10 4.2.7.2.686 [id number] [facility] 2020-09-16 09:15:00 2020-09-16 09:15:00 [facility] [id number] [facility] 2020-09-14 00:00:00 2020-09-14 00:00:00 Case Management Marivel [facility] MULTISPEC [facility]TY [facility] 1.114 350.1.13.10 4.2.7.2.686 [id number] [facility] 2020-09-13 09:02:07 2020-09-13 09:17:07 Spray Dry Operator Visit Pob, Adc Lab Main Salo Leroy [facility] Bam [facility] 1..114 350.1.13.10 4.2.7.2.686 [id number] [facility] 2020-09-13 09:00:00 2020-09-13 09:00:00 Outpatient R DAPHNEYSAMI GarciaA [facility] [id number] [facility] 2020-09-13 00:00:00 2020-09-13 00:00:00 Patient Outreach Giuliana De La Paz 1..114 350.1.13.10 4.2.7.2.686 [id number] [facility] 2020-09-13 00:00:00 2020-09-13 00:00:00 Freda Garrett [facility] 1..114 350.1.13.10 4.2.7.2.686 [id number] [facility] 2020-09-10 00:00:00 2020-09-10 00:00:00 Patient Outreach Anaid Larry 1..114 350.1.13.10 4.2.7.2.686 [id number] [facility] 2020-09-10 00:00:00 2020-09-10 00:00:00 Patient Outreach Giuliana De La Paz 1..114 350.1.13.10 4.2.7.2.686 [id number] [facility] 2020-09-10 00:00:00 2020-09-10 00:00:00 [facility] 1. 350.1.13.10 4.2.7.2.686 [id number] [facility] 2020-09-10 00:00:00 2020-09-10 00:00:00 Orders Only Doctor Unassigned, [place] [facility] 1.114 350.1.13.10 4.2.7.2.686 [id number] [facility] 2020-09-09 09:05:22 2020-09-09 09:20:22 Spray Dry Operator Visit Renetta, Kamaljit Lab Tom Shelleyyifan [facility] 1..114 350.1.13.10 4.2.7.2.686 [id number] [facility] 2020-09-09 09:00:00 2020-09-09 09:00:00 [facility] [id number] [facility] 2020-09-07 00:00:00 2020-09-07 00:00:00 Case Management [facility] 1.114 350.1.13.10 4.2.7.2.686 [id number] [facility] 2020-09-06 14:30:00 2020-09-06 14:30:00 Outpatient R [facility] [id number] [facility] 2020-09-06 08:47:59 2020-09-06 09:02:59 Spray Dry Operator Visit Kamaljit Jackson Lab Annabel Dyson [facility] 1.114 350.1.13.10 4.2.7.2.686 [id number] [facility] 2020-09-06 09:00:00 2020-09-06 09:00:00 Outpatient R ANNABEL PEÑA [facility] [id number] [facility] 2020-08-31 10:31:00 2020-09-01 13:30:00 Hospital Encounter Binh [facility]..114 350.1.13.10 4.2.7.2.686 [id number] [facility] 2020-09-01 00:00:00 2020-09-01 00:00:00 Case Management Elvia Tripp [facility] 1.114 350.1.13.10 4.2.7.2.686 [id number] [facility] 2020-08-31 00:00:00 2020-08-31 00:00:00 Orders Only Doctor Unassigned, [place] [facility] 1.114 350.1.13.10 4.2.7.2.686 [id number] [facility] 2020-08-31 00:00:00 2020-08-31 00:00:00 Case Management Oswaldo Gomez [facility] 1.114 350.1.13.10 4.2.7.2.686 [id number] [facility] 2020-08-30 10:00:00 2020-08-30 10:00:00 Outpatient R [facility] [id number] [facility] 2020-08-30 08:49:50 2020-08-30 09:04:50 Spray Dry Operator Visit Pob, Adc Lab Main Salo Leroy [facility] Bam [place]jaspreet Rosen [facility] Building 1.114 350.1.13.10 4.2.7.2.686 [id number] [facility] 2020-08-30 08:47:46 2020-08-30 09:02:46 Laboratory Only Only, Adc Test Laposata, Alberto [facility] 1..114 350.1.13.10 4.2.7.2.686 [id number] [facility] 2020-08-25 11:30:00 2020-08-25 11:30:00 Outpatient МАРИЯ GA [facility] [id number] [facility] 2020-08-23 14:16:54 2020-08-23 14:46:54 Office Visit Devora [facility] 1..114 350.1.13.10 4.2.7.2.686 [id number] [facility] 2020-08-23 13:00:00 2020-08-23 13:00:00 Outpatient LADONNA GOODRICH [facility] [id number] [facility] 2020-08-23 08:40:21 2020-08-23 08:55:21 Spray Dry Operator Visit Renetta, Kamaljit Lab Main Marivel [facility] Building 1.114 350.1.13.10 4.2.7.2.686 [id number] [facility] 2020-08-20 00:00:00 2020-08-20 00:00:00 Case Management [facility] 1.114 350.1.13.10 4.2.7.2.686 [id number] [facility] 2020-08-19 10:33:13 2020-08-19 10:48:13 Spray Dry Operator Visit Renetta, Kamaljit Lab Main [facility] 1.114 350.1.13.10 4.2.7.2.686 [id number] [facility] 2020-08-19 10:30:00 2020-08-19 10:30:00 [facility] [id number] 2020-08-19 00:00:00 2020-08-19 00:00:00 Telephone Zoë Poole [facility] 1.114 350.1.13.10 4.2.7.2.686 [id number] [facility] 2020-08-18 00:00:00 2020-08-18 00:00:00 Orders Only Doctor Unassigned, [place] [facility] 1.114 350.1.13.10 4.2.7.2.686 [id number] [facility] 2020-08-16 13:30:00 2020-08-16 13:30:00 Outpatient Adarsh [facility] [id number] [facility] 2020-08-16 12:53:19 2020-08-16 13:23:19 [facility] 1.114 350.1.13.10 4.2.7.2.686 [id number] [facility] 2020-08-16 09:05:06 2020-08-16 09:20:06 Spray Dry Operator Visit [facility] 1.114 350.1.13.10 4.2.7.2.686 [id number] [facility] 2020-08-13 00:00:00 2020-08-13 00:00:00 Orders Only Doctor Unassigned, [place] [facility] 1.114 350.1.13.10 4.2.7.2.686 [id number] [facility] 2020-08-12 08:40:50 2020-08-12 08:55:50 Spray Dry Operator Visit Pob, Adc Lab Tom Peña [facility] 1.0.114 350.1.13.10 4.2.7.2.686 [id number] [facility] 2020-08-12 08:45:00 2020-08-12 08:45:00 Outpatient ANNABEL COBB [facility] [id number] [facility] 2020-08-10 00:00:00 2020-08-10 00:00:00 Patient Outreach Giuliana De La Paz [place] 1.0.114 350.1.13.10 4.2.7.2.686 [id number] [facility] 2020-08-10 00:00:00 2020-08-10 00:00:00 Telephone Lita Almaraz [facility] MULTISPEC [facility]TY [facility] AND [facility] 1.114 350.1.13.10 4.2.7.2.686 [id number] [facility] 2020-08-10 00:00:00 2020-08-10 00:00:00 Oswaldo Meneses [facility]PEC [facility] 1..114 350.1.13.10 4.2.7.2.686 [id number] [facility] 2020-08-10 00:00:00 2020-08-10 00:00:00 Orders Only Doctor Unassigned, [place] [facility] 1..114 350.1.13.10 4.2.7.2.686 [id number] [facility] 2020-08-09 16:05:51 2020-08-09 16:35:51 Office Visit Johnny Del Real [facility] 1.114 350.1.13.10 4.2.7.2.686 [id number] [facility] 2020-08-09 16:30:00 2020-08-09 16:30:00 Outpatient Adarsh LOZOYA ALBERTO [facility] [id number] [facility] 2020-08-09 11:45:00 2020-08-09 16:01:00 Emergency Marii Gill Folusho F Yarima, [place] [facility] 1.114 350.1.13.10 4.2.7.2.686 [id number] [facility] 2020-08-09 09:05:35 2020-08-09 09:20:35 Spray Dry Operator Visit [facility] Alberto Lozoya [facility] 1..114 350.1.13.10 4.2.7.2.686 [id number] [facility] 2020-08-05 09:05:59 2020-08-05 09:20:59 Spray Dry Operator Visit Pob, Adc Lab Main Salo Leroy [facility] 1.114 350.1.13.10 4.2.7.2.686 [id number] [facility] 2020-08-05 09:15:00 2020-08-05 09:15:00 Outpatient Adarsh SALO LEROY [facility] [id number] [facility] 2020-08-05 00:00:00 2020-08-05 00:00:00 Case Management Oswaldo Gomez [facility] MULTISPEC [facility] AND [facility] 1.114 350.1.13.10 4.2.7.2.686 [id number] [facility] 2020-08-04 00:00:00 2020-08-04 00:00:00 Telephone Shae Farooq [facility] 1.114 350.1.13.10 4.2.7.2.686 [id number] [facility] 2020-08-04 00:00:00 2020-08-04 00:00:00 Orders Only Doctor Unassigned, [place] [facility] 1..114 350.1.13.10 4.2.7.2.686 [id number] [facility] 2020-08-02 12:28:00 2020-08-02 15:41:00 [facility] 1.0.114 350.1.13.10 4.2.7.2.686 [id number] [facility] 2020-08-02 13:00:00 2020-08-02 13:00:00 Outpatient FREDA OLIVARES [facility] [id number] [facility] 2020-08-02 09:13:38 2020-08-02 09:28:38 Spray Dry Operator Visit [facility] Alberto Lozoya [facility] 1.114 350.1.13.10 4.2.7.2.686 [id number] [facility] 2020-08-02 00:00:00 2020-08-02 00:00:00 Abstract Wilmar Velazquez [facility] MULTISPEC [facility] AND [facility] 1..114 350.1.13.10 4.2.7.2.686 [id number] [facility] 2020-08-02 00:00:00 2020-08-02 00:00:00 Case Management Oswaldo Gomez [facility] MULTISPEC [facility] AND [facility] 1..114 350.1.13.10 4.2.7.2.686 [id number] [facility] 2020-07-30 00:00:00 2020-07-30 00:00:00 Case Management Alberto Lozoya [facility] MULTISPEC [facility] AND [facility] 1..114 350.1.13.10 4.2.7.2.686 [id number] [facility] 2020-07-30 00:00:00 2020-07-30 00:00:00 Orders Only Doctor Unassigned, [place] [facility] 1.0.114 350.1.13.10 4.2.7.2.686 [id number] [facility] 2020-07-29 08:44:27 2020-07-29 08:59:27 Spray Dry Operator Visit Pob, [facility] 1..114 350.1.13.10 4.2.7.2.686 [id number] [facility] 2020-07-29 08:45:00 2020-07-29 08:45:00 [facility] [id number] [facility] 2020-07-29 00:00:00 2020-07-29 00:00:00 Orders Only Doctor Unassigned, [place] [facility] 1..114 350.1.13.10 4.2.7.2.686 [id number] [facility] 2020-07-26 13:50:29 2020-07-28 12:23:[address] [facility] 1.114 350.1.13.10 4.2.7.2.686 [id number] [facility] 2020-07-26 09:00:00 2020-07-26 09:00:00 Outpatient R DEVORA [facility] [id number] [facility] 2020-07-26 08:29:49 2020-07-26 08:44:49 Spray Dry Operator Visit [facility] 1.114 350.1.13.10 4.2.7.2.686 [id number] [facility] 2020-07-23 15:01:23 2020-07-23 15:31:23 Office Visit Ladonna [facility] 1.114 350.1.13.10 4.2.7.2.686 [id number] [facility] 2020-07-23 15:00:00 2020-07-23 15:00:00 Outpatient R LADONNA KAMARA [facility] [id number] [facility] 2020-07-22 08:18:39 2020-07-22 08:33:39 Spray Dry Operator Visit Pob, Adc Lab Main Marivel [facility] Building 1.114 350.1.13.10 4.2.7.2.686 [id number] [facility] 2020-07-22 08:30:00 2020-07-22 08:30:00 Outpatient R SALO LEROY [facility] [id number] [facility] 2020-07-21 00:00:00 2020-07-21 00:00:00 Case Management Marivel [facility] 1. 350.1.13.10 4.2.7.2.686 [id number] [facility] 2020-07-20 00:00:00 2020-07-20 00:00:00 Transition of Care Kate Lloyd 1.114 350.1.13.10 4.2.7.2.686 [id number] [facility] 2020-07-20 00:00:00 2020-07-20 00:00:00 Patient Outreach Giuliana De La Paz 1.114 350.1.13.10 4.2.7.2.686 [id number] [facility] 2020-07-20 00:00:00 2020-07-20 00:00:00 Telephone Annabel Peña [facility] 1..840.114 350.1.13.10 4.2.7.2.686 [id number] [facility] 2020-06-20 19:11:00 2020-07-19 19:00:00 [facility] 1.840.114 350.1.13.10 4.2.7.2.686 [id number] [facility] 2020-07-16 00:00:00 2020-07-16 00:00:00 Case Management Pillo Can [facility] 1.840.114 350.1.13.10 4.2.7.2.686 [id number] [facility] 2020-07-08 00:00:00 2020-07-08 00:00:00 Prep For Surgery Yandel Kaur [facility] 1.840.114 350.1.13.10 4.2.7.2.686 [id number] [facility] 2020-07-07 00:00:00 2020-07-07 00:00:00 Letter (Out) Johnny Del Real [facility] 1.0.114 350.1.13.10 4.2.7.2.686 [id number] [facility] 2020-07-06 00:00:00 2020-07-06 00:00:00 Telephone Ladonna Kamara [facility] Jess[facility] Office Building One 1.840.114 350.1.13.10 4.2.7.2.686 [id number] [facility] 2020-07-02 00:00:00 2020-07-02 00:00:00 Telephone Johnny Del Real [facility] 1.2.840.114 350.1.13.10 4.2.7.2.686 [id number] [facility] 2020-06-30 00:00:00 2020-06-30 00:00:00 Abstract Alberto Loz[facility] 1.2.840.114 350.1.13.10 4.2.7.2.686 [id number] [facility] 2020-06-30 00:00:00 2020-06-30 00:00:00 Patient Outreach Anaid Larry Brooklynn Jerome 1.2.840.114 350.1.13.10 4.2.7.2.686 [id number] [facility] 2020-06-30 00:00:00 2020-06-30 00:00:00 Patient Outreach Giuliana De La Paz 1.2.840.114 350.1.13.10 4.2.7.2.686 [id number] [facility] 2020-06-23 00:00:00 2020-06-23 00:00:00 Patient Outreach Anaid Larry Brooklynn Jerome 1.2.840.114 350.1.13.10 4.2.7.2.686 [id number] [facility] 2020-06-21 00:00:00 2020-06-21 00:00:00 Abstract Wilmar [facility] 1.2.840.114 350.1.13.10 4.2.7.2.686 [id number] [facility] 2020-06-21 00:00:00 2020-06-21 00:00:00 Patient Outreach Giuliana De La Paz 1.2.840.114 350.1.13.10 4.2.7.2.686 [id number] [facility] 2020-06-20 00:00:00 2020-06-20 00:00:00 Telephone Johnny Del Real [facility] 1.114 350.1.13.10 4.2.7.2.686 [id number] [facility] 2020-06-16 14:01:29 2020-06-16 14:16:29 Spray Dry Operator Visit Pob, Adc Lab Main Hanh eVlazquezhzad [facility] Building 1.114 350.1.13.10 4.2.7.2.686 [id number] [facility] 2020-06-16 13:30:00 2020-06-16 13:30:00 Outpatient R [facility] [id number] [facility] 2020-06-16 00:00:00 2020-06-16 00:00:00 [facility]phone [facility] 1.114 [id number] [facility] 2020-06-11 13:03:42 2020-06-11 13:18:42 Spray Dry Operator Visit Po, [facility] Main Caroline [facility] Building 1.114 [id number] [facility] 2020-06-11 13:00:00 2020-06-11 13:00:00 [facility]patient R [facility] [id number] [facility] 2020-06-11 00:00:00 2020-06-11 00:00:[address] [facility] 1.114 350.1.13.10 4.2.7.2.686 [id number] [id number] [facility] 2020-06-11 00:00:00 2020-06-11 00:00:00 Orders Only Doctor Unassigned, [place] [facility] 1.20.114 350.1.13.10 4.2.7.2.686 [id number] [id number] [facility] 2020-06-10 16:27:46 2020-06-10 16:42:46 Spray Dry Operator Visit Pob, Adc Lab Main Caroline Dariwn Erika [facility] 1..114 350.1.13.10 4.2.7.2.686 [id number] [facility] 2020-06-10 16:30:00 2020-06-10 16:30:00 Outpatient R TAMIKODARWIN DAVENPORT [facility] [id number] [facility] 2020-06-10 00:00:00 2020-06-10 00:00:00 Orders Only Doctor Unassigned, [place] [facility] 1.0.114 350.1.13.10 4.2.7.2.686 [id number] [id number] [facility] 2020-06-09 00:00:00 2020-06-09 00:00:00 Patient Outreach Giuliana De La Paz 1.840.114 350.1.13.10 4.2.7.2.686 [id number] 403 [id number] [facility] 2020-06-09 00:00:00 2020-06-09 00:00:00 Transition of Care Louisa Tellez 1.2840.114 350.1.13.10 4.2.7.2.686 [id number] 403 [id number] [facility] 2020-06-08 17:16:00 2020-06-08 23:59:00 Hospital Encounter Johnny Del Real [facility] 1.2.840.114 350.1.13.10 4.2.7.2.686 [id number] [id number] [facility] 2020-06-08 00:00:00 2020-06-08 00:00:00 Outpatient JOHNNY LOVE [facility] [id number] [facility] 2020-06-03 16:57:00 2020-06-07 16:05:00 Hospital Encounter Wandy Krishnan, Danitza Jones, Perta [facility] 1.840.114 350.1.13.10 4.2.7.2.686 [id number] [id number] [facility] 2020-06-02 00:00:00 2020-06-02 00:00:00 Transition of Care Kate Lloyd 1.840.114 350.1.13.10 4.2.7.2.686 [id number] 403 [id number] [facility] 2020-06-02 00:00:00 2020-06-02 00:00:00 Telephone Darwin Velazquez [facility] 1..114 350.1.13.10 4.2.7.2.686 [id number] 072 [id number] [facility] 2020-05-25 14:17:00 2020-06-01 16:15:00 Hospital Encounter Jennifer Pereyra Donnell Tambra, Sarah Sonstein, Danitza Lopez [facility] 1.2840.114 350.1.13.10 4.2.7.2.686 [id number] [id number] [facility] 2020-05-31 00:00:00 2020-05-31 00:00:00 Patient Outreach Giuliana De La Paz 1.2840.114 350.1.13.10 4.2.7.2.686 [id number] [facility] 2020-05-28 00:00:00 2020-05-28 00:00:00 [facility] (Out[facility] 1.2.840.114 350.1.13.10 4.2.7.2.686 [id number] 072 [id number] [facility] 2020-05-28 00:00:00 2020-05-28 00:00:00 Committee Review [facility] 1.2.840.114 350.1.13.10 4.2.7.2.686 [id number] [facility] 2020-05-28 00:00:00 2020-05-28 00:00:00 Case Management [facility] 1.2.840.114 350.1.13.10 4.2.7.2.686 [id number] 072 [id number] [facility] 2020-05-28 00:00:00 2020-05-28 00:00:00 Case Management [facility] 1.2.840.114 350.1.13.10 4.2.7.2.686 [id number] [id number] [facility] 2020-05-27 00:00:00 2020-05-27 00:00:00 Patient Outreach Anaid Larry 1.2.840.114 350.1.13.10 4.2.7.2.686 [id number] [facility] 2020-05-26 00:00:00 2020-05-26 00:00:00 [facility] 1.2.840.114 350.1.13.10 4.2.7.2.686 [id number] 072 [id number] [facility] 2020-05-26 00:00:00 2020-05-26 00:00:00 Abstract [facility] 1.840.114 350.1.13.10 4.2.7.2.686 [id number] [facility] 2020-05-26 00:00:00 2020-05-26 00:00:00 Case Management [facility] 1.840.114 350.1.13.10 4.2.7.2.686 [id number] 072 [id number] [facility] 2020-05-25 00:00:00 2020-05-25 00:00:00 Orders Only Doctor Unassigned, [place] [facility] 1.840.114 350.1.13.10 4.2.7.2.686 [id number] [id number] [facility] 2020-05-25 00:00:00 2020-05-25 00:00:00 Patient Outreach Anaid Larry 1.840.114 350.1.13.10 4.2.7.2.686 [id number] 403 [id number] [facility] 2020-05-25 00:00:00 2020-05-25 00:00:00 Patient Outreach Jaswant Bailey 1.840.114 350.1.13.10 4.2.7.2.686 [id number] 403 [id number] [facility] 2020-05-20 00:00:00 2020-05-20 00:00:00 Patient Outreach Anaid Larry 1.2840.114 350.1.13.10 4.2.7.2.686 [id number] 403 [id number] [facility] 2020-05-19 00:00:00 2020-05-19 00:00:00 Patient Outreach Anaid Larry 1.2.840.114 350.1.13.10 4.2.7.2.686 [id number] 403 [id number] [facility] 2020-05-11 02:56:00 2020-05-11 05:24:00 Emergency Naveen Hernandez [facility] 1.2.840.114 350.1.13.10 4.2.7.2.686 [id number] 084 [id number] [facility] 2020-05-11 00:00:00 2020-05-11 00:00:00 Patient Outreach Anaid Larryjoey Jerome 1.2.840.114 350.1.13.10 4.2.7.2.686 [id number] 403 [id number] [facility] 2020-05-11 00:00:00 2020-05-11 00:00:00 Patient Outreach Jaswant Bailey 1.2.840.114 350.1.13.10 4.2.7.2.686 [id number] 403 [id number] [facility] 2020-05-10 00:00:00 2020-05-10 00:00:00 Patient Outreach LynnJaswant Kamron Jerome 1.2.840.114 350.1.13.10 4.2.7.2.686 [id number] 403 [id number] [facility] 2020-05-10 00:00:00 2020-05-10 00:00:00 Patient Outreach Anaid Larry Brooklynn Jerome 1.2.840.114 350.1.13.10 4.2.7.2.686 [id number] 403 [id number] [facility] 2020-05-06 00:00:00 2020-05-06 00:00:00 Transition of Care Rosemary Briceno 1.2.840.114 350.1.13.10 4.2.7.2.686 [id number] 403 [id number] [facility] 2020-05-06 00:00:00 2020-05-06 00:00:00 Patient Outreach Giuliana De La Paz 1.2.840.114 350.1.13.10 4.2.7.2.686 [id number] 403 [id number] [facility] 2020-05-06 00:00:00 2020-05-06 00:00:00 Patient Outreach Anaid Larry 1.2.840.114 350.1.13.10 4.2.7.2.686 [id number] 403 [id number] [facility] 2020-05-02 15:48:00 2020-05-05 16:36:00 Hospital Encounter Jennifer Pereyra [facility] 1.2.840.114 350.1.13.10 4.2.7.2.686 [id number] [id number] [facility] 2020-05-03 00:00:00 2020-05-03 00:00:00 Patient Outreach Giuliana De La Paz 1.2.840.114 350.1.13.10 4.2.7.2.686 [id number] 403 [id number] [facility] 2020-05-03 00:00:00 2020-05-03 00:00:00 Patient Outreach Anaid Larry 1.2.840.114 350.1.13.10 4.2.7.2.686 [id number] 403 [id number] [facility] 2020-05-02 00:00:00 2020-05-02 00:00:00 Orders Only Doctor Unassigned, [place] [facility] 1.2.840.114 350.1.13.10 4.2.7.2.686 [id number] [id number] [facility] 2020-04-28 14:56:18 2020-04-28 17:06:33 Patient Outreach Anaid Larry [place] 1.2.840.114 350.1.13.10 4.2.7.2.686 [id number] 403 [id number] [facility] 2020-04-27 00:00:00 2020-04-27 00:00:00 Patient Outreach Anaid Larry 1.2.840.114 350.1.13.10 4.2.7.2.686 [id number] 403 [id number] [facility] 2020-04-27 00:00:00 2020-04-27 00:00:00 Patient Outreach Jaswant Bailey 1.2.840.114 350.1.13.10 4.2.7.2.686 [id number] 403 [id number] [facility] 2020-04-23 00:00:00 2020-04-23 00:00:00 Patient Outreach Anaid Larry 1.2.840.114 350.1.13.10 4.2.7.2.686 [id number] 403 [id number] [facility] 2020-04-23 00:00:00 2020-04-23 00:00:00 Transition of Care Rosemary Briceno 1.2.840.114 350.1.13.10 4.2.7.2.686 [id number] 403 [id number] [facility] 2020-04-23 00:00:00 2020-04-23 00:00:00 Patient Outreach Jaswant Bailey 1.2.840.114 350.1.13.10 4.2.7.2.686 [id number] 403 [id number] [facility] 2020-04-21 00:00:00 2020-04-21 00:00:00 Patient Outreach Anaid Larry 1.2.840.114 350.1.13.10 4.2.7.2.686 [id number] 403 [id number] [facility] 2020-04-14 09:28:42 2020-04-15 11:38:00 Emergency Sherin Wilson, [facility] 1.2.840.114 350.1.13.10 4.2.7.2.686 [id number] 081 [id number] [facility] 2020-04-15 00:00:00 2020-04-15 00:00:00 Telephone WilsonSherin [facility] 1.2.840.114 350.1.13.10 4.2.7.2.686 [id number] [id number] [facility] 2020-04-13 00:00:00 2020-04-13 00:00:00 Patient Outreach Anaid Larryjoey Jerome 1.2.840.114 350.1.13.10 4.2.7.2.686 [id number] 403 [id number] [facility] 2020-04-13 00:00:00 2020-04-13 00:00:00 Patient Outreach Ana CristinaGiuliana young Brooklynn Jerome 1.2.840.114 350.1.13.10 4.2.7.2.686 [id number] 403 [id number] [facility] 2020-04-13 00:00:00 2020-04-13 00:00:00 Patient Outreach Ana CristinaGiuliana young Brooklynn Millerkrista Jerome 1.2.840.114 350.1.13.10 4.2.7.2.686 [id number] 403 [id number] [facility] 2020-04-08 00:00:00 2020-04-08 00:00:00 Patient Outreach Anaid Larryjoey Miller [place] 1.2.840.114 350.1.13.10 4.2.7.2.686 [id number] 403 [id number] [facility] 2020-04-05 00:00:00 2020-04-05 00:00:00 Transition of Care Rosemary Briceno [facility] 1.2.840.114 350.1.13.10 4.2.7.2.686 [id number] [id number] [facility] 2020-04-05 00:00:00 2020-04-05 00:00:00 Transition of Care Rosemary Briceno 1.2.840.114 350.1.13.10 4.2.7.2.686 [id number] 403 [id number] [facility] 2020-04-05 00:00:00 2020-04-05 00:00:00 Transition of Care Rosemary Briceno 1.2.840.114 350.1.13.10 4.2.7.2.686 [id number] [facility] 2020-03-22 12:12:32 2020-04-02 16:45:00 Hospital En[facility] 1.2.840.114 350.1.13.10 4.2.7.2.686 [id number] [facility] 2020-03-29 09:00:00 2020-03-29 09:00:00 Outpatient BRITTANEY WOODS [facility] [id number] [facility] 2020-03-22 00:00:00 2020-03-22 00:00:00 Orders Only Doctor Unassigned, [place] [facility] 1.2.840.114 350.1.13.10 4.2.7.2.686 [id number] [id number] [facility] 2020-02-23 00:00:00 2020-02-23 00:00:00 Orders Only Doctor Unassigned, [place] [facility] 1.2.840.114 350.1.13.10 4.2.7.2.686 [id number] [id number] [facility] Results Test Description Test Time Test Comments Results Resul t Comments Source EGD (ENDO) 2024-09-26 20:40:06 Ordered by an unspecified provider. [facility] [place] 1 [id number] 20:44:17EXAM: XR CHEST 1 VW 09/22/2024 1:57 PM HISTORY: 63 years old Female with chest pain TECHNIQUE: Portable AP view of the chest. COMPARISON: Chest radiograph 11/14/2023 FINDINGS: Lungs and pleura: The lungs are clear. Lobulated appearance of the righthemidiaphragm. No focal consolidation, pneumothorax,or pleural effusion isseen. Cardiomediastinal: The cardiomediastinal silhouette is normal accounting for technique. Aortic knob calcification is noted. Musculoskeletal: No acute osseous abnormality. Old healed fracture of theproximal left humerus. Embolization coils are noted in the right upperquadrant. Cholecystectomy clips are noted.[facility]2024-12-23 20:11:23* Test Item Value Reference Range Interpretation Comme nts LIPASE (test code = 2959551947) 166 U/L 0-220 Lab Interpretation (test cod e = 54754-5) Normal [facility] SpringsTacrolimus, [id number] 21:42:22* Test Item Value Reference Range Interpretation Comme nts FK 506 (test code = 5370299922) 8 ng/mL RON (test code = RON) Target/Therapeutic Range KIDNEY ? Early (<3 mo) ? ? 8-12 ? Late ?(>3 mo) ? ? 5-10 ?SPK / ZA ? Early (<3 mo) ? ? 10-15 ? Mid ? (3-6 mo) ? ?8-10 ? Late ?(>6 mo) ? ? 5-8 ?LIVER ? Early (<3 mo) ?HCV: ? 5-7 ?Tumor: ? ? ? 5-7 ?Autoimmune: ?8-10 ? Late (>3 mo) ? ? ?~5 ?HEART ? Early (<6 mo) ? ? 12-15 ? Late ?(>6 mo) ? ? 8-12 ?LUNG ? Early (<6 mo) ? ? 12-15 ? Mid ? (7-12 mo) ? 10-15 ? Late ?(>12 mo) ? ?8-10 Method by: ?[employer], Newsp[employer] Column[employer] [id number] [facility] SpringsGLYCOSYLATED HEMOGLOBIN (A1C)2024-08-11 18:11:31* Test Item Value Reference Range Interpretation Comme nts HGB A1C (test code = 4548-4) 6.1 % 4.0-5.7 H RON (test code = RON) Reference RangesNormal: <5.7%Prediabetes: 5.7 - 6.4%Diabetes: > 6.5% Lab Interpretation (test code = 86608-5) Abnormal [facility] SpringsLipid Panel (40343)(Total Cholesterol, Triglycerides, HDL)2024-08-11 15:39:38* Test Item Value Reference Range Interpretation Comme nts CHOL (test code = 0605978447) 237 mg/dL 120-200 H HDL (test code = 2779812202) 88 mg/dL >=50 HDLC RATIO (test code = 1970357839) 2.7 <=4.5 TRIG (test code = 9785249859) 122 mg/dL 30-170 LDL CHOL (test code = 85176-6) 125 mg/dL <=160 VLDL (test code = 9272915554) 24 mg/dL 5-60 Lab Interpretation (test cod e = 96356-5) Abnormal [facility] SpringsBasic Metabolic Panel (NA, K, CL, CO2, GLUCOSE, BUN, CREATININE, CA)2024-08-11 15:39:23* Test Item Value Reference Range Interpretation Comme nts NA (test code = 2965895573) 131 mmol/L 135-145 L K (test code = 2074751305) 5.0 mmol/L 3.5-5.0 CL (test code = 1351257829) 94 mmol/L 98-108 L CO2 TOTAL (test code = 6510968635) 27 mmol/L 23-31 AGAP (test code = 1861419950) 10 2-16 BUN (test code = 6921626941) 16 mg/dL 7-23 GLUCOSE (test code = 8610599083) 171 mg/dL 70-110 H CREATININE (test code = 2160-0) 1.15 mg/dL 0.50-1.04 H CALCIUM (test code = 6740619529) 9.9 mg/dL 8.6-10.6 eGFR (test code = 34482-0) 53.0 mL/min/1.73m2 CKD-EPI eGFR (2020). Assuming creatinine has been stable day-to-day for at least three months, the eGFR indicates Category G3a (45 - 59 mL/min/1.73 m2) Lab Interpretation (test code = 16452-6) Abnormal [facility] SpringsMagnesium2024-11-11 15:39:23* Test Item Value Reference Range Interpretation Comme nts MAGNESIUM (test code = 8202408040) 1.3 mg/dL 1.7-2.4 L Lab Interpretation (test cod e = 52965-0) Abnormal [facility] SpringsHepatic Function Panel (74023) (ALB,T.PRO,BILI T,BU/BC,ALT,AST,ALK PHOS)2024-08-11 15:39:23* Test Item Value Reference Range Interpretation Comme nts TOTAL BILI (test code = 0039984119) 1.2 mg/dL 0.1-1.1 H BILI UNCON (test code = 0417209986) 0.9 mg/dL 0.1-1.1 BILI CONJ (test code = 2576596177) 0.0 mg/dL 0.0-0.3 T PROTEIN (test code = 3095209633) 8.0 g/dL 6.3-8.2 ALBUMIN (test code = 9032061850) 4.8 g/dL 3.5-5.0 ALK PHOS (test code = 2226263701) 73 U/L 34-122 ALTv (test code = 1742-6) 19 U/L 5-35 AST(SGOT) (test code = 0878578553) 28 U/L 13-40 Lab Interpretation (test cod e = 59383-3) Abnormal [facility] SpringsProthrombin Time / [id number] 15:02:56* Test Item Value Reference Range Interpretation Comme nts PROTIME PATIENT (test code = 5964-2) 11.5 10.1-12.6 INR (test code = 6301-6) 1.0 Normal INR <1.1; Warfarin Therapeutic range 2.0 to 3.0 or 2.5 to 3.5, depending upon the indications. Lab Interpretation (test code = 49477-5) Normal [facility] SpringsCBC WITH [id number] 15:00:54* Test Item Value Reference Range Interpretation Comme nts WBC (test code = 6690-2) 6.16 4.30-11.10 RBC (test code = 789-8) 4.25 3.93-5.25 HGB (test code = 718-7) 13.2 g/dL 11.6-15.0 HCT (test code = 4544-3) 37.8 % 35.7-45.2 MCV (test code = 787-2) 88.9 fL 80.6-95.5 MCH (test code = 785-6) 31.1 pg 25.9-32.8 MCHC (test code = 786-4) 34.9 g/dL 31.6-35.1 RDW-SD (test code = 09746-5) 41.2 fL 39.0-49.9 RDW-CV (test code = 788-0) 12.7 % 12.0-15.5 PLT (test code = 777-3) 191 166-358 MPV (test code = 83287-7) 9.1 fL 9.5-12.9 L NRBC/100 WBC (test code = 6171009914) 0.0 0.0-10.0 NRBC x10^3 (test code = 8030883306) See_Comment [Automated messa ge] The system which generated this result transmitted reference range: 10*3/?L. The reference range was not used to interpret this result as normal/abnormal. GRAN MAT (NEUT) % (test code = 770-8) 58.9 % IMM GRAN % (test code = 7916320609) 0.20 % LYMPH % (test code = 736-9) 28.1 % MONO % (test code = 5905-5) 9.1 % EOS % (test code = 713-8) 2.9 % BASO % (test code = 706-2) 0.8 % GRAN MAT x10^3(ANC) (test code = 0976980979) 3.63 10*3/uL 1.88-7.09 IMM GRAN x10^3 (test code = 3825935398) 0.00-0.06 LYMPH x10^3 (test code = 731-0) 1.73 10*3/uL 1.32-3.29 MONO x10^3 (test code = 742-7) 0.56 10*3/uL 0.33-0.92 EOS x10^3 (test code = 711-2) 0.18 10*3/uL 0.03-0.39 BASO x10^3 (test code = 704-7) 0.05 10*3/uL 0.01-0.07 Lab Interpretation (test code = 15493-7) Abnormal [facility] DIAGNOSTIC TOMOSYNTHESIS BILATERAL 2024-02-06 14:56:04Examination:BI DIAGNOSTIC TOMOSYNTHESIS BILATERAL History:Patient is 63 year old and is seen for: ?Fu. Computer-aided detection (CAD) utilized. Comparisons: 11/14/2022 BI DIAGNOSTIC TOMOSYNTHESIS BILATERAL, 11/22/2021 BI DIAGNOSTIC TOMOSYNTHESIS BILATERAL, and 09/14/2021 BI SCREENING TOMOSYNTHESIS BILATERAL Findings:The breasts have scattered areas of fibroglandular density. There is no evidence of suspicious masses, calcifications, or other abnormal findings. Stable appearing bilateral calcific ations in the upper outer quadrants are again noted, unchanged since November 2021. Impression:No mammographic evidence of malignancy. Recommendation:Annual mammographic follow-upThese findings and recommendations were discussed in detail with the patient at the time of this exam. BI-RADS Category:Both 1 - NegativeUnMemorial Herm[facility] KingwoodMagnesium [id number] 15:27:28* Test Item Value Reference Range Interpretation Comme nts MAGNESIUM (test code = 8125058357) 1.8 mg/dL 1.7-2.4 Lab Interpretation (test cod e = 45617-7) Normal [facility] Metabolic Panel (NA, K, CL, CO2, Glucose, BUN, Creatinine, CA)2024-01-17 15:27:07* Test Item Value Reference Range Interpretation Comme nts NA (test code = 4262100235) 135 mmol/L 135-145 K (test code = 9167079354) 4.6 mmol/L 3.5-5.0 CL (test code = 0114856333) 100 mmol/L 98-108 CO2 TOTAL (test code = 6413140399) 30 mmol/L 23-31 AGAP (test code = 0493577204) 5 2-16 BUN (test code = 8760892020) 8 mg/dL 7-23 GLUCOSE (test code = 0454863754) 221 mg/dL 70-110 H CREATININE (test code = 2160-0) 0.66 mg/dL 0.50-1.04 CALCIUM (test code = 7174460760) 9.2 mg/dL 8.6-10.6 eGFR (test code = 79802-9) 97.5 mL/min/1.73m2 CKD-EPI eGFR (2020). Assuming creatinine has been stable day-to-day for at least three months, the eGFR indicates Category G1 (>= 90 mL/min/1.73 m2) Lab Interpretation (test code = 86842-7) Abnormal [facility] SpringsHep[facility] Function Panel (ALB, T.PRO, BILI T, BU/BC, ALT, AST, ALK PHOS)2024-01-17 15:27:07* Test Item Value Reference Range Interpretation Comme nts TOTAL BILI (test code = 6846660358) 0.8 mg/dL 0.1-1.1 BILI UNCON (test code = 4846961065) 0.5 mg/dL 0.1-1.1 BILI CONJ (test code = 8674430948) 0.0 mg/dL 0.0-0.3 T PROTEIN (test code = 3494584916) 7.1 g/dL 6.3-8.2 ALBUMIN (test code = 8115678440) 4.2 g/dL 3.5-5.0 ALK PHOS (test code = 4550932849) 81 U/L 34-122 ALTv (test code = 1742-6) 16 U/L 5-35 AST(SGOT) (test code = 5285004448) 24 U/L 13-40 Lab Interpretation (test cod e = 46466-3) Normal [facility] with Mxpiipzizhej7867-90-18 14:21:34* Test Item Value Reference Range Interpretation Comme nts WBC (test code = 6690-2) 4.19 4.30-11.10 L RBC (test code = 789-8) 4.43 3.93-5.25 HGB (test code = 718-7) 13.1 g/dL 11.6-15.0 HCT (test code = 4544-3) 39.7 % 35.7-45.2 MCV (test code = 787-2) 89.6 fL 80.6-95.5 MCH (test code = 785-6) 29.6 pg 25.9-32.8 MCHC (test code = 786-4) 33.0 g/dL 31.6-35.1 RDW-SD (test code = 79665-2) 44.2 fL 39.0-49.9 RDW-CV (test code = 788-0) 13.5 % 12.0-15.5 PLT (test code = 777-3) 174 166-358 MPV (test code = 05469-4) 9.8 fL 9.5-12.9 NRBC/100 WBC (test code = 4093410456) 0.0 0.0-10.0 NRBC x10^3 (test code = 3662947317) See_Comment [Automated messa ge] The system which generated this result transmitted reference range: 10*3/?L. The reference range was not used to interpret this result as normal/abnormal. GRAN MAT (NEUT) % (test code = 770-8) 57.7 % IMM GRAN % (test code = 7958320381) 0.20 % LYMPH % (test code = 736-9) 28.2 % MONO % (test code = 5905-5) 8.8 % EOS % (test code = 713-8) 4.1 % BASO % (test code = 706-2) 1.0 % GRAN MAT x10^3(ANC) (test code = 8571928460) 2.42 10*3/uL 1.88-7.09 IMM GRAN x10^3 (test code = 9292757270) 0.00-0.06 LYMPH x10^3 (test code = 731-0) 1.18 10*3/uL 1.32-3.29 L MONO x10^3 (test code = 742-7) 0.37 10*3/uL 0.33-0.92 EOS x10^3 (test code = 711-2) 0.17 10*3/uL 0.03-0.39 BASO x10^3 (test code = 704-7) 0.04 10*3/uL 0.01-0.07 Lab Interpretation (test code = 89859-2) Abnormal [facility] with [id number] 14:21:34* Test Item Value Reference Range Interpretation Comme nts WBC (test code = 6690-2) 4.19 4.30-11.10 L RBC (test code = 789-8) 4.43 3.93-5.25 HGB (test code = 718-7) 13.1 g/dL 11.6-15.0 HCT (test code = 4544-3) 39.7 % 35.7-45.2 MCV (test code = 787-2) 89.6 fL 80.6-95.5 MCH (test code = 785-6) 29.6 pg 25.9-32.8 MCHC (test code = 786-4) 33.0 g/dL 31.6-35.1 RDW-SD (test code = 80318-2) 44.2 fL 39.0-49.9 RDW-CV (test code = 788-0) 13.5 % 12.0-15.5 PLT (test code = 777-3) 174 166-358 MPV (test code = 05179-9) 9.8 fL 9.5-12.9 NRBC/100 WBC (test code = 3637181684) 0.0 0.0-10.0 NRBC x10^3 (test code = 5171767629) See_Comment [Automated messa ge] The system which generated this result transmitted reference range: 10*3/?L. The reference range was not used to interpret this result as normal/abnormal. GRAN MAT (NEUT) % (test code = 770-8) 57.7 % IMM GRAN % (test code = 3109586622) 0.20 % LYMPH % (test code = 736-9) 28.2 % MONO % (test code = 5905-5) 8.8 % EOS % (test code = 713-8) 4.1 % BASO % (test code = 706-2) 1.0 % GRAN MAT x10^3(ANC) (test code = 6945368450) 2.42 10*3/uL 1.88-7.09 IMM GRAN x10^3 (test code = 4097502384) 0.00-0.06 LYMPH x10^3 (test code = 731-0) 1.18 10*3/uL 1.32-3.29 L MONO x10^3 (test code = 742-7) 0.37 10*3/uL 0.33-0.92 EOS x10^3 (test code = 711-2) 0.17 10*3/uL 0.03-0.39 BASO x10^3 (test code = 704-7) 0.04 10*3/uL 0.01-0.07 Lab Interpretation (test code = 44512-4) Abnormal [facility] SpringsProthrombin Time / [id number] 14:09:27* Test Item Value Reference Range Interpretation Comme [facility] PROTIME PATIENT (test code = 5964-2) 10.8 10.1-12.6 INR (test code = 6301-6) 0.9 Normal INR <1.1; Warfarin Therapeutic range 2.0 to 3.0 or 2.5 to 3.5, depending upon the indications. Lab Interpretation (test code = 83272-4) Normal [facility] SpringsProthrombin Time / [id number] 14:09:27* Test Item Value Reference Range Interpretation Comme nts PROTIME PATIENT (test code = 5964-2) 10.8 10.1-12.6 INR (test code = 6301-6) 0.9 Normal INR <1.1; Warfarin Therapeutic range 2.0 to 3.0 or 2.5 to 3.5, depending upon the indications. Lab Interpretation (test code = 33591-7) Normal [facility] SpringsTacrolimus, [id number] 15:07:19FK 506<3ng/mL/01/2024 10:07 AM CDTUTMB LABORATORY SERVICESTarget/Therapeutic Range KIDNEY ? Early (<3 mo) ? ? 8-12 ? Late ?(>3 mo) ? ? 5-10 ?SPK / ZA ?Early (<3 mo) ? ? 10-15 ? Mid ? (3-6 mo) ? ?8-10 ? Late ?(>6 mo) ? ? 5-8 ?LIVER ? Early (<3 mo) ?HCV: ? 5-7 ?Tumor: ? ? ? 5-7 ?Autoimmune: ?8-10 ? Late (>3 mo) ? ? ?~5 ?HEART ? Early (<6 mo) ? ? 12-15 ? Late ?(>6 mo) ?? 8-12 ?LUNG ? Early (<6 mo) ? ? 12-15 ? Mid ? (7-12 mo) ? 10-15 ? Late ?(>12 mo) ? ?8-10 Method by: ?[employer], Newspaper Columnist [id number] Hermann Surgical Hospital KingwoodHepatic Function Panel (10633) (ALB,T.PRO,BILI T,BU/BC,ALT,AST,ALK PHOS)2024-01-03 15:10:54* Test Item Value Reference Range Interpretation Comme nts TOTAL BILI (test code = 0142995435) 1.6 mg/dL 0.1-1.1 H BILI UNCON (test code = 5632066490) 1.2 mg/dL 0.1-1.1 H BILI CONJ (test code = 1120815629) 0.0 mg/dL 0.0-0.3 T PROTEIN (test code = 0001380944) 7.7 g/dL 6.3-8.2 ALBUMIN (test code = 7699158735) 4.3 g/dL 3.5-5.0 ALK PHOS (test code = 0316217303) 92 U/L 34-122 ALTv (test code = 1742-6) 17 U/L 5-35 AST(SGOT) (test code = 3941156066) 28 U/L 13-40 Lab Interpretation (test cod e = 59160-4) Abnormal [facility] Metabolic Panel (NA, K, CL, CO2, GLUCOSE, BUN, CREATININE, CA)2024-01-03 15:10:54* Test Item Value Reference Range Interpretation Comme nts NA (test code = 0972192341) 130 mmol/L 135-145 L K (test code = 9015490815) 4.3 mmol/L 3.5-5.0 CL (test code = 0336476343) 96 mmol/L 98-108 L CO2 TOTAL (test code = 5331217647) 24 mmol/L 23-31 AGAP (test code = 1025931141) 10 2-16 BUN (test code = 1919805225) 13 mg/dL 7-23 GLUCOSE (test code = 8172506472) 147 mg/dL 70-110 H CREATININE (test code = 2160-0) 0.73 mg/dL 0.50-1.04 CALCIUM (test code = 4899317492) 9.0 mg/dL 8.6-10.6 eGFR (test code = 85783-6) 91.4 mL/min/1.73m2 CKD-EPI eGFR (2020). Assuming creatinine has been stable day-to-day for at least three months, the eGFR indicates Category G1 (>= 90 mL/min/1.73 m2) Lab Interpretation (test code = 79501-6) Abnormal [facility] SpringsXR CHEST 1 [id number] 23:12:51EXAM: XR CHEST 1 VW 12/13/2023 3:57 PM HISTORY: 62 years old Female with epigastric pain TECHNIQUE: Portable AP view of the chest. COMPARISON: Chest radiograph 03/25/2022 FINDINGS: Lungs and pleura: The lungs are clear. No focal consolidation,pneumothorax, or pleural effusion is seen. Cardiomediastinal: The cardiomediastinal silhouette is normal in size.Atherosclerotic calcification of the aortic knob. Musculoskeletal: No acute osseous abnormality. Partially visualizedcervical spinal fusion hardware. Embolization coils project over the upperabdomen. Cholecystectomy clips are noted.[facility] TROPONIN [id number] 22:52:51* Test Item Value Reference Range Interpretation Comme nts TROPONIN I (test code = 7254617118) 0.005 ng/mL <=0.034 RON (test code = RON) Reference (Normal) Range (defined by the 99th percentile reference limit): <= 0.034 ng/mL Note: Cardiac troponin begins to rise 3-4 hours after the onset of ischemia. Repeat in 4-6 hours if the sample was drawn within 3-4 hours of the onset of the symptom and found normal. Diagnosis of myocardial injury is made with acute changes in cTn concentrations with at least one serial sample above the 99th percentile upper reference limit (URL), taken together with the patient's clinical presentation. Biotin has been reported to cause a negative bias, interpret results relative to patient's use of biotin. Lab Interpretation (test code = 66695-4) Normal [facility] SpringsN-TERMINAL [id number] 22:50:14* Test Item Value Reference Range Interpretation Comme nts NT-proBNP (test code = 56417-2) 202 pg/mL <=125 RON (test code = RON) Result Indeterminate-Consid er causes of NT-proBNP elevation other than Heart failure such as acute coronary syndrome, pulmonary embolism, pulmonary hypertension, sepsis, stroke, and renal dysfunction. Lab Interpretation (test code = 92822-0) Abnormal [facility] SpringsCOMP. METABOLIC PANEL (84335)2023-12-13 22:43:49* Test Item Value Reference Range Interpretation Comme nts NA (test code = 7439727119) 133 mmol/L 135-145 L K (test code = 4740553030) 4.2 mmol/L 3.5-5.0 CL (test code = 9866528587) 101 mmol/L 98-108 CO2 TOTAL (test code = 8961382914) 27 mmol/L 23-31 AGAP (test code = 7036256870) 5 2-16 BUN (test code = 7556232267) 17 mg/dL 7-23 GLUCOSE (test code = 0710312787) 266 mg/dL 70-110 H CREATININE (test code = 2160-0) 0.86 mg/dL 0.50-1.04 TOTAL BILI (test code = 3659515272) 0.8 mg/dL 0.1-1.1 CALCIUM (test code = 2907222390) 10.5 mg/dL 8.6-10.6 T PROTEIN (test code = 3473465187) 7.7 g/dL 6.3-8.2 ALBUMIN (test code = 6740539297) 4.3 g/dL 3.5-5.0 ALK PHOS (test code = 2096679790) 98 U/L 34-122 ALTv (test code = 1742-6) 41 U/L 5-35 H AST(SGOT) (test code = 6824450909) 37 U/L 13-40 eGFR (test code = 70443-0) 75.5 mL/min/1.73m2 CKD-EPI eGFR (2020). Assuming creatinine has been stable day-to-day for at least three months, the eGFR indicates Category G2 (60 - 89 mL/min/1.73 m2) Lab Interpretation (test code = 12664-1) Abnormal [facility] SpringsLIPASE2024-03-14 22:43:09* Test Item Value Reference Range Interpretation Comme nts LIPASE (test code = 7056702613) 162 U/L 0-220 Lab Interpretation (test cod e = 89869-9) Normal [facility] SpringsCBC WITH [id number] 22:39:50* Test Item Value Reference Range Interpretation Comme nts WBC (test code = 6690-2) 4.79 4.30-11.10 RBC (test code = 789-8) 4.29 3.93-5.25 HGB (test code = 718-7) 12.8 g/dL 11.6-15.0 HCT (test code = 4544-3) 37.0 % 35.7-45.2 MCV (test code = 787-2) 86.2 fL 80.6-95.5 MCH (test code = 785-6) 29.8 pg 25.9-32.8 MCHC (test code = 786-4) 34.6 g/dL 31.6-35.1 RDW-SD (test code = 16766-1) 40.2 fL 39.0-49.9 RDW-CV (test code = 788-0) 13.0 % 12.0-15.5 PLT (test code = 777-3) 155 166-358 L MPV (test code = 42680-9) 9.9 fL 9.5-12.9 NRBC/100 WBC (test code = 5318364867) 0.0 0.0-10.0 NRBC x10^3 (test code = 6076180773) See_Comment [Automated messa ge] The system which generated this result transmitted reference range: 10*3/?L. The reference range was not used to interpret this result as normal/abnormal. GRAN MAT (NEUT) % (test code = 770-8) 52.6 % IMM GRAN % (test code = 6631902798) 0.40 % LYMPH % (test code = 736-9) 35.1 % MONO % (test code = 5905-5) 8.6 % EOS % (test code = 713-8) 2.5 % BASO % (test code = 706-2) 0.8 % GRAN MAT x10^3(ANC) (test code = 4165532941) 2.52 10*3/uL 1.88-7.09 IMM GRAN x10^3 (test code = 7853597505) 0.00-0.06 LYMPH x10^3 (test code = 731-0) 1.68 10*3/uL 1.32-3.29 MONO x10^3 (test code = 742-7) 0.41 10*3/uL 0.33-0.92 EOS x10^3 (test code = 711-2) 0.12 10*3/uL 0.03-0.39 BASO x10^3 (test code = 704-7) 0.04 10*3/uL 0.01-0.07 Lab Interpretation (test code = 49985-6) Abnormal [facility] SpringsCT ABDOMEN PELVIS W [id number] 00:03:06EXAM: ?CT ABDOMEN PELVIS W CONTRAST DATE OF SERVICE: ?12/11/2023 05:27 PM ORDERING PHYSICIAN: Jessica BONE REASON FOR EXAM: ?62 years old, Female; ?Abdominal abscess/infection suspected H/o livertransplant 2019, off meds x 3 months TECHNIQUE: ?CT abdomen and pelvis obtained with IV contrast. CT Scan was performed using ALARA principles. ? COMPARISON: ? CT ABDOMEN PELVIS W CONTRAST on 10/24/2022, CT ABDOMEN PELVIS W CONTRAST on 06/16/2022, CT ABDOMEN PELVIS W CONTRAST on 02/02/2022 FINDINGS: ?There are no infiltrates or effusions in the lung bases. ?The heart size is normal. Postsurgical change from a liver transplant. Embolization coils in the right lobe Adrenal glands and pancreas are normal. ?Spleen enhances normally. Normal enhancement the kidneys. No hydronephrosis or cortical thinning. There is no bowel distention. Bladder is unremarkable. ?There is no adnexal mass. ?There is no free fluid. 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 Repeat in 4-6 hours if the sample was drawn within 3-4 hours of the onset of the symptom and found normal. Diagnosis of myocardial injury is made with acute changes in cTn concentrations with at least one serial sample above the 99th percentile upper reference limit (URL), taken together with the patient's clinical presentation. Biotin has been reported to cause a negative bias, interpret results relative to patient's use of biotin. Lab Interpretation (test code = 82940-2) Normal [facility] SpringsMagnesium2024-03-12 22:51:57* Test Item Value Reference Range Interpretation Comme nts MAGNESIUM (test code = 6988420020) 1.5 mg/dL 1.7-2.4 L Lab Interpretation (test cod e = 03990-3) Abnormal [facility] SpringsComp. Metabolic Panel (21270)2023-12-11 22:51:36* Test Item Value Reference Range Interpretation Comme nts NA (test code = 5582701388) 131 mmol/L 135-145 L K (test code = 1215147493) 3.8 mmol/L 3.5-5.0 CL (test code = 8921747034) 101 mmol/L 98-108 CO2 TOTAL (test code = 3067588734) 25 mmol/L 23-31 AGAP (test code = 6643027558) 5 2-16 BUN (test code = 3014796414) 16 mg/dL 7-23 GLUCOSE (test code = 2647395720) 351 mg/dL 70-110 H CREATININE (test code = 2160-0) 0.91 mg/dL 0.50-1.04 TOTAL BILI (test code = 5044894734) 0.8 mg/dL 0.1-1.1 CALCIUM (test code = 2476293352) 8.9 mg/dL 8.6-10.6 T PROTEIN (test code = 2765360344) 7.1 g/dL 6.3-8.2 ALBUMIN (test code = 4408495201) 4.0 g/dL 3.5-5.0 ALK PHOS (test code = 7724130083) 86 U/L 34-122 ALTv (test code = 1742-6) 15 U/L 5-35 AST(SGOT) (test code = 0052875336) 23 U/L 13-40 eGFR (test code = 22529-1) 70.6 mL/min/1.73m2 CKD-EPI eGFR (2020). Assuming creatinine has been stable day-to-day for at least three months, the eGFR indicates Category G2 (60 - 89 mL/min/1.73 m2) Lab Interpretation (test code = 14406-0) Abnormal [facility] SpringsLipase2024-03-12 22:51:16* Test Item Value Reference Range Interpretation Comme nts LIPASE (test code = 9571475221) 116 U/L 0-220 Lab Interpretation (test cod e = 97189-2) Normal [facility] SpringsCbc with [id number] 22:45:19* Test Item Value Reference Range Interpretation Comme nts WBC (test code = 6690-2) 4.20 4.30-11.10 L RBC (test code = 789-8) 4.23 3.93-5.25 HGB (test code = 718-7) 12.3 g/dL 11.6-15.0 HCT (test code = 4544-3) 36.2 % 35.7-45.2 MCV (test code = 787-2) 85.6 fL 80.6-95.5 MCH (test code = 785-6) 29.1 pg 25.9-32.8 MCHC (test code = 786-4) 34.0 g/dL 31.6-35.1 RDW-SD (test code = 43538-1) 39.8 fL 39.0-49.9 RDW-CV (test code = 788-0) 13.0 % 12.0-15.5 PLT (test code = 777-3) 146 166-358 L MPV (test code = 12037-4) 9.9 fL 9.5-12.9 NRBC/100 WBC (test code = 5397186130) 0.0 0.0-10.0 NRBC x10^3 (test code = 3395507476) See_Comment [Automated [employer] ge] The system which generated this result transmitted reference range: 10*3/?L. The reference range was not used to interpret this result as normal/abnormal. GRAN MAT (NEUT) % (test code = 770-8) 52.9 % IMM GRAN % (test code = 9865170502) 0.50 % LYMPH % (test code = 736-9) 32.6 % MONO % (test code = 5905-5) 10.2 % EOS % (test code = 713-8) 3.1 % BASO % (test code = 706-2) 0.7 % GRAN MAT x10^3(ANC) (test code = 3704719989) 2.22 10*3/uL 1.88-7.09 IMM GRAN x10^3 (test code = 7062773530) 0.00-0.06 LYMPH x10^3 (test code = 731-0) 1.37 10*3/uL 1.32-3.29 MONO x10^3 (test code = 742-7) 0.43 10*3/uL 0.33-0.92 EOS x10^3 (test code = 711-2) 0.13 10*3/uL 0.03-0.39 BASO x10^3 (test code = 704-7) 0.03 10*3/uL 0.01-0.07 Lab Interpretation (test code = 92483-3) Abnormal [facility] SpringsProthrombin Time / [id number] 14:50:45* Test Item Value Reference Range Interpretation Comme nts PROTIME PATIENT (test code = 5964-2) 13.1 See_Comment [Automated messa ge] The system which generated this result transmitted reference range: 12.0 - 14.7 Seconds. The reference range was not used to interpret this result as normal/abnormal. INR (test code = 6301-6) 1.0 Normal INR <1.1; Warfarin Therapeutic range 2.0 to 3.0 or 2.5 to 3.5, depending upon the indications. Lab Interpretation (test code = 77482-1) Normal [facility] SpringsCBC with [id number] 14:46:02* Test Item Value Reference Range Interpretation Comme nts WBC (test code = 6690-2) 4.82 See_Comment [Automated messa ge] The system which generated this result transmitted reference range: 4.30 - 11.10 10*3/?L. The reference range was not used to interpret this result as normal/abnormal. RBC (test code = 789-8) 4.18 See_Comment [Automated messa ge] The system which generated this result transmitted reference range: 3.93 - 5.25 10*6/?L. The reference range was not used to interpret this result as normal/abnormal. HGB (test code = 718-7) 12.6 g/dL 11.6-15.0 HCT (test code = 4544-3) 36.8 % 35.7-45.2 MCV (test code = 787-2) 88.0 fL 80.6-95.5 MCH (test code = 785-6) 30.1 pg 25.9-32.8 MCHC (test code = 786-4) 34.2 g/dL 31.6-35.1 RDW-SD (test code = 77623-8) 43.0 fL 39.0-49.9 RDW-CV (test code = 788-0) 13.3 % 12.0-15.5 PLT (test code = 777-3) 151 See_Comment L [Automated messa ge] The system which generated this result transmitted reference range: 166 - 358 10*3/?L. The reference range was not used to interpret this result as normal/abnormal. MPV (test code = 25072-4) 9.2 fL 9.5-12.9 L NRBC/100 WBC (test code = 4389649579) 0.0 See_Comment [Automated me ssage] The system which generated this result transmitted reference range: 0.0 - 10.0 /100 WBCs. The reference range was not used to interpret this result as normal/abnormal. NRBC x10^3 (test code = 7437747677) See_Comment [Automated messa ge] The system which generated this result transmitted reference range: 10*3/?L. The reference range was not used to interpret this result as normal/abnormal. GRAN MAT (NEUT) % (test code = 770-8) 55.3 % IMM GRAN % (test code = 5522815202) 0.20 % LYMPH % (test code = 736-9) 31.7 % MONO % (test code = 5905-5) 8.7 % EOS % (test code = 713-8) 3.5 % BASO % (test code = 706-2) 0.6 % GRAN MAT x10^3(ANC) (test code = 9215039776) 2.66 10*3/uL 1.88-7.09 IMM GRAN x10^3 (test code = 9895943177) 0.00-0.06 LYMPH x10^3 (test code = 731-0) 1.53 10*3/uL 1.32-3.29 MONO x10^3 (test code = 742-7) 0.42 10*3/uL 0.33-0.92 EOS x10^3 (test code = 711-2) 0.17 10*3/uL 0.03-0.39 BASO x10^3 (test code = 704-7) 0.03 10*3/uL 0.01-0.07 Lab Interpretation (test code = 60828-8) Abnormal [facility] with Ijzzwemeuqkr1466-33-60 14:46:02* Test Item Value Reference Range Interpretation Comme nts WBC (test code = 6690-2) 4.82 See_Comment [Automated messa ge] The system which generated this result transmitted reference range: 4.30 - 11.10 10*3/?L. The reference range was not used to interpret this result as normal/abnormal. RBC (test code = 789-8) 4.18 See_Comment [Automated messa ge] The system which generated this result transmitted reference range: 3.93 - 5.25 10*6/?L. The reference range was not used to interpret this result as normal/abnormal. HGB (test code = 718-7) 12.6 g/dL 11.6-15.0 HCT (test code = 4544-3) 36.8 % 35.7-45.2 MCV (test code = 787-2) 88.0 fL 80.6-95.5 MCH (test code = 785-6) 30.1 pg 25.9-32.8 MCHC (test code = 786-4) 34.2 g/dL 31.6-35.1 RDW-SD (test code = 28847-4) 43.0 fL 39.0-49.9 RDW-CV (test code = 788-0) 13.3 % 12.0-15.5 PLT (test code = 777-3) 151 See_Comment L [Automated messa ge] The system which generated this result transmitted reference range: 166 - 358 10*3/?L. The reference range was not used to interpret this result as normal/abnormal. MPV (test code = 67233-1) 9.2 fL 9.5-12.9 L NRBC/100 WBC (test code = 3684408336) 0.0 See_Comment [Automated me ssage] The system which generated this result transmitted reference range: 0.0 - 10.0 /100 WBCs. The reference range was not used to interpret this result as normal/abnormal. NRBC x10^3 (test code = 6546645228) See_Comment [Automated messa ge] The system which generated this result transmitted reference range: 10*3/?L. The reference range was not used to interpret this result as normal/abnormal. GRAN MAT (NEUT) % (test code = 770-8) 55.3 % IMM GRAN % (test code = 1307892481) 0.20 % LYMPH % (test code = 736-9) 31.7 % MONO % (test code = 5905-5) 8.7 % EOS % (test code = 713-8) 3.5 % BASO % (test code = 706-2) 0.6 % GRAN MAT x10^3(ANC) (test code = 0571011836) 2.66 10*3/uL 1.88-7.09 IMM GRAN x10^3 (test code = 2204445882) 0.00-0.06 LYMPH x10^3 (test code = 731-0) 1.53 10*3/uL 1.32-3.29 MONO x10^3 (test code = 742-7) 0.42 10*3/uL 0.33-0.92 EOS x10^3 (test code = 711-2) 0.17 10*3/uL 0.03-0.39 BASO x10^3 (test code = 704-7) 0.03 10*3/uL 0.01-0.07 Lab Interpretation (test code = 96493-0) Abnormal [facility] GLUCOSE (AUTOMATED)2022-12-29 23:42:30* Test Item Value Reference Range Interpretation Comme [facility] POCT GLU (test code = 1801350844) 224 mg/dL 70-110 H Lab Interpretation (test cod e = 52547-9) Abnormal [facility] GLUCOSE (AUTOMATED)2022-12-29 21:14:03* Test Item Value Reference Range Interpretation Comme [facility] POCT GLU (test code = 3237388789) 331 mg/dL 70-110 H Lab Interpretation (test cod e = 40855-1) Abnormal [facility] HEMOGLOBIN A1C [id number] 15:18:00* Test Item Value Reference Range Interpretation Comme [facility] POCT HBA1C (test code = 4548-4) 7.7 % 4-6 A Lab Interpretation (test cod e = 88878-9) Abnormal [facility] HEMOGLOBIN A1C [id number] 15:18:00* Test Item Value Reference Range Interpretation Comme [facility] POCT HBA1C (test code = 4548-4) 7.7 % 4-6 A Lab Interpretation (test cod e = 26329-1) [facility]normal [facility] [id number] 19:23:30* Test Item Value Reference Range Interpretation Comme [facility] Case Report (test code = 7519756281) Surgical Pathology ?Case: [id number] ? Authorizing Provider: ?Simone Saxena MD ? Collected: ? 11/16/2022 0953 ?Ordering Location: ? ? [facility] ? ? Received: ?11/16/2022 1122 ? Center ? Pathologist: ? Tee Olea MD PhD ?Specimens: ? A) - STOMACH, bx ? B) - LARGE INTESTINE, RIGHT-ASCENDING COLON, bx ? C) - LARGE INTESTINE, TRANSVERSE COLON, bx ? D) - LARGE INTESTINE, LEFT-DESCENDING COLON, bx ? Final Diagnosis (test code = 3124401490) k6ixzCXyNGNvt7ukTIZrgQ FuZzEwMzNcZnRuYmpcdWMx IHtccnRmMVxlcGljMTAxMD JqUQ5coUuzpEq7qLrqPLWj bhG8aFAyNTeru6iwLKH1j1 kjuduoXRBlDFokYb9tiZWx hDopOqBpCLAbGOw4kQ87AN LesC2kvYPqJDn8LUAzzPYx avBaHdGuHVMcuIJjsAN6BJ JxMT1wkauoDRxyFTonTWEw xgR4UKGxoQVpU1TeDKFrEF 4ficwcZEG1PGbbPKEzXQP3 WpEvDGSsx6Deiob1IpNiqJ FyZFxwbGFpblxmczIwXHBh ggNPTpXRHF6KCZYMVBTSHU 7WN0d5RYGudqaduFG2QoUm TAnXB8BOHTAmSSAUL8IFPK lHOKuqVv0xQTWOZV8YI2yC MyJYFOHQK3EteMSrDZ1bNm 7dEL8TISMWVO1OHHNJJNVP NQpGZ9eVIUiYAQ0OPGRRMP IfeDUtTQHlUYEwGSVeOZ3b Pu3gVU0cKRtOQ0YPFP9BI6 FOSVNNUyBJREVOVElGSUVE XHBhclxwYXJkXHBhciBCLi CIJ3nRMcvhBmyTELSfOGKA IM2HVL2MBXTKSW2TY8o9ZF CnvyUyPPVxKI7uX20QO63M VoQBEEYBM4NzE4jYSAIGLa RXZIRCP4bTG9fHGWkcE2tE WhhMIPVroefrASPdLz2cP1 0YS58lUQHZPW6ZIjWSA6Wx GZFCL8XUCFffnRXqPMZjNL QiYDSQQ6sDJtrQGI6YC73Z SAQGZHZDOY8MYCRBHWpBVI 6OIOXLMARNHYSQF8HkjJMf FGHispJQOrNLE5zPTulmVR JVJVTLGYNUZF0OGP0OTLPE FT3YV1n6FURxarCqLATjBF 3nX27IT52ESmRDGCYBT5Yp R2vRSHGEIwVSZBZAM9qRE9 zQTGfiB8pXDfdNOXPukhfe YXIgRmFyZWVkIFJhamFjay wgTUQgMDIvMTcvMjMsIDEw DpX4OIGXHhslNGWpaELdAM ubIEZ9y8wiuFAhBQEdyIKp IdUvSKEvZSQqf6xvQGWjxK FuZzEwMzNcZnRuYmpcdWMx INUxEzEzv4kiy670hHEbx7 jkDVAeXhG2mXGyCYEkjNkp eqt9yKqaTvRrEJWeh3kvnl BcZmNoYXJzZXQwIEFyaWFs Z346UOJqTRmpa3tjn5HhTM WawEJlj8P0FYOJHXclMyIo J184b0ymq7lijzUzcXG3LJ HgZZT1IYophpUlmfU9BUmn dYYxAqQ6WFyihwTmHJivvf InwxMpFkj9MHPdK509UTM9 lBkft2gpPZE4NVXwLNXzPb lzLx6rrFEiX688JZAuGSJA XRJysSp7KUXntjEzqcAewI ESs350O037h4osNKXzatDo sWgGupwqh5grO753FXNgrE VydzEyMjQwXHBhcGVyaDE1 LGIvKC0nhmokOWldTYxlAM DcdeP5VSBwlOUoO7UiPIJm MB4oagtiVMK2YUfbNMYmFE Z6DpZuIMTwp3Teqmx7XxEt ge0qal77VMB8l4MatWllJM B0PFD7TqLmOn8rrCDiDMRm FU0bGtCxiXZkAQCica46eU nsLSbtgvZvyQ1iGrGxFEGn dMDpPWGnFQ0sfOSqZEVzfA 5ucmxjXHBnYnJkcmhlYWRc lQifuaKkGm7gcWcrDUI5QY nwZ0vozZ5dYlF6NDngR1oq cJ5vFMu4CYsckGT8ZISqvK 2qYA3asodvd8trUDohXGet NIJalwY5brJ3OYDfiUOgV7 GbhV8hEWMoGT9pmspsy9du ZSU1QBbnJDCaMUU8UpLkTK Gpg9Ittss5IvOdh9IjbSXj QDqeH06in478GCKehjJiI7 xwbGFpblxwbGFpblxmMFxm akH6TYQcRJPeKQggTCRnPN ZzMjBcbGFuZzEwMzNcaGlj aFxmMVxkYmNoXGYxXGxvY2 soGvUiI7WdKJChFcVeeVCn JEdxmOI8SXZdIFVhd28qgQ d1MGHtynekx7LiGNCvuOZp tSMcnJ2wzbAco4cyDAZtZT YfITSeK1AuYYK2nZJmUFEv kDFlwWD1MC9rhqIoIP2wAH UgYnkgcmVzaWRlbnRzLCBm XNwht0umDF9hDSWitSyygK 6hiXF9CWGdi3fmfVDkcTXb q8ysk6LziwBaNCvlGORlGO ppKRUwKNUtJK5eAVZpbWTb ifNyb1S9NkgugLStiutaZs unuxD5NFqkzbyuTFSqFPhf I5tyAsTcWJTyjAjbHbwhh1 NoXGYyXGZzMjhccGFyfX0= Clinical Information (test code = 9476452453) Encounter for colorectal cancer screening [Z12.11, Z12.12]Nausea vomiting1 eval for infection vs h pylori2-4 eval for microscopic colitis vs infection Gross Description (test code = [id number]) u7mdsWByBRPoeMGPRCBxLN AkOC7kbQflhYs5yMesBPIm znT7dYLxZCfzq8mvCMJ7s9 llbiANClxkZWZmMVxwYXBl pegpSvL2QWztIWKuvuyvYG f9SWjuIYIjoWL1HSMmbSJx R9DfHMWnJN5gsdm5FUN9FU kdFVJnEaB3JYSdDiVnTcat EAg9ITCoxbF0Jbt2EZJiDY QzeVGiy9P1ENaaiuffHMEw nOQoY237FXfts0LczGGbQS pccGFyZCANCntcKlxlcGlj u4BipMYsTVymMOIpHNHsDX peyxkrBKd3FKIbOBdqgPQp BE2gtEnxItipmUadk5GogZ BcXGlkIDUxMDAyIFxcZGIg DU4WDnPeRYU7Tre9WDLcLG x3LLq1HP0ESlOcWGJcADCv MaTwDGSiGRa2VKpiRB9YYA G6QXX2Yhx8QdOcURDnVBHh KDv8EWIqNVceTEZbwEQmCY zzWqMrICCzANxzhKKaTL9i fVxwbGFpblxmczIwIFNQRU ZZSQWYCJTbgVAmBL9ZXTMg OVurVHXhuCJDOUE8HD2aGO ANClxsdHJwYXJcbGluMFxy oB0iJW9WBNu0pbXbNQWvHg TbL5KqA0cbPS4nSIRhyxLh NGZqgQIcBZWuwoFaj1BiYC xpbiBsYWJlbGVkIHdpdGgg dGhlIHBhdGllbnQncyBuYW 3iFLCTTHBmhZ9vXTHfPnV1 h10zS2yiRHFBXqTokdGqQ1 2qc5lgvPWkd1DbsPxaYVFg te3epY4pJWiflnPbxTcrtq Bhv8J3EPUvz9U7ZDBmgkIi pYWgdPIaIRBvQGG7LHGxJx E5MYReZZEcjWFlpnEqPH7y HWtiEY4hLIbzFY8tTRUgZU 3qAAOnMRQmpEOyhY8ahaPm jpZbsJg2NCKaAOF3aOCupL ibKYCwQadufXW9SNEvEaWm wdJlf7IrxJx9xLOoTCpsQM RjjI8jqY7hVOXxWTeeCWDm L56xh4MAo9OyRBWst8ztdJ uzi2PtaUDcFYzdQEJuiAIa BTbhaF7xOlGyt0ipwVh6DE zswxW9SJYiob1qgGqwyJ3c PPm7OGnlRYCcZ0EdX2XkLA lrHAX1CSOeRqDbBJIzOSSM RcLjJmQ7RHH7SQPyDyZ5FB u9RJQCUrNsRuZiEqM2XxD6 EQMnDRa5CPl3HQnGJbXfWa IwDMK5VUaiDCI7EBImLQzn dCAyIFxcZiBBcmlhbCBcXG KvSOClUFrjYzciFVwlL19e hXunpG4eZhZhPBALUVPDWA 1FTiBCXHBhciANClxwbGFp blxlcGljTmVzdERvYzEgDQ pcbHRycGFyXGxpbjBccmlu MCANClxsdHJjaFxmczIyIF NwZWNpbWVuIEIgaXMgcmVj CEn5FSYqdF2mEc3fgENcwJ 0ooKNvQPqxZYX3jZCwXHSy BLDrGZOfQW03A9RhcyAaOH wgVUggbnVtYmVyICJsYXJn TDIylqTai8MjcmTmYPSxM8 j5ASYmM6DeIQraAjYmi3le zzegImrvQAQoAJUaa58szQ E3fsAaOwBcthMyN6idXGpz xXOhx6QnyJWziV98WPDxvm Stc1N5WGJzz5N4CKLilxTl kZPdkVYyNHNhORI2XEOtPI E2HVRyZUMjrNmcokSkT6sl CzVbvv5dMWLiAu7kHeUeW8 3nnI4uY7DtUVWgn5TsNCpt VX7fhS3dBW0aOCHtQAJswR LpcO7xmcRgccYrtNc6WLOb EEB2dCIbbIehXHSxOjrdgF F3EZYxGjJmhdUwi2SojTv0 tHVkLGisBXKobR0skN5lGh VoGJkyWGOmB66ib0ANn1To LVEtp3vglUqmz8EcqRMoUL kwVIIbyADbEWluhO4yLwLf o4bwfFr0PLobtzK9JANpjs 0ywLmabG3cGKs7JDigMVTr A4HbL9LiCKouPUB0VGMoPw MpXLKyRCWGQkCdVgS7FPH8 YVJdCnU1TAb2ZPWYWhOlKi KvKyC6YaJ5SVPmBOd7ZPs7 IEhOTyAxNzQyNDMwODUwID A0LQSqPWhieAOnLAtrCcHM cmlhbCBcXGZzIDEwIFxcZm glJMdqY53atAxnlI5yQqEh MZUUSCFCKQ3SOyORFIXjjj ANClxwbGFpblxlcGljTmVz dERvYzEgDQpcbHRycGFyXG xpbjBccmluMCANClxsdHJj aFxmczIyIFNwZWNpbWVuIE ErbCNyveDqEVu4QFCkdF5z Kx0lcLIfsN5gdBIcDBntKK Y2pRTtJMGcHONnVNYmEX04 G9VezwWfOBgsEHvbdtWrDq HdYISsXOExUCBsrnRgq2As ozEgWSLpCZ0bwcBfb4DcR1 7py21qSuDiigKpL85un2eo mTHvb3ZvzMrfGRtquLwigv 77FH0ppLTcFKd3mGAhUBNj ZsKpnJzrc6EwDSYnYRdsSQ 35rbAnKU71QFqmPO0lDHkt MU0yJZDeEUJnDRDjBgWddC PwBjQtuQBaFzElJ84mYpYh VGhlIHNwZWNpbWVuIGlzIG DxnSNfkwUrJAGilb69D3rj FPNepJ7jp1ipLkJyGEAsFA OmmHBgaRJ7QRSbxE4ouV93 rsHeeuTGSS9ELexvtPesCq FdvFKyIsCbxwE4YYXqiSQn ZHM1HB7fQCDpcmrpXMWrUE NvQZY8HFilvG90qRWeGQBb MTZccGFyfVxwbGFpbiANCn clJbcqwIxsy6HstUDiWRjd STLwPIDjFQbtZWSvYL7ILu WdQAU3Deq0TSNtSYb8ZXk6 TL6UVbRoMWOjTDQvUxH6FP AqBUq4GVqgTA0IUOB7WQQ4 WvQnGtHvBYOwLHGnJSl2HZ IgXFxmIEFyaWFsIFxcZnMg ZFEmFYwwzYBgEH4beFgvxA FpblxmczIwIFNQRUNJTUVO ELMlaBEvKE1EZKWbTSmmYL QeqFTNPTT6WI6xFKVEPdei eCOuQOTbvMfyUSkkfB5rTG 7DZUj1zlLzLLPkSyAtG2Vd B1wkPO5aRGTmoyGbXQIskD IkAKYmruWve2SyQQafpxOv YWJlbGVkIHdpdGggdGhlIH JpgXyirvNzpfWfNZ3wMHOC OCHqpQ0pIRUxCwlerfpaTR ludGVzdGluZSwgbGVmdCBk OCWrSA8vzU1uKUPheT1gGG KHNTExVT5lYNClxoYxz5Rm EB5qUXZ8keY6TU6ycKuedg WwdrRoP2KlXYAdx93elIO1 lHEdaDOqYgHaC86xolJsHK gwLjMgeCAwLjMgeCAwLjEg R37xCV2zIALaDoY7PRBuOE C5XIQkJOZhxLamOHKDoIUz d5RgS8dvDE0qjLSyXpwmiL AvXNCubXcmd0WklEDzXXBc l8UolLNeIPckMM6kAID7Oi 6wvIYuRFZihgQ3x2ZwPYhl IEQxLlxwYXIgDQpccGFyIA 5TKPfgBJ2jXO9qaeigVZNA PDLcIDSZWLsvjV6AGPQifH KKGYH6JH7gCGt4KGfiHANo E9AlF6WlcmYdkBYyNJRhzo Jot5iuYAT6CARjdHSjpPTg YoEtRoppPLW7HMLzNDwqGA 1QAVGpERH4IIggmD11eLWs PE3MJZSiDRqtCKVuDNAfcj R4HVFbuYJdYXQ9VM1sfKxp lCCflujydlG3SV6BsU== Disclaimer (test code = 4974575653) d9vcfHWsCYXmf2ndESAmaQ FuZzEwMzNcZnRuYmpcdWMx PTliajWsHXloz0NlB5TuNy AwMFxhbnNpXGRlZmxhbmcx YDApKJZ4qdHjYTFqJGdbAG CcPZucSy4twYBpfKyhCtNu IHPzb3zjvfWXMUabGcUiE1 70INZgIPpdt8tqp3RhALIp xYLkr9I6IZEBkovznTp0uN dtX70sx0M0QjffU2utVGKi ZXViE6WuRT6bKPEoZvl5OC O7VIX5NYYdKMUzL0VvYA8e SNWikATiQLd0e3kwfDnqQQ WsOTU7j2mvDAbjqkZiXS6k ga0bmLe8p0fazyXxTSQtBQ BwnZLSHSPnE2JywVnyIj1q oZd8qZinKaobTRF2Ior0JJ 9nsi25ahu7vUhtWSIflizo BcC8QQokMPRgyjorMKn8BX tiHFXjoLN8ZPFczYOvE9Rf XRPcFR5wplq3YVT5JFttSP OjAeO1GMWhdILgGWUkbCnm FDajc702ZTP9PwHiUS8vP1 Dlz2W2hY5wsBBpFYOyxJLe RjVtWXYwnb9vkNPhVNdnb4 BzGFA0grL0fGIfzXSiPKZe BX69Efpdn0CdRanzl5CrJ0 7bwFV0VJnad8taZF9tWsR9 idFgDBjrd3ceeD3oJhW0AT gtTT5dBX5iSFVauQ8szkgn XHBnYnJkcmhlYWRccGdicm XoMr8dyPfpTYS2IRtmC9kq wF7gZiZ1TBbaZ2dmpA9aVE d8KPoolLD7GWMtfR6lOR7h fkvvo2wbQZloDSrtDTLwrm X7doB7KVXddDUzU7RsaV0w DABcSZ8rhysua6odYDC9AJ rzYLAoUWZ6JvOlPXFcf4Nk yvn5ZrNqu3GveCEdLOufA1 0mz816OXIfxiHbC6rlaAFw xgmuoPUmdoibKHiyrnY9PV NfvzEtd7JmCYLiLAD0ZXiu QPfrfQSlCACzhQypc0ndX7 RscGFyXHBsYWluXGYxXGZz MjBcbGFuZzEwMzNcaGljaF oyPDfdKySaLNAdJWyoC3im JmLtB5LjLAKgDyAtaFIgJ2 ggVGhpcyByZXBvcnQgbWF5 JQgtU0g4YUIonmIuyPk2zp SrYqQkSPUmABN4HVexlMUp LGCns9DounjmrBEcZr5bwJ XaXHUrzA5xRZEgFYAkQYht VN6kgPs5EOQJiJVylNUnLf UGQMKgEZ19nxKsKWPLczbu v4U4MRhgBVEqf9TchKCqC2 vxc8IdDGRgn57iVH6nf5N2 p2vjIRF9QY6rh4TmBJYkiT UmiVNnLLBqb6Kourlqq0Cw NCUeylZsq2SkBAXljdGmhZ UiVYDoivUksj9mvzKyXFYj MUIrH8NnuulqpCiyevGqHB Eqwp1aqiVvQKT6JYNOGNLd JQNhm8AijF6asSJSSPW7vV Rgsx5rhgAAhSDoUMOhui69 HLDkRS0kZ0bsFDTmJJHbkr OccMQkq3IdJCFjtVJ1yRKb ZL1YCoYYo83pVKFkBULIwi VhDBLweFnyrLE2kjV8iN3r IChGREEpLlx+IFRoZSBGRE OcXU4doyOhr2RfemGldCft WCVxxMIub2RzlXMba9IqcK jpk1PsmJPcxWBmFD4iCELf clxwYXIgVVRNQiBMYWJvcm Z4v0WoPCHzJESiICH6kYeh uyt1VGPmeF6rVMGfB8gici nkSItwRGGih9ZdfW5aqXRA oZZfv2RoyBXqjLHGwFFkAB 0fjhTvPLmPTJtRBGM0uwTc ROTrm4OlMHptP9xuW32tjP nbmOj7pPK3ULD9iR4eSnj+ IFxwYXJccGFyIEFwcHJvcH FuFLApuYeuacKhN3LqghXb aV3emTEaopYdQS6oWA2nI6 Z4uMIgOPWavoGsu2hiFXcu dmUgYmVlbiByZXZpZXdlZC Rfi8CnEFubHYR5YYwcecDj bmNsdWRpbmcgSCZFLCBTcG QuiUQrGRM3KKcepsCfizFe LZ0ppM6jyMvfwP8lkDStpF T8shbmSRGrHICdfXvlGXGn CP9ycJAkKICnofVIuVowqU BiuR3jC7PoGOTzUAGthx4w GYSauI6vSRafk8RovxhlHB AjBNItUNHbbnIryj3pENEx oJIYVV3FDSqmpCIgl4Pqwz TuJ8gSCCG4GWHxMiKoOlqw NORxfNWwkCYiPHGcrw14US DldN3bcXssGLXsoZ3itE4o hOqbsV6xQoHoKoSsXBldIP 1hRQYkO8weiYHvIEKgPLFw D2ntSiJjbG0toWvdOPyqJt SyBlMuYQnkIBW8xO== Embedded Images (test code = 5594549694) [facility] GLUCOSE (AUTOMATED)2022-11-16 14:19:24* Test Item Value Reference Range Interpretation Comme nts POCT GLU (test code = 5438793791) 155 mg/dL 70-110 H Lab Interpretation (test cod e = 88970-6) Abnormal [facility] GLUCOSE (AUTOMATED)2022-11-16 14:19:24* Test Item Value Reference Range Interpretation Comme nts POCT GLU (test code = 0998200015) 155 mg/dL 70-110 H Lab Interpretation (test cod e = 04465-9) Abnormal [facility] GLUCOSE (AUTOMATED)2022-10-25 23:30:22* Test Item Value Reference Range Interpretation Comme nts POCT GLU (test code = 1131806570) 454 mg/dL 70-110 HH Lab Interpretation (test cod e = 39355-2) [facility] Springs[facility] Acid Whole [id number] 00:26:43* Test Item Value Reference Range Interpretation Comme nts LACTIC ACID (test code = 5739213149) 1.16 mmol/L 0.50-2.20 Lab Interpretation (test cod e = 54545-6) Normal [facility] GLUCOSE (AUTOMATED)2022-10-25 00:00:32* Test Item Value Reference Range Interpretation Comme nts POCT GLU (test code = 7124560569) 130 mg/dL 70-110 H Lab Interpretation (test cod e = 05264-7) Abnormal [facility] GLUCOSE (AUTOMATED)2022-10-24 22:05:23* Test Item Value Reference Range Interpretation Comme nts POCT GLU (test code = 2006333395) 370 mg/dL 70-110 H Lab Interpretation (test cod e = 60450-0) Abnormal [facility] SpringsTROPONIN [id number] 21:37:57* Test Item Value Reference Range Interpretation Comments TROPONIN I (test code = 5122431660) 0.004 ng/mL See_Comment [Automated message] The system which generated this result transmitted reference range: <=0.034. The reference range was not used to interpret this result as normal/abnormal. RON (test code = RON) Reference (Normal) Range (defined by the 99th percentile reference limit): <= 0.034 ng/mL Note: Cardiac troponin begins to rise 3-4 hours after the onset of ischemia. Repeat in 4-6 hours if the sample was drawn within 3-4 hours of the onset of the symptom and found normal. Diagnosis of myocardial injury is made with acute changes in cTn concentrations with at least one serial sample above the 99th percentile upper reference limit (URL), taken together with the patient's clinical presentation. Biotin has been reported to cause a negative bias, interpret results relative to patient's use of biotin. Lab Interpretation (test code = 90162-7) Normal [facility] METABOLIC PANEL (96091)2022-10-24 21:35:29* Test Item Value Reference Range Interpretation Comme nts NA (test code = 6815569833) 130 mmol/L 135-145 L K (test code = 8515488214) 3.8 mmol/L 3.5-5.0 CL (test code = 7120232649) 94 mmol/L 98-108 L CO2 TOTAL (test code = 0522732277) 23 mmol/L 23-31 AGAP (test code = 6061010236) 2-16 BUN (test code = 0662588724) 22 mg/dL 7-23 GLUCOSE (test code = 3677292039) 492 mg/dL 70-110 HH CREATININE (test code = 5934079022) 1.03 mg/dL 0.50-1.04 TOTAL BILI (test code = 7082321370) 0.8 mg/dL 0.1-1.1 CALCIUM (test code = 8790437922) 8.8 mg/dL 8.6-10.6 T PROTEIN (test code = 3191077792) 7.1 g/dL 6.3-8.2 ALBUMIN (test code = 2198715108) 4.3 g/dL 3.5-5.0 ALK PHOS (test code = 6908066796) 85 U/L 34-122 ALTv (test code = 1742-6) 24 U/L 5-35 AST(SGOT) (test code = 4496647816) 28 U/L 13-40 eGFR (test code = 0189252818) mL/min/1.73m2 RON (test code = RON) Association of Glomerular Filtration Rate (GFR) and Staging of Kidney Disease* + --+ --+ ------+| GFR (mL/min/1.73 m2) ?| With Kidney Damage ?| ?Without Kidney Damage+ --------+ --------+ +| ?>90 ?| ?Stage one ?| ? Normal ?+ ---+ ---+ -------+| ?60-89 ?| ?Stage two ?| ? Decreased GFR ? + --+ --+ ------+| ?30-59 ?| ?Stage three ?| ? Stage three ? + --+ --+ ------+| ?15-29 ?| ?Stage four ? | ? Stage four ?+ ---+ ---+ -------+| ?<15 (or dialysis) ? ?| ?Stage five ? | ? Stage five ?+ ---+ ---+ -------+ *Each stage assumes the associated GFR level has been in effect for at least three months. ?Stages 1 to 5, with or without kidney disease, indicate chronic kidney disease. Notes: Determination of stages one and two (with eGFR >59mL/min/1.73 m2) requires estimation of kidney damage for at least three months as defined by structural or functional abnormalities of the kidney, manifested by either:Pathological abnormalities or Markers of kidney damage (including abnormalities in the composition of the blood or urine or abnormalities in imaging tests). Lab Interpretation (test code = 92489-3) Abnormal [facility] SpringsN-TERMINAL [id number] 21:34:53* Test Item Value Reference Range Interpretation Comme [facility] NT-proBNP (test code = 6202786752) 214 pg/mL See_Comment H [Automated message] The system which generated this result transmitted reference range: <=125. The reference range was not used to interpret this result as normal/abnormal. RON (test code = RON) Biotin has been reported to cause a negative bias, interpret results relative to patient's use of biotin. Lab Interpretation (test code = 85344-0) Abnormal [facility] SpringsLIPASE2023-01-24 21:26:36* Test Item Value Reference Range Interpretation Comme [facility] LIPASE (test code = 9552061977) 293 U/L 0-220 H Lab Interpretation (test cod e = 00499-3) Abnormal [facility] SpringsACTIVATED PARTIAL THRMPLAS [id number] 21:23:32* Test Item Value Reference Range Interpretation Comme [facility] APTT Patient (test code = 3173-2) See_Comment [Automated message] The system which generated this result transmitted reference range: 23 - 38 Seconds. The reference range was not used to interpret this result as normal/abnormal. RON (test code = RON) The [facility] patient population mean normal value for aPTT is 30 seconds. Lab Interpretation (test code = 03730-4) Normal [facility] SpringsPROTHROMBIN TIME / [id number] 21:21:29* Test Item Value Reference Range Interpretation Comme [facility] PROTIME PATIENT (test code = 5964-2) See_Comment [Automated messa ge] The system which generated this result transmitted reference range: 12.0 - 14.7 Seconds. The reference range was not used to interpret this result as normal/abnormal. INR (test code = 6301-6) Normal INR <1.1; Warfarin Therapeutic range 2.0 to 3.0 or 2.5 to 3.5, depending upon the indications. Lab Interpretation (test code = 97176-3) Normal [facility] WITH [id number] 21:14:52* Test Item Value Reference Range Interpretation Comme nts WBC (test code = 6690-2) See_Comment [Automated messa ge] The system which generated this result transmitted reference range: 4.30 - 11.10 10*3/?L. The reference range was not used to interpret this result as normal/abnormal. RBC (test code = 789-8) See_Comment [Automated messa ge] The system which generated this result transmitted reference range: 3.93 - 5.25 10*6/?L. The reference range was not used to interpret this result as normal/abnormal. HGB (test code = 718-7) 12.5 g/dL 11.6-15.0 HCT (test code = 4544-3) 35.9 % 35.7-45.2 MCV (test code = 787-2) 85.5 fL 80.6-95.5 MCH (test code = 785-6) 29.8 pg 25.9-32.8 MCHC (test code = 786-4) 34.8 g/dL 31.6-35.1 RDW-SD (test code = 59516-2) 39.1 fL 39.0-49.9 RDW-CV (test code = 788-0) 12.7 % 12.0-15.5 PLT (test code = 777-3) See_Comment L [Automated messa ge] The system which generated this result transmitted reference range: 166 - 358 10*3/?L. The reference range was not used to interpret this result as normal/abnormal. MPV (test code = 32705-0) 9.6 fL 9.5-12.9 NRBC/100 WBC (test code = 7217012321) See_Comment [Automated me ssage] The system which generated this result transmitted reference range: 0.0 - 10.0 /100 WBCs. The reference range was not used to interpret this result as normal/abnormal. NRBC x10^3 (test code = 0080123505) See_Comment [Automated messa ge] The system which generated this result transmitted reference range: 10*3/?L. The reference range was not used to interpret this result as normal/abnormal. GRAN MAT (NEUT) % (test code = 770-8) 62.6 % IMM GRAN % (test code = 3363973731) 0.80 % LYMPH % (test code = 736-9) 24.2 % MONO % (test code = 5905-5) 10.4 % EOS % (test code = 713-8) 1.8 % BASO % (test code = 706-2) 0.2 % GRAN MAT x10^3(ANC) (test code = 0126385034) 3.86 10*3/uL 1.88-7.09 IMM GRAN x10^3 (test code = 0765753571) 0.05 10*3/uL 0.00-0.06 LYMPH x10^3 (test code = 731-0) 1.49 10*3/uL 1.32-3.29 MONO x10^3 (test code = 742-7) 0.64 10*3/uL 0.33-0.92 EOS x10^3 (test code = 711-2) 0.11 10*3/uL 0.03-0.39 BASO x10^3 (test code = 704-7) 0.01-0.07 Lab Interpretation (test code = 45142-3) Abnormal [facility]PO[facility] GLU[facility]SE (AUTOMATED)2022-10-24 20:55:30* Test Item Value Reference Range Interpretation Comme [facility] POCT GLU (test code = 3173087907) 553 mg/dL 70-110 HH Lab Interpretation (test cod e = 22969-1) Abnormal [facility] SpringsGLUCOMETER GLUCOSE- LAB USE [id number] 07:19:00* Test Item Value Reference Range Interpretation Comme [facility] GLUCOMETER (test code = GMG) 143 mg/dL 70-100 H Meter ID: [id number]: [id number] [place] ENGLISH SPINE, CERVICAL, 1 [id number] 19:54:00 *.*.*.*.*.*.*.*.*.*.*.*.*.*FINAL*.*.*.*.*.*.*.*.*.*.*.*.*.*.*SPINE, CERVICAL, 1 VIEW- Comparison: None available History: Anterior Cervical fusion Findings: Intraoperative lateral cervical film demonstrating ACDF (plate and screws)changes at C5-C6 with intervertebral spacer. I, Dr. Manjinder Shrestha have personally reviewed the images and agree withthe resident's interpretation and all modifications listed above.PERICO RICHTER MD ?Personally interpreted by: MANJINDER SHRESTHA MD /Signed/ MANJINDER SHRESTHA MDUnMemorial Hermann Surgical Hospital KingwoodSPINE, CERVICAL, 1 [id number] 19:53:00 *.*.*.*.*.*.*.*.*.*.*.*.*.*FINAL*.*.*.*.*.*.*.*.*.*.*.*.*.*.*SPINE, CERVICAL, 1 VIEW- Comparison: 01/15/2013 History: Anterior Cervical fusion Findings: Intraoperative single lateral film of the cervical spine withintraoperative marker at the C5-C6 intervertebral disc space. I, Dr. Manjinder Shrestha have personally reviewed the images and agree withthe resident's interpretation and all modificationslisted above.PERICO RICHTER MD ?Personally interpreted by: MANJINDER SHRESTHA MD /Signed/ MANJINDER SHRESTHA MDUnMemorial Hermann Surgical Hospital Kingwood History and Physical Notes Date/Time Note Provider Source 2024-08-11 09:00:00 New Medication Hypomagnesemia - Magnesium 250 mg Tab; Take 1 tablet by mouth in the morning. Dispense: 30 tablet; Refill: 5 [facility] Notes Date/Time Note Provider Source 2024-11-10 14:09:26 Images from the original note were not included. Requested Renewals tirzepatide (MOUNJARO) 5 mg/0.5 mL subcutaneous injection pem Sig: inject 5 mg under the skin weekly. Disp: 2 mL Refills: 5 Start: 11/10/2024 Class: eRX Non-formulary For: Type 2 diabetes mellitus with other specified complication, with long-term current use of insulin Last ordered: 7 months ago (04/02/2024) by Amina Mansfield MD Last dispensed: 10/13/2024 Rx #: [id number] Off-Protocol Raukeu1011/10/2024 02:07 PM Protocol Details Medication not assigned to a protocol, forward to provider. Valid encounter within last 12 months To be filled at: [facility] - [address] [facility] 04-02-2024 NOV N/A RVATIONS AGENT [facility] 2024-10-27 14:50:30 Images from the original note were not included. Spoke with pt and informed her of provider's note. General review of labs completed with patient. Lab apt made. Gaudencio Chapin MD Ackley, Shannon K, RN Mild liver inflammation on last labs. I see that her insurance does not cover [facility]. Inform her to have LFT's rechecked. RVATIONS AGENT Chante Jacobs RN [facility] 2024-10-20 10:18:47 Images from the original note were not included. Requested Renewals Name from pharmacy: DOXEPIN 10 MG CAPSULE Will file in chart as: DOXEPIN 10 mg capsule Sig: Take 1 capsule by mouth at bedtime. Original sig: TAKE 1 CAPSULE BY MOUTH AT BEDTIME Disp: 90 capsule Refills: 1 (Pharmacy requested: Not specified) Start: 10/20/2024 Class: eRX Non-formulary For: Severe major depression; Primary insomnia; Anxiety, generalized Last ordered: 6 months ago (04/02/2024) by Amina Mansfield MD Last refill: 07/09/2024 Rx #: [id number] Psychiatry: Antidepressants - Heterocyclics (TCAs) Enonka8310/20/2024 10:18 AM Protocol Details Manual Review: Verify no changes in dose in the last 3 months Valid encounter within last 12 months To be filled at: [facility] [id number] GREGORIO HURT Kelsie [place] [address] [facility]AR[place] 04-02-2024 NOV N/A RVATIONS AGENT [facility] 2024-10-07 14:44:30 Informed [facility] is out of network. Pt instructed to contact insurance company to determine a packer denture or liver transplant program that does accept her insurance. Then informed her to contact that office and let them know she is needing to transfer care due to program closure and insurance change. Also informed will be able to send medical records when she has secured another provider. She v/u E Jacobs RN [facility] 2024-10-07 12:13:46 Per TC, pt is needing to have a fu apt. Spoke with pt and apt made for labs prior to provider. Pt states she has new insurance and wanted to make sure provider is covered. [employer] Under self ID#: [id number] Informed pt information would be given to [facility] to determine if in network and would inform her. She v/u. RVATIONS AGENT Chante Jacobs RN [facility] 2024-09-22 15:26:06 PT D/C home. GCS15, VS stable. Given D/C paperwork. Pt ambulatory at time of discharge. Pt educated on med usage, follow up care, s/s worsening condition, need for hydration. Pt verbalized understanding. Pt ambulated from ED in NAD. Prescriptions sent to pt pharmacy. Pt states she take HTN medications and has f/u appt with her MD. RVATIONS AGENT Abigail Hernandez RN [facility] 2024-09-22 13:16:00 Stated having chest pain for about two weeks and and got worse yesterday and last night. States she thinks it can be acid reflux. Has some right side cheek tingling that also started last night. RVATIONS AGENT Elizabeth Elder RN [facility] 2024-09-22 09:45:00 Images from the original note were not included. Venipuncture collection performed by clean technique on the left anticubitus. Total of 1 attempts were made. Slight pressure and a bandage/dressing were applied to the site(s). The patient experienced no complications. The following specimens were processed according to instructions and sent to [facility] laboratories per lab order LT BLUE 1 SST 1 RED LAV 2 PPT DK GREEN (LiHep) DK GREEN (SodH) SCANLON DK BLUE (K2) DK BLUE (S) ACD Blood Culture NIPT/NTD [facility] 2024-09-03 16:28:19 Images from the original note were not included. RVATIONS AGENT Jazmin Linton [facility] 2024-08-11 09:00:00 Images from the original note were not included. Venipuncture collection performed by clean technique on the left anticubitus. Total of 1 attempts were made. Slight pressure and a bandage/dressing were applied to the site(s). The patient experienced no complications. The following specimens were processed according to instructions and sent to [facility] laboratories per lab order on 08/11/2024: LT BLUE 1 SST 1 RED LAV 2 PPT DK GREEN (LiHep) DK GREEN (SodH) SCANLON DK BLUE (K2) DK BLUE (S) ACD Blood Culture NIPT/NTD Patient has been identified by and name and was provided with cup, antiseptic towelette, and clean catch instructions. 1 urine specimen(s) sent. Unpreserved 1 Urine Culture Aptima tube Other urine [facility] Zee Berry [facility] 2024-08-11 09:00:00 Hi, I reviewed your lab and noted as follows: - A1c at goal of 7.0% and below. Currently 7.2% >> 6.1% - CHOL slightly elevated 206 >> 237 - Low Magnesium 1.3 with abnormal BMP, will monitor liver and kidney functions Avoid alcohol, acetaminophen, and Hepatoxic agents. Continue with lifestyle and diet modification: lean meat, low fat, vegetables, nuts, low carb, increased fruits and exercise as tolerated. Maintain good hydration at least 2L daily. Avoid highly processed meals. I will discuss your lab results in detail at follow-up visit. Complete all future labs prior to next appointment. Sincerely, Amina Mansfield MD, MPH [employer] Labor Relations Analyst, Department of Family Medicine [facility] 08/17/2024 6:22 PM [facility] 2024-08-11 09:00:00 Addended by: AMINA MANSFIELD on: 08/17/2024 06:34 PM Modules accepted: Orders [facility] 2024-08-05 17:04:24 Patient to repeat future labs. Will discuss medications and complete reconciliation with need for statin at next visit. [facility] 2024-08-05 15:25:04 Images from the original note were not included. Pt has f/u appt on 09/30/2024, Form placed in providers folder for review. Insurance requesting for statin to be added to pts medication regimen. Last Lipid panel - 03/21/2023 Component Latest Ref Rng 03/21/2023 9:22 AM CHOL 120 - 200 mg/dL 206 (H) HDL CHOL >50 mg/dL 78 HDLC RATIO <=4.5 2.6 TRIG 30 - 170 mg/dL 144 LDL CHOL <=160 mg/dL 99 VLDL 5 - 60 mg/dL 29 Legend: (H) High A1c - 7.7 compared to 7.7 12/29/22 and CHOL High. Will consider medication adjustments in next visit. Recommend diet and exercise modification in addition to current medication. To consider statin with hx of DM with goal LDL of <70mg/dl . Currently 99. Written by Coleman Mcdonald MD on 04/11/2023 1:43 PM CDT Seen by patient Tony Varner on 09/12/2023 10:57 AM RVATIONS AGENT Mariangel Munoz RN [facility] 2024-08-05 14:57:28 Images from the original note were not included. E Reardon [facility] 2024-06-09 14:39:44 Images from the original note were not included. . Notes: Name from pharmacy: FUROSEMIDE 20 MG TABLET Will file in chart as: FUROSEMIDE 20 mg tablet Sig: TAKE ONE TABLET BY MOUTH EVERY MORNING Disp: 90 tablet Refills: 1 (Pharmacy requested: Not specified) Start: 06/09/2024 Class: eRX Last ordered: 1 year ago (03/21/2023) by Amina Mansfield MD Last refill: 06/17/2023 Rx #: [id number] Cardiovascular: Loop Diuretics [id number]/09/2024 02:17 PM Protocol Details Valid encounter within last 12 months K in normal range and within 180 days Cr in normal range and within 180 days To be filled at: [facility] [id number] - [place] [address] Last Refilled: 06/17/2023 Recent Visits Date Type Provider Dept 04/02/24 Office Visit Amina Manfsield MD [facility] 04/02/24 Office Visit Amina Mansfield MD [facility] 06/26/23 Office Visit Amina Mansfield MD [facility] 03/21/23 Office Visit Amina Mansfield MD [facility] 01/09/23 Office Visit Lesley Ricci NP [facility] Showing recent visits within past 540 days with a meds authorizing provider and meeting all other requirements Future Appointments Date Type Provider Dept 07/04/24 Appointment Amina Mansfield MD [facility] Showing future appointments within next 150 days with a meds authorizing provider and meeting all other requirements Sho Santamaria MA [facility] 2024-06-06 14:36:55 LVM informing pt appointment with Dr. Chapin was scheduled at the wrong location. Apt cancelled and rescheduled to correct location. Informed needing to get labs prior to apt. Standing orders placed. MC message sent. [facility] 2024-04-22 10:01:35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
--- NOTE | 2024-12-12 11:30 | RAD REPORT ---
EXAMINATION: ONE VIEW CHEST XR CLINICAL INDICATION: dizziness, left arm pain TECHNIQUE: Frontal chest projection is submitted. Examination is limited by patient positioning and t echnique. COMPARISON: 07/30/2018 FINDINGS: The lungs are well inflated and clear. The heart is upper limit of normal in size. No displaced fract ures identified. Cervical hardware plate. IMPRESSION: No acute intrathoracic abnormalities.
[2024-12-12 11:53] LABS: ALT/SGPT 26 U/L (13-56); Albumin 3.3 g/dL (3.4-5.0); Albumin/Globulin Ratio 0.8 (1.1-1.8); Alkaline Phosphatase 64 U/L (45-117); Anion Gap 6.2 mEq/L (5.0-15.0); BUN Blood Urea Nitrogen 17 mg/dL (7-18); Bicarbonate 27 mEq/L (21-32); Bilirubin Total 0.7 mg/dL (0.2-1.0); Globulin 4.1 g/dL (2.3-3.5); Glomerular Filtration Rate 53 ml/min (=/>90); Glucose Level 134 mg/dL (74-106); Lipase 33 U/L (13-75); NT PRO-BNP 80 pg/mL (<125); Potassium 5.2 mEq/L (3.5-5.1); Protein, Total 7.4 g/dL (6.4-8.2); Sodium Level 132 mEq/L (136-145); Troponin High Sensitivity 3.3 pg/mL (<58.9)
[2024-12-12 11:54] LABS: AST/SGOT 46 U/L (15-37); Bilirubin Direct < 0.2 mg/dL (0-0.2); Bilirubin Indirect, Calculated 0.5 mg/dL (0.2-0.8)
--- NOTE | 2024-12-12 12:12 | RAD REPORT ---
EXAMINATION: US LEFT UPPER EXTREMITY VENOUS DOPPLER CLINICAL INDICATION: PAIN TECHNIQUE: Complete bilateral duplex sonography of the LEFT upper extremity veins was performed. The examination included compression for vein patency, color Doppler imaging and flow augmentation in response to distal compression of the internal jugular, brachiocephalic, subclavian, axillary, brachi al, radial, ulnar, cephalic and basilic veins. COMPARISON: No prior exam. FINDINGS: Duplex sonography testing of the veins of the LEFT upper extremity was performed. Color flow imaging shows all veins to be compressible with [id number] color filling. Pulsatile and phasic flow is present within all upper extremity deep and superficial veins examined. IMPRESSION: There is no deep vein or superficial vein thrombosis.
[2024-12-12 12:21] LABS: Absolute Eosinophils 0.2 K/uL (0-0.5); Absolute Lymphocytes (CBC) 1.9 K/uL (0.7-4.9); Absolute Monocytes 0.6 K/uL (0.1-1.3); Absolute Neutrophil 2.2 K/uL (1.8-8.0); Basophils % 0.8 % (0-1.3); Eosinophils % 4.2 % (0-4.4); Hematocrit 38.1 % (36.0-45.0); Hemoglobin 13.2 g/dL (12.0-15.0); Lymphocytes % 39.1 % (15.3-44.8); MCH 30.3 pg (27.0-35.0); MCHC 34.7 g/dL (32.0-36.0); MCV 87.2 fL (80-100); Monocytes % 11.2 % (3.3-12.3); Neutrophils % 44.7 % (41.7-73.7); Nucleated Red Blood Cells % 0.1 % (0-0); Platelets 156 thou/uL (152-406); RBC Red Blood Cell Count 4.37 M/uL (3.86-4.86); Red Cell Distribution Width 13.6 % (12.1-15.2)
[2024-12-12 12:22] LABS: Specific Gravity 1.013 (1.005-1.030); Sqamous Epithelial <5 /HPF (None Seen); Urine Bacteria None Seen /HPF (<20); Urine Bilirubin NEGATIVE (Negative); Urine Blood Negative (Negative); Urine Clarity Clear (Clear); Urine Color Light-Yellow (Yellow); Urine Culture Reflex Order NOT NEEDED; Urine Glucose NEGATIVE (Negative); Urine Ketones NEGATIVE (Negative); Urine Microscopic Reflex YN ORDER UMIC; Urine Nitrite NEGATIVE (Negative); Urine Protein NEGATIVE (Negative); Urine RBC <5 /HPF (None Seen); Urine Urobilinogen Normal (Normal); Urine WBC <5 /HPF (<5)
[2024-12-12] MEDS ORDERED: HYDROMORPHONE HCL 1 MG/ML INJ ONE (12:28)
[2024-12-12] MEDS ORDERED: CALCIUM GLUCONATE 1 GM IVPB 1 GM/50 ML BAG IV ONE (12:28)
[2024-12-12 12:30] LABS: Influenza A Ag Negative; Influenza B Ag Negative; SARS-CoV-2 Antigen Rapid Res Negative (Negative)
--- NOTE | 2024-12-12 13:22 | ER ---
Nurse's Notes [facility] Name: Maude Varner Age: 63 yrs Sex: Female : 1960 Arrival Date: 12/12/2024 Time: 10:27 Bed 17 Private MD: Diagnosis: Pain in left arm;Radiculopathy, cervical region Presentation: 12/12 10:47 Chief complaint: Nausea and dizziness x 3 days, sudden left arm pain x 1 hour. hb Coronavirus screen: At this time, the client does not indicate any symptoms associated with coronavirus-19. Ebola Screen: No symptoms or risks identified at this time. Initial Sepsis Screen: Does the patient meet any 2 criteria? No. Patient's initial sepsis screen is negative. Does the patient have a suspected source of infection? No. Patient's initial sepsis screen is negative. Risk Assessment: Do you want to hurt yourself or someone else? Patient reports no desire to harm self or others. Onset of symptoms was December 09, 2024. 10:47 Method Of Arrival: Ambulatory hb 10:47 Acuity: ELVIRA 3 hb Historical: - Allergies: 10:49 Morphine; hb - Home Meds: 10:49 amlodipine 10 mg tab 1 tab BID for Hypertension [Active]; atenolol 50 mg Oral tab 1 tab hb 2 times per day [Active]; metformin 500 mg Oral tr24 1 tab twice a day for Prevention of Type 2 Diabetes Mellitus [Active]; - PMHx: 10:49 Cirrhosis; Diabetes - NIDDM; Hypertension; hb - PSHx: 10:49 Liver Transplant; hb - Immunization history:: Adult Immunizations up to date. - Infectious Disease History:: Denies. - Social history:: Smoking status: Patient denies any tobacco usage or history of. - Family history:: not pertinent. - Hospitalizations: : No recent hospitalization is reported. Screenin:49 [facility] ED Fall Risk Assessment (Adult) History of falling in the last 3 months, me1 including since admission No falls in past 3 months (0 pts) Confusion or Disorientation No (0 pts) Intoxicated or Sedated No (0 pts) Impaired Gait No (0 pts) Mobility Assist Device Used No (0 pt) Altered Elimination No (0 pt) Score/Fall Risk Level 0 - 2 = Low Risk Maintained a safe environment, Provided non-skid footwear, Hourly rounding (assess needs \T\ fall precautionary measures) done. Abuse screen: Denies threats or abuse. Nutritional screening: No deficits noted. Tuberculosis screening: No symptoms or risk factors identified. Assessment: 10:49 General: Appears uncomfortable, well groomed, well developed, well nourished, Behavior me1 is calm, cooperative, appropriate for age, Reports Nausea and dizziness x 3 days, sudden left arm pain x 1 hour. Pain: Complains of pain in left antecubital area Pain does not radiate. Pain currently is 10 out of 10 on a pain scale. Quality of pain is described as sharp, Pain began suddenly, 1 hour ago. Is continuous. Neuro: Level of Consciousness is awake, alert, obeys commands, Oriented to person, place, time, situation, Appropriate for age Reports dizziness. Cardiovascular: Patient's skin is warm and dry. Respiratory: Airway is patent Respiratory effort is even, unlabored, Respiratory pattern is regular, symmetrical. GI: Abdomen is round non-distended, Reports nausea, since 3 days. : No signs and/or symptoms were reported regarding the genitourinary system. EENT: No signs and/or symptoms were reported regarding the EENT system. Derm: Skin is intact, is healthy with good turgor, Skin is pink, warm \T\ dry. Musculoskeletal: Reports pain in left antecubital area. Vital Signs: 10:47 BP 135 / 92; Pulse 76; Resp 16; Temp 97.9; Pulse Ox 100% ; Weight 72.12 kg; Height 5 hb ft. 3 in. ; Pain 10/10; 11:00 BP 175 / 87; Pulse 70; Resp 16; Pulse Ox 100% ; me1 12:00 BP 178 / 86; Pulse 69; Resp 15; Pulse Ox 100% ; me1 13:00 BP 159 / 59; Pulse 69; Resp 15; Temp 98.3; Pulse Ox 100% ; me1 10:47 Body Mass Index 28.17 (72.12 kg, 160.02 cm) hb 10:47 Pain Scale: Adult hb ED Course: 10:30 Patient arrived in ED. mr 10:32 Lexa Sotomayor MD is Attending Physician. rn 10:48 Triage completed. hb 10:49 Brooke Devi, ROMEO is Primary Nurse. me1 10:49 Arm band placed on. hb 10:49 Patient has correct armband on for positive identification. Bed in low position. Call me1 light in reach. Side rails up X2. Provided Education on: POC. Verbalized understanding. Client placed on continuous cardiac and pulse oximetry monitoring. NIBP monitoring applied. roller coaster designer on. Pulse ox on. NIBP on. 10:49 No provider procedures requiring assistance completed. me1 11:27 Basic Metabolic Panel Sent. me1 11:27 CBC with Diff Sent. me1 11:27 LFT's Sent. me1 11:27 NT PRO-BNP Sent. me1 11:27 Troponin HS Sent. me1 11:28 XRAY Chest (1 view) In Process Unspecified. EDMS 11:31 Magnesium Sent. me1 11:31 Lipase Sent. me1 11:31 Inserted saline lock: 22 gauge in right forearm, using aseptic technique. me1 11:31 Initial lab(s) drawn, by pr, sent to lab. me1 11:55 UPPER EXTREMITY VENOUS UNILATE In Process Unspecified. EDMS 12:09 COVID-19 Ag + Flu A+B Ag Sent. me1 12:09 Urinalysis w/ reflexes Sent. me1 12:09 Inserted saline lock: 20 gauge in left antecubital area, using aseptic technique. Blood me1 collected. Flushed with 10 mL NS. 13:27 IV discontinued, intact, bleeding controlled, No redness/swelling at site. Pressure me1 dressing applied. Administered Medications: 12:31 Drug: HYDROmorphone IVP 1 mg IVP once Route: IVP; Site: left antecubital; me1 13:04 Follow up: Response: No adverse reaction; Pain is decreased me1 12:31 Drug: Calcium Gluconate IVPB 1 grams IVPB once over 60 mins; (mix in NS 100 mL) Route: me1 IVPB; Infused Over: 60 mins; Site: left antecubital; 13:26 Follow up: Response: No adverse reaction; IV Status: Completed infusion; IV Intake: [id number] Medication: 10:49 VIS not applicable for this client. me1 Intake: 13:26 IV: 50ml; Total: 50ml. me1 Outcome: 13:22 Discharge ordered by . rn 13:35 Discharged to home ambulatory, with family, me1 13:35 Condition: stable 13:35 Discharge instructions given to patient, family, Instructed on discharge instructions, follow up and referral plans. medication usage, Demonstrated understanding of instructions, follow-up care, medications, Prescriptions given X 1, 13:35 Patient left the ED. me1 Signatures: Dispatcher [employer] ED MoreauAnaid, Yonis Somers SotomayorLexa MD MD rn Baxter, Heather, RN RN Brooke Devi RN RN me1 Corrections: (The following items were deleted from the chart) 10:49 10:47 Chief complaint: Nausea and dizziness x 3 days, sudden left arm pain x 1 hour me1
--- NOTE | 2024-12-12 13:22 | EDPHYS ---
Physician Documentation [facility] Name: Maude Varner Age: 63 yrs Sex: Female : 1960 Arrival Date: 12/12/2024 Time: 10:27 Bed 17 Private MD: ED Physician Lexa Sotomayor HPI: 12/12 12:18 This 63 yrs old Female presents to ER via Ambulatory with complaints of Arm Pain, rn Nausea. 12:18 Patient reports here for left arm pain, started an hour or 2 ago. No trauma or fall. No rn swelling or redness or warmth. Patient reports has been feeling a little sick over the last few days with low-grade fever, nausea, malaise, cramps and muscle aches in all 4 extremities. Patient reports the fever is gone and overall was feeling much better from her illness but started with left arm pain this morning. Came in for evaluation. Has a history of cirrhosis but has had liver transplant. No history of DVT or PE.. Onset: The symptoms/episode began/occurred this morning. Severity of symptoms: At their worst the symptoms were moderate in the emergency department the symptoms are unchanged. The patient has not experienced similar symptoms in the past. The patient has not recently seen a physician. Historical: - Allergies: 10:49 Morphine; hb - Home Meds: 10:49 amlodipine 10 mg tab 1 tab BID for Hypertension [Active]; atenolol 50 mg Oral tab 1 tab hb 2 times per day [Active]; metformin 500 mg Oral tr24 1 tab twice a day for Prevention of Type 2 Diabetes Mellitus [Active]; - PMHx: 10:49 Cirrhosis; Diabetes - NIDDM; Hypertension; hb - PSHx: 10:49 Liver Transplant; hb - Immunization history:: Adult Immunizations up to date. - Infectious Disease History:: Denies. - Social history:: Smoking status: Patient denies any tobacco usage or history of. - Family history:: not pertinent. - Hospitalizations: : No recent hospitalization is reported. ROS: 12:18 Constitutional: Negative for fever, chills, and weight loss, Neck: Negative for injury, rn pain, and swelling, Cardiovascular: Negative for chest pain, palpitations, and edema, Respiratory: Negative for shortness of breath, cough, wheezing, and pleuritic chest pain, Abdomen/GI: Negative for abdominal pain, vomiting, diarrhea, and constipation, MS/Extremity: Positive for left arm pain, positive for cramps in all 4 extremity Skin: Negative for injury, rash, and discoloration, Neuro: Positive for tingling to arms and legs, negative for headache, negative for weakness Exam: 13:18 Constitutional: This is a well developed, well nourished patient who is awake, alert, rn and in no acute distress. Cardiovascular: Regular rate and rhythm. No pulse deficits. Respiratory: No increased work of breathing, no retractions or nasal flaring. Abdomen/GI: Soft, non-tender MS/ Extremity: Pulses equal, no cyanosis. Neurovascular intact. Full, normal range of motion. Equal circumference. No focal tenderness. Points to antecubital and proximal forearm soft tissue when asked where it hurts the most. Neuro: Awake and alert, GCS 15, oriented to person, place, time, and situation. Cranial nerves II-XII grossly intact. Motor strength 5/5 in all extremities. Sensory grossly intact. Cerebellar exam normal. 13:18 ECG was reviewed by the Attending Physician. rn Vital Signs: 10:47 BP 135 / 92; Pulse 76; Resp 16; Temp 97.9; Pulse Ox 100% ; Weight 72.12 kg; Height 5 hb ft. 3 in. ; Pain 10/10; 11:00 BP 175 / 87; Pulse 70; Resp 16; Pulse Ox 100% ; me1 12:00 BP 178 / 86; Pulse 69; Resp 15; Pulse Ox 100% ; me1 13:00 BP 159 / 59; Pulse 69; Resp 15; Temp 98.3; Pulse Ox 100% ; me1 10:47 Body Mass Index 28.17 (72.12 kg, 160.02 cm) hb 10:47 Pain Scale: Adult hb MDM: 10:32 Medical Screening Exam initiated rn 13:18 Differential Diagnosis Radiculopathy, neuropathy, early cellulitis, DVT, radiated pain rn from cardiac etiology. 13:20 Data reviewed: vital signs, nurses notes, lab test result(s), EKG, radiologic studies, rn plain films, ultrasound, and as a result, I will discharge patient. Counseling: I had a detailed discussion with the patient and/or guardian regarding the historical points, exam findings, and any diagnostic results supporting the discharge/admit diagnosis, the presence of at least one elevated blood pressure reading (>120/80) during this emergency department visit, lab results, radiology results, the need for outpatient follow up, to return to the emergency department if symptoms worsen or persist or if there are any questions or concerns that arise at home. Response to treatment: the patient's symptoms have markedly improved after treatment, and as a result, I will discharge patient. Special discussion: I discussed with the patient/guardian in detail that at this point there is no indication for admission to the hospital. It is understood, however, that if the symptoms persist or worsen the patient needs to return immediately for re-evaluation. Based on the history and exam findings, there is no indication for further emergent testing or inpatient evaluation. I discussed with the patient/guardian the need to see the back specialist for further evaluation of the symptoms. I discussed with the patient/guardian the need to see the primary care provider for further evaluation of the symptoms. ED course: No acute findings and workup. EKG normal. Troponin negative. Ultrasound arm negative. No trauma to indicate emergent need for x-ray imaging. Pain is intermittent, comes and electrical fashion with tingling and pain. Most likely radiculopathy or neuropathy given history of chronic neck problems. Patient already on gabapentin. Will add steroids and discharged with back specialist and PCP follow-up. I have personally reviewed all of the results, including but not limited to blood tests and imaging deemed necessary to safely discharge this patient at this time. All results given to and printed out for patient. I personally went over all the results with the patient and answered all questions. Patient will follow-up with PCP and or specialist as discussed. Return precautions given and understood.. 12/12 10:52 Order name: Basic Metabolic Panel; Complete Time: :12/12 10:52 Order name: CBC with Diff; Complete Time: 13:12/12 10:52 Order name: LFT's; Complete Time: 12:12/12 10:52 Order name: NT PRO-BNP; Complete Time: 12:12/12 10:52 Order name: Troponin HS; Complete Time: :12/12 10:53 Order name: Lipase; Complete Time: 12:12/12 10:53 Order name: Urinalysis w/ reflexes; Complete Time: :12/12 11:07 Order name: COVID-19 Ag + Flu A+B Ag; Complete Time: 13:06 rn 12/12 10:52 Order name: XRAY Chest (1 view); Complete Time: 12: rn 12/12 11:11 Order name: UPPER EXTREMITY VENOUS UNILATE; Complete Time: 12:13 EDMS 12/12 10:52 Order name: Cardiac monitoring; Complete Time: 11: rn 12/12 10:52 Order name: EKG - Nurse/Tech; Complete Time: 11: rn 12/12 10:52 Order name: IV Saline Lock; Complete Time: 11: rn 12/12 10:52 Order name: Labs collected and sent; Complete Time: : rn 12/12 10:52 Order name: O2 Per Protocol; Complete Time: : rn 12/12 10:52 Order name: O2 Sat Monitoring; Complete Time: : rn 12/12 11:37 Order name: Misc. Order: Recollect - [place]; Complete Time: 12:09 ty EC:18 Rate is 70 beats/min. Rhythm is regular. QRS [place] is Normal. ND interval is normal. QRS rn interval is normal. QT interval is normal. No Q waves. T waves are Normal. No ST changes noted. Clinical impression: Normal ECG. Interpreted by me. Reviewed by me. Administered Medications: 12:31 Drug: HYDROmorphone IVP 1 mg IVP once Route: IVP; Site: left antecubital; me1 13:04 Follow up: Response: No adverse reaction; Pain is decreased me1 12:31 Drug: Calcium Gluconate IVPB 1 grams IVPB once over 60 mins; (mix in NS 100 mL) Route: me1 IVPB; Infused Over: 60 mins; Site: left antecubital; 13:26 Follow up: Response: No adverse reaction; IV Status: Completed infusion; IV Intake: [id number] Disposition Summary: 12/12/24 13:22 Discharge Ordered Notes: Location: Home rn Problem: new rn Symptoms: have improved rn Condition: Stable rn Diagnosis - Pain in left arm rn - Radiculopathy, cervical region rn Followup: rn - With: Private Physician - When: As needed - Reason: Recheck today's complaints, Re-evaluation by your physician Discharge Instructions: - Discharge Summary Sheet rn - Cervical Radiculopathy rn - Musculoskeletal Pain rn Forms: - Medication Reconciliation Form rn - Antibiotic assistant district attorney - Prescription Opioid Use rn - Patient Portal Instructions rn - Leadership Thank You Letter rn Prescriptions: - Medrol (Dany) 4 mg Oral Tablets, Dose Pack - take 1 tablet ORAL route as directed - follow package instructions; 1 packet; rn Refills: 0, Product Selection Permitted Signatures: Dispatcher [employer] EDMS Lexa Sotomayor MD MD rn Baxter, Heather RN RN Brooke Devi RN RN me1 Stephen Menjivar ty Corrections: (The following items were deleted from the chart) 11:10 11:07 Extremity Venous [email or web address] ordered. EDME EDMS
[2024-12-12 14:02] VITALS: O2SAT 100
[2024-12-12 14:05] VITALS: BP 159/59; TEMP 98.3
== END 2024-12-12 13:35 | disposition home or self-care (01) ==
LOC: ER 10:27
DX: M54.12 Radiculopathy, cervical region (principal); R11.0 Nausea; E11.9 Type 2 diabetes mellitus without complications; I10 Essential (primary) hypertension; Z94.4 Liver transplant status; Z11.52 Encounter for screening for COVID-19
CPT/HCPCS: 96365; 85025; 81001; 80048; 36415; 80076; 84484; 83690; 83880; 71045; 93971; 96375; 99285; 87428; J0612; J1171; 93005